=== PATIENT | female | born 1930 | race African-American/Black ===

== ENCOUNTER 2016-11-17 11:21 | Inpatient (IN) | payer MEDICARE, MEDICAID ==
[~2016-11-17] VITALS: Ht 165.1 cm; Wt 72.6 kg
[~2016-11-17 11:21] MED LIST: COLACE100 MG/10 GT; COSOPT1 DRO2 BOTH EYES; CRANBERRY425 MG GT; FERROUS SU220 MG/51 GT; LATANOPROST2.5 ML BOTH EYES; LEVAQUIN500 MG ORAL; MILK OF MA400 MG/51 GT; MULTIVITAMINS1 EAC8 GT; PANTOPRAZOLE SO40 MG GT; SIMVASTATIN20 MG GT; TENORMIN25 MG ORAL; TYLENOL650 MG/20. GT; VITAMIN C250 MG GT; VITAMIN C500 MG/11 GT; ZINC SULFATE220 M1 ORAL
[2016-11-17 11:50] VITALS: BP 129/89
[2016-11-17 12:48] LABS: BASOPHILS % (AUTO) 1.2 % (0.0-2.0); EOSINOPHILS % (AUTO) 2.1 % (0.0-3.0); LYMPHOCYTES % (AUTO) 25.2 % (20.0-45.0); MEAN CORPUSCULAR HEMOGLOBIN 26.5 PG (27.0-31.0); MEAN CORPUSCULAR HGB CONC 31.9 G/DL (32.0-36.0); MEAN CORPUSCULAR VOLUME 83 FL (80-99); MEAN PLATELET VOLUME 5.5 FL (6.5-10.1); MONOCYTES % (AUTO) 7.7 % (1.0-10.0); NEUTROPHILS % (AUTO) 63.8 % (45.0-75.0); PLATELET COUNT 325 K/UL (150-450); RED BLOOD COUNT 4.27 M/UL (4.20-5.40); RED CELL DISTRIBUTION WIDTH 17.8 % (11.6-14.8); WHITE BLOOD COUNT 5.5 K/UL (4.8-10.8)
[2016-11-17] MEDS ORDERED: ALBUTEROL2.5 MG/3 M INH (12:52)
--- NOTE | 2016-11-17 13:08 | Emergency Room Report ---
History of Present Illness General Chief Complaint: General Complaint Source: Medical Record Present Illness HPI 86 YOF sent from SNF by PMD Dr Vidales for ?osteomyelitis of right big toe/ foot. Patient recently completed course of Abx for ?cellulitis/abscess of foot. SNF denies fever/chills. Patient is trach/vented, not providing additional info at this time. Allergies: Coded Allergies: No Known Allergies (Unverified , 05/31/12) Patient History Past Medical History: HTN, COPD Past Surgical History: other - Trach/PEG Pertinent Family History: none Social History: Denies: alcohol use, drug use, smoking Now: No Immunizations: UTD Reviewed Nursing Documentation: PMH: Agreed, PSxH: Agreed Nursing Documentation-PMH Hx Cardiac Problems: Yes Hx Hypertension: Yes Hx COPD: Yes - respiratory failure. vent dependant Hx Cancer: No Hx Gastrointestinal Problems: Yes Hx Neurological Problems: Yes Hx Dementia: Yes Hx Weakness: Yes Review of Systems All Other Systems: limited - Aphasic Physical Exam Vital Signs Date Time Temp Pulse Resp B/P Pulse Ox O2 Delivery O2 Flow Rate FiO2 11/17/16 11:38 98.4 104 18 120/79 100 11/17/16 11:50 Mechanical Ventilator [id number] EP Interpretation: reviewed, normal General Appearance: normal inspection, well appearing, no apparent distress, alert, GCS 15, non-toxic, obese, Chronically Ill Head: normocephalic, atraumatic Eyes: bilateral eye EOMI, bilateral eye PERRL ENT: normal ENT inspection, normal pharynx, no angioedema Neck: normal inspection, full range of motion, supple, no bony tend Respiratory: normal inspection, lungs clear, normal breath sounds, no respiratory distress, no retraction, no wheezing, other - Trach in place. 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 There is some necrotic hard tissue of big toe, No obvious fluid collection. No erythema or streaking. Medical Decision Making Diagnostic Impression: Primary Impression: wound ER Course 86 YOF with chronic wound right big toe. VSS. Afebrie. No obvious sign of infection No sepsis or systemic illness Empiric tx with Unasyn/Vanc for ?osteo Xray:Pending official Rad review Labs: No leuks Endorsed to Dr Vidales at 108pm for med surg admission Blood Cx pending EKG Diagnostic Results Rate: normal Rhythm: NSR ST Segments: no acute changes ASA given to the pt in ED: No Rhythm Strip Diag. Results EP Interpretation: yes Rate: 100 Rhythm: NSR, no PVC's, no ectopy Last Vital Signs Date Time Temp Pulse Resp B/P Pulse Ox O2 Delivery O2 Flow Rate FiO2 11/17/16 11:50 98.2 99 30 129/89 100 Mechanical Ventilator Status: improved Disposition: ADMITTED INPATIENT Condition: Serious Referrals: JAYLEN VIDALES (PCP) KATHLEEN BARRETO M.D. Nov 17, 2016 13:08
[2016-11-17 13:19] LABS: ALANINE AMINOTRANSFERASE 35 U/L (3-33); ALBUMIN/GLOBULIN RATIO 0.4 (1.0-2.7); ANION GAP 15 (5-15); ASPARTATE AMINO TRANSFERASE 34 U/L (5-40); CALCIUM 9.4 mg/dL (8.6-10.2); CARBON DIOXIDE 23 mEQ/L (20-30); CHLORIDE 94 mEQ/L (98-107); CREATININE 0.9 mg/dL (0.5-0.9); HEMOLYSIS 3; POTASSIUM 4.5 mEQ/L (3.4-4.9); SODIUM 132 mEQ/L (135-145); TOTAL PROTEIN 8.8 g/dL (6.6-8.7)
[2016-11-17 13:29] LABS: CKMB < 1.5 ng/mL (< 3.8)
[2016-11-17] MEDS ORDERED: Ampicillin/Sulbactam Sod 1.5 GM in NS 55 ML IVPB STA (13:32)
[2016-11-17] MEDS ORDERED: Vancomycin 1 GM in NS 275 ML IVPB ONE (13:45)
[2016-11-17] MEDS ORDERED: Vancomycin 1gm inj IVPB ONE (13:56)
[2016-11-17] MEDS ORDERED: Unasyn 1.5gm Vial ONE (13:57)
[2016-11-17 14:00] VITALS: BP 111/75
--- NOTE | 2016-11-17 14:05 | Diagnostic Imaging Report ---
Indication: PAIN Technique: 2 views right foot Comparison: none Findings: Exam is limited due to the availability of only 2 views. Bones are severely demineralized. No acute fractures. No dislocations. There is hammertoe deformity of the second through fifth digits. Joint spaces are preserved. No definite osseous erosions, but generalized demineralization makes osteolytic process impossible to confidently exclude. Impression: Very limited exam. No definite acute bony trauma No definite findings to suggest acute osteomyelitis. Note, however, limited sensitivity of plain films for such. Consider bone scan or MRI for further evaluation if there is high clinical suspicion
[2016-11-17 16:04] VITALS: BP 99/66
[2016-11-17 17:00] VITALS: BP 138/94
[2016-11-17] MEDS ORDERED: Morphine Sulfate 4mg/ml Inj IVP PRN (17:45)
[2016-11-17] MEDS ORDERED: Miralax 17gm pkt ORAL PRN (17:45)
[2016-11-17] MEDS ORDERED: DuoNeb 0.5-3(2.5)mg/3ml neb HHN PRN (17:45)
[2016-11-17] MEDS ORDERED: LORazepam Inj 2mg/ml 1ml IV PRN (17:45)
--- NOTE | 2016-11-17 17:48 | History and Physical ---
History of Present Illness General Date patient seen: Nov 17, 2016 Reason for Hospitalization: General Complaint Present Illness HPI 86 year old female with hx of Chronic trach/vent, PEG sent from SNF for evaluaiton of non healing wound of the right big toe/foot. XR in nursing showed that she might have osteomyelitis. Patient can't give any history and all information is taken from the chart. Allergies: Coded Allergies: No Known Allergies (Unverified , 05/31/12) Medication History Scheduled Ascorbic Acid* (Vitamin C*), 5 MG GT DAILY, (Reported) Atenolol (Tenormin), 25 MG ORAL DAILY, (Reported) Docusate Sodium (Docusate Sodium), 50 MG GT DAILY, (Reported) Ferrous Sulfate (Ferrous Sulfate), 330 MG GT DAILY, (Reported) Latanoprost* (Xalatan*), 1 DROP BOTH EYES BEDTIME, (Reported) Levofloxacin* (Levaquin*), 500 MG ORAL DAILY, (Reported) Multivitamin With Minerals (Multivitamins With Minerals*), 1 TAB GT DAILY, ( Reported) Pantoprazole* (Pantoprazole*), 40 MG GT EVERY 12 HOURS, (Reported) Simvastatin (Zocor), 20 MG GT BEDTIME, (Reported) Vit C/Ascorbate Ca/Ascorb Sod (Vitamin C 500 Mg/15 Ml Liquid), 500 MG GT DAILY, (Reported) Zinc Sulfate (Zinc Sulfate*), 220 MG ORAL DAILY, (Reported) Scheduled PRN Acetaminophen (Acetaminophen), 325 MG GT Q6H PRN for Prn Headache/Temp > 101, ( Reported) Albuterol Sulfate* (Albuterol Sulfate Hhn*), 3 ML INH Q6H PRN for Shortness of Breath, (Reported) Magnesium Hydroxide* (Milk Of Magnesia*), 30 ML GT Q6HR PRN for Constipation, ( Reported) Miscellaneous Medications Cranberry Extract (Cranberry), 425 MG GT, (Reported) Dorzolamide HCl/Timolol Maleat (Dorzolamide-Timolol Eye Drops), 1 DROP BOTH EYES , (Reported) Patient History Healthcare decision maker Resuscitation status Full Code Advanced Directive on File Past Medical/Surgical History Past Medical/Surgical History: (1) Status post tracheostomy (2) [facility] resident (3) COPD (chronic obstructive pulmonary disease) (4) Attention to G-tube (5) Anemia (6) Dementia Review of Systems All Other Systems: negative except mentioned in HPI Physical Exam General Appearance: WD/WN Lines, tubes and drains: peripheral, central line, trach HEENT: normocephalic, atraumatic Neck: non-tender, normal alignment Respiratory/Chest: chest wall non-tender, lungs clear Cardiovascular/Chest: normal peripheral pulses, normal rate Abdomen: normal bowel sounds, non tender Genitourinary/Rectal: normal genital exam Last 24 Hour Vital Signs Date Time Temp Pulse Resp B/P Pulse Ox O2 Delivery O2 Flow Rate FiO2 11/17/16 16:46 90 16 30 11/17/16 16:04 98.2 98 15 99/66 98 Mechanical Ventilator 30 11/17/16 16:04 98.2 98 15 99/66 98 Mechanical Ventilator 30 11/17/16 15:01 92 16 30 11/17/16 14:00 98.3 94 16 111/75 100 Mechanical Ventilator 30 11/17/16 13:45 93 16 30 11/17/16 11:50 96 16 Mechanical Ventilator 30 11/17/16 11:50 98.2 99 30 129/89 100 Mechanical Ventilator 11/17/16 11:50 91 16 30 11/17/16 11:38 98.4 104 18 120/79 100 Laboratory Tests Test 11/17/16 12:40 White Blood Count 5.5 K/UL (4.8-10.8) Red Blood Count 4.27 M/UL (4.20-5.40) Hemoglobin 11.3 G/DL (12.0-16.0) L Hematocrit 35.4 % (37.0-47.0) L Mean Corpuscular Volume 83 FL (80-99) Mean Corpuscular Hemoglobin 26.5 PG (27.0-31.0) L Mean Corpuscular Hemoglobin Concent 31.9 G/DL (32.0-36.0) L Red Cell Distribution Width 17.8 % (11.6-14.8) H Platelet Count 325 K/UL (150-450) Mean Platelet Volume 5.5 FL (6.5-10.1) L Neutrophils (%) (Auto) 63.8 % (45.0-75.0) Lymphocytes (%) (Auto) 25.2 % (20.0-45.0) Monocytes (%) (Auto) 7.7 % (1.0-10.0) Eosinophils (%) (Auto) 2.1 % (0.0-3.0) Basophils (%) (Auto) 1.2 % (0.0-2.0) Sodium Level 132 mEQ/L (135-145) L Potassium Level 4.5 mEQ/L (3.4-4.9) Chloride Level 94 mEQ/L (98-107) L Carbon Dioxide Level 23 mEQ/L (20-30) Anion Gap 15 (5-15) Blood Urea Nitrogen 35 mg/dL (7-23) H Creatinine 0.9 mg/dL (0.5-0.9) Estimat Glomerular Filtration Rate mL/min (>60) Glucose Level 112 mg/dL (74-106) H Calcium Level 9.4 mg/dL (8.6-10.2) Total Bilirubin 0.5 mg/dL (0.0-1.2) Aspartate Amino Transf (AST/SGOT) 34 U/L (5-40) Alanine Aminotransferase (ALT/SGPT) 35 U/L (3-33) H Alkaline Phosphatase 97 U/L (35-104) Creatine Kinase MB < 1.5 ng/mL (< 3.8) Total Protein 8.8 g/dL (6.6-8.7) H Albumin 2.7 g/dL (3.5-5.2) L Globulin 6.1 g/dL Albumin/Globulin Ratio 0.4 (1.0-2.7) L Height (Feet): 5 Height (Inches): 5.00 Weight (Pounds): 160 Assessment/Plan Problem List: (1) Chronic respiratory failure ICD Codes: J96.10 - Chronic respiratory failure, unspecified whether with hypoxia or hypercapnia SNOMED: 76124939 Qualifiers: Qualified Codes: J96.10 - Chronic respiratory failure, unspecified whether with hypoxia or hypercapnia (2) Wound abscess ICD Codes: T81.4XXA - Wound abscess SNOMED: 574849520 Qualifiers: Qualified Codes: T81.4XXA - Infection following a procedure, initial encounter (3) COPD (chronic obstructive pulmonary disease) ICD Codes: J44.9 - Chronic obstructive pulmonary disease, unspecified SNOMED: 53260173 Qualifiers: Qualified Codes: J44.9 - Chronic obstructive pulmonary disease, unspecified (4) Attention to G-tube ICD Codes: Z43.1 - Encounter for attention to gastrostomy SNOMED: 480251706, 167781965 (5) Sepsis ICD Codes: A41.9 - Sepsis, unspecified organism SNOMED: 91443677 (6) Status post tracheostomy ICD Codes: Z93.0 - Tracheostomy status SNOMED: 77393869, 249386823 (7) [facility] resident ICD Codes: Z59.3 - Problems related to living in residential institution SNOMED: 703341890 Respiratory: monitor respiratory rate, adjust FIO2 Cardiac: continue to monitor HR/BP Renal: F/U I&O, keep IV fluid, check electrolytes Infectious Disease: check cultures, continue antibiotics, other - podiatry evaluaiton Gastrointestinal: continue feedings/current rate Endocrine: monitor blood sugar, check TSH Hematologic: monitor H/H Neurologic: PRN Ativan Affect: PRN ativan Prophylaxis: Protonix, Heparin Notes Reviewed: ID Discussed with: nurses, consultants, nurse case manager JAYLEN ANNE Nov 17, 2016 17:48
[2016-11-17] MEDS: Cefepime HCl 1 GM in D5W 55 ML IVPB SCH (20:35)
[2016-11-17] MEDS: Heparin 5000 units/ml inj SUBQ SCH (20:38)
[2016-11-17 21:31] VITALS: BP 138/94
[2016-11-18] VITALS (7 sets, daily range): BP systolic 110–151; BP diastolic 58–76
[2016-11-18 04:34] LABS: BASOPHILS % (AUTO) 1.2 % (0.0-2.0); EOSINOPHILS % (AUTO) 2.5 % (0.0-3.0); LYMPHOCYTES % (AUTO) 43.2 % (20.0-45.0); MEAN CORPUSCULAR HEMOGLOBIN 27.8 PG (27.0-31.0); MEAN CORPUSCULAR HGB CONC 31.8 G/DL (32.0-36.0); MEAN CORPUSCULAR VOLUME 88 FL (80-99); MEAN PLATELET VOLUME 5.5 FL (6.5-10.1); MONOCYTES % (AUTO) 16.7 % (1.0-10.0); NEUTROPHILS % (AUTO) 36.4 % (45.0-75.0); PLATELET COUNT 293 K/UL (150-450); RED BLOOD COUNT 3.87 M/UL (4.20-5.40); WHITE BLOOD COUNT 6.4 K/UL (4.8-10.8)
[2016-11-18 05:13] LABS: ANION GAP 12 (5-15); CALCIUM 9.3 mg/dL (8.6-10.2); CARBON DIOXIDE 23 mEQ/L (20-30); CHLORIDE 100 mEQ/L (98-107); CREATININE 0.8 mg/dL (0.5-0.9); HEMOLYSIS 0; PHOSPHORUS 3.6 mg/dL (2.5-4.8); POTASSIUM 4.5 mEQ/L (3.4-4.9); SODIUM 135 mEQ/L (135-145)
[2016-11-18] MEDS: Atenolol 25mg tab ORAL SCH (10:01)
[2016-11-18] MEDS: Heparin 5000 units/ml inj SUBQ SCH ×2 (10:05→20:09)
[2016-11-18] MEDS ORDERED: Lidocaine 1% Plain 30 ml INJ ONE (14:00)
[2016-11-18] MEDS ORDERED: Heparin 2000 units/Ns 1000ml INJ ONE (14:00)
--- NOTE | 2016-11-18 14:13 | Consultation ---
Consult Note Consult Note ID CONSULT: Stormy# [id number] Assessment/Plan ASSESSMENT: 86 y/o female with: // Multiple chronic RLE ( hallux, heel, calf ) ulcers, probable osteomyelitis, PVD - WCx pending - XR: Very limited exam. No definite acute bony trauma. 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 Will likely require 6 weeks IV ABX - check ESR, CRP - f/u cultures - f/u doppler, re-vascularization, if indicated - monitor CBC, temperatures - monitor BMP - monitor CXR - vent support, trach care, aspiration precautions - wound care Thanks! Will follow MÓNICA JORDAN Nov 18, 2016 14:13
--- NOTE | 2016-11-18 14:47 | Pulmonology Progress Note ---
Assessment/Plan Problems: (1) Chronic respiratory failure (2) Wound abscess (3) COPD (chronic obstructive pulmonary disease) (4) Attention to G-tube (5) Sepsis (6) Status post tracheostomy (7) [facility] resident Respiratory: monitor respiratory rate, adjust FIO2 Cardiac: continue to monitor HR/BP Renal: F/U I&O, keep IV fluid, check electrolytes Infectious Disease: check cultures, continue antibiotics Gastrointestinal: continue feedings/current rate Endocrine: monitor blood sugar, continue sliding scale insulin Hematologic: monitor H/H, transfuse if hgb<8.5 Neurologic: PRN Ativan, keep patient comfortable Affect: PRN ativan Prophylaxis: Protonix, Heparin Discussed with: nurses, consultants, counseling case manager Subjective ROS Limited/Unobtainable: Yes Allergies: Coded Allergies: No Known Allergies (Unverified , 05/31/12) Objective Last 24 Hour Vital Signs Date Time Temp Pulse Resp B/P Pulse Ox O2 Delivery O2 Flow Rate FiO2 11/18/16 13:20 81 33 30 11/18/16 12:00 30 11/18/16 11:03 86 20 30 11/18/16 10:01 88 113/58 11/18/16 09:02 88 16 30 11/18/16 08:00 97.9 85 16 113/58 99 Mechanical Ventilator 30 11/18/16 08:00 30 11/18/16 08:00 85 11/18/16 07:26 92 15 30 11/18/16 05:20 91 16 30 11/18/16 04:00 30 11/18/16 04:00 98.1 92 19 110/76 99 Mechanical Ventilator 30 11/18/16 03:34 90 11/18/16 03:20 89 18 30 11/18/16 01:05 93 24 30 11/18/16 00:00 30 11/18/16 00:00 98.1 92 19 116/75 100 Mechanical Ventilator 30 11/17/16 23:57 93 11/17/16 23:05 91 28 30 11/17/16 21:24 92 30 30 11/17/16 20:00 30 11/17/16 20:00 87 11/17/16 19:10 95 16 30 11/17/16 17:00 97.7 99 22 138/94 98 Mechanical Ventilator 30 11/17/16 16:46 90 16 30 11/17/16 16:04 98.2 98 15 99/66 98 Mechanical Ventilator 30 11/17/16 16:04 98.2 98 15 99/66 98 Mechanical Ventilator 30 11/17/16 15:01 92 16 30 Intake and Output 11/17/16 11/18/16 19:00 07:00 Intake Total 248 ml 1020 ml Output Total 200 ml Balance 248 ml 820 ml Intake Oral 0 ml Free Water 100 ml IV Total 238 ml 710 ml Tube Feeding 10 ml 210 ml Output Urine Total 200 ml # Bowel Movements 1 General Appearance: WD/WN HEENT: normocephalic, atraumatic Respiratory/Chest: chest wall non-tender, lungs clear Breasts: no masses Cardiovascular: normal peripheral pulses, normal rate Abdomen: normal bowel sounds, soft, non tender Genitourinary: normal external genitalia Extremities: no cyanosis Skin: no rash 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 grossly normal, no motor/sensory deficits Laboratory Tests 11/18/16 03:30: White Blood Count 6.4, Red Blood Count 3.87L, Hemoglobin 10.8L, Hematocrit 33.9L , Mean Corpuscular Volume 88, Mean Corpuscular Hemoglobin 27.8, Mean Corpuscular Hemoglobin Concent 31.8L, Red Cell Distribution Width 18.0H, Platelet Count 293, Mean Platelet Volume 5.5L, Neutrophils (%) (Auto) 36.4L, Lymphocytes (%) (Auto) 43.2, Monocytes (%) (Auto) 16.7H, Eosinophils (%) (Auto) 2.5, Basophils (%) (Auto) 1.2, Sodium Level 135, Potassium Level 4.5, Chloride Level 100, Carbon Dioxide Level 23, Anion Gap 12, Blood Urea Nitrogen 25H, Creatinine 0.8, Estimat Glomerular Filtration Rate , Glucose Level 91, Calcium Level 9.3, Phosphorus Level 3.6, Albumin 2.4L Current Medications Medications (Trade) Dose Ordered Sig/Mora Route PRN Reason Start Time Stop Time Status Last Admin Dose Admin Acetaminophen (Tylenol) 650 mg Q4H PRN ORAL FEVER 11/17/16 17:45 12/17/16 17:44 Albuterol/ Ipratropium 3 ml 3 ml EVERY 4 HOURS PRN HHN Shortness of Breath 11/17/16 17:45 11/22/16 17:44 Ascorbic Acid (Vitamin C) 500 mg TWICE A DAY ORAL 11/18/16 18:00 12/18/16 17:59 Atenolol 25 mg 25 mg DAILY ORAL 11/18/16 09:00 12/18/16 08:59 11/18/16 10:01 Cefepime HCl 1 gm/ Dextrose 55 ml @ 110 mls/hr Q24H IVPB 11/17/16 21:00 11/24/16 20:59 11/17/16 20:35 Dextrose (Dextrose 50%) STAT PRN IV Hypoglycemia 11/17/16 17:45 12/17/16 17:44 Heparin Sodium (Porcine) (Heparin 5000 units/ml) 5,000 units EVERY 12 HOURS SUBQ 11/17/16 21:00 12/17/16 20:59 11/18/16 10:05 Lorazepam (Ativan 2mg/ml 1ml) 2 mg EVERY 2 HOURS PRN IV For Anxiety 11/17/16 17:45 11/24/16 17:44 Morphine Sulfate (Morphine Sulfate) 4 mg EVERY 4 HOURS PRN IVP Severe Pain (Pain Scale 7-10) 11/17/16 17:45 11/24/16 17:44 Ondansetron HCl (Zofran) 4 mg Q6H PRN IVP Nausea & Vomiting 11/17/16 17:45 12/17/16 17:44 Polyethylene Glycol (Miralax) 17 gm DAILYPRN PRN ORAL Constipation 11/17/16 17:45 12/17/16 17:44 Sodium Chloride (0.45% NS 1000ml) 1,000 ml @ 50 mls/hr Q20H IV 11/17/16 21:00 12/17/16 20:59 11/17/16 19:06 Vancomycin HCl (Vanco rx to dose) 1 ea DAILY PRN MISC . 11/17/16 18:45 12/17/16 18:44 Vancomycin HCl/ Dextrose (Vancomycin/D5W) 275 ml @ 183.3 mls/ hr Q24H IVPB 11/18/16 14:00 11/23/16 13:59 JAYLEN ANNE Nov 18, 2016 14:47
[2016-11-18] MEDS: Vancomycin 1 GM in D5W 275 ML IVPB SCH (15:00)
--- NOTE | 2016-11-18 15:00 | Wound Care Consultation ---
Wound Assessment Wound Assessment #1: Wound Number: #1 Wound Present on Admission: Yes New Wound: No Wound Location Body Site Modif: right Wound Location Body Site: heel Wound Type: pressure ulcer Juan Manuel Test: Does not Juan Manuel Pressure Ulcer Stage: IV/unstageable Wound Thickness: Full Thickness Wound Length: 6.0 Wound Width: 5.0 Wound Depth: utd Percent of Wound Kevin/Red: 70 Percent of Wound Bed Yellow/Wh: 30 Wound Drainage Description: Serosanguineous Wound Drainage Amount: Copious Wound Drainage Odor: None/Absent Tissue Surrounding Wound: Macerated Wound General Appearance: Reddened, Draining, Necrotic Wound Assessment #2: Wound Number: #2 Wound Present on Admission: Yes New Wound: No Status Change of Wound: No Wound Location Body Site Modif: right, posterior Wound Location Body Site: other - achilles tendon Wound Type: pressure ulcer Juan Manuel Test: Does not Juan Manuel Pressure Ulcer Stage: IV/unstageable Wound Thickness: Full Thickness Wound Length: 7.5 Wound Width: 1.5 Wound Depth: 0.3 Percent of Wound Kevin/Red: 70 Percent of Wound Bed Yellow/Wh: 30 Wound Drainage Description: Serosanguineous Wound Drainage Amount: Moderate Wound Drainage Odor: None/Absent Tissue Surrounding Wound: Macerated Wound General Appearance: Reddened, Draining, Necrotic, Tendon Visible Wound Assessment #3: Wound Number: #3 Wound Present on Admission: Yes New Wound: No Status Change of Wound: No Wound Location Body Site Modif: right, dorsal - aspect of Wound Location Body Site: foot Wound Type: pressure ulcer Juan Manuel Test: Does not Juan Manuel Pressure Ulcer Stage: deep tissue injury - suspected Deep tissue injury Wound Thickness: Full Thickness Wound Length: 3.0 Wound Width: 2.0 Wound Depth: utd Percent of Wound Purple/Maroon: 100 Wound Drainage Amount: None Wound Drainage Odor: None/Absent Tissue Surrounding Wound: Erythemic Wound Assessment #4: Wound Number: #4 Wound Present on Admission: Yes New Wound: No Status Change of Wound: No Wound Location Body Site Modif: right Wound Location Body Site: toe Wound Type: pressure ulcer Juan Manuel Test: Does not Juan Manuel Pressure Ulcer Stage: IV/unstageable Wound Thickness: Full Thickness Wound Length: 2.0 Wound Width: 2.0 Wound Depth: utd Percent of Wound Black/Brown: 100 Wound Drainage Amount: None Wound Drainage Odor: None/Absent Tissue Surrounding Wound: thick dry. Wound General Appearance: Necrotic Wound Comment #1 Right heel pressure ulcer stage IV/Unstageable. #2 Right posterior achilles tendon pressure ulcer stage IV/Unstageable. #3 Right dorsal aspect of foot Suspected Deep tissue injury. #4 Right 1st toe pressure ulcer stage IV/unstageable with thick necrotic tissue adhered. Recommendation. -FOLLOW UP WITH ATTENDING MD FOR PODIATRY CONSULT FOR RIGHT FOOT MULTIPLE WOUNDS. -Apply low air loss overlay mattress -Local wound as ordered. -Keep clean and dry. -Optimize nutrition. -Turn and reposition. -Heel protectors. -Offload heels and feet. -Assess and notify MD for any changes of condition. MAYO CARRINGTON Nov 18, 2016 14:59
--- NOTE | 2016-11-18 15:14 | General Progress Note ---
Progress Note Progress Note pt needs picc line, doesn't have any family to sign consent. She is not able to sing herself. JAYLEN ANNE Nov 18, 2016 15:14
--- NOTE | 2016-11-18 17:30 | Consultation ---
DATE OF CONSULTATION: 11/18/2016 INFECTIOUS DISEASE CONSULTATION CONSULTING PHYSICIAN: Delio Spaulding M.D. REFERRING PHYSICIAN: Sonu Vidales M.D. REASON FOR CONSULTATION: Osteomyelitis. HISTORY OF PRESENT ILLNESS: This is an 86-year-old female, a retirement resident, chronically ventilator dependent, admitted on 11/17/2016 with worsening right lower extremity ulcers. The patient has chronic ulcers, previously present on last admission in June of 2016. They are visually worse. An x-ray shows no definite findings to suggest acute osteomyelitis; however, this is a fairly insensitive exam. A wound culture is pending, as are arterial and venous Dopplers. She is afebrile without leukocytosis, and has been started on empiric IV vancomycin and cefepime. ID now consulted to assist in management. PAST MEDICAL HISTORY: 1. Chronic ventilator-dependent respiratory failure. 2. Chronic obstructive pulmonary disease. 3. Dementia. 4. History of stroke. 5. Chronic right lower extremity ulcers. PAST SURGICAL HISTORY: 1. Tracheostomy. 2. PEG tube placement. FAMILY HISTORY: Unknown. SOCIAL HISTORY: The patient is a resident of a retirement. No active tobacco, alcohol, or illicit drug abuse. ALLERGIES: No known drug allergies. MEDICATIONS: 1. IV vancomycin day #2. 2. Cefepime day #2. 3. Atenolol. 4. Subcutaneous heparin. REVIEW OF SYSTEMS: Unable to obtain. PHYSICAL EXAMINATION: VITAL SIGNS: Maximum temperature 98.4, blood pressure 113/58, heart rate in the 80s, respiratory rate 20, and saturating 99% on 30% FiO2. GENERAL: The patient is nonresponsive on the ventilator. HEENT: Tracheostomy tube in place. CARDIOVASCULAR: Regular rate and rhythm. No murmurs. PULMONARY: Coarse breath sounds bilaterally. ABDOMINAL: Bowel sounds present. Soft, nondistended, and nontender. PEG tube and Whitehead catheter in place. EXTREMITIES: Edema. Right lower extremity ulcers' photographs reviewed, currently bandaged. LABORATORY DATA: White blood cell count 6.4, hemoglobin 10.8, and platelets 293,000. Sodium 135, potassium 4.5, chloride 100, bicarbonate 23, BUN 25, and creatinine is 0.8. Liver function tests within normal limits. MICROBIOLOGY: 1. 11/18/2016, wound culture pending. 2. 11/17/2016, blood culture pending. IMAGIN. 11/17/2016, right foot x-ray, no definite findings to suggest acute osteomyelitis. Please refer to full report for full details. 2. 11/17/2016, arterial and venous Dopplers pending. ASSESSMENT: 1. Multiple chronic right lower extremity ulcers and probable osteomyelitis and peripheral vascular disease. Wound cultures pending. X-ray is negative for acute osteomyelitis, however, limited. Arterial and venous Dopplers are pending. 2. Afebrile without leukocytosis. 3. Chronic ventilator-dependent respiratory failure, status post tracheostomy and percutaneous endoscopic gastrostomy. 4. Dementia and history of stroke. 5. alf resident. 6. Multi-drug resistant organism colonized. 7. No known drug allergies. 8. Full Code. PLAN: 1. Continue empiric IV vancomycin and cefepime day #2. We will likely require six weeks of IV antibiotics. 2. Check ESR and CRP. 3. Follow up cultures. 4. Follow up Doppler and revascularization if indicated. 5. Monitor CBC and temperatures. 6. Monitor BMP. 7. Monitor chest x-ray. 8. Ventilator support, tracheostomy care, and aspiration precautions. 9. Wound care. Thank you. We will follow. Delio Spaulding M.D. DR: JULIANNA JOB#: [id number] CC: Sonu Vidales M.D.; Fax#: [phone] Alborzi, M.D ; Fax#: [phone]
[2016-11-18] MEDS: Ascorbic Acid 500mg tab ORAL SCH (17:42)
--- NOTE | 2016-11-18 18:01 | Consultation ---
Consult Note Consult Note 86 year old female with trach on vent is unable to communicate. She was transferred from a residential facility for non healing right heel ulcer Assessment/Plan Assessment: - Right heel decubitus ulcer. Possible osteo - Posterior distal right leg ulcer - Right hallux with dry eschar at the distal tip - Peripheral vascular disease Plan: - Took cultures of wound - Ordered vascular studies - Ordering bone scan - Start daily wet to dressing changes of right heel with thin layer of mupirocin covered with adaptic, 4x4 gauze and kerlix - Continue aggressive offloading of heels with using heel protectors and floating heels Marquise Weber DPM Nov 18, 2016 18:01
[2016-11-18] MEDS: Cefepime HCl 1 GM in D5W 55 ML IVPB SCH (20:07)
[2016-11-19] VITALS: BP 137/57
--- NOTE | 2016-11-19 01:39 | Consultation ---
DATE OF CONSULTATION: 11/18/2016 CONSULTING PHYSICIAN: Marquise Weber DPM. covering for Raf Ramos D.P.M. ATTENDING PHYSICIAN: Sonu Vidales M.D. REFERRING PHYSICIAN: Sonu Vidales M.D. REASON FOR CONSULTATION: Right foot ulceration. HISTORY OF PRESENT ILLNESS: The patient is an 86-year-old female with tracheostomy, on a ventilator, who was unable to communicate effectively. Therefore history was obtained from reviewing the chart. The patient is a resident of a [facility]. She has a history of right heel ulceration. The wound was present at her last admission in June 2016. PAST MEDICAL HISTORY: 1. Anemia. 2. Dementia. 3. Chronic respiratory failure. 4. Endotracheal intubation. 5. Urinary tract infection. PAST SURGICAL HISTORY: 1. Tracheostomy. 2. Percutaneous endoscopic gastrostomy tube placement. ALLERGIES: No known. MEDICATIONS: Antibiotics, vancomycin and cefepime. Please refer to the chart for all other medications. FAMILY HISTORY: Unable to obtain. SOCIAL HISTORY: Unable to obtain. REVIEW OF SYSTEMS: Unable to obtain. PHYSICAL EXAMINATION: VITAL SIGNS: On 11/18/2016 at times 1702 hours, temperature was 97.8 degrees, pulse 75, respiratory rate 16, and O2 saturation 99% on mechanical ventilator. DERMATOLOGICAL: Right heel ulceration is measuring approximately 5 cm x 5 cm x 0.3 cm deep. The wound is a full-thickness ulceration. No purulence or malodor noted. There is a thin layer of soft tissue covering the calcaneus. There is another wound to the posterior distal aspect of the right leg measuring approximately 8 cm x 1.5 cm x 0.2 cm. This wound was also full thickness ulcer without any purulence or malodor and dissected down to the subcutaneous tissues and there was a dry stable eschar on the right dorsal foot and hyperpigmented and dry stable eschar at the distal tip of the right hallux. NEUROLOGICAL: The patient responds to stress stimulus. EXTREMITIES: Tibial pulses are nonpalpable. The wound has no surrounding erythema or edema. MUSCULOSKELETAL: Unable to assess muscle strength. LABORATORY DATA: White blood cell count is 6.4, red blood cell count 3.7, hemoglobin 10.8, hematocrit 33.9, and platelets of 293,000 with neutrophils of 36.4. Sodium is 135, potassium 4.5, chloride 100, CO2 23, BUN 25, and creatinine 0.8. IMAGING STUDIES: Two-views of the right foot, very limited exam. No definitive findings to suggest acute osteomyelitis. ASSESSMENT: 1. Right heel decubitus ulcer, possible osteomyelitis. 2. Posterior distal right leg ulcer, right hallux and dry eschar at the distal tip. 3. Peripheral vascular disease. PLAN: 1. Obtain wound cultures. 2. Order vascular studies. 3. Order bone scan. 4. Start wound care. 5. Continue aggressive offloading of heels with the heel protectors and floating heel. Thank you for your consultation. Marquise Weber DPM DR: Leidy JOB#: [id number] CC: JEYSON
[2016-11-19 04:00] VITALS: BP 132/72
[2016-11-19 08:00] VITALS: BP 108/44
[2016-11-19] MEDS: Heparin 5000 units/ml inj SUBQ SCH ×2 (08:56→21:05)
[2016-11-19] MEDS: Ascorbic Acid 500mg tab ORAL SCH ×2 (08:56→17:48)
[2016-11-19] MEDS: Atenolol 25mg tab ORAL SCH (08:58)
--- NOTE | 2016-11-19 11:14 | Pulmonology Progress Note ---
Assessment/Plan Problems: (1) Chronic respiratory failure (2) Wound abscess (3) COPD (chronic obstructive pulmonary disease) (4) Attention to G-tube (5) Sepsis (6) Status post tracheostomy (7) intermediate resident Respiratory: monitor respiratory rate, adjust FIO2, CXR Cardiac: continue to monitor HR/BP Renal: F/U I&O, keep IV fluid Infectious Disease: add antibiotics Gastrointestinal: continue feedings/current rate Endocrine: monitor blood sugar, check TSH, continue sliding scale insulin Hematologic: monitor H/H Affect: PRN ativan Notes Reviewed: ID Discussed with: nurses, consultants, insurance case manager Subjective ROS Limited/Unobtainable: Yes Allergies: Coded Allergies: No Known Allergies (Unverified , 05/31/12) Objective Last 24 Hour Vital Signs Date Time Temp Pulse Resp B/P Pulse Ox O2 Delivery O2 Flow Rate FiO2 11/19/16 09:10 86 16 30 11/19/16 08:58 85 110/44 11/19/16 08:00 78 11/19/16 08:00 30 11/19/16 08:00 97.9 83 17 108/44 100 Mechanical Ventilator 30 11/19/16 06:54 88 24 30 11/19/16 05:05 79 24 30 11/19/16 04:00 30 11/19/16 04:00 85 11/19/16 04:00 97.5 84 18 132/72 100 Mechanical Ventilator 30 11/19/16 03:00 84 22 30 11/19/16 01:05 79 16 30 11/19/16 00:00 30 11/19/16 00:00 79 11/19/16 00:00 98.0 80 16 137/57 100 Mechanical Ventilator 30 11/18/16 23:10 80 25 30 11/18/16 21:05 78 21 30 11/18/16 20:00 30 11/18/16 20:00 80 11/18/16 19:58 97.5 77 19 116/66 99 Mechanical Ventilator 30 11/18/16 18:50 77 16 30 11/18/16 17:02 75 16 30 11/18/16 16:10 97.8 82 19 151/76 99 Mechanical Ventilator 30 11/18/16 16:00 78 11/18/16 16:00 30 11/18/16 15:09 80 16 30 11/18/16 14:00 85 11/18/16 13:20 81 33 30 11/18/16 12:00 97.7 82 19 117/62 99 Mechanical Ventilator 30 11/18/16 12:00 89 11/18/16 12:00 30 Intake and Output 11/18/16 11/19/16 19:00 07:00 Intake Total 1246.6 ml 1460 ml Output Total 825 ml 950 ml Balance 421.6 ml 510 ml Free Water 200 ml 100 ml IV Total 616.6 ml 710 ml Tube Feeding 430 ml 650 ml Output Urine Total 825 ml 950 ml Objective General Appearance: WD/WN, trach in place HEENT: normocephalic, atraumatic Respiratory/Chest: chest wall non-tender, lungs clear Breasts: no masses Cardiovascular: normal peripheral pulses, normal rate Abdomen: normal bowel sounds, soft, non tender, Gtube Genitourinary: normal external genitalia Extremities: no cyanosis, R Heel lesion Skin: no rash Microbiology Date/Time Source Procedure Growth Status 11/17/16 12:40 Blood Blood Culture - Preliminary NO GROWTH AFTER 24 HOURS Resulted 11/17/16 12:20 Blood Blood Culture - Preliminary NO GROWTH AFTER 24 HOURS Resulted 11/18/16 13:52 Wound Gram Stain - Final Resulted 11/18/16 13:52 Wound Aerobic Culture Pending Resulted 11/18/16 13:52 Wound Anaerobic Culture Pending Resulted 11/17/16 05:00 Sputum Gram Stain - Final Resulted 11/17/16 05:00 Sputum Sputum Culture - Preliminary Resulted 11/17/16 21:30 Foot Right Gram Stain - Final Resulted 11/17/16 21:30 Foot Right Wound Culture Pending Resulted Laboratory Tests 11/19/16 04:00: Erythrocyte Sedimentation Rate 112H, C-Reactive Protein, Quantitative 4.6H Current Medications Medications (Trade) Dose Ordered Sig/Mora Route PRN Reason Start Time Stop Time Status Last Admin Dose Admin Acetaminophen (Tylenol) 650 mg Q4H PRN ORAL FEVER 11/17/16 17:45 12/17/16 17:44 Albuterol/ Ipratropium 3 ml 3 ml EVERY 4 HOURS PRN HHN Shortness of Breath 11/17/16 17:45 11/22/16 17:44 Ascorbic Acid (Vitamin C) 500 mg TWICE A DAY ORAL 11/18/16 18:00 3/18/17 17:59 11/19/16 08:56 Atenolol 25 mg 25 mg DAILY ORAL 11/18/16 09:00 12/18/16 08:59 11/19/16 08:58 Cefepime HCl 1 gm/ Dextrose 55 ml @ 110 mls/hr Q24H IVPB 11/17/16 21:00 11/24/16 20:59 11/18/16 20:07 Dextrose (Dextrose 50%) STAT PRN IV Hypoglycemia 11/17/16 17:45 12/17/16 17:44 Heparin Sodium (Porcine) (Heparin 5000 units/ml) 5,000 units EVERY 12 HOURS SUBQ 11/17/16 21:00 12/17/16 20:59 11/19/16 08:56 Lorazepam (Ativan 2mg/ml 1ml) 2 mg EVERY 2 HOURS PRN IV For Anxiety 11/17/16 17:45 11/24/16 17:44 Morphine Sulfate (Morphine Sulfate) 4 mg EVERY 4 HOURS PRN IVP Severe Pain (Pain Scale 7-10) 11/17/16 17:45 11/24/16 17:44 Mupirocin (Bactroban Oint) 1 applic DAILY TOPIC 11/18/16 21:00 11/23/16 20:59 11/19/16 08:58 Ondansetron HCl (Zofran) 4 mg Q6H PRN IVP Nausea & Vomiting 11/17/16 17:45 12/17/16 17:44 Polyethylene Glycol (Miralax) 17 gm DAILYPRN PRN ORAL Constipation 11/17/16 17:45 12/17/16 17:44 Sodium Chloride (0.45% NS 1000ml) 1,000 ml @ 50 mls/hr Q20H IV 11/17/16 21:00 12/17/16 20:59 11/18/16 15:00 Vancomycin HCl (Vanco rx to dose) 1 ea DAILY PRN MISC . 11/17/16 18:45 12/17/16 18:44 Vancomycin HCl/ Dextrose (Vancomycin/D5W) 275 ml @ 183.3 mls/ hr Q24H IVPB 11/18/16 14:00 11/23/16 13:59 11/18/16 15:00 JAYLEN ANNE Nov 19, 2016 11:14
[2016-11-19 12:00] VITALS: BP 129/60
--- NOTE | 2016-11-19 12:52 | Infectious Diseases Prog Note ---
Assessment/Plan Assessment/Plan ASSESSMENT: 86 y/o female with: // Multiple chronic RLE ( hallux, heel, calf ) ulcers, probable osteomyelitis, PVD - WCx pending, podiatry following - 3P bone scan: pending - XR: Very limited exam. No definite acute bony trauma. 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 Will likely require 6 weeks IV ABX - f/u cultures - f/u 3P bone scan - f/u doppler, re-vascularization, if indicated - monitor CBC, temperatures - monitor BMP - monitor CXR - vent support, trach care, aspiration precautions - wound care Subjective Allergies: Coded Allergies: No Known Allergies (Unverified , 05/31/12) Subjective remains afebrile. comfortable Objective Vital Signs Last 24 Hour Vital Signs Date Time Temp Pulse Resp B/P Pulse Ox O2 Delivery O2 Flow Rate FiO2 11/19/16 12:00 75 11/19/16 12:00 30 11/19/16 11:25 79 16 30 11/19/16 09:10 86 16 30 11/19/16 08:58 85 110/44 11/19/16 08:00 78 11/19/16 08:00 30 11/19/16 08:00 97.9 83 17 108/44 100 Mechanical Ventilator 30 11/19/16 06:54 88 24 30 11/19/16 05:05 79 24 30 11/19/16 04:00 30 11/19/16 04:00 85 11/19/16 04:00 97.5 84 18 132/72 100 Mechanical Ventilator 30 11/19/16 03:00 84 22 30 11/19/16 01:05 79 16 30 11/19/16 00:00 30 11/19/16 00:00 79 11/19/16 00:00 98.0 80 16 137/57 100 Mechanical Ventilator 30 11/18/16 23:10 80 25 30 11/18/16 21:05 78 21 30 11/18/16 20:00 30 11/18/16 20:00 80 11/18/16 19:58 97.5 77 19 116/66 99 Mechanical Ventilator 30 11/18/16 18:50 77 16 30 11/18/16 17:02 75 16 30 11/18/16 16:10 97.8 82 19 151/76 99 Mechanical Ventilator 30 11/18/16 16:00 78 11/18/16 16:00 30 11/18/16 15:09 80 16 30 11/18/16 14:00 85 11/18/16 13:20 81 33 30 Height (Feet): 5 Height (Inches): 5.00 Weight (Pounds): 160 General Appearance: no acute distress Respiratory/Chest: no respiratory distress Cardiovascular: normal rate, regular rhythm Abdomen: normal bowel sounds, soft, non tender, non distended Extremities: other - wounds bandaged Microbiology Date/Time Source Procedure Growth Status 11/17/16 12:40 Blood Blood Culture - Preliminary NO GROWTH AFTER 24 HOURS Resulted 11/17/16 12:20 Blood Blood Culture - Preliminary NO GROWTH AFTER 24 HOURS Resulted 11/18/16 13:52 Wound Gram Stain - Final Resulted 11/18/16 13:52 Wound Aerobic Culture - Preliminary Resulted 11/18/16 13:52 Wound Anaerobic Culture Pending Resulted 11/17/16 05:00 Sputum Gram Stain - Final Resulted 11/17/16 05:00 Sputum Sputum Culture - Preliminary Resulted 11/17/16 21:30 Foot Right Gram Stain - Final Resulted 11/17/16 21:30 Foot Right Wound Culture - Preliminary Resulted Laboratory Tests Test 11/19/16 04:00 Erythrocyte Sedimentation Rate 112 MM/HR (0-42) H C-Reactive Protein, Quantitative 4.6 mg/dL (< 0.5) H Current Medications Medications (Trade) Dose Ordered Sig/Mora Route PRN Reason Start Time Stop Time Status Last Admin Dose Admin Acetaminophen (Tylenol) 650 mg Q4H PRN ORAL FEVER 11/17/16 17:45 12/17/16 17:44 Albuterol/ Ipratropium 3 ml 3 ml EVERY 4 HOURS PRN HHN Shortness of Breath 11/17/16 17:45 11/22/16 17:44 Ascorbic Acid (Vitamin C) 500 mg TWICE A DAY ORAL 11/18/16 18:00 12/18/16 17:59 11/19/16 08:56 Atenolol 25 mg 25 mg DAILY ORAL 11/18/16 09:00 12/18/16 08:59 11/19/16 08:58 Cefepime HCl 1 gm/ Dextrose 55 ml @ 110 mls/hr Q24H IVPB 11/17/16 21:00 11/24/16 20:59 11/18/16 20:07 Dextrose (Dextrose 50%) STAT PRN IV Hypoglycemia 11/17/16 17:45 12/17/16 17:44 Heparin Sodium (Porcine) (Heparin 5000 units/ml) 5,000 units EVERY 12 HOURS SUBQ 11/17/16 21:00 12/17/16 20:59 11/19/16 08:56 Lorazepam (Ativan 2mg/ml 1ml) 2 mg EVERY 2 HOURS PRN IV For Anxiety 11/17/16 17:45 11/24/16 17:44 Morphine Sulfate (Morphine Sulfate) 4 mg EVERY 4 HOURS PRN IVP Severe Pain (Pain Scale 7-10) 11/17/16 17:45 11/24/16 17:44 Mupirocin (Bactroban Oint) 1 applic DAILY TOPIC 11/18/16 21:00 11/23/16 20:59 11/19/16 08:58 Ondansetron HCl (Zofran) 4 mg Q6H PRN IVP Nausea & Vomiting 11/17/16 17:45 12/17/16 17:44 Polyethylene Glycol (Miralax) 17 gm DAILYPRN PRN ORAL Constipation 11/17/16 17:45 12/17/16 17:44 Sodium Chloride (0.45% NS 1000ml) 1,000 ml @ 50 mls/hr Q20H IV 11/17/16 21:00 12/17/16 20:59 11/18/16 15:00 Vancomycin HCl (Vanco rx to dose) 1 ea DAILY PRN MISC . 11/17/16 18:45 12/17/16 18:44 Vancomycin HCl/ Dextrose (Vancomycin/D5W) 275 ml @ 183.3 mls/ hr Q24H IVPB 11/18/16 14:00 11/23/16 13:59 11/18/16 15:00 MÓNICA JORDAN Nov 19, 2016 12:52
--- NOTE | 2016-11-19 15:17 | Cardiology Report ---
APPROVED REPORT EKG Measurement Heart [id number] ND [id number] Sinus rhythm with premature atrial complexes Low voltage QRS Septal infarct, age undetermined Abnormal ECG
[2016-11-19] MEDS: Vancomycin 1 GM in D5W 275 ML IVPB SCH (15:42)
[2016-11-19 16:00] VITALS: BP 110/57
--- NOTE | 2016-11-19 17:05 | Podiatric Progress Note ---
Assessment/Plan Patient Sherin Hanna is a 86 year old female who was admitted on Nov 17, 2016 at 13:05 with right foot ulcerations Problems: (1) Wound eschar of foot (2) Ulcer of heel Assessment/Plan - Bone scan pending - Right lower extremity tibial artery with moderate ischemia noted on doppler exam. Consider vascular consult - Wound cultures pending. Patient remains afebrile and without leukocytosis. ESR and CRP are elevated - Continue daily wound care and aggressive offloading of the heels Subjective Reason for consult Right foot ulcers Allergies: Coded Allergies: No Known Allergies (Unverified , 05/31/12) Subjective Patient is unable to communicate Objective Exam Last 24 Hour Vital Signs Date Time Temp Pulse Resp B/P Pulse Ox O2 Delivery O2 Flow Rate FiO2 11/19/16 16:00 77 11/19/16 16:00 97.9 65 16 110/57 100 Mechanical Ventilator 30 11/19/16 16:00 30 11/19/16 15:10 80 22 30 11/19/16 13:28 89 20 30 11/19/16 12:00 75 11/19/16 12:00 30 11/19/16 12:00 97.5 78 16 129/60 100 Mechanical Ventilator 30 11/19/16 11:25 79 16 30 11/19/16 09:10 86 16 30 11/19/16 08:58 85 110/44 11/19/16 08:00 78 11/19/16 08:00 30 11/19/16 08:00 97.9 83 17 108/44 100 Mechanical Ventilator 30 11/19/16 06:54 88 24 30 11/19/16 05:05 79 24 30 11/19/16 04:00 30 11/19/16 04:00 85 11/19/16 04:00 97.5 84 18 132/72 100 Mechanical Ventilator 30 11/19/16 03:00 84 22 30 11/19/16 01:05 79 16 30 11/19/16 00:00 30 11/19/16 00:00 79 11/19/16 00:00 98.0 80 16 137/57 100 Mechanical Ventilator 30 11/18/16 23:10 80 25 30 11/18/16 21:05 78 21 30 11/18/16 20:00 30 11/18/16 20:00 80 11/18/16 19:58 97.5 77 19 116/66 99 Mechanical Ventilator 30 11/18/16 18:50 77 16 30 11/18/16 17:02 75 16 30 Laboratory Tests Test 11/19/16 04:00 Erythrocyte Sedimentation Rate 112 MM/HR (0-42) H C-Reactive Protein, Quantitative 4.6 mg/dL (< 0.5) H Microbiology Date/Time Source Procedure Growth Status 11/17/16 12:40 Blood Blood Culture - Preliminary NO GROWTH AFTER 24 HOURS Resulted 11/18/16 13:52 Wound Gram Stain - Final Resulted 11/18/16 13:52 Wound Aerobic Culture - Preliminary Resulted 11/18/16 13:52 Wound Anaerobic Culture Pending Resulted 11/17/16 05:00 Sputum Gram Stain - Final Resulted 11/17/16 05:00 Sputum Sputum Culture - Preliminary Resulted 11/17/16 21:30 Foot Right Gram Stain - Final Resulted 11/17/16 21:30 Foot Right Wound Culture - Preliminary Resulted Exam Narrative Dressings are clean, dry, and in tact. Heels are offloaded Marquise Weber DPM Nov 19, 2016 17:05
[2016-11-19] MEDS ORDERED: 1/2 NS 1000ml IV ONE (18:31)
[2016-11-19 20:00] VITALS: BP 104/65
[2016-11-19] MEDS: Cefepime HCl 1 GM in D5W 55 ML IVPB SCH (21:03)
--- NOTE | 2016-11-19 21:43 | Diagnostic Imaging Report ---
APPROVED REPORT CPT Code: 61308 Symptoms Non-healing Ulcer : Right Risk Factors Cardiac Disease RIGHT LEG: Common femoral artery waveform analysis is within normal limits at rest. Color flow duplex sonography reveals mild calcification throughout the superficial femoral and popliteal arteries. There is mild stenosis within segments of the femoral to popliteal arteries. The tibioperoneal trunk is patent. The posterior tibial, anterior tibial and dorsalis pedis arteries are also moderately calcified. Doppler tibial artery waveform analysis is compatible with severe ischemia. LEFT LEG: Common femoral artery waveform analysis is within normal limits at rest. Color flow duplex sonography reveals mild calcification throughout the superficial femoral and popliteal arteries. There is mild stenosis within segments of the femoral to popliteal arteries. The distal femoral and proximal posterior tibial arteries were not well visualized. The tibioperoneal trunk is patent. The posterior tibial, anterior tibial and dorsalis pedis arteries are also milldy calcified. Doppler tibial artery waveform analysis is compatible with moderate ischemia.
--- NOTE | 2016-11-19 21:44 | Diagnostic Imaging Report ---
APPROVED REPORT CPT Code: 53471 Present Symptoms Shortness of breath BILATERAL: Imaging reveals a patent deep venous system bilaterally. There is no evidence of thrombus within the femoral, popliteal or tibial segments. The greater saphenous veins are also within normal limits. Doppler indicates normal spontaneous flow within these segments.
[2016-11-20] VITALS: BP 104/58
[2016-11-20 04:00] VITALS: BP 125/65
[2016-11-20 08:00] VITALS: BP 113/73
[2016-11-20] MEDS: Ascorbic Acid 500mg tab ORAL SCH ×2 (08:57→17:37)
[2016-11-20] MEDS: Atenolol 25mg tab ORAL SCH (08:58)
[2016-11-20] MEDS: Heparin 5000 units/ml inj SUBQ SCH ×2 (08:59→21:25)
--- NOTE | 2016-11-20 10:28 | Pulmonology Progress Note ---
Assessment/Plan Problems: (1) Chronic respiratory failure (2) Wound abscess (3) COPD (chronic obstructive pulmonary disease) (4) Attention to G-tube (5) Sepsis (6) Status post tracheostomy (7) [facility] resident Respiratory: monitor respiratory rate, adjust FIO2 Cardiac: continue to monitor HR/BP Renal: F/U I&O, keep IV fluid Infectious Disease: check cultures, continue antibiotics Gastrointestinal: hold feedings Endocrine: monitor blood sugar, check HgA1C, continue sliding scale insulin Hematologic: transfuse if hgb<8.5 Neurologic: PRN Ativan, PRN Morphine, keep patient comfortable Prophylaxis: Protonix Disposition: keep in ICU Notes Reviewed: applications systems engineer, cardio Discussed with: consultants, porter sample case Subjective ROS Limited/Unobtainable: Yes Allergies: Coded Allergies: No Known Allergies (Unverified , 05/31/12) All Systems: reviewed and negative except above Objective Last 24 Hour Vital Signs Date Time Temp Pulse Resp B/P Pulse Ox O2 Delivery O2 Flow Rate FiO2 11/20/16 09:04 75 16 30 11/20/16 08:58 77 113/73 11/20/16 08:00 97.5 77 16 113/73 99 Mechanical Ventilator 30 11/20/16 08:00 30 11/20/16 06:48 78 19 30 11/20/16 05:00 84 16 30 11/20/16 04:00 30 11/20/16 04:00 98.0 71 16 125/65 100 Mechanical Ventilator 30 11/20/16 03:58 73 11/20/16 03:14 93 26 30 11/20/16 01:10 88 17 30 11/20/16 00:00 30 11/20/16 00:00 97.7 76 16 104/58 100 Mechanical Ventilator 30 11/19/16 23:36 79 11/19/16 23:14 90 16 30 11/19/16 21:33 92 18 30 11/19/16 20:00 30 11/19/16 20:00 98.2 79 16 104/65 100 Mechanical Ventilator 30 11/19/16 19:11 88 17 30 11/19/16 19:09 78 11/19/16 17:07 86 21 30 11/19/16 16:00 77 11/19/16 16:00 97.9 65 16 110/57 100 Mechanical Ventilator 30 11/19/16 16:00 30 11/19/16 15:10 80 22 30 11/19/16 13:28 89 20 30 11/19/16 12:00 75 11/19/16 12:00 30 11/19/16 12:00 97.5 78 16 129/60 100 Mechanical Ventilator 30 11/19/16 11:25 79 16 30 Intake and Output 11/19/16 11/20/16 19:00 07:00 Intake Total 1460 ml 1555 ml Output Total 850 ml 1400 ml Balance 610 ml 155 ml Free Water 200 ml 200 ml IV Total 600 ml 635 ml Tube Feeding 660 ml 720 ml Output Urine Total 850 ml 1400 ml Objective General Appearance: WD/WN, trach in place HEENT: normocephalic, atraumatic Respiratory/Chest: chest wall non-tender, lungs clear Breasts: no masses Cardiovascular: normal peripheral pulses, normal rate Abdomen: normal bowel sounds, soft, non tender, Gtube Genitourinary: normal external genitalia Extremities: no cyanosis, R Heel lesion Skin: no rash Microbiology Date/Time Source Procedure Growth Status 11/17/16 12:40 Blood Blood Culture - Preliminary NO GROWTH AFTER 24 HOURS Resulted 11/17/16 12:20 Blood Blood Culture - Preliminary NO GROWTH AFTER 24 HOURS Resulted 11/18/16 13:52 Wound Gram Stain - Final Resulted 11/18/16 13:52 Wound Aerobic Culture - Preliminary Resulted 11/18/16 13:52 Wound Anaerobic Culture - Preliminary NO GROWTH AFTER 24 HOURS Resulted 11/17/16 21:30 Foot Right Gram Stain - Final Resulted 11/17/16 21:30 Wound Culture - Preliminary Gram Negative Harshal Resulted Current Medications Medications (Trade) Dose Ordered Sig/Mora Route PRN Reason Start Time Stop Time Status Last Admin Dose Admin Acetaminophen (Tylenol) 650 mg Q4H PRN ORAL FEVER 11/17/16 17:45 12/17/16 17:44 Albuterol/ Ipratropium 3 ml 3 ml EVERY 4 HOURS PRN HHN Shortness of Breath 11/17/16 17:45 11/22/16 17:44 Ascorbic Acid (Vitamin C) 500 mg TWICE A DAY ORAL 11/18/16 18:00 12/18/16 17:59 11/20/16 08:57 Atenolol 25 mg 25 mg DAILY ORAL 11/18/16 09:00 12/18/16 08:59 11/20/16 08:58 Cefepime HCl 1 gm/ Dextrose 55 ml @ 110 mls/hr Q24H IVPB 11/17/16 21:00 11/24/16 20:59 11/19/16 21:03 Dextrose (Dextrose 50%) STAT PRN IV Hypoglycemia 11/17/16 17:45 12/17/16 17:44 Heparin Sodium (Porcine) (Heparin 5000 units/ml) 5,000 units EVERY 12 HOURS SUBQ 11/17/16 21:00 12/17/16 20:59 11/20/16 08:59 Lorazepam (Ativan 2mg/ml 1ml) 2 mg EVERY 2 HOURS PRN IV For Anxiety 11/17/16 17:45 11/24/16 17:44 Morphine Sulfate (Morphine Sulfate) 4 mg EVERY 4 HOURS PRN IVP Severe Pain (Pain Scale 7-10) 11/17/16 17:45 11/24/16 17:44 Mupirocin (Bactroban Oint) 1 applic DAILY TOPIC 11/18/16 21:00 11/23/16 20:59 11/20/16 08:57 Ondansetron HCl (Zofran) 4 mg Q6H PRN IVP Nausea & Vomiting 11/17/16 17:45 12/17/16 17:44 Polyethylene Glycol (Miralax) 17 gm DAILYPRN PRN ORAL Constipation 11/17/16 17:45 12/17/16 17:44 Sodium Chloride (0.45% NS 1000ml) 1,000 ml @ 50 mls/hr Q20H IV 11/17/16 21:00 12/17/16 20:59 11/20/16 08:58 Vancomycin HCl (Vanco rx to dose) 1 ea DAILY PRN MISC . 11/17/16 18:45 12/17/16 18:44 Vancomycin HCl/ Dextrose (Vancomycin/D5W) 275 ml @ 183.3 mls/ hr Q24H IVPB 11/18/16 14:00 11/23/16 13:59 11/19/16 15:42 JAYLEN ANNE Nov 20, 2016 10:28
--- NOTE | 2016-11-20 11:57 | Podiatric Progress Note ---
Assessment/Plan Patient Sherin Hanna is a 86 year old female who was admitted on Nov 17, 2016 at 13:05 with right heel ulcer with osteomyelitis Problems: (1) Foot ulcer with necrosis of bone (2) Osteomyelitis of right foot Assessment/Plan - Bone scan positive for increased signal at the calcaneus. Recommend treatment with IV antibiotics and local wound care. However, patient has peripheral vascular disease. Severe ischemia on right lower extremity and moderate on the left. Recommend vascular consult - Continue daily dressing changes - Continue aggressive heel offloading - Follow up final culture results and adjust antibiotics if necessary per infectious disease specialist Subjective Reason for consult Right heel ulcer with osteomyelitis Allergies: Coded Allergies: No Known Allergies (Unverified , 05/31/12) Subjective Patient is unable to communicate effectively Objective Exam Last 24 Hour Vital Signs Date Time Temp Pulse Resp B/P Pulse Ox O2 Delivery O2 Flow Rate FiO2 11/20/16 11:09 78 16 30 11/20/16 09:04 75 16 30 11/20/16 08:58 77 113/73 11/20/16 08:00 97.5 77 16 113/73 99 Mechanical Ventilator 30 11/20/16 08:00 76 11/20/16 08:00 30 11/20/16 06:48 78 19 30 11/20/16 05:00 84 16 30 11/20/16 04:00 30 11/20/16 04:00 98.0 71 16 125/65 100 Mechanical Ventilator 30 11/20/16 03:58 73 11/20/16 03:14 93 26 30 11/20/16 01:10 88 17 30 11/20/16 00:00 30 11/20/16 00:00 97.7 76 16 104/58 100 Mechanical Ventilator 30 11/19/16 23:36 79 11/19/16 23:14 90 16 30 11/19/16 21:33 92 18 30 11/19/16 20:00 30 11/19/16 20:00 98.2 79 16 104/65 100 Mechanical Ventilator 30 11/19/16 19:11 88 17 30 11/19/16 19:09 78 11/19/16 17:07 86 21 30 11/19/16 16:00 77 11/19/16 16:00 97.9 65 16 110/57 100 Mechanical Ventilator 30 11/19/16 16:00 30 11/19/16 15:10 80 22 30 11/19/16 13:28 89 20 30 11/19/16 12:00 75 11/19/16 12:00 30 11/19/16 12:00 97.5 78 16 129/60 100 Mechanical Ventilator 30 Microbiology Date/Time Source Procedure Growth Status 11/17/16 12:40 Blood Blood Culture - Preliminary NO GROWTH AFTER 48 HOURS Resulted 11/18/16 13:52 Wound Gram Stain - Final Resulted 11/18/16 13:52 Aerobic Culture - Preliminary Gram Negative Harshal Strep Species, Gamma-Hemolytic Resulted 11/18/16 13:52 Wound Anaerobic Culture - Preliminary NO GROWTH AFTER 24 HOURS Resulted 11/17/16 05:00 Sputum Gram Stain - Final Resulted 11/17/16 05:00 Sputum Sputum Culture - Preliminary Resulted 11/17/16 21:30 Foot Right Gram Stain - Final Resulted 11/17/16 21:30 Wound Culture - Preliminary Gram Negative Harshal Resulted Exam Narrative Wound with 90% granular tissue and 10% fibrotic tissue. Moderate serous drainage. No purulence or malodor noted. Distal tip of right hallux with dry stable eschar ARTERIAL STUDIES BILATERAL LOWER EXTREMITY: RIGHT LEG: Common femoral artery waveform analysis is within normal limits at rest. Color flow duplex sonography reveals mild calcification throughout the superficial femoral and popliteal arteries. There is mild stenosis within segments of the femoral to popliteal arteries. The tibioperoneal trunk is patent. The posterior tibial, anterior tibial and dorsalis pedis arteries are also moderately calcified. Doppler tibial artery waveform analysis is compatible with severe ischemia. LEFT LEG: Common femoral artery waveform analysis is within normal limits at rest. Color flow duplex sonography reveals mild calcification throughout the superficial femoral and popliteal arteries. There is mild stenosis within segments of the femoral to popliteal arteries. The distal femoral and proximal posterior tibial arteries were not well visualized. The tibioperoneal trunk is patent. The posterior tibial, anterior tibial and dorsalis pedis arteries are also milldy calcified. Doppler tibial artery waveform analysis is compatible with moderate ischemia. Marquise Weber DPM Nov 20, 2016 11:57
[2016-11-20 12:00] VITALS: BP 119/40
[2016-11-20 16:38] VITALS: BP 99/64
[2016-11-20] MEDS: Vancomycin 1.5 GM in D5W 325 ML IVPB SCH (17:37)
[2016-11-20 20:00] VITALS: BP 110/63
[2016-11-20] MEDS: Cefepime HCl 1 GM in D5W 55 ML IVPB SCH (21:18)
[2016-11-21] VITALS: BP 154/84
[2016-11-21 04:00] VITALS: BP 138/67
[2016-11-21 04:33] LABS: BASOPHILS % (AUTO) 0.5 % (0.0-2.0); EOSINOPHILS % (AUTO) 3.7 % (0.0-3.0); LYMPHOCYTES % (AUTO) 47.1 % (20.0-45.0); MEAN CORPUSCULAR HEMOGLOBIN 26.9 PG (27.0-31.0); MEAN CORPUSCULAR HGB CONC 31.7 G/DL (32.0-36.0); MEAN CORPUSCULAR VOLUME 85 FL (80-99); MEAN PLATELET VOLUME 5.8 FL (6.5-10.1); NEUTROPHILS % (AUTO) 35.7 % (45.0-75.0); PLATELET COUNT 243 K/UL (150-450); RED BLOOD COUNT 3.49 M/UL (4.20-5.40); RED CELL DISTRIBUTION WIDTH 18.1 % (11.6-14.8); WHITE BLOOD COUNT 5.1 K/UL (4.8-10.8)
[2016-11-21 05:04] LABS: ALANINE AMINOTRANSFERASE 23 U/L (3-33); ALBUMIN/GLOBULIN RATIO 0.4 (1.0-2.7); ANION GAP 12 (5-15); ASPARTATE AMINO TRANSFERASE 21 U/L (5-40); CALCIUM 8.4 mg/dL (8.6-10.2); CARBON DIOXIDE 25 mEQ/L (20-30); CHLORIDE 96 mEQ/L (98-107); CHOLESTEROL 86 mg/dL (< 200); CHOLESTEROL/HDL RATIO 3.7 (3.3-4.4); CREATININE 0.5 mg/dL (0.5-0.9); CRP QUANT 3.5 mg/dL (< 0.5); HEMOLYSIS 0; LDL CHOLESTEROL (CALC.) 53 mg/dL (60-99); MAGNESIUM 1.8 mg/dL (1.7-2.5); PHOSPHORUS 2.8 mg/dL (2.5-4.8); SODIUM 133 mEQ/L (135-145); TOTAL PROTEIN 7.3 g/dL (6.6-8.7)
[2016-11-21 08:00] VITALS: BP 110/62
--- NOTE | 2016-11-21 08:08 | Pulmonology Progress Note ---
Assessment/Plan Assessment/Plan ASSESSMENT R heel ulcer -POA R heel OM PVD VDRF/trach dysphagia, G tube COPD multiple chronic RLE ulcers - POA anemia HTN PLAN OF CARE MOISE Vent/trach care pulmonary toeitl baseline ABG gentle IVF abx ID follows elevated ESR, CRP will need halfway abx for testament of OM local wound care, off heels residential tech follows arterial Duplex BLE with bilateral PVD ( R severe ischemia, L moderate ischemia ) add ASA vascular surgery eval for possible revascularization if a candidate with multiple chronic comorbidities Venous Duplex BLE no acute DVT BP management with BB, optimize as needed strict aspiration precautions, GT feeding, monitor tolerance, DVT prophylaxis bowel regimen case discussed and evaluated by supervising physician Subjective Allergies: Coded Allergies: No Known Allergies (Unverified , 05/31/12) Subjective afebrile, no leukocytosis no signs of respiratory distress on current settings Objective Last 24 Hour Vital Signs Date Time Temp Pulse Resp B/P Pulse Ox O2 Delivery O2 Flow Rate FiO2 11/21/16 06:52 83 17 30 11/21/16 05:08 81 20 30 11/21/16 04:00 97.0 84 18 138/67 100 Mechanical Ventilator 11/21/16 04:00 30 11/21/16 03:35 81 11/21/16 03:18 85 19 30 11/21/16 00:56 84 21 30 11/21/16 00:00 30 11/21/16 00:00 97.3 83 18 154/84 100 Mechanical Ventilator 11/20/16 23:53 82 11/20/16 23:08 85 19 30 11/20/16 20:58 84 16 30 11/20/16 20:00 97.7 80 19 110/63 100 Mechanical Ventilator 30 11/20/16 20:00 30 11/20/16 20:00 79 11/20/16 19:03 85 28 30 11/20/16 16:40 80 20 30 11/20/16 16:38 97.7 76 16 99/64 100 Mechanical Ventilator 30 11/20/16 16:00 79 11/20/16 16:00 30 11/20/16 15:17 81 19 30 11/20/16 13:05 77 20 30 11/20/16 12:53 75 11/20/16 12:00 75 11/20/16 12:00 97.3 77 18 119/40 100 Mechanical Ventilator 30 11/20/16 12:00 30 11/20/16 11:09 78 16 30 11/20/16 09:04 75 16 30 11/20/16 08:58 77 113/73 Intake and Output 11/20/16 11/21/16 19:00 07:00 Intake Total 1285 ml 1185 ml Output Total 600 ml 1000 ml Balance 685 ml 185 ml Free Water 50 ml 100 ml IV Total 825 ml 605 ml Tube Feeding 360 ml 480 ml Other 50 ml Output Urine Total 600 ml 1000 ml # Bowel Movements 1 2 General Appearance: no acute distress, other - bedridden elderly vent dependent female in [facility] vent AC 500-30-16 HEENT: normocephalic, atraumatic, anicteric, status post trach - Portex#8, secretions moderate, scant, frothy Respiratory/Chest: lungs clear, no respiratory distress Cardiovascular: normal rate, regular rhythm, no JVD Abdomen: normal bowel sounds, soft, non tender, other - G tube Genitourinary: normal external genitalia Skin: other - R heel ulcer, necrotic, multiple chronic RLE uclers- POA Neurologic/Psychiatric: abnormal gait - bedridden Musculoskeletal: atrophy - BLE, other - spastic LE Microbiology Date/Time Source Procedure Growth Status 11/18/16 13:52 Wound Gram Stain - Final Resulted 11/18/16 13:52 Aerobic Culture - Preliminary Gram Negative Harshal Strep Species, Gamma-Hemolytic Resulted 11/18/16 13:52 Wound Anaerobic Culture - Preliminary NO GROWTH AFTER 24 HOURS Resulted Laboratory Tests 11/20/16 13:00: Vancomycin Level Trough 7.1 11/21/16 04:00: White Blood Count 5.1, Red Blood Count 3.49L, Hemoglobin 9.4L, Hematocrit 29.7L , Mean Corpuscular Volume 85, Mean Corpuscular Hemoglobin 26.9L, Mean Corpuscular Hemoglobin Concent 31.7L, Red Cell Distribution Width 18.1H, Platelet Count 243, Mean Platelet Volume 5.8L, Neutrophils (%) (Auto) 35.7L, Lymphocytes (%) (Auto) 47.1H, Monocytes (%) (Auto) 13.0H, Eosinophils (%) (Auto ) 3.7H, Basophils (%) (Auto) 0.5, Erythrocyte Sedimentation Rate [Pending], Sodium Level 133L, Potassium Level 4.0, Chloride Level 96L, Carbon Dioxide Level 25, Anion Gap 12, Blood Urea Nitrogen 15, Creatinine 0.5, Estimat Glomerular Filtration Rate , Glucose Level 105, Calcium Level 8.4L, Phosphorus Level 2.8, Magnesium Level 1.8, Total Bilirubin 0.3, Aspartate Amino Transf (AST /SGOT) 21, Alanine Aminotransferase (ALT/SGPT) 23, Alkaline Phosphatase 80, C- Reactive Protein, Quantitative 3.5H, Total Protein 7.3, Albumin 2.2L, Globulin 5.1, Albumin/Globulin Ratio 0.4L, Triglycerides Level 51, Cholesterol Level 86, LDL Cholesterol 53L, HDL Cholesterol 23, Cholesterol/HDL Ratio 3.7 Current Medications Medications (Trade) Dose Ordered Sig/Mora Route PRN Reason Start Time Stop Time Status Last Admin Dose Admin Acetaminophen (Tylenol) 650 mg Q4H PRN ORAL FEVER 11/17/16 17:45 12/17/16 17:44 Albuterol/ Ipratropium 3 ml 3 ml EVERY 4 HOURS PRN HHN Shortness of Breath 11/17/16 17:45 11/22/16 17:44 Ascorbic Acid (Vitamin C) 500 mg TWICE A DAY ORAL 11/18/16 18:00 12/18/16 17:59 11/20/16 17:37 Aspirin (Ecotrin) 81 mg DAILY ORAL 11/21/16 09:00 12/21/16 08:59 Atenolol 25 mg 25 mg DAILY ORAL 11/18/16 09:00 12/18/16 08:59 11/20/16 08:58 Cefepime HCl/ Dextrose (Maxipime/D5W) 55 ml @ 110 mls/hr Q24H IVPB 11/17/16 21:00 11/24/16 20:59 11/20/16 21:18 Dextrose (Dextrose 50%) STAT PRN IV Hypoglycemia 11/17/16 17:45 12/17/16 17:44 Heparin Sodium (Porcine) (Heparin 5000 units/ml) 5,000 units EVERY 12 HOURS SUBQ 11/17/16 21:00 12/17/16 20:59 11/20/16 21:25 Lorazepam (Ativan 2mg/ml 1ml) 2 mg EVERY 2 HOURS PRN IV For Anxiety 11/17/16 17:45 11/24/16 17:44 Morphine Sulfate (Morphine Sulfate) 4 mg EVERY 4 HOURS PRN IVP Severe Pain (Pain Scale 7-10) 11/17/16 17:45 11/24/16 17:44 Mupirocin 1 applic 1 applic DAILY TOPIC 11/18/16 21:00 11/23/16 20:59 11/20/16 08:57 Ondansetron HCl (Zofran) 4 mg Q6H PRN IVP Nausea & Vomiting 11/17/16 17:45 12/17/16 17:44 Polyethylene Glycol (Miralax) 17 gm DAILYPRN PRN ORAL Constipation 11/17/16 17:45 12/17/16 17:44 Ranitidine HCl (Zantac) 150 mg BEDTIME ORAL 11/21/16 21:00 12/21/16 20:59 Sodium Chloride (0.45% NS 1000ml) 1,000 ml @ 50 mls/hr Q20H IV 11/17/16 21:00 12/17/16 20:59 11/21/16 04:01 Vancomycin HCl (Vanco rx to dose) 1 ea DAILY PRN MISC . 11/17/16 18:45 12/17/16 18:44 Vancomycin HCl/ Dextrose (Vancomycin/D5W) 325 ml @ 162.5 mls/ hr Q24H IVPB 11/20/16 16:00 11/25/16 15:59 11/20/16 17:37 Gume (Nereida Blas NP Nov 21, 2016 08:08
[2016-11-21 08:31] LABS: ABG ALLEN TEST POSITIVE; ABG BASE EXCESS 0.1; ABG PCO2 35.9 mmHg (35.0-45.0)
[2016-11-21] MEDS ORDERED: DuoNeb 0.5-3(2.5)mg/3ml neb HHN PRN (08:45)
[2016-11-21 08:58] LABS: ERYTHROCYTE SEDIMENTATION RATE 118 MM/HR (0-42)
[2016-11-21] MEDS ORDERED: Aspirin EC 81mg tab ORAL SCH (09:00)
[2016-11-21] MEDS: Aspirin Baby 81mg NG SCH (09:08)
[2016-11-21] MEDS: Ascorbic Acid 500mg tab ORAL SCH ×2 (09:08→18:18)
[2016-11-21] MEDS: Atenolol 25mg tab ORAL SCH (09:09)
[2016-11-21] MEDS: Heparin 5000 units/ml inj SUBQ SCH ×2 (09:12→20:53)
[2016-11-21] MEDS ORDERED: Cefepime 2gm/D5W 110ml IV SCH ×4 (09:15→21:00)
[2016-11-21 12:00] VITALS: BP 107/63
--- NOTE | 2016-11-21 12:41 | Infectious Diseases Prog Note ---
Assessment/Plan Assessment/Plan ASSESSMENT: 86 y/o female with: // Multiple chronic RLE ( hallux, heel, calf ) ischemic ulcers, probable osteomyelitis - WCx VSE.faecalis, M.morganii, P.mirabilis, podiatry following - 3P bone scan: pending - XR: Very limited exam. No definite acute bony trauma. 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 Will likely require 6 weeks IV ABX - f/u final cultures - f/u 3P bone scan - vascular eval, re-vascularization, if indicated - monitor CBC, temperatures - monitor BMP - monitor CXR - vent support, trach care, aspiration precautions - wound care Subjective Allergies: Coded Allergies: No Known Allergies (Unverified , 05/31/12) Subjective remains afebrile. comfortable Objective Vital Signs Last 24 Hour Vital Signs Date Time Temp Pulse Resp B/P Pulse Ox O2 Delivery O2 Flow Rate FiO2 11/21/16 11:16 70 18 30 11/21/16 09:21 75 16 30 11/21/16 09:09 82 110/62 11/21/16 08:00 82 11/21/16 08:00 97.7 82 23 110/62 100 Mechanical Ventilator 30 11/21/16 08:00 30 11/21/16 06:52 83 17 30 11/21/16 05:08 81 20 30 11/21/16 04:00 97.0 84 18 138/67 100 Mechanical Ventilator 11/21/16 04:00 30 11/21/16 03:35 81 11/21/16 03:18 85 19 30 11/21/16 00:56 84 21 30 11/21/16 00:00 30 11/21/16 00:00 97.3 83 18 154/84 100 Mechanical Ventilator 11/20/16 23:53 82 11/20/16 23:08 85 19 30 11/20/16 20:58 84 16 30 11/20/16 20:00 97.7 80 19 110/63 100 Mechanical Ventilator 30 11/20/16 20:00 30 11/20/16 20:00 79 11/20/16 19:03 85 28 30 11/20/16 16:40 80 20 30 11/20/16 16:38 97.7 76 16 99/64 100 Mechanical Ventilator 30 11/20/16 16:00 79 11/20/16 16:00 30 11/20/16 15:17 81 19 30 11/20/16 13:05 77 20 30 11/20/16 12:53 75 Height (Feet): 5 Height (Inches): 5.00 Weight (Pounds): 160 General Appearance: no acute distress Respiratory/Chest: no respiratory distress Cardiovascular: normal rate, regular rhythm Abdomen: normal bowel sounds, soft, non tender, non distended Microbiology Date/Time Source Procedure Growth Status 11/18/16 13:52 Wound Gram Stain - Final Resulted 11/18/16 13:52 Aerobic Culture - Final Morganella Morg Spp Morganii Proteus Mirabilis Enterococcus Faecalis Resulted 11/18/16 13:52 Wound Anaerobic Culture - Preliminary NO GROWTH AFTER 24 HOURS Resulted Laboratory Tests Test 11/20/16 13:00 11/21/16 04:00 11/21/16 08:23 Vancomycin Level Trough 7.1 ug/mL (5.0-12.0) White Blood Count 5.1 K/UL (4.8-10.8) Red Blood Count 3.49 M/UL (4.20-5.40) L Hemoglobin 9.4 G/DL (12.0-16.0) L Hematocrit 29.7 % (37.0-47.0) L Mean Corpuscular Volume 85 FL (80-99) Mean Corpuscular Hemoglobin 26.9 PG (27.0-31.0) L Mean Corpuscular Hemoglobin Concent 31.7 G/DL (32.0-36.0) L Red Cell Distribution Width 18.1 % (11.6-14.8) H Platelet Count 243 K/UL (150-450) Mean Platelet Volume 5.8 FL (6.5-10.1) L Neutrophils (%) (Auto) 35.7 % (45.0-75.0) L Lymphocytes (%) (Auto) 47.1 % (20.0-45.0) H Monocytes (%) (Auto) 13.0 % (1.0-10.0) H Eosinophils (%) (Auto) 3.7 % (0.0-3.0) H Basophils (%) (Auto) 0.5 % (0.0-2.0) Erythrocyte Sedimentation Rate 118 MM/HR (0-42) H Sodium Level 133 mEQ/L (135-145) L Potassium Level 4.0 mEQ/L (3.4-4.9) Chloride Level 96 mEQ/L (98-107) L Carbon Dioxide Level 25 mEQ/L (20-30) Anion Gap 12 (5-15) Blood Urea Nitrogen 15 mg/dL (7-23) Creatinine 0.5 mg/dL (0.5-0.9) Estimat Glomerular Filtration Rate mL/min (>60) Glucose Level 105 mg/dL (74-106) Calcium Level 8.4 mg/dL (8.6-10.2) L Phosphorus Level 2.8 mg/dL (2.5-4.8) Magnesium Level 1.8 mg/dL (1.7-2.5) Total Bilirubin 0.3 mg/dL (0.0-1.2) Aspartate Amino Transf (AST/SGOT) 21 U/L (5-40) Alanine Aminotransferase (ALT/SGPT) 23 U/L (3-33) Alkaline Phosphatase 80 U/L (35-104) C-Reactive Protein, Quantitative 3.5 mg/dL (< 0.5) H Total Protein 7.3 g/dL (6.6-8.7) Albumin 2.2 g/dL (3.5-5.2) L Globulin 5.1 g/dL Albumin/Globulin Ratio 0.4 (1.0-2.7) L Triglycerides Level 51 mg/dL (< 150) Cholesterol Level 86 mg/dL (< 200) LDL Cholesterol 53 mg/dL (60-99) L HDL Cholesterol 23 mg/dL (> 60) Cholesterol/HDL Ratio 3.7 (3.3-4.4) Arterial Blood pH 7.442 (7.350-7.450) Arterial Blood Partial Pressure CO2 35.9 mmHg (35.0-45.0) Arterial Blood Partial Pressure O2 143.6 mmHg (75.0-100.0) H Arterial Blood HCO3 23.9 mmol/L (22.0-26.0) Arterial Blood Oxygen Saturation 98.8 % (92.0-98.0) H Arterial Blood Base Excess 0.1 Holger Test Positive Current Medications Medications (Trade) Dose Ordered Sig/Mora Route PRN Reason Start Time Stop Time Status Last Admin Dose Admin Acetaminophen (Tylenol) 650 mg Q4H PRN ORAL FEVER 11/17/16 17:45 12/17/16 17:44 Albuterol/ Ipratropium (DuoNeb 0.5-3(2.5)mg/3ml) 3 ml Q4H PRN HHN Shortness of Breath 11/21/16 08:45 11/26/16 08:44 Ascorbic Acid (Vitamin C) 500 mg TWICE A DAY ORAL 11/18/16 18:00 12/18/16 17:59 11/21/16 09:08 Aspirin 81 mg 81 mg DAILY NG 11/21/16 09:00 12/21/16 08:59 11/21/16 09:08 Atenolol 25 mg 25 mg DAILY ORAL 11/18/16 09:00 12/18/16 08:59 11/21/16 09:09 Cefepime HCl/ Dextrose (Maxipime/D5W) 110 ml @ 220 mls/hr Q24H IV 11/21/16 21:00 11/28/16 20:59 Dextrose (Dextrose 50%) STAT PRN IV Hypoglycemia 11/17/16 17:45 12/17/16 17:44 Heparin Sodium (Porcine) (Heparin 5000 units/ml) 5,000 units EVERY 12 HOURS SUBQ 11/17/16 21:00 12/17/16 20:59 11/21/16 09:12 Lorazepam (Ativan 2mg/ml 1ml) 2 mg EVERY 2 HOURS PRN IV For Anxiety 11/17/16 17:45 11/24/16 17:44 Morphine Sulfate (Morphine Sulfate) 4 mg EVERY 4 HOURS PRN IVP Severe Pain (Pain Scale 7-10) 11/17/16 17:45 11/24/16 17:44 Mupirocin 1 applic 1 applic DAILY TOPIC 11/18/16 21:00 11/23/16 20:59 11/21/16 09:08 Ondansetron HCl (Zofran) 4 mg Q6H PRN IVP Nausea & Vomiting 11/17/16 17:45 12/17/16 17:44 Polyethylene Glycol (Miralax) 17 gm DAILYPRN PRN ORAL Constipation 11/17/16 17:45 12/17/16 17:44 Ranitidine HCl (Zantac) 150 mg BEDTIME ORAL 11/21/16 21:00 12/21/16 20:59 Sodium Chloride (0.45% NS 1000ml) 1,000 ml @ 50 mls/hr Q20H IV 11/17/16 21:00 12/17/16 20:59 11/21/16 04:01 Vancomycin HCl (Vanco rx to dose) 1 ea DAILY PRN MISC . 11/17/16 18:45 12/17/16 18:44 Vancomycin HCl/ Dextrose (Vancomycin/D5W) 325 ml @ 162.5 mls/ hr Q24H IVPB 11/20/16 16:00 11/25/16 15:59 11/20/16 17:37 MÓNICA JORDAN Nov 21, 2016 12:41
[2016-11-21 15:52] VITALS: BP 111/67
[2016-11-21] MEDS ORDERED: 1/2 NS 1000ml IV ONE (17:23)
[2016-11-21] MEDS: Vancomycin 1.5 GM in D5W 325 ML IVPB SCH (17:44)
[2016-11-21 20:00] VITALS: BP 114/63
[2016-11-22] VITALS: BP 132/67
[2016-11-22 04:00] VITALS: BP 128/67
[2016-11-22 06:35] LABS: BASOPHILS % (AUTO) 0.8 % (0.0-2.0); EOSINOPHILS % (AUTO) 3.7 % (0.0-3.0); LYMPHOCYTES % (AUTO) 39.6 % (20.0-45.0); MEAN CORPUSCULAR HEMOGLOBIN 26.5 PG (27.0-31.0); MEAN CORPUSCULAR HGB CONC 31.1 G/DL (32.0-36.0); MEAN CORPUSCULAR VOLUME 85 FL (80-99); MONOCYTES % (AUTO) 11.6 % (1.0-10.0); NEUTROPHILS % (AUTO) 44.3 % (45.0-75.0); PLATELET COUNT 237 K/UL (150-450); RED BLOOD COUNT 3.79 M/UL (4.20-5.40); RED CELL DISTRIBUTION WIDTH 18.1 % (11.6-14.8); WHITE BLOOD COUNT 5.9 K/UL (4.8-10.8)
[2016-11-22 06:54] LABS: ANION GAP 11 (5-15); CALCIUM 8.7 mg/dL (8.6-10.2); CARBON DIOXIDE 24 mEQ/L (20-30); CHLORIDE 99 mEQ/L (98-107); CREATININE 0.6 mg/dL (0.5-0.9); HEMOLYSIS 0; POTASSIUM 4.2 mEQ/L (3.4-4.9); SODIUM 134 mEQ/L (135-145)
[2016-11-22] MEDS ORDERED: Propofol 10mg/ml 20ml IV ONE (07:13)
[2016-11-22 08:00] VITALS: BP 137/60
[2016-11-22] MEDS: Ascorbic Acid 500mg tab ORAL SCH ×2 (09:08→18:00)
[2016-11-22] MEDS: Aspirin Baby 81mg NG SCH (09:08)
[2016-11-22] MEDS: Atenolol 25mg tab ORAL SCH (09:09)
[2016-11-22] MEDS: Heparin 5000 units/ml inj SUBQ SCH (09:11)
--- NOTE | 2016-11-22 10:49 | Diagnostic Imaging Report ---
Indication: Radial ulceration Technique: IV administration 24.5 mCi 99 technetium MDP. Flow, blood pool, and static images obtained of the feet Comparison: Reference made to plain radiograph 11/17/2016 Findings: Increased flow activity is seen within the distal right leg and especially in the region of the right heel. Similar findings are seen on multiple images. There is increased activity in the region of the right posterior calcaneus on the static images. On review of prior plain radiograph, there is absence of soft tissue overlying the calcaneal tuberosity and indistinctness of the cortical margin, oh bone scan findings correlate well to the radiographic findings Impression: Positive for osteomyelitis of the right calcaneus Dr. Vidales notified by phone at the time of interpretation
--- NOTE | 2016-11-22 11:43 | Diagnostic Imaging Report ---
Indication: Dyspnea Comparison: 07/12/16 A single view chest radiograph was obtained. Findings: Remained is again noted. Retrocardiac opacification again noted. Tracheostomy and right PICC line are in good position. Bones are osteopenic. Impression: Tubes and lines satisfactory. Questionable left basilar infiltrate versus atelectasis
[2016-11-22 12:00] VITALS: BP 105/59
--- NOTE | 2016-11-22 12:32 | Infectious Diseases Prog Note ---
Assessment/Plan Assessment/Plan ASSESSMENT: 86 y/o female with: // Multiple chronic RLE ( hallux, heel, calf ) ischemic ulcers / calcaneal osteomyelitis - WCx VSE.faecalis, M.morganii, P.mirabilis, podiatry following - 3P bone scan: Positive for osteomyelitis of the right calcaneus - XR: Very limited exam. No definite acute bony trauma. 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 comfortable Objective Vital Signs Last 24 Hour Vital Signs Date Time Temp Pulse Resp B/P Pulse Ox O2 Delivery O2 Flow Rate FiO2 11/22/16 12:00 30 11/22/16 11:15 78 20 30 11/22/16 09:22 77 20 30 11/22/16 09:09 83 137/60 11/22/16 08:00 98.1 83 18 137/60 100 Mechanical Ventilator 30 11/22/16 08:00 81 11/22/16 08:00 30 11/22/16 07:11 76 20 30 11/22/16 05:03 75 20 30 11/22/16 04:00 98.0 77 19 128/67 95 Mechanical Ventilator 30 11/22/16 04:00 30 11/22/16 03:55 81 11/22/16 03:11 74 18 30 11/22/16 01:24 77 17 30 11/22/16 00:00 30 11/22/16 00:00 98.4 79 20 132/67 95 Mechanical Ventilator 30 11/22/16 00:00 30 11/21/16 23:41 81 11/21/16 23:25 77 19 30 11/21/16 21:18 77 18 30 11/21/16 20:01 30 11/21/16 20:00 98.1 65 20 114/63 95 11/21/16 19:59 72 11/21/16 18:56 78 18 30 11/21/16 17:01 77 18 30 11/21/16 16:00 65 11/21/16 16:00 30 11/21/16 15:52 97.9 68 18 111/67 93 11/21/16 15:08 75 20 30 11/21/16 13:04 73 16 30 Height (Feet): 5 Height (Inches): 5.00 Weight (Pounds): 160 General Appearance: no acute distress Respiratory/Chest: no respiratory distress Cardiovascular: normal rate, regular rhythm Abdomen: normal bowel sounds, soft, non tender, non distended Laboratory Tests Test 11/22/16 06:00 White Blood Count 5.9 K/UL (4.8-10.8) Red Blood Count 3.79 M/UL (4.20-5.40) L Hemoglobin 10.0 G/DL (12.0-16.0) L Hematocrit 32.2 % (37.0-47.0) L Mean Corpuscular Volume 85 FL (80-99) Mean Corpuscular Hemoglobin 26.5 PG (27.0-31.0) L Mean Corpuscular Hemoglobin Concent 31.1 G/DL (32.0-36.0) L Red Cell Distribution Width 18.1 % (11.6-14.8) H Platelet Count 237 K/UL (150-450) Mean Platelet Volume 6.0 FL (6.5-10.1) L Neutrophils (%) (Auto) 44.3 % (45.0-75.0) L Lymphocytes (%) (Auto) 39.6 % (20.0-45.0) Monocytes (%) (Auto) 11.6 % (1.0-10.0) H Eosinophils (%) (Auto) 3.7 % (0.0-3.0) H Basophils (%) (Auto) 0.8 % (0.0-2.0) Sodium Level 134 mEQ/L (135-145) L Potassium Level 4.2 mEQ/L (3.4-4.9) Chloride Level 99 mEQ/L (98-107) Carbon Dioxide Level 24 mEQ/L (20-30) Anion Gap 11 (5-15) Blood Urea Nitrogen 14 mg/dL (7-23) Creatinine 0.6 mg/dL (0.5-0.9) Estimat Glomerular Filtration Rate mL/min (>60) Glucose Level 127 mg/dL (74-106) H Calcium Level 8.7 mg/dL (8.6-10.2) Current Medications Medications (Trade) Dose Ordered Sig/Mora Route PRN Reason Start Time Stop Time Status Last Admin Dose Admin Acetaminophen (Tylenol) 650 mg Q4H PRN ORAL FEVER 11/17/16 17:45 12/17/16 17:44 Albuterol/ Ipratropium (DuoNeb 0.5-3(2.5)mg/3ml) 3 ml Q4H PRN HHN Shortness of Breath 11/21/16 08:45 11/26/16 08:44 Ascorbic Acid (Vitamin C) 500 mg TWICE A DAY ORAL 11/18/16 18:00 12/18/16 17:59 11/22/16 09:08 Aspirin 81 mg 81 mg DAILY NG 11/21/16 09:00 12/21/16 08:59 11/22/16 09:08 Atenolol 25 mg 25 mg DAILY ORAL 11/18/16 09:00 12/18/16 08:59 11/22/16 09:09 Cefepime HCl/ Dextrose (Maxipime/D5W) 110 ml @ 220 mls/hr Q24H IV 11/21/16 21:00 11/28/16 20:59 11/21/16 20:51 Dextrose (Dextrose 50%) STAT PRN IV Hypoglycemia 11/17/16 17:45 12/17/16 17:44 Heparin Sodium (Porcine) (Heparin 5000 units/ml) 5,000 units EVERY 12 HOURS SUBQ 11/17/16 21:00 12/17/16 20:59 11/22/16 09:11 Lorazepam (Ativan 2mg/ml 1ml) 2 mg EVERY 2 HOURS PRN IV For Anxiety 11/17/16 17:45 11/24/16 17:44 Morphine Sulfate (Morphine Sulfate) 4 mg EVERY 4 HOURS PRN IVP Severe Pain (Pain Scale 7-10) 11/17/16 17:45 11/24/16 17:44 Mupirocin 1 applic 1 applic DAILY TOPIC 11/18/16 21:00 11/23/16 20:59 11/22/16 09:08 Ondansetron HCl (Zofran) 4 mg Q6H PRN IVP Nausea & Vomiting 11/17/16 17:45 12/17/16 17:44 Polyethylene Glycol (Miralax) 17 gm DAILYPRN PRN ORAL Constipation 11/17/16 17:45 12/17/16 17:44 Ranitidine HCl (Zantac) 150 mg BEDTIME ORAL 11/21/16 21:00 12/21/16 20:59 11/21/16 20:53 Sodium Chloride (0.45% NS 1000ml) 1,000 ml @ 50 mls/hr Q20H IV 11/17/16 21:00 12/17/16 20:59 11/22/16 02:00 Vancomycin HCl (Vanco rx to dose) 1 ea DAILY PRN MISC . 11/17/16 18:45 12/17/16 18:44 Vancomycin HCl/ Dextrose (Vancomycin/D5W) 325 ml @ 162.5 mls/ hr Q24H IVPB 11/20/16 16:00 11/25/16 15:59 11/21/16 17:44 MÓNICA JORDAN Nov 22, 2016 12:32
[2016-11-22] MEDS ORDERED: 1/2 NS 1000ml IV ONE (15:59)
[2016-11-22 16:00] VITALS: BP 119/66
[2016-11-22] MEDS ORDERED: Zosyn 3.375gm q8h **Extended infusion IVPB SCH ×2 (16:00)
[2016-11-22] MEDS: Vancomycin 1.5 GM in D5W 325 ML IVPB SCH (16:25)
--- NOTE | 2016-11-23 10:14 | Discharge Summary ---
Discharge Summary Hospital Course Date of Admission Nov 17, 2016 at 13:05 Date of Discharge Nov 22, 2016 at 17:30 Admitting Diagnosis osteomylities right foot HPI Sherin Hanna is a 86 year old female who was admitted on Nov 17, 2016 at 13:05 for Osteomylities Right Foot Hospital Course dc summary dictated #[id number] Discharge Medications New Medications: Cefepime Hcl/D5w (Cefepime-Dextrose 1 Gm/50 Ml) 1 Gm/50 Ml Piggyback 1 GM IVPB Q24H for 35 Days, BAG Vancomycin Hcl/D5w (Vancomycin-D5w 1 G/250 Ml) 1 Gm/250 Ml Plast..bag 1.5 GM IVPB Q24H for 35 Days, BAG Continued Medications: Acetaminophen (Acetaminophen) 650 Mg/20.3 Ml Soln 325 MG GT Q6H PRN for Prn Headache/Temp > 101, ML 0 Refills Albuterol Sulfate* (Albuterol Sulfate Hhn*) 2.5 Mg/3 Ml Vial.neb 3 ML INH Q6H PRN for Shortness of Breath, #30 EA 0 Refills Atenolol (Tenormin) 25 Mg Tab 25 MG ORAL DAILY, TAB Ferrous Sulfate (Ferrous Sulfate) 220 Mg/5 Ml Solution 330 MG GT DAILY Latanoprost* (Xalatan*) 2.5 Ml Drops 1 DROP BOTH EYES BEDTIME, ML 0 Refills Discharge Condition Upon Discharge: stable Discharge Disposition Patient was discharged to SNF Discharge Diagnoses: Gume (Darrian)Nereida NP Nov 23, 2016 10:14
--- NOTE | 2016-11-23 14:10 | Diagnostic Imaging Report ---
Indications: Needs long-term IV access Technique: Procedure performed at bedside. Ultrasound confirms patent compressible right brachial vein. Total sterile technique, including sterile probe cover and sterile gel, sterile gloves, hand hygiene, hat, mask,, sterile gown, large sterile drape, and preparation with 2% chlorhexidine utilized. Local anesthesia with 1% lidocaine. Under real-time ultrasound guidance, puncture brachial vein using 21-gauge needle, passage 0.018 guidewire, exchange for 5 Sammarinese peel-away sheath. 5 Sammarinese Bard dual-lumen power PICC cut to 34 cm. It was inserted through the peel-away sheath. Peel-away sheath and guidewire removed. Catheter fixed to the skin. Both catheter ports aspirated and flushed. Patient tolerated procedure well, without immediate complication. Followup chest x-ray obtained, documents catheter tip position at the cavoatrial junction. Impression: Successful bedside placement of right arm PICC under sonographic guidance, as described above.
--- NOTE | 2016-11-23 23:48 | Discharge Summary 2 SIG ---
DATE OF ADMISSION: 11/17/2016 DATE OF DISCHARGE: 11/22/2016 The patient is admitted under Dr. Vidales. REASON FOR ADMISSION: 86-year-old female was brought from the detention facility for possible osteomyelitis of right big toe right foot. The patient recently completed course of antibiotics for cellulitis/abscess of the right foot. Nursing staff from the detention facility did not report fevers or chills. The patient with chronic respiratory failure, ventilator dependent, and unable to provide any information. In the ED, workup revealed no fever , no obvious signs of infection. No sepsis or systemic illness. Started on empiric Unasyn and vancomycin for possible osteomyelitis. No leukocytosis. Blood culture were drawn. EKG revealed sinus rhythm. No ischemic changes. No signs of respiratory distress. The patient was transferred to [facility] for further management. ADMITTING DIAGNOSES: 1. Sepsis 2.Possible osteomyelitis, right foot great toe. 3. Right foot wound abscess. 4. Ventilator-dependent respiratory failure, tracheostomy status. 5. Chronic obstructive pulmonary disease. 6. Dysphagia, gastrostomy tube. HOSPITAL STAY: The patient was admitted to [facility]. Wound care nurse and apartment coordinator consult were requested. Arterial duplex revealed bilateral peripheral vascular disease, right side severe ischemia and left moderate ischemia. Aspirin added to existing medication regimen. Rn Lvn seen the patient, recommended local wound care and offload the heels. Noted elevated ESR and CRP. Foot x-ray revealed no definite acute bony trauma. No definite findings to suggest acute osteomyelitis. Subsequently, bone scan was ordered, which revealed osteomyelitis of the right calcaneus. ID doctor was involved. The patient will need six weeks of IV antibiotics total including 35 days at the detention facility. Wound culture was positive for Morganella, Proteus mirabilis, and Enterococcus faecalis. Another wound culture was possible for Morganella. Blood cultures were negative. Sputum culture positive for Pseudomonas aeruginosa , colonized. Venous duplex of bilateral lower extremities revealed patent deep venous system bilaterally. Chest x-ray revealed no acute cardiopulmonary changes. ABG was stable on current ventilator settings. Ventilator and tracheostomy care provided. Pulmonary toilet provided. Continue current settings and titrate as needed. Wound care as per apartment coordinator's recommendation. Vascular surgeon evaluation as outpatient for possible revascularization , doubt that the patient is a suitable candidate for surgery given multiple chronic comorbidities, likely high surgical risk. Blood pressure was managed with beta-soledad and was stable. Strict aspiration precaution maintained. G-tube feeding provided. The patient tolerated tube feeding. DVT prophylaxis provided. Bowel regimen initiated. Hemoglobin and hematocrit maintained at baseline, no trend down. The patient was stable for discharge. No fever. No leukocytosis. Renal parameters stable. Hemoglobin and hematocrit at the baseline. Need 35 more days of antibiotics. DISCHARGE DIAGNOSES: 1. Sepsis. 2. Osteomyelitis, right calcaneus 3. Right heel ulcer, present on admission. 4. Peripheral vascular disease. 5. Ventilator-dependent respiratory failure/tracheostomy. 6. Dysphagia, gastrostomy tube. 7. Chronic obstructive pulmonary disease. 8. Multiple chronic right lower extremity ulcers, present on admission. 9. Anemia. 10. Hypertension. DISCHARGE MEDICATIONS: See medication reconciliation list. Continue IV antibiotics for 35 more days as recommended by ID doctor. DISCHARGE INSTRUCTIONS: The patient is discharged to detention facility. Followup with medical doctor at the facility. Vascular Surgery evaluation as outpatient. Sonu Vidales M.D. I have been assigned to dictate discharge summary on this account and I was not involved in the patient's management. Nereida Brittonsebas NNinoskaPNinoska DR: DARELL JOB#: [id number] CC: JEYSON
== END 2016-11-22 17:30 | DRG 870 ==
LOC: EMR 11:43 → EDBEDREQ 11:59 → 2W 13:05 → EDBEDREQ 13:59
PROC: 5A1955Z Respiratory Ventilation, Greater than 96 Consecutive Hours (ICD-10-PCS; principal; 2016-11-17)
DX: A41.9 Sepsis, unspecified organism (principal); Z99.11 Dependence on respirator [ventilator] status; L89.514 Pressure ulcer of right ankle, stage 4; J96.10 Chronic respiratory failure, unspecified whether with hypoxia or hypercapnia; L89.614 Pressure ulcer of right heel, stage 4; Z43.0 Encounter for attention to tracheostomy; R13.10 Dysphagia, unspecified; M86.8X7 Other osteomyelitis, ankle and foot; Z43.1 Encounter for attention to gastrostomy; L02.611 Cutaneous abscess of right foot; B96.89 Other specified bacterial agents as the cause of diseases classified elsewhere; Z86.73 Personal history of transient ischemic attack (TIA), and cerebral infarction without residual deficits; I73.9 Peripheral vascular disease, unspecified; D64.9 Anemia, unspecified; I10 Essential (primary) hypertension; F03.90 Unspecified dementia, unspecified severity, without behavioral disturbance, psychotic disturbance, mood disturbance, and anxiety; L89.899 Pressure ulcer of other site, unspecified stage
CPT/HCPCS: 36415; 36569; 36600; 71010; 76937; 78315; 80048; 80053; 80061; 80069; 80202; 82553; 82803; 83735; 84100; 85025; 85651; 86140; 87040; 87070; 87075; 87181; 87205; 93005; 93925; 93970; 94002; 94003; 94664

== ENCOUNTER 2017-09-27 11:18 | Inpatient (IN) | payer MEDICARE, MEDICAID ==
[~2017-09-27] VITALS: Ht 195.6 cm; Wt 97.1 kg
[2017-09-27] VITALS (17 sets, daily range): BP systolic 74–121; BP diastolic 40–91
[~2017-09-27 11:18] MED LIST changes: +ALBUTEROL2.5 MG/3 M INH; +ZINC SULFATE220 M1 GT; -ZINC SULFATE220 M1 ORAL
[2017-09-27] MEDS ORDERED: Vancomycin 1.5gm/D5W 250ml 250 ML IVPB ONE (11:30)
[2017-09-27] MEDS ORDERED: Piperacillin/Tazobactam 3.375 GM in NS 55 ML IVPB ONE (11:45)
--- NOTE | 2017-09-27 11:46 | Diagnostic Imaging Report ---
Indication: Dyspnea Comparison: 11/22/2016 A single view chest radiograph was obtained. Findings: Vascular congestion demonstrated. Basilar infiltrates not excluded. Tracheostomy is noted. Bones are osteopenic. Heart is enlarged. IMPRESSION: Interstitial edema suspected. Basilar infiltrates not excluded. Please correlate clinically.
[2017-09-27] MEDS: Ipratropium 0.02% Inh Soln 2.5ml UD HHN SCH ×3 (11:58→12:45)
[2017-09-27] MEDS: Albuterol ud Inhalation HHN SCH ×3 (11:59→12:45)
[2017-09-27] MEDS ORDERED: Zosyn 3.375gm inj ONE (13:00)
[2017-09-27 13:08] LABS: BASOPHILS % (AUTO) 0.9 % (0.0-2.0); EOSINOPHILS % (AUTO) 0.4 % (0.0-3.0); HEMATOCRIT 37.9 % (37.0-47.0); HEMOGLOBIN 11.4 G/DL (12.0-16.0); LYMPHOCYTES % (AUTO) 23.4 % (20.0-45.0); MEAN CORPUSCULAR VOLUME 95 FL (80-99); MONOCYTES % (AUTO) 8.9 % (1.0-10.0); NEUTROPHILS % (AUTO) 66.4 % (45.0-75.0); PLATELET COUNT 298 K/UL (150-450); RED BLOOD COUNT 4.01 M/UL (4.20-5.40); RED CELL DISTRIBUTION WIDTH 15.2 % (11.6-14.8); WHITE BLOOD COUNT 17.1 K/UL (4.8-10.8)
[2017-09-27 13:28] LABS: ALANINE AMINOTRANSFERASE 58 U/L (12-78); ALBUMIN 2.6 G/DL (3.4-5.0); ALBUMIN/GLOBULIN RATIO 0.4 (1.0-2.7); ALKALINE PHOSPHATASE 182 U/L (46-116); ANION GAP 4 mmol/L (5-15); ASPARTATE AMINO TRANSFERASE 52 U/L (15-37); BILIRUBIN,TOTAL 0.3 MG/DL (0.2-1.0); BLOOD UREA NITROGEN 31 mg/dL (7-18); CALCIUM 8.5 MG/DL (8.5-10.1); CARBON DIOXIDE 33 MMOL/L (21-32); CHLORIDE 97 MMOL/L (98-107); CREATINE KINASE 90 U/L (26-308); POTASSIUM 5.9 MMOL/L (3.5-5.1); SODIUM 133 MMOL/L (136-145)
[2017-09-27] MEDS ORDERED: Heparin 5000 units/ml inj IV ONE (14:00)
[2017-09-27] MEDS ORDERED: Heparin 25,000u/D5W 500ml 500 ML IV SCH ×2 (14:00→17:00)
[2017-09-27] MEDS ORDERED: Calcium Gluconate 1gm/10ml vial IVP ONE (14:00)
[2017-09-27] MEDS ORDERED: Sodium Bicarbonate 50ml Carp IV ONE (14:00)
--- NOTE | 2017-09-27 14:08 | Emergency Room Report ---
History of Present Illness General Chief Complaint: Dyspnea/Respdistress Source: Medical Record Present Illness HPI 79-year-old female, coming from retirement, bedbound, nonverbal, PEG tube, trach, DO NOT RESUSCITATE order (however does not specify other treatment), presenting with severe respiratory distress. EMS states that retirement the patient this morning, severe respiratory distress, no other history is able to be obtained Allergies: Coded Allergies: No Known Allergies (Unverified , 05/31/12) Patient History Past Medical History: see triage record Past Surgical History: none Pertinent Family History: none Reviewed Nursing Documentation: PMH: Agreed, PSxH: Agreed Nursing Documentation-PMH Hx Cardiac Problems: Yes Hx Hypertension: Yes Hx COPD: Yes - trach vent dependant Hx Cancer: No Hx Neurological Problems: Yes Hx Cerebrovascular Accident: Yes Hx Dementia: Yes Hx Weakness: Yes Review of Systems All Other Systems: limited - nonverbal Physical Exam Vital Signs Date Time Temp Pulse Resp B/P (MAP) Pulse Ox O2 Delivery O2 Flow Rate FiO2 09/27/17 11:21 97.9 10 26 150/80 98 Mechanical Ventilator 09/27/17 11:30 12.0 100 Sp02 EP Interpretation: abnormal - on vent General Appearance: severe distress, obese, other - nonverbal not responsive, Chronically Ill Head: normocephalic, atraumatic Eyes: bilateral eye PERRL ENT: other - +trach Neck: normal inspection, full range of motion, supple Respiratory: other - +dec breath sounds b/l, trach to vent Cardiovascular #1: normal inspection, regular rate, rhythm, no edema, normal capillary refill Cardiovascular #2: 2+ radial (R), 2+ radial (L) Gastrointestinal: other - +peg tube in place, abdomen not rigid, no gaurding Musculoskeletal: other - no abnormalities seen Neurologic: other - unresponsive Psychiatric: other - not responsive Skin: normal inspection, normal color, no rash, warm/dry, well hydrated, normal turgor Procedures Critical Care Time Critical Care Time 40 minutes of CC time 87-year-old female with respiratory failure VS: Hypoxic, tachypneic, hypotensive PLAN: IV access, labs, lactate, troponin, Blood/Urine Cx, Abx, IVF Anticipate admission to ICU CC time also includes review of labs, review of EMR, discussion with family and paperwork from SNF, d/w hospitalist CC could include dosing of pressors, additional Abx CC time does not include procedures Central Line Central Line : Consent: Emergent Central Line Lumen: triple Maximal Sterile Barrier Tech: yes cap, yes mask, yes sterile gown, yes sterile gloves, yes large sterile sheet, yes hand hygiene, yes chlorhexidine prep No Max Barrier Tech Because: emergency insertion Central Line Postion: internal jugular (L) Complications: none Central Line Post Position: sutured, good blood return, position confirmed w / CXR Attempts: One Patient Tolerated: Well Complications: None Medical Decision Making Diagnostic Impression: Primary Impression: Acute respiratory failure Additional Impressions: Tracheostomy dependent NSTEMI (non-ST elevated myocardial infarction) Hyperkalemia Severe sepsis ER Course 87-year-old female, with DO NOT RESUSCITATE, trach, with p/w respiratory distress DDX: Hypokalemia, dehydration, electrolyte disturbance ACS Sepsis 2/2 UTI, PNA, bacteremia, will also consider intra-abdominal pathology such as colitis / diverticulitis / acalculous cholecystitis if no other course found but at this time abdomen soft, NT, ND. Plan: Trach tube to ventilator Routine labs CXR EKG Broad spectrum ABX Consider norepinephrine ER course: Patient's tracheostomy was connected to a ventilator Not pulling much volume, very tight, nebs given Unable to obtain any labs, despite DO NOT RESUSCITATE order there was no specifications on the POLST forms, central line was placed Patient hypotensive, requires norepinephrine to maintain MAP >65 Given broad spectrum abx - vancomycin and zosyn Lab significant for troponin of 1, heparin bolus and drip given Also with hyperkalemia, hyperkalemia cocktail given Sepsis Re-examination Time: 2:30 PM VS: Temp 98 HR 90 BP 100/70 RR 20 CVS: RRR Respiratory: Decreased breath sounds bilaterally Peripheral pulses: 2+ radial Capillary refill: <2 seconds Skin exam: warm, dry, no rash, not mottled Disposition: Patient will admitted to ICU D/W Hospitalist Dr Cartwright covering for Dr Vidales Please note that this Emergency Department Report was dictated using [id number] pumper technology software, occasionally this can lead to erroneous entry secondary to interpretation by the dictation equipment. EKG Diagnostic Results EP Interpretation: Yes Rate: Tachycardia Rhythm: NSR ST Segments: No acute changes ASA given to patient: y Rhythm Strip EP Interpretation: Yes Rate: 110 Rhythm: NSR, no PVCs, no ectopy Chest X-ray CXR: Ordered: Yes 1 view Indication: Shortness of breath EP interpretation: Yes Interpretation: Cardiomegaly with pulmonary vascular congestion, trach noted Impression: Cardiomegaly with pulmonary vascular congestion Electronically signed by Alexander Davidson MD Chest X-ray CXR: Ordered: Yes 1 view Indication: CVP placement EP interpretation: Yes Interpretation: Cardiomegaly with pulmonary vascular congestion, CVP noted in appropriate position Impression: Cardiomegaly with pulmonary vascular congestion Electronically signed by Alexander Davidson MD Laboratory Tests Test 09/27/17 12:40 09/27/17 14:35 White Blood Count 17.1 K/UL (4.8-10.8) H Red Blood Count 4.01 M/UL (4.20-5.40) L Hemoglobin 11.4 G/DL (12.0-16.0) L Hematocrit 37.9 % (37.0-47.0) Mean Corpuscular Volume 95 FL (80-99) Mean Corpuscular Hemoglobin 28.4 PG (27.0-31.0) Mean Corpuscular Hemoglobin Concent 30.1 G/DL (32.0-36.0) L Red Cell Distribution Width 15.2 % (11.6-14.8) H Platelet Count 298 K/UL (150-450) Mean Platelet Volume 6.6 FL (6.5-10.1) Neutrophils (%) (Auto) 66.4 % (45.0-75.0) Lymphocytes (%) (Auto) 23.4 % (20.0-45.0) Monocytes (%) (Auto) 8.9 % (1.0-10.0) Eosinophils (%) (Auto) 0.4 % (0.0-3.0) Basophils (%) (Auto) 0.9 % (0.0-2.0) Prothrombin Time 10.8 SEC (9.30-11.50) Prothrombin Time INR 1.0 (0.9-1.1) PTT 30 SEC (23-33) Sodium Level 133 MMOL/L (136-145) L Potassium Level 5.9 MMOL/L (3.5-5.1) H Chloride Level 97 MMOL/L (98-107) L Carbon Dioxide Level 33 MMOL/L (21-32) H Anion Gap 4 mmol/L (5-15) L Blood Urea Nitrogen 31 mg/dL (7-18) H Creatinine 1.0 MG/DL (0.55-1.30) Estimate Glomerular Filtration Rate mL/min (>60) Glucose Level 264 MG/DL (74-106) H Lactic Acid Level 1.50 mmol/L (0.66-2.22) Calcium Level 8.5 MG/DL (8.5-10.1) Total Bilirubin 0.3 MG/DL (0.2-1.0) Aspartate Amino Transferase (AST) 52 U/L (15-37) H Alanine Aminotransferase (ALT) 58 U/L (12-78) Alkaline Phosphatase 182 U/L (46-116) H Total Creatine Kinase 90 U/L (26-308) Troponin I 1.185 ng/mL (0.000-0.056) Pro-B-Type Natriuretic Peptide 448 pg/mL (0-125) H Total Protein 9.9 G/DL (6.4-8.2) H Albumin 2.6 G/DL (3.4-5.0) L Globulin 7.3 g/dL Albumin/Globulin Ratio 0.4 (1.0-2.7) L Arterial Blood pH 7.320 (7.350-7.450) Arterial Blood Partial Pressure CO2 48.3 mmHg (35.0-45.0) H Arterial Blood Partial Pressure O2 241.5 mmHg (75.0-100.0) H Arterial Blood HCO3 25.0 mmol/L (22.0-26.0) Arterial Blood Oxygen Saturation 99.4 % (92.0-98.0) H Arterial Blood Base Excess -1.2 Holger Test Positive Last Vital Signs Date Time Temp Pulse Resp B/P (MAP) Pulse Ox O2 Delivery O2 Flow Rate FiO2 09/27/17 13:00 111 18 100 Mechanical Ventilator 50 09/27/17 11:30 97.9 111/59 12.0 Disposition: ADMITTED INPATIENT Condition: Critical Referrals: JAYLEN VIDALES (PCP) Alexander Davidson M.D. Sep 27, 2017 14:08
--- NOTE | 2017-09-27 14:52 | Diagnostic Imaging Report ---
Indication: Line placement Comparison: None A single view chest radiograph was obtained. Findings: Jugular line has been placed. The tip is projected over the SVC in good position. There is no pneumothorax. No change otherwise. IMPRESSION: Central line in good position. No pneumothorax or complications
[2017-09-27] MEDS ORDERED: Morphine Sulfate 2mg/ml Inj IVP PRN (17:00)
[2017-09-27] MEDS ORDERED: Albuterol/Ipratropium 3ml neb HHN PRN (17:00)
[2017-09-27] MEDS ORDERED: LORazepam 1mg tab ORAL PRN (17:00)
[2017-09-27] MEDS ORDERED: Mylanta II UD 30ml ORAL PRN (17:00)
[2017-09-27] MEDS ORDERED: Nitroglycerin Subl 0.4mg tab SL PRN (17:00)
[2017-09-27] MEDS ORDERED: Acetaminophen 650 MG SUPP RECTAL PRN (17:00)
--- NOTE | 2017-09-27 17:11 | Pulmonolgy Critical Care Note ---
Critical Care - Asmt/Plan Assessment/Plan: ASSESSMENT severe sepsis with shock acute on chronic respiratory failure VDRF/trach status elevated troponin possible NSTEMI possible PNA Hyperkalemia KEITH, possibly due to sepsis and dehydration dysphagia G tube hx of OM R calcaneus PLAN OF CARE ICU IVF pressors for hemodynamic support to keep MAP above 65 Heparin gtt serial troponin ECHO cardio eval per PMD vent support pulmonary toilet CXR in am ABG in am and titrate settings as needed empiric abx, ID consult consider other sources of sepsis, monitor volumes, cardiorenal parameters, avoid nephrotoxic hold TF till tomorrow GI prophayxlsi monitor e/lytes and correct further as needed wound nurse eval DNR/DNI status condition serious case discussed and evaluated by supervising physician Critical Care - Objective Last 24 Hour Vital Signs Date Time Temp Pulse Resp B/P (MAP) Pulse Ox O2 Delivery O2 Flow Rate FiO2 09/27/17 14:53 91/61 09/27/17 14:50 86 20 100 09/27/17 14:48 86/58 09/27/17 14:43 87/59 09/27/17 14:30 82/59 09/27/17 14:12 86/66 09/27/17 13:00 111 18 100 Mechanical Ventilator 50 09/27/17 12:59 117 36 100 Mechanical Ventilator 09/27/17 12:49 117 31 100 09/27/17 12:03 117 31 100 09/27/17 11:30 97.9 114 37 111/59 100 Mechanical Ventilator 12.0 100 09/27/17 11:30 114 37 Mechanical Ventilator 12.0 100 09/27/17 11:21 97.9 10 26 150/80 98 Mechanical Ventilator Status: obtunded, other - chronically ill, bedridden vent dependent obese female Condition: critical HEENT: atraumatic, normocephalic Neck: trach Lungs: rhonchi - scattered Heart: HR/BP unstable Abdomen: soft, non-tender, other - G tube Extremities: no C/C/E, other - spastic LE Accucheck: 264 Critical Care - Subjective ROS Limited/Unobtainable: Yes Interval Events: patient with VDRF/trach status presented tachycardic, hypotensive , tachypneic elevated troponin leucocytosis, no fevers CL placed in ED started on pressors and heparin gtt awaiting transfer to ICU Condition: critical IV Access: central EKG Rhythm: Sinus Tachycardia FI02: 100 Vent Support Breath Rate: 12 Vent Support Mode: AC Vent Tidal Volume: 500 Sputum Amount: Small PIP: 32 Gume (Nereida Blas NP Sep 27, 2017 17:11
[2017-09-27] MEDS ORDERED: HEPARIN SO5000 UNIT2 SUBQ (17:24)
[2017-09-27] MEDS ORDERED: ASCORBIC ACID500 MG GT (17:27)
[2017-09-27] MEDS ORDERED: METOPROLOL TART25 MG GT (17:37)
[2017-09-27] MEDS ORDERED: MIRALAX17 GM GT (17:41)
[2017-09-27] MEDS ORDERED: RANITIDINE HCL150 MG GT (17:42)
[2017-09-27] MEDS ORDERED: ZOFRAN4 M3 GT (17:43)
[2017-09-27] MEDS ORDERED: ALBUTEROL2.5 MG/3 M INH (18:04)
[2017-09-27] MEDS ORDERED: IPRATROPIU0.2 MG/1 M HHN ×2 (18:05→18:06)
--- NOTE | 2017-09-27 18:33 | Consultation ---
Consult Note Consult Note Cardiology for Dr. Coleman Full consult dictated #[id number] GABINO MA Sep 27, 2017 18:33
[2017-09-27 19:47] LABS: BILIRUBIN, URINE NEGATIVE (NEGATIVE); GLUCOSE, URINE (UA) 1+ (NEGATIVE); KETONES,URINE NEGATIVE (NEGATIVE); LEUKOCYTE ESTERASE ,URINE 3+ (NEGATIVE); NITRITE,URINE NEGATIVE (NEGATIVE); PH,URINE 8 (4.5-8.0); PROTEIN,URINE 3+ (NEGATIVE); UROBILINOGEN,URINE NORMAL MG/DL (0.0-1.0)
[2017-09-27 19:53] LABS: APPEARANCE,URINE SLIGHTLY CLOUDY; COLOR,URINE YELLOW
[2017-09-27] MEDS ORDERED: Levophed 4mg/4mL Inj IV ONE (20:28)
[2017-09-27] MEDS ORDERED: Cefepime HCl 1 GM in D5W 55 ML IVPB SCH (21:00)
--- NOTE | 2017-09-27 21:30 | Consultation ---
DATE OF CONSULTATION: 09/27/2017 CARDIOLOGY CONSULTATION REASON FOR CONSULT: Elevated troponin, [id number] myocardial infarction. HISTORY OF PRESENT ILLNESS: History is obtained from the chart as the patient is intubated, demented, and unable to give any history. The patient is an 87-year-old woman, [facility] resident, bed-bound, with history of previous CVA, dementia, and respiratory failure, status post tracheostomy and on chronic ventilator support. [facility] was transferred [facility] the [facility] to [facility] with respiratory distress. She had transient hypotension and was started on intravenous norepinephrine. She was also treated with vancomycin and Zosyn for possible pneumonia and sepsis. Her troponin was noted to be elevated at 1.18 and Cardiology evaluation was requested. She is currently on the ventilator, not responsive with no respiratory distress, blood pressure 114/66, pulse 94, and respiratory rate 21 with 100% oxygen saturation on 100% FiO2. PAST MEDICAL HISTORY: As noted above. MEDICATIONS: Aspirin 81 mg daily, Protonix 40 mg IV daily, cefepime 1 g IV q.12 hours, DuoNeb nebulizer every 4 hours p.r.n., sublingual nitroglycerin p.r.n., morphine p.r.n., intravenous heparin per pharmacy, norepinephrine titrated, vancomycin, Zosyn 3.375 g given x1 in the emergency room, and vancomycin 1 g IV given x1 in the emergency room. ALLERGIES: No known drug allergies. SOCIAL HISTORY: The patient is a convalescent home resident. Dependent for all ADLs. REVIEW OF SYSTEMS: Not obtainable from the patient or chart. PHYSICAL EXAMINATION: VITAL SIGNS: Blood pressure was 85/47 prior to initiation of norepinephrine, currently 114/66, pulse 94 and regular, respirations 21, and afebrile. GENERAL: Unresponsive, obese, elderly-appearing woman, who is on the ventilator via tracheostomy. HEENT: Left cataract. Sclerae anicteric. Oral mucosa are moist. NECK: Supple. Tracheostomy site is clean. There is no jugular venous distention. LUNGS: Scattered rhonchi bilaterally. HEART: Regular rate and rhythm. S1 and S2. No murmurs or S3. ABDOMEN: Obese, soft, and nontender. Positive G-tube. Normoactive bowel sounds. EXTREMITIES: No cyanosis, clubbing, or edema. Distal lower extremity pulses are intact bilaterally. NEUROLOGIC: The patient is unable to be tested. She is unresponsive on the ventilator. LABORATORY AND DIAGNOSTIC DATA: Troponin 1.185. Potassium 5.9, BUN 31, and creatinine 1.0. Glucose 264. Natriuretic peptide 448. Hemoglobin 11.4, white blood count 17,100, and platelets 298,000. Arterial blood gas, pH 7.32, pCO2 48, pO2 241, and oxygen saturation 99.4% on 100% FiO2. EKG shows sinus tachycardia at the rate of 116 beats per minute, low voltage QRS axis +30 degrees, first-degree AV block, and no ST-segment or T-wave changes. Chest x-ray shows pulmonary vascular congestion, interstitial edema, and cardiomegaly. ASSESSMENT AND RECOMMENDATIONS: The patient is an 87-year-old woman with history of previous cerebrovascular accident, dementia, chronic obstructive pulmonary disease, and chronic respiratory failure on a chronic ventilator, who presents with acute respiratory distress and appears to be in congestive heart failure. She also may have pneumonia as she is noted with an elevated white blood count. At this point, I would favor checking serial troponin levels and EKGs, appears to be in congestive heart failure possibly also with pneumonia. She has a mildly elevated troponin without EKG evidence for ischemia or acute infarction. She may have demand ischemia due to sepsis and heart failure. I would agree with blood pressure support with norepinephrine. We would diurese if blood pressure improves in the setting of pneumonia and congestive heart failure. She is hyperkalemic. I would agree with intravenous norepinephrine for blood pressure support. We would continue vent support and broad-spectrum antibiotics. I will check an echo to evaluate left ventricular systolic and diastolic function and we will check serial troponin levels and EKGs. Once blood pressure improves, she can be given intravenous Lasix for pulmonary congestion. She is noted to be DNR per previous hospitalization, per bioethics. Judit Jeffrey M.D. DR: RYLAND JOB#: [id number] CC:
[2017-09-27] MEDS ORDERED: TAZOBACTAM IVPB SCH (22:00)
[2017-09-27] MEDS ORDERED: NS IVPB SCH (22:00)
[2017-09-27] MEDS ORDERED: PIPERACILLIN IVPB SCH (22:00)
--- NOTE | 2017-09-27 22:00 | Consultation ---
DATE OF CONSULTATION: 09/27/2017 CARDIOLOGY CONSULTATION REASON FOR CONSULT: Elevated troponin, [id number] myocardial infarction. HISTORY OF PRESENT ILLNESS: History is obtained from the chart as the patient is intubated, demented, and unable to give any history. The patient is an 87-year-old woman, senior living resident, bed-bound, with history of previous CVA, dementia, and respiratory failure, status post tracheostomy and on chronic ventilator support. She was transferred from the senior living to [facility] with respiratory distress. She had transient hypotension and was started on intravenous norepinephrine. She was also treated with vancomycin and Zosyn for possible pneumonia and sepsis. Her troponin was noted to be elevated at 1.18 and Cardiology evaluation was requested. She is currently on the ventilator, not responsive with no respiratory distress, blood pressure 114/66, pulse 94, and respiratory rate 21 with 100% oxygen saturation on 100% FiO2. PAST MEDICAL HISTORY: As noted above. MEDICATIONS: Aspirin 81 mg daily, Protonix 40 mg IV daily, cefepime 1 g IV q.12 hours, DuoNeb nebulizer every 4 hours p.r.n., sublingual nitroglycerin p.r.n., morphine p.r.n., intravenous heparin per pharmacy, norepinephrine titrated, vancomycin, Zosyn 3.375 g given x1 in the emergency room, and vancomycin 1 g IV given x1 in the emergency room. ALLERGIES: No known drug allergies. SOCIAL HISTORY: The patient is a convalescent home resident. Dependent for all ADLs. REVIEW OF SYSTEMS: Not obtainable from the patient or chart. PHYSICAL EXAMINATION: VITAL SIGNS: Blood pressure was 85/47 prior to initiation of norepinephrine, currently 114/66, pulse 94 and regular, respirations 21, and afebrile. GENERAL: Unresponsive, obese, elderly-appearing woman, who is on the ventilator via tracheostomy. HEENT: Left cataract. Sclerae anicteric. Oral mucosa are moist. NECK: Supple. Tracheostomy site is clean. There is no jugular venous distention. LUNGS: Scattered rhonchi bilaterally. HEART: Regular rate and rhythm. S1 and S2. No murmurs or S3. ABDOMEN: Obese, soft, and nontender. Positive G-tube. Normoactive bowel sounds. EXTREMITIES: No cyanosis, clubbing, or edema. Distal lower extremity pulses are intact bilaterally. NEUROLOGIC: The patient is unable to be tested. She is unresponsive on the ventilator. LABORATORY AND DIAGNOSTIC DATA: Troponin 1.185. Potassium 5.9, BUN 31, and creatinine 1.0. Glucose 264. Natriuretic peptide 448. Hemoglobin 11.4, white blood count 17,100, and platelets 298,000. Arterial blood gas, pH 7.32, pCO2 48, pO2 241, and oxygen saturation 99.4% on 100% FiO2. EKG shows sinus tachycardia at the rate of 116 beats per minute, low voltage QRS axis +30 degrees, first-degree AV block, and no ST-segment or T-wave changes. Chest x-ray shows pulmonary vascular congestion, interstitial edema, and cardiomegaly. ASSESSMENT AND RECOMMENDATIONS: The patient is an 87-year-old woman with history of previous cerebrovascular accident, dementia, chronic obstructive pulmonary disease, and chronic respiratory failure on a chronic ventilator, who presents with acute respiratory distress and appears to be in congestive heart failure. She also may have pneumonia as she is noted with an elevated white blood count. At this point, I would favor checking serial troponin levels and EKGs, appears to be in congestive heart failure possibly also with pneumonia. She has a mildly elevated troponin without EKG evidence for ischemia or acute infarction. She may have demand ischemia due to sepsis and heart failure. I would agree with blood pressure support with norepinephrine. We would diurese if blood pressure improves in the setting of pneumonia and congestive heart failure. She is hyperkalemic. I would agree with intravenous norepinephrine for blood pressure support. We would continue vent support and broad-spectrum antibiotics. I will check an echo to evaluate left ventricular systolic and diastolic function and we will check serial troponin levels and EKGs. Once blood pressure improves, she can be given intravenous Lasix for pulmonary congestion. She is noted to be DNR per previous hospitalization, per bioethics. Judit Jeffrey M.D. DR: RYLAND JOB#: [id number] CC:
[2017-09-28] VITALS (9 sets, daily range): BP systolic 86–124; BP diastolic 43–73
--- NOTE | 2017-09-28 05:30 | History and Physical Report ---
DATE OF ADMISSION: 09/27/2017 INTERNAL MEDICINE HISTORY AND PHYSICAL IDENTIFICATION DATA: The patient is a pleasant 87-year-old female, intermediate resident, nonverbal, PEG, trach tube, and DNR status, at this time, presents with shortness of breath, severe respiratory failure, and severe distress, presents from a intermediate again, was noted to be in severe sepsis, elevated troponin, possible NSTEMI, and hyperkalemia, to be admitted to the intensive care unit with pressor support on heparin drip, serial troponins, echo pending, and covering for Dr. Vidales. Holding G-tube feedings at this time with DNR/DNI status. PAST MEDICAL HISTORY: CVA, dementia, respiratory failure, status post tracheostomy on chronic ventilator support transferred from intermediate again, and started on pressor. MEDICATIONS: Aspirin, cefepime, Protonix, DuoNebs, sublingual nitroglycerin, heparin, , and Porfirio-Synephrine. ALLERGIES: No known drug allergies. SOCIAL HISTORY: Convalescent home resident. Dependent for ADLs. REVIEW OF SYSTEMS: Difficult to obtain. PHYSICAL EXAMINATION: VITAL SIGNS: Reviewed. GENERAL: No distress. PULMONARY: Decreased breath sounds. Status post trach. CARDIOVASCULAR: Regular rate. No S3 or S4. ABDOMEN: Soft, nontender, and nondistended. EXTREMITIES: A 1+ to 2+ edema. LABORATORY DATA: Troponin 1.15. Potassium 5.9. BUN 31 and creatinine of 1. Glucose 264. Blood gas reviewed. IMAGING: Chest x-ray, pulmonary vascular congestion and cardiomegaly. ASSESSMENT AND RECOMMENDATIONS: 1. Congestive heart failure exacerbation likely potentially contributing to mildly elevated troponins without EKG, evidence of ischemia or acute myocardial infarction. Demand ischemia possibly due to heart failure. Currently is on heparin drip. Continue to manage as per Cardiology service. Cardiology service to evaluate the use of heparin drip. 2. Sepsis and septic shock. Currently, on norepinephrine for of blood pressure. Continue to closely monitor. Again management per Cardiology and Pulmonary team. 3. Congestive heart failure overload. Diuresis as needed. 4. Dementia with cerebrovascular accident. 5. Chronic obstructive pulmonary disease. 6. Chronic respiratory failure, on chronic vent. 7. Pneumonia. She is on antibiotics on a p.r.n. basis. 8. Leukocytosis likely secondary to underlying infection. 9. Hyperkalemia. Continue to closely monitor. Kayexalate administered. 10. Urinary tract infection, to be seen by ID team, consulted for antibiotics. Currently on vancomycin. To be seen by Dr. Fredy Duran. 11. long term resident, chronic, unchanged. 12. Cerebrovascular accident history in the past. 13. Chronic obstructive pulmonary disease history. 14. Chronic respiratory failure, he is on a vent. 15. The patient is DNR/DNI as per review of the record. Eber Fuller M.D. DR: SUMA JOB#: [id number] CC:
[2017-09-28 05:35] LABS: BASOPHILS % (AUTO) 0.4 % (0.0-2.0); EOSINOPHILS % (AUTO) 0.7 % (0.0-3.0); HEMATOCRIT 28.9 % (37.0-47.0); HEMOGLOBIN 9.2 G/DL (12.0-16.0); LYMPHOCYTES % (AUTO) 13.9 % (20.0-45.0); MEAN CORPUSCULAR VOLUME 91 FL (80-99); MONOCYTES % (AUTO) 8.4 % (1.0-10.0); NEUTROPHILS % (AUTO) 76.7 % (45.0-75.0); PLATELET COUNT 199 K/UL (150-450); RED BLOOD COUNT 3.19 M/UL (4.20-5.40); RED CELL DISTRIBUTION WIDTH 14.8 % (11.6-14.8); WHITE BLOOD COUNT 16.8 K/UL (4.8-10.8)
[2017-09-28 05:57] LABS: ANION GAP 7 mmol/L (5-15); BLOOD UREA NITROGEN 20 mg/dL (7-18); CALCIUM 7.3 MG/DL (8.5-10.1); CARBON DIOXIDE 26 MMOL/L (21-32); CHLORIDE 103 MMOL/L (98-107); CHOLESTEROL 76 MG/DL (< 200); CREATININE 0.7 MG/DL (0.55-1.30); HDL CHOLESTEROL 31 MG/DL (40-60); POTASSIUM 4.1 MMOL/L (3.5-5.1); SODIUM 136 MMOL/L (136-145); TRIGLYCERIDES 24 MG/DL (30-150)
[2017-09-28] MEDS: Piperacillin/Tazobactam 3.375 GM in NS 55 ML IVPB SCH ×3 (06:15→21:39)
[2017-09-28] MEDS ORDERED: Heparin 25,000u/D5W 500ml 500 ML IV SCH (07:00)
--- NOTE | 2017-09-28 08:26 | Cardiology Progress Note ---
Assessment/Plan Status: stable, unchanged Status Narrative Pt on chronic vent, adm w/ sudden respiratory decompensation, ? CHF in setting of ischemia. Troponin elevation noted. No ischemic changes on adm EKG. Findings c/w demand ischemia Pt also w/ UTI. Hyperkalemic on adm - K now nl On iv abx for uti and ? pneumonia Clinically improved overall Assessment/Plan Continue to trend troponins. EKG this am. ECHO pending to assess LV function. will stop iv heparin, as h/h have decreased - r/o gi bleed. continue to monitor h/h, stool guiacs Iv antibiotics per ID Subjective ROS Limited/Unobtainable: Yes Subjective Cardiology for Dr. Coleman Events noted. Pt on vent. Appears in no resp distress. No response to voice Objective Last 24 Hour Vital Signs Date Time Temp Pulse Resp B/P (MAP) Pulse Ox O2 Delivery O2 Flow Rate FiO2 09/28/17 07:24 84 18 50 09/28/17 05:05 84 12 50 09/28/17 04:32 96 09/28/17 04:00 50 09/28/17 04:00 98.6 102 19 104/60 100 Mechanical Ventilator 50 09/28/17 03:20 97.9 93 17 124/66 100 Mechanical Ventilator 15.0 50 09/28/17 02:53 93 17 124/66 100 Mechanical Ventilator 50 09/28/17 02:46 83 20 100 09/28/17 02:05 79 23 98/52 100 Mechanical Ventilator 15.0 100 09/28/17 01:00 94 20 100 09/28/17 01:00 97 26 86/43 100 Mechanical Ventilator 100 09/28/17 00:00 95 17 90/49 100 Mechanical Ventilator 100 09/27/17 23:00 100 13 97/47 100 Mechanical Ventilator 12.0 100 09/27/17 22:30 96 20 100 09/27/17 22:00 112 18 113/71 100 Mechanical Ventilator 12.0 100 09/27/17 21:37 118 17 100 09/27/17 21:00 98 16 121/77 100 Mechanical Ventilator 50 09/27/17 20:58 89/47 09/27/17 20:00 97.9 95 20 89/47 100 Mechanical Ventilator 50 09/27/17 19:46 96 19 100 09/27/17 19:00 97 16 105/73 100 Mechanical Ventilator 50 09/27/17 18:20 97.9 90 22 106/40 100 Mechanical Ventilator 12.0 100 09/27/17 17:24 114/66 09/27/17 17:22 94 21 100 09/27/17 17:19 85/47 09/27/17 17:19 97.9 93 23 85/47 100 Mechanical Ventilator 12.0 100 09/27/17 17:05 97.9 99 25 91/65 100 Mechanical Ventilator 12.0 100 09/27/17 16:30 98.0 99 24 103/53 100 Mechanical Ventilator 12.0 100 09/27/17 16:00 98.0 109 25 102/49 100 Mechanical Ventilator 12.0 100 09/27/17 15:30 97.6 108 27 113/58 100 Mechanical Ventilator 12.0 100 09/27/17 14:53 91/61 09/27/17 14:50 86 20 100 09/27/17 14:48 86/58 09/27/17 14:43 87/59 09/27/17 14:30 82/59 09/27/17 14:12 86/66 09/27/17 14:00 97.6 90 25 86/66 100 Mechanical Ventilator 12.0 50 09/27/17 13:30 97.6 96 27 80/40 100 Mechanical Ventilator 12.0 50 09/27/17 13:00 111 18 100 Mechanical Ventilator 50 09/27/17 13:00 97.6 108 16 86/41 100 Mechanical Ventilator 12.0 50 09/27/17 12:59 117 36 100 Mechanical Ventilator 09/27/17 12:49 117 31 100 09/27/17 12:30 97.6 96 27 106/91 100 Mechanical Ventilator 12.0 100 09/27/17 12:03 117 31 100 09/27/17 12:00 97.6 111 31 74/40 100 Mechanical Ventilator 12.0 100 09/27/17 11:30 97.9 114 37 111/59 100 Mechanical Ventilator 12.0 100 09/27/17 11:30 114 37 Mechanical Ventilator 12.0 100 09/27/17 11:21 97.9 10 26 150/80 98 Mechanical Ventilator General Appearance: WD/WN EENT: other - L cataract Neck: other - Trach/ vent Rhythm: NSR Cardiovascular: normal rate, regular rhythm, no gallop/murmur Respiratory/Chest: other - clear anteriorly Abdomen: non tender, soft, other - + g tube Extremities: no swelling Intake and Output 09/27/17 09/28/17 19:00 07:00 Intake Total 0 ml Output Total 200 ml Balance -200 ml Intake Oral 0 ml Output Urine Total 200 ml Laboratory Tests Test 09/27/17 12:40 09/27/17 14:35 09/27/17 19:25 09/27/17 23:45 White Blood Count 17.1 K/UL (4.8-10.8) H Red Blood Count 4.01 M/UL (4.20-5.40) L Hemoglobin 11.4 G/DL (12.0-16.0) L Hematocrit 37.9 % (37.0-47.0) Mean Corpuscular Volume 95 FL (80-99) Mean Corpuscular Hemoglobin 28.4 PG (27.0-31.0) Mean Corpuscular Hemoglobin Concent 30.1 G/DL (32.0-36.0) L Red Cell Distribution Width 15.2 % (11.6-14.8) H Platelet Count 298 K/UL (150-450) Mean Platelet Volume 6.6 FL (6.5-10.1) Neutrophils (%) (Auto) 66.4 % (45.0-75.0) Lymphocytes (%) (Auto) 23.4 % (20.0-45.0) Monocytes (%) (Auto) 8.9 % (1.0-10.0) Eosinophils (%) (Auto) 0.4 % (0.0-3.0) Basophils (%) (Auto) 0.9 % (0.0-2.0) Prothrombin Time 10.8 SEC (9.30-11.50) Prothromb Time International Ratio 1.0 (0.9-1.1) Activated Partial Thromboplast Time 30 SEC (23-33) 117 SEC (23-33) H Sodium Level 133 MMOL/L (136-145) L Potassium Level 5.9 MMOL/L (3.5-5.1) H Chloride Level 97 MMOL/L (98-107) L Carbon Dioxide Level 33 MMOL/L (21-32) H Anion Gap 4 mmol/L (5-15) L Blood Urea Nitrogen 31 mg/dL (7-18) H Creatinine 1.0 MG/DL (0.55-1.30) Estimat Glomerular Filtration Rate mL/min (>60) Glucose Level 264 MG/DL (74-106) H Lactic Acid Level 1.50 mmol/L (0.66-2.22) Calcium Level 8.5 MG/DL (8.5-10.1) Total Bilirubin 0.3 MG/DL (0.2-1.0) Aspartate Amino Transf (AST/SGOT) 52 U/L (15-37) H Alanine Aminotransferase (ALT/SGPT) 58 U/L (12-78) Alkaline Phosphatase 182 U/L (46-116) H Total Creatine Kinase 90 U/L (26-308) Troponin I 1.185 ng/mL (0.000-0.056) 2.921 ng/mL (0.000-0.056) Pro-B-Type Natriuretic Peptide 448 pg/mL (0-125) H Total Protein 9.9 G/DL (6.4-8.2) H Albumin 2.6 G/DL (3.4-5.0) L Globulin 7.3 g/dL Albumin/Globulin Ratio 0.4 (1.0-2.7) L Arterial Blood pH 7.320 (7.350-7.450) Arterial Blood Partial Pressure CO2 48.3 mmHg (35.0-45.0) H Arterial Blood Partial Pressure O2 241.5 mmHg (75.0-100.0) H Arterial Blood HCO3 25.0 mmol/L (22.0-26.0) Arterial Blood Oxygen Saturation 99.4 % (92.0-98.0) H Arterial Blood Base Excess -1.2 Holger Test Positive Urine Color Yellow Urine Appearance Slightly cloudy Urine pH 8 (4.5-8.0) Urine Specific Freeman 1.010 (1.005-1.035) Urine Protein 3+ (NEGATIVE) H Urine Glucose (UA) 1+ (NEGATIVE) H Urine Ketones Negative (NEGATIVE) Urine Occult Blood 5+ (NEGATIVE) H Urine Nitrite Negative (NEGATIVE) Urine Bilirubin Negative (NEGATIVE) Urine Urobilinogen Normal MG/DL (0.0-1.0) Urine Leukocyte Esterase 3+ (NEGATIVE) H Urine RBC 10-15 /HPF (0 - 2) H Urine WBC 2-4 /HPF (0 - 2) Urine Squamous Epithelial Cells Few /LPF (NONE/OCC) Urine Uric Acid Crystals Few /LPF (NONE) H Urine Bacteria Few /HPF (NONE) Test 09/28/17 03:50 White Blood Count 16.8 K/UL (4.8-10.8) H Red Blood Count 3.19 M/UL (4.20-5.40) L Hemoglobin 9.2 G/DL (12.0-16.0) L Hematocrit 28.9 % (37.0-47.0) L Mean Corpuscular Volume 91 FL (80-99) Mean Corpuscular Hemoglobin 28.8 PG (27.0-31.0) Mean Corpuscular Hemoglobin Concent 31.8 G/DL (32.0-36.0) L Red Cell Distribution Width 14.8 % (11.6-14.8) Platelet Count 199 K/UL (150-450) Mean Platelet Volume 6.8 FL (6.5-10.1) Neutrophils (%) (Auto) 76.7 % (45.0-75.0) H Lymphocytes (%) (Auto) 13.9 % (20.0-45.0) L Monocytes (%) (Auto) 8.4 % (1.0-10.0) Eosinophils (%) (Auto) 0.7 % (0.0-3.0) Basophils (%) (Auto) 0.4 % (0.0-2.0) Sodium Level 136 MMOL/L (136-145) Potassium Level 4.1 MMOL/L (3.5-5.1) Chloride Level 103 MMOL/L (98-107) Carbon Dioxide Level 26 MMOL/L (21-32) Anion Gap 7 mmol/L (5-15) Blood Urea Nitrogen 20 mg/dL (7-18) H Creatinine 0.7 MG/DL (0.55-1.30) Estimat Glomerular Filtration Rate mL/min (>60) Glucose Level 106 MG/DL (74-106) # Calcium Level 7.3 MG/DL (8.5-10.1) L Troponin I 2.353 ng/mL (0.000-0.056) Triglycerides Level 24 MG/DL (30-150) L Cholesterol Level 76 MG/DL (< 200) LDL Cholesterol 47 mg/dL (<100) HDL Cholesterol 31 MG/DL (40-60) L Cholesterol/HDL Ratio 2.5 (3.3-4.4) L Thyroid Stimulating Hormone (TSH) 0.803 uiU/mL (0.358-3.740) Microbiology Date/Time Source Procedure Growth Status 09/27/17 19:25 Straight Cath Urine Culture - Preliminary NO GROWTH Resulted GABINO MA Sep 28, 2017 08:26
[2017-09-28] MEDS: Pantoprazole Inj IV SCH (08:52)
[2017-09-28] MEDS: Aspirin Baby 81mg ORAL SCH (08:52)
[2017-09-28] MEDS: Heparin 5000 units/ml inj SUBQ SCH ×2 (08:56→21:00)
--- NOTE | 2017-09-28 09:46 | Pulmonolgy Critical Care Note ---
Critical Care - Asmt/Plan Assessment/Plan: ASSESSMENT severe sepsis with shock acute on chronic respiratory failure VDRF/trach status elevated troponin possible NSTEMI possible PNA Hyperkalemia KEITH, possibly due to sepsis and dehydration dysphagia G tube hx of OM R calcaneus anemia PLAN OF CARE MOISE s/p Levophed, currently hemodynamically stable troponin trending up cardio follows Heparin gtt was stopped by cardio due to HH trending down anemia w/up, stool OB, monitor counts Heparin SQ q 8 ECHO pending cardio follows vent support pulmonary toilet fup with CXR ABG this am stable, keep settings as is and titrate settings as needed empiric abx, ID consult monitor volumes, cardiorenal parameters, avoid nephrotoxic restart TF slowly GI prophayxlsi monitor e/lytes and correct further as needed , hyper K resolved wound nurse eval DNR/DNI status case discussed and evaluated by supervising physician Critical Care - Objective Last 24 Hour Vital Signs Date Time Temp Pulse Resp B/P (MAP) Pulse Ox O2 Delivery O2 Flow Rate FiO2 09/28/17 08:37 113 18 30 09/28/17 07:24 84 18 50 09/28/17 05:05 84 12 50 09/28/17 04:32 96 09/28/17 04:00 50 09/28/17 04:00 98.6 102 19 104/60 100 Mechanical Ventilator 50 09/28/17 03:20 97.9 93 17 124/66 100 Mechanical Ventilator 15.0 50 09/28/17 02:53 93 17 124/66 100 Mechanical Ventilator 50 09/28/17 02:46 83 20 100 09/28/17 02:05 79 23 98/52 100 Mechanical Ventilator 15.0 100 09/28/17 01:00 94 20 100 09/28/17 01:00 97 26 86/43 100 Mechanical Ventilator 100 09/28/17 00:00 95 17 90/49 100 Mechanical Ventilator 100 09/27/17 23:00 100 13 97/47 100 Mechanical Ventilator 12.0 100 09/27/17 22:30 96 20 100 09/27/17 22:00 112 18 113/71 100 Mechanical Ventilator 12.0 100 09/27/17 21:37 118 17 100 09/27/17 21:00 98 16 121/77 100 Mechanical Ventilator 50 09/27/17 20:58 89/47 09/27/17 20:00 97.9 95 20 89/47 100 Mechanical Ventilator 50 09/27/17 19:46 96 19 100 09/27/17 19:00 97 16 105/73 100 Mechanical Ventilator 50 09/27/17 18:20 97.9 90 22 106/40 100 Mechanical Ventilator 12.0 100 09/27/17 17:24 114/66 09/27/17 17:22 94 21 100 09/27/17 17:19 85/47 09/27/17 17:19 97.9 93 23 85/47 100 Mechanical Ventilator 12.0 100 09/27/17 17:05 97.9 99 25 91/65 100 Mechanical Ventilator 12.0 100 09/27/17 16:30 98.0 99 24 103/53 100 Mechanical Ventilator 12.0 100 09/27/17 16:00 98.0 109 25 102/49 100 Mechanical Ventilator 12.0 100 09/27/17 15:30 97.6 108 27 113/58 100 Mechanical Ventilator 12.0 100 09/27/17 14:53 91/61 09/27/17 14:50 86 20 100 09/27/17 14:48 86/58 09/27/17 14:43 87/59 09/27/17 14:30 82/59 09/27/17 14:12 86/66 09/27/17 14:00 97.6 90 25 86/66 100 Mechanical Ventilator 12.0 50 09/27/17 13:30 97.6 96 27 80/40 100 Mechanical Ventilator 12.0 50 09/27/17 13:00 111 18 100 Mechanical Ventilator 50 09/27/17 13:00 97.6 108 16 86/41 100 Mechanical Ventilator 12.0 50 09/27/17 12:59 117 36 100 Mechanical Ventilator 09/27/17 12:49 117 31 100 09/27/17 12:30 97.6 96 27 106/91 100 Mechanical Ventilator 12.0 100 09/27/17 12:03 117 31 100 09/27/17 12:00 97.6 111 31 74/40 100 Mechanical Ventilator 12.0 100 09/27/17 11:30 97.9 114 37 111/59 100 Mechanical Ventilator 12.0 100 09/27/17 11:30 114 37 Mechanical Ventilator 12.0 100 09/27/17 11:21 97.9 10 26 150/80 98 Mechanical Ventilator Objective: Status:more awake,eyes open, not responsive to verbal stimuli, but withdraws to tactile stimuli, chronically ill, bedridden, vent dependent female HEENT: atraumatic, normocephalic Neck: trach, Shiley #6, secretions white, thin, moderate Lungs: few occasional rhonchi Heart: HR/BP stable Abdomen: soft, non-tender, G tube Extremities: no C/C/E, spastic LE Micro: Microbiology Date/Time Source Procedure Growth Status 09/27/17 19:25 Straight Cath Urine Culture - Preliminary NO GROWTH Resulted Accucheck: 103 Critical Care - Subjective ROS Limited/Unobtainable: Yes Interval Events: s/p Levophed gtt, BP stabilized leukocytosis persists troponin trending up no signs of respiratory distress on current settings Condition: improving IV Access: central FI02: 30 Vent Support Breath Rate: 12 Vent Support Mode: AC Vent Tidal Volume: 500 Sputum Amount: Moderate PEEP: 0.0 PIP: 31 I&O: Intake and Output 09/27/17 09/28/17 19:00 07:00 Intake Total 0 ml Output Total 200 ml Balance -200 ml Intake Oral 0 ml Output Urine Total 200 ml CXR: Central line in good position. No pneumothorax or complications Nereida Dunaway NP ([place]) Sep 28, 2017 09:46
--- NOTE | 2017-09-28 10:13 | Consultation ---
History of Present Illness General Date patient seen: Sep 28, 2017 Time patient seen: 10:12 Chief Complaint: Dyspnea/Respdistress Present Illness HPI 87 y/o F with hx of CVA, dementia, respiratory failure s/p trach, on chronic vent support, hx of OM R calcaneus, non verbal, s/p PEG, senior care resident is brought to ED on 09/27 with SOB, severe resp distress and hypotensive requiring pressor support. She was also noted to have elevated trops and K. Initially admitted to ICU and started on pressors, heparin drip, Vanco and Zosyn. Now downgraded to step down unit, now off pressors, Fio2 down from 100% to 30% Allergies: Coded Allergies: No Known Allergies (Unverified , 05/31/12) Medication History Scheduled Albuterol Sulfate* (Albuterol Sulfate Hhn*), 3 ML INH Q6H, (Reported) Ascorbic Acid* (Ascorbic Acid*), 500 MG GT BID, (Reported) Cranberry Extract (Cranberry), 425 MG GT DAILY, (Reported) Heparin Sod (Porcine) (Heparin Sodium*), 5,000 UNITS SUBQ EVERY 12 HOURS, ( Reported) Ipratropium Tatum 0.5MG/2.5ML (Ipratropium Tatum 0.5MG/2.5ML), 0.5 MG HHN Q6H, (Reported) Metoprolol Tartrate* (Metoprolol Tartrate*), 50 MG GT BID, (Reported) Multivitamin With Minerals (Multivitamins With Minerals*), 1 TAB GT DAILY, ( Reported) Ranitidine Hcl* (Zantac*), 150 MG GT QHS, (Reported) Zinc Sulfate (Zinc Sulfate*), 220 MG GT DAILY, (Reported) Scheduled PRN Acetaminophen (Acetaminophen), 650 MG GT Q4HR PRN for Mild Pain/Temp > 100.5, ( Reported) Albuterol Sulfate* (Albuterol Sulfate Hhn*), 3 ML INH Q2H PRN for Shortness of Breath, (Reported) Ipratropium Tatum 0.5MG/2.5ML (Ipratropium Tatum 0.5MG/2.5ML), 0.5 MG HHN Q2H PRN for Shortness of Breath, (Reported) Ondansetron* (Zofran*), 4 MG GT Q6H PRN for Nausea & Vomiting, (Reported) Polyethylene Glycol* (Miralax*), 17 GM GT DAILY PRN for Constipation, (Reported) Discontinued Medications Ascorbic Acid* (Vitamin C*), 5 MG GT DAILY, (Reported) Discontinued Reason: Medication dose changed Atenolol (Tenormin), 25 MG ORAL DAILY, (Reported) Discontinued Reason: Therapy completed Docusate Sodium (Docusate Sodium), 50 MG GT DAILY, (Reported) Discontinued Reason: Therapy completed Dorzolamide HCl/Timolol Maleat (Dorzolamide-Timolol Eye Drops), 1 DROP BOTH EYES , (Reported) Discontinued Reason: Therapy completed Ferrous Sulfate (Ferrous Sulfate), 330 MG GT DAILY, (Reported) Discontinued Reason: Therapy completed Latanoprost* (Xalatan*), 1 DROP BOTH EYES BEDTIME, (Reported) Discontinued Reason: Therapy completed Levofloxacin* (Levaquin*), 500 MG ORAL DAILY, (Reported) Discontinued Reason: Therapy completed Magnesium Hydroxide* (Milk Of Magnesia*), 30 ML GT Q6HR PRN for Constipation, ( Reported) Discontinued Reason: Therapy completed Pantoprazole* (Pantoprazole*), 40 MG GT EVERY 12 HOURS, (Reported) Discontinued Reason: Therapy completed Simvastatin (Zocor), 20 MG GT BEDTIME, (Reported) Discontinued Reason: Therapy completed Patient History Healthcare decision maker N/A Resuscitation status Do Not Resuscitate Advanced Directive on File Yes Patient History Narrative PMHx:as above Shx: unable to obtain Fhx: non contributory Review of Systems ROS Narrative unable to obtain Physical Exam Physical Exam Narrative GENERAL: No distress. PULMONARY: Decreased breath sounds. Status post trach. CARDIOVASCULAR: Regular rate. No S3 or S4. ABDOMEN: Soft, nontender, and nondistended. EXTREMITIES: A 1+ to 2+ edema. Last 24 Hour Vital Signs Date Time Temp Pulse Resp B/P (MAP) Pulse Ox O2 Delivery O2 Flow Rate FiO2 09/28/17 08:37 113 18 30 09/28/17 07:24 84 18 50 09/28/17 05:05 84 12 50 09/28/17 04:32 96 09/28/17 04:00 50 09/28/17 04:00 98.6 102 19 104/60 100 Mechanical Ventilator 50 09/28/17 03:20 97.9 93 17 124/66 100 Mechanical Ventilator 15.0 50 09/28/17 02:53 93 17 124/66 100 Mechanical Ventilator 50 09/28/17 02:46 83 20 100 09/28/17 02:05 79 23 98/52 100 Mechanical Ventilator 15.0 100 09/28/17 01:00 94 20 100 09/28/17 01:00 97 26 86/43 100 Mechanical Ventilator 100 09/28/17 00:00 95 17 90/49 100 Mechanical Ventilator 100 09/27/17 23:00 100 13 97/47 100 Mechanical Ventilator 12.0 100 09/27/17 22:30 96 20 100 09/27/17 22:00 112 18 113/71 100 Mechanical Ventilator 12.0 100 09/27/17 21:37 118 17 100 09/27/17 21:00 98 16 121/77 100 Mechanical Ventilator 50 09/27/17 20:58 89/47 09/27/17 20:00 97.9 95 20 89/47 100 Mechanical Ventilator 50 09/27/17 19:46 96 19 100 09/27/17 19:00 97 16 105/73 100 Mechanical Ventilator 50 09/27/17 18:20 97.9 90 22 106/40 100 Mechanical Ventilator 12.0 100 09/27/17 17:24 114/66 09/27/17 17:22 94 21 100 09/27/17 17:19 85/47 09/27/17 17:19 97.9 93 23 85/47 100 Mechanical Ventilator 12.0 100 09/27/17 17:05 97.9 99 25 91/65 100 Mechanical Ventilator 12.0 100 09/27/17 16:30 98.0 99 24 103/53 100 Mechanical Ventilator 12.0 100 09/27/17 16:00 98.0 109 25 102/49 100 Mechanical Ventilator 12.0 100 09/27/17 15:30 97.6 108 27 113/58 100 Mechanical Ventilator 12.0 100 09/27/17 14:53 91/61 09/27/17 14:50 86 20 100 09/27/17 14:48 86/58 09/27/17 14:43 87/59 09/27/17 14:30 82/59 09/27/17 14:12 86/66 09/27/17 14:00 97.6 90 25 86/66 100 Mechanical Ventilator 12.0 50 09/27/17 13:30 97.6 96 27 80/40 100 Mechanical Ventilator 12.0 50 09/27/17 13:00 111 18 100 Mechanical Ventilator 50 09/27/17 13:00 97.6 108 16 86/41 100 Mechanical Ventilator 12.0 50 09/27/17 12:59 117 36 100 Mechanical Ventilator 09/27/17 12:49 117 31 100 09/27/17 12:30 97.6 96 27 106/91 100 Mechanical Ventilator 12.0 100 09/27/17 12:03 117 31 100 09/27/17 12:00 97.6 111 31 74/40 100 Mechanical Ventilator 12.0 100 09/27/17 11:30 97.9 114 37 111/59 100 Mechanical Ventilator 12.0 100 09/27/17 11:30 114 37 Mechanical Ventilator 12.0 100 09/27/17 11:21 97.9 10 26 150/80 98 Mechanical Ventilator Intake and Output 09/27/17 09/28/17 19:00 07:00 Intake Total 0 ml Output Total 200 ml Balance -200 ml Intake Oral 0 ml Output Urine Total 200 ml Laboratory Tests Test 09/27/17 12:40 09/27/17 14:35 09/27/17 19:25 09/27/17 23:45 White Blood Count 17.1 K/UL (4.8-10.8) H Red Blood Count 4.01 M/UL (4.20-5.40) L Hemoglobin 11.4 G/DL (12.0-16.0) L Hematocrit 37.9 % (37.0-47.0) Mean Corpuscular Volume 95 FL (80-99) Mean Corpuscular Hemoglobin 28.4 PG (27.0-31.0) Mean Corpuscular Hemoglobin Concent 30.1 G/DL (32.0-36.0) L Red Cell Distribution Width 15.2 % (11.6-14.8) H Platelet Count 298 K/UL (150-450) Mean Platelet Volume 6.6 FL (6.5-10.1) Neutrophils (%) (Auto) 66.4 % (45.0-75.0) Lymphocytes (%) (Auto) 23.4 % (20.0-45.0) Monocytes (%) (Auto) 8.9 % (1.0-10.0) Eosinophils (%) (Auto) 0.4 % (0.0-3.0) Basophils (%) (Auto) 0.9 % (0.0-2.0) Prothrombin Time 10.8 SEC (9.30-11.50) Prothromb Time International Ratio 1.0 (0.9-1.1) Activated Partial Thromboplast Time 30 SEC (23-33) 117 SEC (23-33) H Sodium Level 133 MMOL/L (136-145) L Potassium Level 5.9 MMOL/L (3.5-5.1) H Chloride Level 97 MMOL/L (98-107) L Carbon Dioxide Level 33 MMOL/L (21-32) H Anion Gap 4 mmol/L (5-15) L Blood Urea Nitrogen 31 mg/dL (7-18) H Creatinine 1.0 MG/DL (0.55-1.30) Estimat Glomerular Filtration Rate mL/min (>60) Glucose Level 264 MG/DL (74-106) H Lactic Acid Level 1.50 mmol/L (0.66-2.22) Calcium Level 8.5 MG/DL (8.5-10.1) Total Bilirubin 0.3 MG/DL (0.2-1.0) Aspartate Amino Transf (AST/SGOT) 52 U/L (15-37) H Alanine Aminotransferase (ALT/SGPT) 58 U/L (12-78) Alkaline Phosphatase 182 U/L (46-116) H Total Creatine Kinase 90 U/L (26-308) Troponin I 1.185 ng/mL (0.000-0.056) 2.921 ng/mL (0.000-0.056) Pro-B-Type Natriuretic Peptide 448 pg/mL (0-125) H Total Protein 9.9 G/DL (6.4-8.2) H Albumin 2.6 G/DL (3.4-5.0) L Globulin 7.3 g/dL Albumin/Globulin Ratio 0.4 (1.0-2.7) L Arterial Blood pH 7.320 (7.350-7.450) Arterial Blood Partial Pressure CO2 48.3 mmHg (35.0-45.0) H Arterial Blood Partial Pressure O2 241.5 mmHg (75.0-100.0) H Arterial Blood HCO3 25.0 mmol/L (22.0-26.0) Arterial Blood Oxygen Saturation 99.4 % (92.0-98.0) H Arterial Blood Base Excess -1.2 Holger Test Positive Urine Color Yellow Urine Appearance Slightly cloudy Urine pH 8 (4.5-8.0) Urine Specific [place] 1.010 (1.005-1.035) Urine Protein 3+ (NEGATIVE) H Urine Glucose (UA) 1+ (NEGATIVE) H Urine Ketones Negative (NEGATIVE) Urine Occult Blood 5+ (NEGATIVE) H Urine Nitrite Negative (NEGATIVE) Urine Bilirubin Negative (NEGATIVE) Urine Urobilinogen Normal MG/DL (0.0-1.0) Urine Leukocyte Esterase 3+ (NEGATIVE) H Urine RBC 10-15 /HPF (0 - 2) H Urine WBC 2-4 /HPF (0 - 2) Urine Squamous Epithelial Cells Few /LPF (NONE/OCC) Urine Uric Acid Crystals Few /LPF (NONE) H Urine Bacteria Few /HPF (NONE) Test 09/28/17 03:50 09/28/17 08:15 09/28/17 10:00 White Blood Count 16.8 K/UL (4.8-10.8) H Red Blood Count 3.19 M/UL (4.20-5.40) L Hemoglobin 9.2 G/DL (12.0-16.0) L Hematocrit 28.9 % (37.0-47.0) L Mean Corpuscular Volume 91 FL (80-99) Mean Corpuscular Hemoglobin 28.8 PG (27.0-31.0) Mean Corpuscular Hemoglobin Concent 31.8 G/DL (32.0-36.0) L Red Cell Distribution Width 14.8 % (11.6-14.8) Platelet Count 199 K/UL (150-450) Mean Platelet Volume 6.8 FL (6.5-10.1) Neutrophils (%) (Auto) 76.7 % (45.0-75.0) H Lymphocytes (%) (Auto) 13.9 % (20.0-45.0) L Monocytes (%) (Auto) 8.4 % (1.0-10.0) Eosinophils (%) (Auto) 0.7 % (0.0-3.0) Basophils (%) (Auto) 0.4 % (0.0-2.0) Sodium Level 136 MMOL/L (136-145) Potassium Level 4.1 MMOL/L (3.5-5.1) Chloride Level 103 MMOL/L (98-107) Carbon Dioxide Level 26 MMOL/L (21-32) Anion Gap 7 mmol/L (5-15) Blood Urea Nitrogen 20 mg/dL (7-18) H Creatinine 0.7 MG/DL (0.55-1.30) Estimat Glomerular Filtration Rate mL/min (>60) Glucose Level 106 MG/DL (74-106) # Calcium Level 7.3 MG/DL (8.5-10.1) L Troponin I 2.353 ng/mL (0.000-0.056) Triglycerides Level 24 MG/DL (30-150) L Cholesterol Level 76 MG/DL (< 200) LDL Cholesterol 47 mg/dL (<100) HDL Cholesterol 31 MG/DL (40-60) L Cholesterol/HDL Ratio 2.5 (3.3-4.4) L Thyroid Stimulating Hormone (TSH) 0.803 uiU/mL (0.358-3.740) Arterial Blood pH 7.400 (7.350-7.450) Arterial Blood Partial Pressure CO2 43.4 mmHg (35.0-45.0) Arterial Blood Partial Pressure O2 225.9 mmHg (75.0-100.0) H Arterial Blood HCO3 26.5 mmol/L (22.0-26.0) H Arterial Blood Oxygen Saturation 99.3 % (92.0-98.0) H Arterial Blood Base Excess 1.6 Holger Test Positive Activated Partial Thromboplast Time Pending Microbiology Date/Time Source Procedure Growth Status 09/27/17 19:25 Straight Cath Urine Culture - Preliminary NO GROWTH Resulted Height (Feet): 6 Height (Inches): 5.00 Weight (Pounds): 214 Medications Current Medications Medications (Trade) Dose Ordered Sig/Mora Route PRN Reason Start Time Stop Time Status Last Admin Dose Admin Acetaminophen (Tylenol) 650 mg Q4H PRN RECTAL Mild Pain (Pain Scale 1-3) 09/27/17 17:00 10/27/17 16:59 Al Hydroxide/Mg Hydroxide (Mylanta II) 30 ml Q6H PRN ORAL dyspepsia 09/27/17 17:00 10/27/17 16:59 Albuterol/ Ipratropium (Albuterol/ Ipratropium) 3 ml Q4H PRN HHN Shortness of Breath 09/27/17 17:00 10/02/17 16:59 Aspirin (ASA) 81 mg DAILY ORAL 09/28/17 09:00 10/28/17 08:59 09/28/17 08:52 Dextrose (Dextrose 50%) STAT PRN IV Hypoglycemia 09/27/17 17:00 10/27/17 16:59 Heparin Sodium (Porcine) (Heparin 5000 units/ml) 5,000 units EVERY 12 HOURS SUBQ 09/28/17 09:00 10/28/17 08:59 09/28/17 08:56 Lorazepam (Ativan) 1 mg Q4H PRN ORAL For Anxiety 09/27/17 17:00 10/04/17 16:59 Morphine Sulfate (Morphine Sulfate) 2 mg Q4H PRN IVP Moderate Pain (Pain Scale 4-6) 09/27/17 17:00 10/04/17 16:59 Nitroglycerin (Ntg) 0.4 mg Q5M PRN SL Prn Chest Pain 09/27/17 17:00 10/27/17 16:59 Norepinephrine Bitartrate 4 mg/ Dextrose 250 ml @ 0 mls/hr Q24H IV 09/27/17 17:00 10/27/17 16:59 Pantoprazole (Protonix) 40 mg DAILY IV 09/28/17 09:00 10/28/17 08:59 09/28/17 08:52 Piperacillin Sod/ Tazobactam Sod 3.375 gm/Sodium Chloride 55 ml @ 110 mls/hr Q8HR IVPB 09/28/17 06:00 10/05/17 05:59 09/28/17 06:15 Sodium Chloride 1,000 ml @ 75 mls/hr [id number] IVLG 09/27/17 17:45 10/27/17 17:44 09/28/17 08:52 Vancomycin HCl (Vanco rx to dose) 1 ea DAILY PRN MISC Per rx protocol 09/27/17 17:00 10/27/17 16:59 Vancomycin HCl/ Dextrose 250 ml @ 125 mls/hr Q24H IVPB 09/28/17 11:30 10/03/17 11:29 Assessment/Plan Assessment/Plan Abx: Cefepime x1 09/27 Vanco 09/27- Zosyn 09/27- Assessment: Septic shock - likely 2ry to PNA; shock resolved- r/o Flu -CXR: Interstitial edema suspected. Basilar infiltrates not excluded. Please correlate clinically. -u/a no pyuria; ucx NTD -Bcx p -sp cx p Leukocytosis- improving -afebrile Acute on chronic respiratory failure- improving Troponinemia CVA dementia respiratory failure s/p trach on chronic vent support hx of OM R calcaneus non verbal s/p PEG senior care resident NKDA DNR Plan: -Continue IV Vanco and Zosyn #2 pending sputum culture -check Influenza -f/u cx -Monitor CBC/BMP, temperatures -peg/trach care, aspiration precautions -wound care Thank you for this consultation. Will continue to follow along with you. Discussed with Lynne Shen M.D. Sep 28, 2017 10:13
--- NOTE | 2017-09-28 11:34 | Diagnostic Imaging Report ---
Indication: Dyspnea Comparison: 09/27/2019 A single view chest radiograph was obtained. Findings: The heart is enlarged. Vascular congestion demonstrated. Tracheostomy and left jugular central line are stable. IMPRESSION: No mold changer one
[2017-09-28] MEDS: Vancomycin 1.5gm/D5W 250ml 250 ML IVPB SCH (11:45)
[2017-09-28 11:50] LABS: FERRITIN 138 NG/ML (8-388)
[2017-09-28 12:38] LABS: % IRON SATURATION 8 % (15-50); IRON 15 ug/dL (50-175); TOTAL IRON BINDING CAPACITY 182 ug/dL (250-450)
--- NOTE | 2017-09-28 12:40 | Cardiology Report ---
APPROVED REPORT EXAM: Two-dimensional and M-mode echocardiogram with Doppler and color Doppler. INDICATION Acute AL M-Mode DIMENSIONS IVSd1.5 (0.7-1.1cm)Left Atrium (MM)3.0 (1.6-4.0cm) LVDd4.1 (3.5-5.6cm)Aortic Root2.2 (2.0-3.7cm) PWd1.3 (0.7-1.1cm)Aortic Cusp Exc.1.3 (1.5-2.0cm) IVSs1.9 cm LVDs2.6 (2.5-4.0cm) PWs1.5 cm Technically difficult study due to poor acoustical windows and patient position. Normal left ventricular chamber size, systolic function and wall motion to extent visualized. Left ventricular ejection fraction estimated to be 60 %. Mild left ventricular hypertrophy by 2-D. No evidence of pericardial effusion. All other cardiac chamber sizes are within normal limits. Focal aortic valve sclerosis with adequate cusp excursion. Thickened mitral valve leaflets with normal excursion. Mitral annulus and aortic root calcification. Pulmonic valve not well visualized. Normal tricuspid valve structure. IVC dilated at 2.4 cm without physiologic collapse . A color flow and spectral Doppler study was performed and revealed: No aortic regurgitation. Trace mitral regurgitation. Trace tricuspid regurgitation. Tricuspid systolic velocities suggests peak right ventricular systolic pressure of 19 mmHg No Pulmonic regurgitation present.
--- NOTE | 2017-09-28 13:02 | Cardiology Report ---
APPROVED REPORT EKG Measurement Heart [id number] Sinus tachycardia Low voltage QRS Borderline ECG
--- NOTE | 2017-09-28 15:09 | Wound Care Consultation ---
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 Juan Manuel Test: Does not Juan Manuel Wound Thickness: Full Thickness Wound Length: 6.0 Wound Width: 5.0 Percent of Wound Bed Yellow/Wh: 100 - thick yellow callus like scar tissue. Wound Drainage Amount: None Wound Drainage Odor: None/Absent Tissue Surrounding Wound: Intact Wound General Appearance: Clean/Dry Wound Assessment #2: Wound Number: 2 Wound Present on Admission: Yes New Wound: No Status Change of Wound: No Wound Location Body Site Modif: right, lower, posterior Wound Location Body Site: leg - achilles tendon Wound Type: scar - has full thickness scar tissue with red pigmentation, has history of stage 4/unstageable wound to site, at risk for resurfacing wound. Juan Manuel Test: Does not Juan Manuel Wound Thickness: Full Thickness Wound Length: 7.5 Wound Width: 1.5 Wound Depth: utd Percent of Wound [place]/Red: 100 - scar tissue with red pigment. Wound Drainage Amount: None Wound Drainage Odor: None/Absent Tissue Surrounding Wound: Erythemic Wound General Appearance: Reddened Wound Assessment #3: Wound Number: 3 Wound Present on Admission: Yes New Wound: No Status Change of Wound: No Wound Location Body Site Modif: right, dorsal - aspect of foot Wound Type: scar - full thickness scar tissue, has hx of deep tissue injury to site. at risk for resurfacing wound. Juan Manuel Test: Does not Juan Manuel Wound Thickness: Full Thickness Wound Length: 3.0 Wound Width: 2.0 Percent of Wound [place]/Red: 100 - scar tissue Wound Drainage Amount: None Wound Drainage Odor: None/Absent Tissue Surrounding Wound: Intact Wound General Appearance: Clean/Dry Wound Assessment #4: Wound Number: 4 Wound Present on Admission: Yes New Wound: No Status Change of Wound: No Wound Location Body Site Modif: right Wound Location Body Site: toe - tip of toe Wound Type: scab - has thick dry adhered brown scab, unable to see wound bed , has hx of stage4/unstageable pressure ulcer. Juan Manuel Test: Does not Juan Manuel Wound Thickness: Full Thickness Wound Length: 2.0 Wound Width: 2.0 Wound Depth: utd Percent of Wound Black/Brown: 100 - dry brown color. Wound Drainage Amount: None Wound Drainage Odor: None/Absent Tissue Surrounding Wound: Indurated Wound General Appearance: Blackened Wound Comment #1 right heel full thickness scar tissue with thick yellow adhered callus-like skin. #2 right posterior lower leg/achilles tendon full thickness scar tissue with red pigment. #3 right dorsal aspect of foot full thickness scar tissue. #4 right 1st toe (tip of toe) thick dry adhered scab. Recommendation. -Keep scabs and scar tissue sites dry and prevent further skin breakdown. -Local wound care as ordered. -Keep clean and dry. -Turn and reposition -Offload affected sites. -Avoid shear and friction. -Optimize nutrition. -Low air loss mattress for skin management and prevention -Assess and notify MD for any further change of condition to skin/scar tissue present to right leg,heel,toe sites, patient has history of large wounds, monitor scar tissue for any changes. MAYO CARRINGTON Sep 28, 2017 15:08
[2017-09-28] MEDS: Dyna-Hex 2% Top Sol 2oz TOPIC SCH (20:00)
--- NOTE | 2017-09-28 22:26 | General Progress Note ---
Assessment/Plan Assessment/Plan ASSESSMENT AND RECOMMENDATIONS: 1. Congestive heart failure exacerbation 2. Sepsis. ID following, on abx 4. Anemia, with sudden drop in H/H. Continue to trend daily. --> have dc heparin due to anemia. --> rule out GI bleed, ob stool pending 5. Chronic obstructive pulmonary disease. 6. Chronic respiratory failure, on a vent. 7. Pneumonia. She is on antibiotics on a p.r.n. basis. 8. Leukocytosis likely secondary to underlying infection. 9. Hyperkalemia. Continue to closely monitor. Kayexalate administered. 10. Urinary tract infection, to be seen by ID team, consulted for antibiotics. Currently on vancomycin. To be seen by Dr. Fredy Duran. Subjective Constitutional: Reports: weakness Hematologic/Lymphatic: Reports: anemia Allergies: Coded Allergies: No Known Allergies (Unverified , 05/31/12) All Systems: reviewed and negative except above Subjective H/H dropped, will dc heparin Objective Last 24 Hour Vital Signs Date Time Temp Pulse Resp B/P (MAP) Pulse Ox O2 Delivery O2 Flow Rate FiO2 09/28/17 21:16 96 16 30 09/28/17 20:00 98.5 83 16 115/73 99 Mechanical Ventilator 09/28/17 18:48 100 19 30 09/28/17 17:15 103 18 30 09/28/17 16:00 98.6 14 121/69 100 Mechanical Ventilator 30 09/28/17 16:00 30 09/28/17 16:00 105 09/28/17 15:24 115 30 30 09/28/17 13:39 102 19 100 Mechanical Ventilator 30 09/28/17 13:38 117 22 99 Mechanical Ventilator 30 09/28/17 12:49 96 18 30 09/28/17 12:00 98.5 14 112/65 98 Mechanical Ventilator 30 09/28/17 12:00 106 09/28/17 12:00 30 09/28/17 10:48 96 18 30 09/28/17 08:37 113 18 30 09/28/17 08:00 96 09/28/17 08:00 98.5 100 22 116/72 100 Mechanical Ventilator 30 09/28/17 08:00 30 09/28/17 07:24 84 18 50 09/28/17 05:05 84 12 50 09/28/17 04:32 96 09/28/17 04:00 50 09/28/17 04:00 98.6 102 19 104/60 100 Mechanical Ventilator 50 09/28/17 03:20 97.9 93 17 124/66 100 Mechanical Ventilator 15.0 50 09/28/17 02:53 93 17 124/66 100 Mechanical Ventilator 50 09/28/17 02:46 83 20 100 09/28/17 02:05 79 23 98/52 100 Mechanical Ventilator 15.0 100 09/28/17 01:00 94 20 100 09/28/17 01:00 97 26 86/43 100 Mechanical Ventilator 100 09/28/17 00:00 95 17 90/49 100 Mechanical Ventilator 100 09/27/17 23:00 100 13 97/47 100 Mechanical Ventilator 12.0 100 09/27/17 22:30 96 20 100 Intake and Output 09/27/17 09/28/17 19:00 07:00 Intake Total 0 ml Output Total 200 ml Balance -200 ml Intake Oral 0 ml Output Urine Total 200 ml Laboratory Tests 09/27/17 23:45: Activated Partial Thromboplast Time 117H, Troponin I 2.921H 09/28/17 03:50: Troponin I 2.353H, White Blood Count 16.8H, Red Blood Count 3.19L, Hemoglobin 9.2L, Hematocrit 28.9L, Mean Corpuscular Volume 91, Mean Corpuscular Hemoglobin 28.8, Mean Corpuscular Hemoglobin Concent 31.8L, Red Cell Distribution Width 14.8, Platelet Count 199, Mean Platelet Volume 6.8, Neutrophils (%) (Auto) 76.7H , Lymphocytes (%) (Auto) 13.9L, Monocytes (%) (Auto) 8.4, Eosinophils (%) (Auto ) 0.7, Basophils (%) (Auto) 0.4, Sodium Level 136, Potassium Level 4.1, Chloride Level 103, Carbon Dioxide Level 26, Anion Gap 7, Blood Urea Nitrogen 20H, Creatinine 0.7, Estimat Glomerular Filtration Rate , Glucose Level 106#, Calcium Level 7.3L, Triglycerides Level 24L, Cholesterol Level 76, LDL Cholesterol 47, HDL Cholesterol 31L, Cholesterol/HDL Ratio 2.5L, Thyroid Stimulating Hormone (TSH) 0.803 09/28/17 08:15: Arterial Blood pH 7.400, Arterial Blood Partial Pressure CO2 43.4, Arterial Blood Partial Pressure O2 225.9H, Arterial Blood HCO3 26.5H, Arterial Blood Oxygen Saturation 99.3H, Arterial Blood Base Excess 1.6, Holger Test Positive 09/28/17 10:00: Activated Partial Thromboplast Time 73H, Iron Level 15L, Total Iron Binding Capacity 182L, Percent Iron Saturation 8L, Unsaturated Iron Binding 167, Ferritin 138, Vitamin B12 Level 3305H, RBC Folate Hemolysate [Pending], Red Blood Cell Folate [Pending] 09/28/17 17:20: Troponin I 1.762H Height (Feet): 6 Height (Inches): 5.00 Weight (Pounds): 214 General Appearance: mild distress EENT: normal ENT inspection Neck: normal alignment Cardiovascular: normal peripheral pulses Abdomen: non tender Extremities: normal range of motion, non-tender Edema: 1+ Leg (L), 1+ Leg (R), 1+ Pedal (L), 1+ Pedal (R) Neurologic: normal mood/affect Skin: normal pigmentation Eber Fuller Sep 28, 2017 22:26
[2017-09-29] VITALS: BP 120/65
[2017-09-29 04:00] VITALS: BP 112/64
[2017-09-29] MEDS: Piperacillin/Tazobactam 3.375 GM in NS 55 ML IVPB SCH ×3 (05:39→21:42)
[2017-09-29 06:01] LABS: BASOPHILS % (AUTO) 0.9 % (0.0-2.0); EOSINOPHILS % (AUTO) 2.5 % (0.0-3.0); HEMATOCRIT 26.6 % (37.0-47.0); HEMOGLOBIN 8.3 G/DL (12.0-16.0); LYMPHOCYTES % (AUTO) 22.4 % (20.0-45.0); MEAN CORPUSCULAR VOLUME 92 FL (80-99); MONOCYTES % (AUTO) 15.9 % (1.0-10.0); NEUTROPHILS % (AUTO) 58.3 % (45.0-75.0); PLATELET COUNT 171 K/UL (150-450); RED CELL DISTRIBUTION WIDTH 15.1 % (11.6-14.8); WHITE BLOOD COUNT 6.8 K/UL (4.8-10.8)
[2017-09-29 06:08] LABS: ANION GAP 6 mmol/L (5-15); BLOOD UREA NITROGEN 14 mg/dL (7-18); CALCIUM 7.5 MG/DL (8.5-10.1); CARBON DIOXIDE 27 MMOL/L (21-32); CHLORIDE 105 MMOL/L (98-107); CREATININE 0.7 MG/DL (0.55-1.30); POTASSIUM 3.6 MMOL/L (3.5-5.1); SODIUM 138 MMOL/L (136-145)
[2017-09-29 08:00] VITALS: BP 124/75
[2017-09-29] MEDS: Pantoprazole Inj IV SCH (08:35)
[2017-09-29] MEDS: Aspirin Baby 81mg ORAL SCH (08:41)
[2017-09-29] MEDS: Heparin 5000 units/ml inj SUBQ SCH ×2 (08:44→20:53)
--- NOTE | 2017-09-29 10:46 | Infectious Diseases Prog Note ---
Assessment/Plan Assessment/Plan Abx: Cefepime x1 09/27 Vanco 09/27- Zosyn 09/27- Assessment: Septic shock - likely 2ry to PNA and bacteremia (real vs contaminants), ?UTI, however u/a neg; shock resolved- r/o Flu -CXR: Interstitial edema suspected. Basilar infiltrates not excluded. Please correlate clinically. 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 Will continue to follow along with you. Discussed with RN. Subjective Allergies: Coded Allergies: No Known Allergies (Unverified , 05/31/12) Subjective afebrile leukocytosis resolved polymicrobial bacteremia; repeat Bcx NTD so far Objective Vital Signs Last 24 Hour Vital Signs Date Time Temp Pulse Resp B/P (MAP) Pulse Ox O2 Delivery O2 Flow Rate FiO2 09/29/17 09:14 95 15 30 09/29/17 08:00 135 09/29/17 07:10 91 15 30 09/29/17 05:16 97 17 30 09/29/17 04:00 30 09/29/17 04:00 98.0 108 16 112/64 100 Mechanical Ventilator 09/29/17 04:00 114 09/29/17 03:13 108 20 30 09/29/17 00:27 111 20 30 09/29/17 00:00 30 09/29/17 00:00 128 09/29/17 00:00 98.1 95 16 120/65 100 Mechanical Ventilator 09/28/17 22:56 106 15 30 09/28/17 21:16 96 16 30 09/28/17 20:00 98.5 83 16 115/73 99 Mechanical Ventilator 09/28/17 20:00 30 09/28/17 20:00 115 09/28/17 18:48 100 19 30 09/28/17 17:15 103 18 30 09/28/17 16:00 98.6 14 121/69 100 Mechanical Ventilator 30 09/28/17 16:00 30 09/28/17 16:00 105 09/28/17 15:24 115 30 30 09/28/17 13:39 102 19 100 Mechanical Ventilator 30 09/28/17 13:38 117 22 99 Mechanical Ventilator 30 09/28/17 12:49 96 18 30 09/28/17 12:00 98.5 14 112/65 98 Mechanical Ventilator 30 09/28/17 12:00 106 09/28/17 12:00 30 09/28/17 10:48 96 18 30 Height (Feet): 6 Height (Inches): 5.00 Weight (Pounds): 214 Objective GENERAL: No distress. PULMONARY: Decreased breath sounds. Status post trach. CARDIOVASCULAR: Regular rate. No S3 or S4. ABDOMEN: Soft, nontender, and nondistended. EXTREMITIES: A 1+ to 2+ edema. Microbiology Date/Time Source Procedure Growth Status 09/28/17 00:00 Blood Blood Culture - Preliminary NO GROWTH AFTER 24 HOURS Resulted 09/27/17 23:45 Blood Blood Culture - Preliminary NO GROWTH AFTER 24 HOURS Resulted 09/27/17 12:45 Blood Blood Culture - Preliminary Staphylococcus Sp Coag Neg Resulted 09/27/17 12:40 Blood Blood Culture - Preliminary Gram Negative Bacillus 1 Gram Negative Bacillus 2 Resulted 09/28/17 01:00 Sputum Induced Gram Stain - Final Resulted 09/28/17 01:00 Sputum Induced Sputum Culture Pending Resulted 09/27/17 19:25 Straight Cath Urine Culture - Preliminary Gram Negative Bacillus 1 Resulted Laboratory Tests Test 09/28/17 17:20 09/29/17 03:40 Troponin I 1.762 ng/mL (0.000-0.056) 1.822 ng/mL (0.000-0.056) White Blood Count 6.8 K/UL (4.8-10.8) # Red Blood Count 2.90 M/UL (4.20-5.40) L Hemoglobin 8.3 G/DL (12.0-16.0) L Hematocrit 26.6 % (37.0-47.0) L Mean Corpuscular Volume 92 FL (80-99) Mean Corpuscular Hemoglobin 28.6 PG (27.0-31.0) Mean Corpuscular Hemoglobin Concent 31.2 G/DL (32.0-36.0) L Red Cell Distribution Width 15.1 % (11.6-14.8) H Platelet Count 171 K/UL (150-450) Mean Platelet Volume 7.2 FL (6.5-10.1) Neutrophils (%) (Auto) 58.3 % (45.0-75.0) Lymphocytes (%) (Auto) 22.4 % (20.0-45.0) Monocytes (%) (Auto) 15.9 % (1.0-10.0) H Eosinophils (%) (Auto) 2.5 % (0.0-3.0) Basophils (%) (Auto) 0.9 % (0.0-2.0) Sodium Level 138 MMOL/L (136-145) Potassium Level 3.6 MMOL/L (3.5-5.1) Chloride Level 105 MMOL/L (98-107) Carbon Dioxide Level 27 MMOL/L (21-32) Anion Gap 6 mmol/L (5-15) Blood Urea Nitrogen 14 mg/dL (7-18) Creatinine 0.7 MG/DL (0.55-1.30) Estimat Glomerular Filtration Rate mL/min (>60) Glucose Level 121 MG/DL (74-106) H Calcium Level 7.5 MG/DL (8.5-10.1) L Current Medications Medications (Trade) Dose Ordered Sig/Mora Route PRN Reason Start Time Stop Time Status Last Admin Dose Admin Acetaminophen (Tylenol) 650 mg Q4H PRN RECTAL Mild Pain (Pain Scale 1-3) 09/27/17 17:00 10/27/17 16:59 Al Hydroxide/Mg Hydroxide (Mylanta II) 30 ml Q6H PRN ORAL dyspepsia 09/27/17 17:00 10/27/17 16:59 Albuterol/ Ipratropium (Albuterol/ Ipratropium) 3 ml Q4H PRN HHN Shortness of Breath 09/27/17 17:00 10/02/17 16:59 09/28/17 13:28 Aspirin (ASA) 81 mg DAILY ORAL 09/28/17 09:00 10/28/17 08:59 09/29/17 08:41 Chlorhexidine Gluconate (Ann-Hex 2%) 1 applic DAILY@2000 TOPIC 09/28/17 20:00 10/28/17 19:59 09/28/17 20:00 Dextrose (Dextrose 50%) STAT PRN IV Hypoglycemia 09/27/17 17:00 10/27/17 16:59 Heparin Sodium (Porcine) (Heparin 5000 units/ml) 5,000 units EVERY 12 HOURS SUBQ 09/28/17 09:00 10/28/17 08:59 09/29/17 08:44 Lorazepam (Ativan) 1 mg Q4H PRN ORAL For Anxiety 09/27/17 17:00 10/04/17 16:59 Morphine Sulfate (Morphine Sulfate) 2 mg Q4H PRN IVP Moderate Pain (Pain Scale 4-6) 09/27/17 17:00 10/04/17 16:59 Nitroglycerin (Ntg) 0.4 mg Q5M PRN SL Prn Chest Pain 09/27/17 17:00 10/27/17 16:59 Pantoprazole (Protonix) 40 mg DAILY IV 09/28/17 09:00 10/28/17 08:59 09/29/17 08:35 Piperacillin Sod/ Tazobactam Sod 3.375 gm/Sodium Chloride 55 ml @ 110 mls/hr Q8HR IVPB 09/28/17 06:00 10/05/17 05:59 09/29/17 05:39 Sodium Chloride 1,000 ml @ 75 mls/hr [id number] IVLG 09/27/17 17:45 10/27/17 17:44 09/29/17 08:35 Vancomycin HCl (Vanco rx to dose) 1 ea DAILY PRN MISC Per rx protocol 09/27/17 17:00 10/27/17 16:59 Vancomycin HCl/ Dextrose 250 ml @ 125 mls/hr Q24H IVPB 09/28/17 11:30 10/03/17 11:29 09/28/17 11:45 Lynne Donahue M.D. Sep 29, 2017 10:46
--- NOTE | 2017-09-29 11:28 | Pulmonolgy Critical Care Note ---
Critical Care - Asmt/Plan Assessment/Plan: ASSESSMENT severe sepsis with shock polymicrobial bacteremia ( real vs contaminant) possible UTI acute on chronic respiratory failure VDRF/trach status elevated troponin possible NSTEMI possible PNA Hyperkalemia KEITH, possibly due to sepsis and dehydration dysphagia G tube hx of OM R calcaneus anemia PLAN OF CARE MOISE s/p Levophed, currently hemodynamically stable troponin trending down cardio follows off Heparin gtt due to anemia( HH trending down) anemia w/up c/w AUSTEN and anemia of chronic disease give Venofer x 1 check stool OB, monitor counts Heparin SQ q 8 ECHO cardio follows vent support pulmonary toilet fup with CXR ABG stable, keep settings as is and titrate settings as needed abx, ID follows blood x + GNB, and SCON ( possible cont) urine cx +GNB ( but snall colony count 30-40) monitor volumes, cardiorenal parameters, avoid nephrotoxic strict aspiration precautions, continue TF GI prophayxlsi monitor e/lytes and correct further as needed , hyper K resolved wound nurse gwen DNR/DNI status case discussed and evaluated by supervising physician Critical Care - Objective Last 24 Hour Vital Signs Date Time Temp Pulse Resp B/P (MAP) Pulse Ox O2 Delivery O2 Flow Rate FiO2 09/29/17 09:14 95 15 30 09/29/17 08:00 135 09/29/17 08:00 30 09/29/17 08:00 99.5 109 17 124/75 100 Mechanical Ventilator 30 09/29/17 07:10 91 15 30 09/29/17 05:16 97 17 30 09/29/17 04:00 30 09/29/17 04:00 98.0 108 16 112/64 100 Mechanical Ventilator 09/29/17 04:00 114 09/29/17 03:13 108 20 30 09/29/17 00:27 111 20 30 09/29/17 00:00 30 09/29/17 00:00 128 09/29/17 00:00 98.1 95 16 120/65 100 Mechanical Ventilator 09/28/17 22:56 106 15 30 09/28/17 21:16 96 16 30 09/28/17 20:00 98.5 83 16 115/73 99 Mechanical Ventilator 09/28/17 20:00 30 09/28/17 20:00 115 09/28/17 18:48 100 19 30 09/28/17 17:15 103 18 30 09/28/17 16:00 98.6 14 121/69 100 Mechanical Ventilator 30 09/28/17 16:00 30 09/28/17 16:00 105 09/28/17 15:24 115 30 30 09/28/17 13:39 102 19 100 Mechanical Ventilator 30 09/28/17 13:38 117 22 99 Mechanical Ventilator 30 09/28/17 12:49 96 18 30 09/28/17 12:00 98.5 14 112/65 98 Mechanical Ventilator 30 09/28/17 12:00 106 09/28/17 12:00 30 Objective: Status:more awake,eyes open, not responsive to verbal stimuli, but withdraws to tactile stimuli, chronically ill, bedridden, vent dependent female, vent AC 500-12-30% HEENT: atraumatic, normocephalic Neck: trach, Shiley #6, secretions white, thin, moderate Lungs: few occasional scattered rhonchi Heart: HR/BP stable Abdomen: soft, non-tender, G tube Extremities: no C/C/E, spastic LE Micro: Microbiology Date/Time Source Procedure Growth Status 09/28/17 00:00 Blood Blood Culture - Preliminary NO GROWTH AFTER 24 HOURS Resulted 09/27/17 23:45 Blood Blood Culture - Preliminary NO GROWTH AFTER 24 HOURS Resulted 09/27/17 12:45 Blood Blood Culture - Preliminary Staphylococcus Sp Coag Neg Resulted 09/27/17 12:40 Blood Blood Culture - Preliminary Gram Negative Bacillus 1 Gram Negative Bacillus 2 Resulted 09/28/17 01:00 Sputum Induced Gram Stain - Final Resulted 09/28/17 01:00 Sputum Induced Sputum Culture Pending Resulted 09/27/17 19:25 Straight Cath Urine Culture - Preliminary Gram Negative Bacillus 1 Resulted Accucheck: 103 Critical Care - Subjective ROS Limited/Unobtainable: Yes Interval Events: leukocytosis resolved, low grade fever this am troponin trending down, still elevated HH with trend down , off heparin gtt since 09/28 Condition: critical FI02: 30 Vent Support Breath Rate: 12 Vent Support Mode: AC Vent Tidal Volume: 500 Sputum Amount: Moderate PEEP: 0.0 PIP: 34 Tube Feeding Amount: 40 I&O: Intake and Output 09/28/17 09/29/17 19:00 07:00 Intake Total 135 ml 1521 ml Output Total 650 ml 550 ml Balance -515 ml 971 ml Free Water 120 ml IV Total 75 ml 961 ml Tube Feeding 60 ml 440 ml Output Urine Total 650 ml 550 ml # Bowel Movements 1 Gume (Joaquinal),Nereida SNIDER Sep 29, 2017 11:28
[2017-09-29 12:00] VITALS: BP 132/76
[2017-09-29] MEDS: Vancomycin 1.5gm/D5W 250ml 250 ML IVPB SCH (12:56)
[2017-09-29] MEDS ORDERED: Iron Sucrose 100 MG in NS 55 ML IV ONE (13:00)
[2017-09-29 16:00] VITALS: BP 146/88
--- NOTE | 2017-09-29 16:41 | Cardiology Progress Note ---
Assessment/Plan Status: not improved, unchanged Status Narrative Pt on chronic vent, adm w/ sudden respiratory decompensation, ? CHF in setting of ischemia. Troponin levels decreasing. However, pt is now in AF w/ RVR and also appears in CHF. She has urosepsis, with gm neg bacilli in urine and blood - ID/sens pending. She is anemic, w/ Fe studies showing Fe deficiency and is receiving iv Fe Assessment/Plan Will start b blockers, digoxin for rate control in AF Hold anticoagulation, as pt w/ anemia, Fe deficient and ? gi blood loss. H/h dropped while on heparin since adm. Will give iv lasix for CHF/ volume overload with K supplement and followup labs in am ID consult noted - IV antibiotics and followup cultures. continue vent support, TF Overall prognosis poor d/w RN Subjective ROS Limited/Unobtainable: Yes Subjective Cardiology for Dr. Coleman Events noted. Pt unresponsive, on vent. Now in AF w/ RVR Objective Last 24 Hour Vital Signs Date Time Temp Pulse Resp B/P (MAP) Pulse Ox O2 Delivery O2 Flow Rate FiO2 09/29/17 16:09 30 09/29/17 13:07 104 15 30 09/29/17 12:00 99.9 110 24 132/76 100 Mechanical Ventilator 30 09/29/17 12:00 110 09/29/17 12:00 30 09/29/17 11:29 98 15 30 09/29/17 09:14 95 15 30 09/29/17 08:00 135 09/29/17 08:00 30 09/29/17 08:00 99.5 109 17 124/75 100 Mechanical Ventilator 30 09/29/17 07:10 91 15 30 09/29/17 05:16 97 17 30 09/29/17 04:00 30 09/29/17 04:00 98.0 108 16 112/64 100 Mechanical Ventilator 09/29/17 04:00 114 09/29/17 03:13 108 20 30 09/29/17 00:27 111 20 30 09/29/17 00:00 30 09/29/17 00:00 128 09/29/17 00:00 98.1 95 16 120/65 100 Mechanical Ventilator 09/28/17 22:56 106 15 30 09/28/17 21:16 96 16 30 09/28/17 20:00 98.5 83 16 115/73 99 Mechanical Ventilator 09/28/17 20:00 30 09/28/17 20:00 115 09/28/17 18:48 100 19 30 09/28/17 17:15 103 18 30 General Appearance: obese, on vent EENT: PERRL/EOMI Neck: other - trach Rhythm: Afib Cardiovascular: no gallop/murmur, tachycardia Respiratory/Chest: other - bilateral rhonchi/rales anteriorly Abdomen: non tender, soft, other - + g tube Extremities: no swelling Intake and Output 09/28/17 09/29/17 19:00 07:00 Intake Total 135 ml 1521 ml Output Total 650 ml 550 ml Balance -515 ml 971 ml Free Water 120 ml IV Total 75 ml 961 ml Tube Feeding 60 ml 440 ml Output Urine Total 650 ml 550 ml # Bowel Movements 1 Laboratory Tests Test 09/28/17 17:20 09/29/17 03:40 09/29/17 11:20 Troponin I 1.762 ng/mL (0.000-0.056) 1.822 ng/mL (0.000-0.056) White Blood Count 6.8 K/UL (4.8-10.8) # Red Blood Count 2.90 M/UL (4.20-5.40) L Hemoglobin 8.3 G/DL (12.0-16.0) L Hematocrit 26.6 % (37.0-47.0) L Mean Corpuscular Volume 92 FL (80-99) Mean Corpuscular Hemoglobin 28.6 PG (27.0-31.0) Mean Corpuscular Hemoglobin Concent 31.2 G/DL (32.0-36.0) L Red Cell Distribution Width 15.1 % (11.6-14.8) H Platelet Count 171 K/UL (150-450) Mean Platelet Volume 7.2 FL (6.5-10.1) Neutrophils (%) (Auto) 58.3 % (45.0-75.0) Lymphocytes (%) (Auto) 22.4 % (20.0-45.0) Monocytes (%) (Auto) 15.9 % (1.0-10.0) H Eosinophils (%) (Auto) 2.5 % (0.0-3.0) Basophils (%) (Auto) 0.9 % (0.0-2.0) Sodium Level 138 MMOL/L (136-145) Potassium Level 3.6 MMOL/L (3.5-5.1) Chloride Level 105 MMOL/L (98-107) Carbon Dioxide Level 27 MMOL/L (21-32) Anion Gap 6 mmol/L (5-15) Blood Urea Nitrogen 14 mg/dL (7-18) Creatinine 0.7 MG/DL (0.55-1.30) Estimat Glomerular Filtration Rate mL/min (>60) Glucose Level 121 MG/DL (74-106) H Calcium Level 7.5 MG/DL (8.5-10.1) L Vancomycin Level Trough 12.1 ug/mL (5.0-12.0) H Microbiology Date/Time Source Procedure Growth Status 09/28/17 00:00 Blood Blood Culture - Preliminary NO GROWTH AFTER 24 HOURS Resulted 09/27/17 23:45 Blood Blood Culture - Preliminary NO GROWTH AFTER 24 HOURS Resulted 09/27/17 12:45 Blood Blood Culture - Preliminary Staphylococcus Sp Coag Neg Resulted 09/27/17 12:40 Blood Blood Culture - Preliminary Gram Negative Bacillus 1 Gram Negative Bacillus 2 Resulted 09/28/17 01:00 Sputum Induced Gram Stain - Final Resulted 09/28/17 01:00 Sputum Culture - Preliminary Gram Negative Bacillus 1 Resulted 09/27/17 19:25 Straight Cath Urine Culture - Preliminary Gram Negative Bacillus 1 Resulted 09/28/17 04:00 Leg Right Gram Stain - Final Resulted 09/28/17 04:00 Leg Right Wound Culture - Preliminary Resulted GABINO MA Sep 29, 2017 16:41
[2017-09-29] MEDS ORDERED: Digoxin 0.5mg/2ml Inj IVP ONE (16:45)
[2017-09-29] MEDS: Metoprolol 5mg/5ml Inj IVP SCH (17:46)
[2017-09-29 20:00] VITALS: BP 116/61
[2017-09-29] MEDS: Dyna-Hex 2% Top Sol 2oz TOPIC SCH (20:51)
[2017-09-30] VITALS: BP 124/61
[2017-09-30] MEDS: Metoprolol 5mg/5ml Inj IVP SCH ×5 (00:23→23:53)
[2017-09-30 04:00] VITALS: BP 121/64
[2017-09-30] MEDS: Piperacillin/Tazobactam 3.375 GM in NS 55 ML IVPB SCH (05:23)
[2017-09-30 06:07] LABS: BASOPHILS % (AUTO) 0.5 % (0.0-2.0); EOSINOPHILS % (AUTO) 4.1 % (0.0-3.0); HEMATOCRIT 27.2 % (37.0-47.0); HEMOGLOBIN 8.6 G/DL (12.0-16.0); LYMPHOCYTES % (AUTO) 26.3 % (20.0-45.0); MEAN CORPUSCULAR VOLUME 92 FL (80-99); MONOCYTES % (AUTO) 16.2 % (1.0-10.0); PLATELET COUNT 173 K/UL (150-450); RED BLOOD COUNT 2.97 M/UL (4.20-5.40); RED CELL DISTRIBUTION WIDTH 15.6 % (11.6-14.8); WHITE BLOOD COUNT 6.3 K/UL (4.8-10.8)
[2017-09-30 06:34] LABS: ANION GAP 3 mmol/L (5-15); BLOOD UREA NITROGEN 14 mg/dL (7-18); CALCIUM 7.5 MG/DL (8.5-10.1); CARBON DIOXIDE 31 MMOL/L (21-32); CHLORIDE 108 MMOL/L (98-107); CREATININE 0.8 MG/DL (0.55-1.30); POTASSIUM 3.7 MMOL/L (3.5-5.1); SODIUM 142 MMOL/L (136-145)
[2017-09-30 08:00] VITALS: BP 131/75
--- NOTE | 2017-09-30 08:12 | Cardiology Progress Note ---
Assessment/Plan Status: stable, unchanged Status Narrative Pt on chronic vent, adm w/ sudden respiratory decompensation, ? CHF in setting of ischemia. Troponin levels decreasing. Rhythm has reverted back to NSR from AF. She has urosepsis, with gm neg bacilli in urine and blood - blood cx + klebsiella She is anemic, w/ Fe studies showing Fe deficiency and is receiving iv Fe Assessment/Plan Continue b blockers Hold anticoagulation, as pt w/ anemia, Fe deficient and ? gi blood loss. H/h dropped while on heparin since adm. Continue iv lasix diuresis IV antibiotics per ID continue vent support, TF Overall prognosis poor Subjective ROS Limited/Unobtainable: Yes Subjective Cardiology for Dr. Coleman Events noted. Pt unresponsive, on vent. + cough/ congestion Objective Last 24 Hour Vital Signs Date Time Temp Pulse Resp B/P (MAP) Pulse Ox O2 Delivery O2 Flow Rate FiO2 09/30/17 05:29 69 14 30 09/30/17 05:27 85 121/64 09/30/17 04:00 86 09/30/17 04:00 30 09/30/17 04:00 98.4 85 12 121/64 100 Mechanical Ventilator 30 09/30/17 03:20 82 14 30 09/30/17 01:11 83 14 30 09/30/17 00:23 95 124/61 09/30/17 00:00 30 09/30/17 00:00 96 09/30/17 00:00 98.4 95 20 124/61 100 Mechanical Ventilator 30 09/29/17 23:11 78 14 30 09/29/17 20:57 90 22 30 09/29/17 20:00 98.1 89 12 116/61 100 Mechanical Ventilator 30 09/29/17 20:00 30 09/29/17 20:00 88 09/29/17 18:52 91 17 30 09/29/17 17:46 126 132/76 09/29/17 17:44 126 09/29/17 17:09 126 21 30 09/29/17 16:09 30 09/29/17 16:00 98.8 129 22 146/88 100 Mechanical Ventilator 30 09/29/17 16:00 126 09/29/17 15:08 124 20 30 09/29/17 13:07 104 15 30 09/29/17 12:00 99.9 110 24 132/76 100 Mechanical Ventilator 30 09/29/17 12:00 110 09/29/17 12:00 30 09/29/17 11:29 98 15 30 09/29/17 09:14 95 15 30 General Appearance: obese, on vent Neck: other - trach in place Rhythm: NSR Cardiovascular: normal rate, regular rhythm Respiratory/Chest: other - few rhonchi and transmitted uppper airway sounds anteriorly Abdomen: soft, other - mild distension. + g tube Extremities: no swelling Intake and Output 09/29/17 09/30/17 19:00 07:00 Intake Total 1800 ml 1555 ml Output Total 600 ml 501 ml Balance 1200 ml 1054 ml Free Water 160 ml IV Total 1130 ml 860 ml Tube Feeding 450 ml 665 ml Other 60 ml 30 ml Output Urine Total 600 ml 500 ml Stool Total 1 ml # Bowel Movements 1 2 Laboratory Tests Test 09/29/17 11:20 09/29/17 18:00 09/30/17 04:00 Vancomycin Level Trough 12.1 ug/mL (5.0-12.0) H Troponin I 1.012 ng/mL (0.000-0.056) White Blood Count 6.3 K/UL (4.8-10.8) Red Blood Count 2.97 M/UL (4.20-5.40) L Hemoglobin 8.6 G/DL (12.0-16.0) L Hematocrit 27.2 % (37.0-47.0) L Mean Corpuscular Volume 92 FL (80-99) Mean Corpuscular Hemoglobin 28.8 PG (27.0-31.0) Mean Corpuscular Hemoglobin Concent 31.5 G/DL (32.0-36.0) L Red Cell Distribution Width 15.6 % (11.6-14.8) H Platelet Count 173 K/UL (150-450) Mean Platelet Volume 6.7 FL (6.5-10.1) Neutrophils (%) (Auto) 53.0 % (45.0-75.0) Lymphocytes (%) (Auto) 26.3 % (20.0-45.0) Monocytes (%) (Auto) 16.2 % (1.0-10.0) H Eosinophils (%) (Auto) 4.1 % (0.0-3.0) H Basophils (%) (Auto) 0.5 % (0.0-2.0) Sodium Level 142 MMOL/L (136-145) Potassium Level 3.7 MMOL/L (3.5-5.1) Chloride Level 108 MMOL/L (98-107) H Carbon Dioxide Level 31 MMOL/L (21-32) Anion Gap 3 mmol/L (5-15) L Blood Urea Nitrogen 14 mg/dL (7-18) Creatinine 0.8 MG/DL (0.55-1.30) Estimat Glomerular Filtration Rate mL/min (>60) Glucose Level 125 MG/DL (74-106) H Calcium Level 7.5 MG/DL (8.5-10.1) L Pro-B-Type Natriuretic Peptide 5498 pg/mL (0-125) H Microbiology Date/Time Source Procedure Growth Status 09/28/17 00:00 Blood Blood Culture - Preliminary NO GROWTH AFTER 48 HOURS Resulted 09/27/17 23:45 Blood Blood Culture - Preliminary NO GROWTH AFTER 48 HOURS Resulted 09/27/17 12:45 Blood Blood Culture - Final Staphylococcus Sp Coag Neg Complete 09/27/17 12:40 Blood Blood Culture - Preliminary Klebsiella Pneumoniae - Mdr Providencia Stuartii Resulted 09/28/17 01:00 Sputum Induced Gram Stain - Final Resulted 09/28/17 01:00 Sputum Culture - Preliminary Gram Negative Bacillus 1 Resulted 09/27/17 19:25 Straight Cath Urine Culture - Preliminary Gram Negative Bacillus 1 Resulted 09/28/17 04:00 Leg Right Gram Stain - Final Resulted 09/28/17 04:00 Leg Right Wound Culture - Preliminary Resulted GABINO MA Sep 30, 2017 08:12
--- NOTE | 2017-09-30 08:40 | General Progress Note ---
Assessment/Plan Assessment/Plan LATE ENTRY ASSESSMENT AND RECOMMENDATIONS: 1. Congestive heart failure exacerbation 2. Sepsis with shock. ID following, on abx 4. Anemia, with sudden drop in H/H. Continue to trend daily. --> have dc'd heparin due to anemia. --> rule out GI bleed, ob stool pending 5. Chronic obstructive pulmonary disease. 6. Chronic respiratory failure, on a vent. 7. Pneumonia. She is on antibiotics on a p.r.n. basis. 8. Leukocytosis likely secondary to underlying infection. 9. Hyperkalemia. Continue to closely monitor. Kayexalate administered. 10. Urinary tract infection, to be seen by ID team, consulted for antibiotics. Currently on vancomycin. To be seen by Dr. Fredy Duran. Subjective Date patient seen: Sep 29, 2017 Allergies: Coded Allergies: No Known Allergies (Unverified , 05/31/12) All Systems: reviewed and negative except above Subjective NAD Objective Last 24 Hour Vital Signs Date Time Temp Pulse Resp B/P (MAP) Pulse Ox O2 Delivery O2 Flow Rate FiO2 09/30/17 06:32 84 13 30 09/30/17 05:29 69 14 30 09/30/17 05:27 85 121/64 09/30/17 04:00 86 09/30/17 04:00 30 09/30/17 04:00 98.4 85 12 121/64 100 Mechanical Ventilator 30 09/30/17 03:20 82 14 30 09/30/17 01:11 83 14 30 09/30/17 00:23 95 124/61 09/30/17 00:00 30 09/30/17 00:00 96 09/30/17 00:00 98.4 95 20 124/61 100 Mechanical Ventilator 30 09/29/17 23:11 78 14 30 09/29/17 20:57 90 22 30 09/29/17 20:00 98.1 89 12 116/61 100 Mechanical Ventilator 30 09/29/17 20:00 30 09/29/17 20:00 88 09/29/17 18:52 91 17 30 09/29/17 17:46 126 132/76 09/29/17 17:44 126 09/29/17 17:09 126 21 30 09/29/17 16:09 30 09/29/17 16:00 98.8 129 22 146/88 100 Mechanical Ventilator 30 09/29/17 16:00 126 09/29/17 15:08 124 20 30 09/29/17 13:07 104 15 30 09/29/17 12:00 99.9 110 24 132/76 100 Mechanical Ventilator 30 09/29/17 12:00 110 09/29/17 12:00 30 09/29/17 11:29 98 15 30 09/29/17 09:14 95 15 30 Intake and Output 09/29/17 09/30/17 19:00 07:00 Intake Total 1800 ml 1555 ml Output Total 600 ml 501 ml Balance 1200 ml 1054 ml Free Water 160 ml IV Total 1130 ml 860 ml Tube Feeding 450 ml 665 ml Other 60 ml 30 ml Output Urine Total 600 ml 500 ml Stool Total 1 ml # Bowel Movements 1 2 Laboratory Tests 09/29/17 11:20: Vancomycin Level Trough 12.1H 09/29/17 18:00: Troponin I 1.012H 09/30/17 04:00: White Blood Count 6.3, Red Blood Count 2.97L, Hemoglobin 8.6L, Hematocrit 27.2L , Mean Corpuscular Volume 92, Mean Corpuscular Hemoglobin 28.8, Mean Corpuscular Hemoglobin Concent 31.5L, Red Cell Distribution Width 15.6H, Platelet Count 173, Mean Platelet Volume 6.7, Neutrophils (%) (Auto) 53.0, Lymphocytes (%) (Auto) 26.3, Monocytes (%) (Auto) 16.2H, Eosinophils (%) (Auto) 4.1H, Basophils (%) (Auto) 0.5, Sodium Level 142, Potassium Level 3.7, Chloride Level 108H, Carbon Dioxide Level 31, Anion Gap 3L, Blood Urea Nitrogen 14, Creatinine 0.8, Estimat Glomerular Filtration Rate , Glucose Level 125H, Calcium Level 7.5L, Pro-B-Type Natriuretic Peptide 5498H Height (Feet): 6 Height (Inches): 5.00 Weight (Pounds): 214 General Appearance: no apparent distress EENT: normal ENT inspection Neck: normal alignment Cardiovascular: normal peripheral pulses Respiratory/Chest: chest wall non-tender Extremities: non-tender 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
[2017-09-30] MEDS: Heparin 5000 units/ml inj SUBQ SCH ×2 (08:58→20:06)
[2017-09-30] MEDS: Aspirin Baby 81mg ORAL SCH (09:24)
[2017-09-30] MEDS: Pantoprazole Inj IV SCH (09:24)
[2017-09-30] MEDS: Vancomycin 1.5gm/D5W 250ml 250 ML IVPB SCH (11:05)
--- NOTE | 2017-09-30 11:09 | Pulmonolgy Critical Care Note ---
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 PLAN OF CARE MOISE s/p Levophed, currently hemodynamically stable troponin trending down cardio follows Heparin gtt was stopped by cardio due to HH trending down anemia w/up c/w anemia of chronic disease, get stool OB, monitor counts HH remains at baseline Heparin SQ q 8 ECHO with pEF 60% and RVSP of 19 cardio follows spot diuresis BB dc IVF vent support pulmonary toilet fup with CXR last ABG stable, keep settings as is and titrate settings as needed abx, ID follows blood cx + Klebsiella MDR, Providencia, SCON, repeated blood cx negative UTD, sputum cx + Pseudomonas, GNB, urine cx + Proteus ( colony count only 30-40) abx management as per ID directions monitor volumes, cardiorenal parameters, avoid nephrotoxic restart TF slowly GI prophayxlsi monitor e/lytes and correct further as needed , hyper K resolved wound nurse eval DNR/DNI status case discussed and evaluated by supervising physician Critical Care - Objective Last 24 Hour Vital Signs Date Time Temp Pulse Resp B/P (MAP) Pulse Ox O2 Delivery O2 Flow Rate FiO2 09/30/17 09:59 84 09/30/17 09:07 85 13 30 09/30/17 08:00 98.2 88 17 131/75 100 Mechanical Ventilator 30 09/30/17 08:00 30 09/30/17 06:32 84 13 30 09/30/17 05:29 69 14 30 09/30/17 05:27 85 121/64 09/30/17 04:00 86 09/30/17 04:00 30 09/30/17 04:00 98.4 85 12 121/64 100 Mechanical Ventilator 30 09/30/17 03:20 82 14 30 09/30/17 01:11 83 14 30 09/30/17 00:23 95 124/61 09/30/17 00:00 30 09/30/17 00:00 96 09/30/17 00:00 98.4 95 20 124/61 100 Mechanical Ventilator 30 09/29/17 23:11 78 14 30 09/29/17 20:57 90 22 30 09/29/17 20:00 98.1 89 12 116/61 100 Mechanical Ventilator 30 09/29/17 20:00 30 09/29/17 20:00 88 09/29/17 18:52 91 17 30 09/29/17 17:46 126 132/76 09/29/17 17:44 126 09/29/17 17:09 126 21 30 09/29/17 16:09 30 09/29/17 16:00 98.8 129 22 146/88 100 Mechanical Ventilator 30 09/29/17 16:00 126 09/29/17 15:08 124 20 30 09/29/17 13:07 104 15 30 09/29/17 12:00 99.9 110 24 132/76 100 Mechanical Ventilator 30 09/29/17 12:00 110 09/29/17 12:00 30 09/29/17 11:29 98 15 30 Objective: Status:more awake,eyes open, not responsive to verbal stimuli, but withdraws to tactile stimuli, chronically ill, bedridden, vent dependent female, vent AC 500-12-30% HEENT: atraumatic, normocephalic Neck: trach, Shiley #6, secretions white, thin, moderate Lungs: few occasional scattered rhonchi Heart: HR/BP stable Abdomen: soft, non-tender, G tube Extremities: no C/C/E, spastic LE Micro: Microbiology Date/Time Source Procedure Growth Status 09/28/17 00:00 Blood Blood Culture - Preliminary NO GROWTH AFTER 48 HOURS Resulted 09/27/17 23:45 Blood Blood Culture - Preliminary NO GROWTH AFTER 48 HOURS Resulted 09/27/17 12:45 Blood Blood Culture - Final Staphylococcus Sp Coag Neg Complete 09/27/17 12:40 Blood Blood Culture - Preliminary Klebsiella Pneumoniae - Mdr Providencia Stuartii Resulted 09/28/17 01:00 Sputum Induced Gram Stain - Final Resulted 09/28/17 01:00 Sputum Culture - Preliminary Pseudomonas Aeruginosa Gram Negative Bacillus 2 Resulted 09/27/17 19:25 Straight Cath Urine Culture - Preliminary Proteus Mirabilis Resulted 09/28/17 04:00 Leg Right Gram Stain - Final Resulted 09/28/17 04:00 Leg Right Wound Culture - Preliminary Resulted 09/27/17 21:00 Rectum VRE Culture - Final Enterococcus Faecalis - Vre Complete Accucheck: 103 Critical Care - Subjective ROS Limited/Unobtainable: Yes Interval Events: leukocytosis resolved, afebrile no signs of respiratory distress on current settings HH stable Condition: improving IV Access: central - Lt subclavian TL intact EKG Rhythm: Sinus Rhythm FI02: 30 Vent Support Breath Rate: 12 Vent Support Mode: AC Vent Tidal Volume: 500 Sputum Amount: Moderate PEEP: 0.0 PIP: 36 Tube Feeding Amount: 60 I&O: Intake and Output 09/29/17 09/30/17 19:00 07:00 Intake Total 1800 ml 1555 ml Output Total 600 ml 501 ml Balance 1200 ml 1054 ml Free Water 160 ml IV Total 1130 ml 860 ml Tube Feeding 450 ml 665 ml Other 60 ml 30 ml Output Urine Total 600 ml 500 ml Stool Total 1 ml # Bowel Movements 1 2 Nereida Dunaway NP (Vanchtein) Sep 30, 2017 11:09
--- NOTE | 2017-09-30 11:20 | Infectious Diseases Prog Note ---
Assessment/Plan Assessment/Plan Abx: Cefepime x1 09/27 Vanco 09/27- Zosyn 09/27- Assessment: Septic shock - likely 2ry to PNA and bacteremia (real vs contaminants), ?UTI, however u/a neg; shock resolved- -CXR: Interstitial edema suspected. Basilar infiltrates not excluded. Please correlate clinically. -u/a no pyuria; ucx 30-40K Proteus mirablis (S zosyn, amikacin, gentamicin, Cefepime) -sp cx PSA (S Zosyn, Cefepime, cipro/levo), GNB #2 (id and sensi pending) Polymicrobial bacteremia- suspect possible line contaminant as Gram negative isolated are not present on Urine or sputum cx (2nd GNB sputum cx pending) -Bcx 09/27 3/4 CoNS, 1/4 MDR K.pna possibly KPC ( S Tigecycline),1/4 Providencia stuartti (S. Zosyn, Cefepime); rpeat Bcx 09/27-7: NTD x4 -Echo: no vegetations, no significant valve abnormalities Leukocytosis- resolved -afebrile Acute on chronic respiratory failure- improving Troponinemia CVA dementia respiratory failure s/p trach on chronic vent support hx of OM R calcaneus non verbal s/p PEG half-way resident NKDA DNR Plan: -D/C IV Vanco #4 as CoNS likely contaminant -Switch Zosyn #4 to Cefepime for PNA and bacteremia and add Polimyxin B for possibly KPC K. pna bacteremia -Remove LIJ and replace quiroga catheter as these are contaminated -f/u Influenza, sp cx, repeat Bcx -Monitor CBC/BMP, temperatures -peg/trach care, aspiration precautions -wound care Thank you for this consultation. Will continue to follow along with you. Discussed with RN, pharmacy and micro lab staff. Subjective Allergies: Coded Allergies: No Known Allergies (Unverified , 05/31/12) Subjective afebrile leukocytosis resolved polymicrobial bacteremia; repeat Bcx NTD so far Objective Vital Signs Last 24 Hour Vital Signs Date Time Temp Pulse Resp B/P (MAP) Pulse Ox O2 Delivery O2 Flow Rate FiO2 09/30/17 09:59 84 09/30/17 09:07 85 13 30 09/30/17 08:00 98.2 88 17 131/75 100 Mechanical Ventilator 30 09/30/17 08:00 30 09/30/17 06:32 84 13 30 09/30/17 05:29 69 14 30 09/30/17 05:27 85 121/64 09/30/17 04:00 86 09/30/17 04:00 30 09/30/17 04:00 98.4 85 12 121/64 100 Mechanical Ventilator 30 09/30/17 03:20 82 14 30 09/30/17 01:11 83 14 30 09/30/17 00:23 95 124/61 09/30/17 00:00 30 09/30/17 00:00 96 09/30/17 00:00 98.4 95 20 124/61 100 Mechanical Ventilator 30 09/29/17 23:11 78 14 30 09/29/17 20:57 90 22 30 09/29/17 20:00 98.1 89 12 116/61 100 Mechanical Ventilator 30 09/29/17 20:00 30 09/29/17 20:00 88 09/29/17 18:52 91 17 30 09/29/17 17:46 126 132/76 09/29/17 17:44 126 09/29/17 17:09 126 21 30 09/29/17 16:09 30 09/29/17 16:00 98.8 129 22 146/88 100 Mechanical Ventilator 30 09/29/17 16:00 126 09/29/17 15:08 124 20 30 09/29/17 13:07 104 15 30 09/29/17 12:00 99.9 110 24 132/76 100 Mechanical Ventilator 30 09/29/17 12:00 110 09/29/17 12:00 30 09/29/17 11:29 98 15 30 Height (Feet): 6 Height (Inches): 5.00 Weight (Pounds): 214 Objective GENERAL: No distress. PULMONARY: Decreased breath sounds. Status post trach. CARDIOVASCULAR: Regular rate. No S3 or S4. ABDOMEN: Soft, nontender, and nondistended. EXTREMITIES: A 1+ to 2+ edema. Microbiology Date/Time Source Procedure Growth Status 09/28/17 00:00 Blood Blood Culture - Preliminary NO GROWTH AFTER 48 HOURS Resulted 09/27/17 23:45 Blood Blood Culture - Preliminary NO GROWTH AFTER 48 HOURS Resulted 09/27/17 12:45 Blood Blood Culture - Final Staphylococcus Sp Coag Neg Complete 09/27/17 12:40 Blood Blood Culture - Preliminary Klebsiella Pneumoniae - Mdr Providencia Stuartii Resulted 09/28/17 01:00 Sputum Induced Gram Stain - Final Resulted 09/28/17 01:00 Sputum Culture - Preliminary Pseudomonas Aeruginosa Gram Negative Bacillus 2 Resulted 09/27/17 19:25 Straight Cath Urine Culture - Preliminary Proteus Mirabilis Resulted 09/28/17 04:00 Leg Right Gram Stain - Final Resulted 09/28/17 04:00 Leg Right Wound Culture - Preliminary Resulted 09/27/17 21:00 Rectum VRE Culture - Final Enterococcus Faecalis - Vre Complete Laboratory Tests Test 09/29/17 11:20 09/29/17 18:00 09/30/17 04:00 Vancomycin Level Trough 12.1 ug/mL (5.0-12.0) H Troponin I 1.012 ng/mL (0.000-0.056) White Blood Count 6.3 K/UL (4.8-10.8) Red Blood Count 2.97 M/UL (4.20-5.40) L Hemoglobin 8.6 G/DL (12.0-16.0) L Hematocrit 27.2 % (37.0-47.0) L Mean Corpuscular Volume 92 FL (80-99) Mean Corpuscular Hemoglobin 28.8 PG (27.0-31.0) Mean Corpuscular Hemoglobin Concent 31.5 G/DL (32.0-36.0) L Red Cell Distribution Width 15.6 % (11.6-14.8) H Platelet Count 173 K/UL (150-450) Mean Platelet Volume 6.7 FL (6.5-10.1) Neutrophils (%) (Auto) 53.0 % (45.0-75.0) Lymphocytes (%) (Auto) 26.3 % (20.0-45.0) Monocytes (%) (Auto) 16.2 % (1.0-10.0) H Eosinophils (%) (Auto) 4.1 % (0.0-3.0) H Basophils (%) (Auto) 0.5 % (0.0-2.0) Sodium Level 142 MMOL/L (136-145) Potassium Level 3.7 MMOL/L (3.5-5.1) Chloride Level 108 MMOL/L (98-107) H Carbon Dioxide Level 31 MMOL/L (21-32) Anion Gap 3 mmol/L (5-15) L Blood Urea Nitrogen 14 mg/dL (7-18) Creatinine 0.8 MG/DL (0.55-1.30) Estimat Glomerular Filtration Rate mL/min (>60) Glucose Level 125 MG/DL (74-106) H Calcium Level 7.5 MG/DL (8.5-10.1) L Pro-B-Type Natriuretic Peptide 5498 pg/mL (0-125) H Current Medications Medications (Trade) Dose Ordered Sig/Mora Route PRN Reason Start Time Stop Time Status Last Admin Dose Admin Acetaminophen (Tylenol) 650 mg Q4H PRN RECTAL Mild Pain (Pain Scale 1-3) 09/27/17 17:00 10/27/17 16:59 Al Hydroxide/Mg Hydroxide (Mylanta II) 30 ml Q6H PRN ORAL dyspepsia 09/27/17 17:00 10/27/17 16:59 Albuterol/ Ipratropium (Albuterol/ Ipratropium) 3 ml Q4H PRN HHN Shortness of Breath 09/27/17 17:00 10/02/17 16:59 09/28/17 13:28 Aspirin (ASA) 81 mg DAILY ORAL 09/28/17 09:00 10/28/17 08:59 09/30/17 09:24 Chlorhexidine Gluconate (Ann-Hex 2%) 1 applic DAILY@2000 TOPIC 09/28/17 20:00 10/28/17 19:59 09/29/17 20:51 Dextrose (Dextrose 50%) STAT PRN IV Hypoglycemia 09/27/17 17:00 10/27/17 16:59 Heparin Sodium (Porcine) (Heparin 5000 units/ml) 5,000 units EVERY 12 HOURS SUBQ 09/28/17 09:00 10/28/17 08:59 09/29/17 20:53 Lorazepam (Ativan) 1 mg Q4H PRN ORAL For Anxiety 09/27/17 17:00 10/04/17 16:59 Metoprolol Tartrate (Lopressor) 2.5 mg EVERY 6 HOURS IVP 09/29/17 18:00 10/29/17 17:59 09/30/17 05:27 Morphine Sulfate (Morphine Sulfate) 2 mg Q4H PRN IVP Moderate Pain (Pain Scale 4-6) 09/27/17 17:00 10/04/17 16:59 09/30/17 09:33 Nitroglycerin (Ntg) 0.4 mg Q5M PRN SL Prn Chest Pain 09/27/17 17:00 10/27/17 16:59 Pantoprazole (Protonix) 40 mg DAILY IV 09/28/17 09:00 10/28/17 08:59 09/30/17 09:24 Piperacillin Sod/ Tazobactam Sod 3.375 gm/Sodium Chloride 55 ml @ 110 mls/hr Q8HR IVPB 09/28/17 06:00 09/30/17 15:00 09/30/17 05:23 Piperacillin Sod/ Tazobactam Sod 3.375 gm/Sodium Chloride 110 ml @ 220 mls/hr Q8HR IVPB 09/30/17 22:00 10/05/17 05:59 Sodium Chloride 1,000 ml @ 50 mls/hr Q20H IVLG 09/30/17 17:45 10/30/17 17:44 Vancomycin HCl (Vanco rx to dose) 1 ea DAILY PRN MISC Per rx protocol 09/27/17 17:00 10/27/17 16:59 Vancomycin HCl/ Dextrose 250 ml @ 125 mls/hr Q24H IVPB 09/28/17 11:30 10/03/17 11:29 09/29/17 12:56 Lynne Donahue M.D. Sep 30, 2017 11:20
--- NOTE | 2017-09-30 11:50 | Diagnostic Imaging Report ---
Indication: Dyspnea Comparison: 09/28/2017 A single view chest radiograph was obtained. Findings: Cephalized prominent pulmonary vascularity and interstitial edema demonstrated. Basilar atelectasis is likely present. Heart is enlarged but stable. Tubes and lines are stable. 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
[2017-09-30 12:00] VITALS: BP 111/60
[2017-09-30] MEDS: Cefepime HCl 2 GM in D5W 55 ML IVPB SCH (12:58)
[2017-09-30] MEDS: Polymyxin B Sulfate 500,000 UNITS in D5W 500ml 550 ML IV SCH (12:58)
[2017-09-30 16:00] VITALS: BP 119/67
[2017-09-30 20:00] VITALS: BP 150/66
[2017-09-30] MEDS: Dyna-Hex 2% Top Sol 2oz TOPIC SCH (20:04)
--- NOTE | 2017-09-30 21:57 | General Progress Note ---
Assessment/Plan Assessment/Plan ASSESSMENT AND RECOMMENDATIONS: 1. Congestive heart failure exacerbation 2. Sepsis with shock. ID following, on abx 4. Anemia, with sudden drop in H/H. Continue to trend daily. --> have dc'd heparin due to anemia. --> rule out GI bleed, ob stool pending 5. Chronic obstructive pulmonary disease. 6. Chronic respiratory failure, on a vent. 7. Pneumonia. She is on antibiotics on a p.r.n. basis. 8. Leukocytosis likely secondary to underlying infection. 9. Hyperkalemia. Continue to closely monitor. Kayexalate administered. 10. Urinary tract infection, to be seen by ID team, consulted for antibiotics. Currently on vancomycin. To be seen by Dr. Fredy Duran. Subjective Allergies: Coded Allergies: No Known Allergies (Unverified , 05/31/12) All Systems: reviewed and negative except above Subjective NAD Objective Last 24 Hour Vital Signs Date Time Temp Pulse Resp B/P (MAP) Pulse Ox O2 Delivery O2 Flow Rate FiO2 09/30/17 20:12 87 16 30 09/30/17 20:00 30 09/30/17 20:00 98.1 89 26 150/66 98 Mechanical Ventilator 30 09/30/17 18:00 86 09/30/17 17:17 85 111/60 09/30/17 17:12 85 12 30 09/30/17 16:32 85 09/30/17 16:32 30 09/30/17 16:00 97.9 93 13 119/67 100 Mechanical Ventilator 15.0 30 09/30/17 14:40 80 17 30 09/30/17 13:18 77 14 30 09/30/17 12:25 90 111/60 09/30/17 12:00 30 09/30/17 12:00 97.8 90 14 111/60 100 Mechanical Ventilator 30 09/30/17 12:00 80 09/30/17 10:58 82 15 30 09/30/17 10:03 98.4 09/30/17 09:59 84 09/30/17 09:07 85 13 30 09/30/17 08:00 98.2 88 17 131/75 100 Mechanical Ventilator 30 09/30/17 08:00 30 09/30/17 06:32 84 13 30 09/30/17 05:29 69 14 30 09/30/17 05:27 85 121/64 09/30/17 04:00 86 09/30/17 04:00 30 09/30/17 04:00 98.4 85 12 121/64 100 Mechanical Ventilator 30 09/30/17 03:20 82 14 30 09/30/17 01:11 83 14 30 09/30/17 00:23 95 124/61 09/30/17 00:00 30 09/30/17 00:00 96 09/30/17 00:00 98.4 95 20 124/61 100 Mechanical Ventilator 30 09/29/17 23:11 78 14 30 Intake and Output 09/29/17 09/30/17 19:00 07:00 Intake Total 1800 ml 1555 ml Output Total 600 ml 501 ml Balance 1200 ml 1054 ml Free Water 160 ml IV Total 1130 ml 860 ml Tube Feeding 450 ml 665 ml Other 60 ml 30 ml Output Urine Total 600 ml 500 ml Stool Total 1 ml # Bowel Movements 1 2 Laboratory Tests 09/30/17 04:00: White Blood Count 6.3, Red Blood Count 2.97L, Hemoglobin 8.6L, Hematocrit 27.2L , Mean Corpuscular Volume 92, Mean Corpuscular Hemoglobin 28.8, Mean Corpuscular Hemoglobin Concent 31.5L, Red Cell Distribution Width 15.6H, Platelet Count 173, Mean Platelet Volume 6.7, Neutrophils (%) (Auto) 53.0, Lymphocytes (%) (Auto) 26.3, Monocytes (%) (Auto) 16.2H, Eosinophils (%) (Auto) 4.1H, Basophils (%) (Auto) 0.5, Sodium Level 142, Potassium Level 3.7, Chloride Level 108H, Carbon Dioxide Level 31, Anion Gap 3L, Blood Urea Nitrogen 14, Creatinine 0.8, Estimat Glomerular Filtration Rate , Glucose Level 125H, Calcium Level 7.5L, Pro-B-Type Natriuretic Peptide 5498H Height (Feet): 6 Height (Inches): 5.00 Weight (Pounds): 214 General Appearance: no apparent distress EENT: normal ENT inspection Neck: normal alignment Cardiovascular: normal peripheral pulses Abdomen: no organomegaly Extremities: normal range of motion Edema: 1+ Pedal (L), 1+ Pedal (R) Edema: mild edema Eber Fuller Sep 30, 2017 21:57
[2017-09-30] MEDS ORDERED: Piperacillin/Tazobactam 3.375 GM in NS 110 ML IVPB SCH (22:00)
[2017-10-01] VITALS: BP 110/62
[2017-10-01] MEDS: Cefepime HCl 2 GM in D5W 55 ML IVPB SCH (01:03)
[2017-10-01] MEDS: Polymyxin B Sulfate 500,000 UNITS in D5W 500ml 550 ML IV SCH ×2 (01:03→13:53)
[2017-10-01 04:00] VITALS: BP 115/60
[2017-10-01 04:49] LABS: BASOPHILS % (AUTO) 0.9 % (0.0-2.0); EOSINOPHILS % (AUTO) 4.7 % (0.0-3.0); HEMATOCRIT 26.5 % (37.0-47.0); HEMOGLOBIN 8.5 G/DL (12.0-16.0); LYMPHOCYTES % (AUTO) 27.9 % (20.0-45.0); MEAN CORPUSCULAR VOLUME 93 FL (80-99); MONOCYTES % (AUTO) 14.3 % (1.0-10.0); NEUTROPHILS % (AUTO) 52.2 % (45.0-75.0); PLATELET COUNT 176 K/UL (150-450); RED BLOOD COUNT 2.86 M/UL (4.20-5.40); RED CELL DISTRIBUTION WIDTH 15.1 % (11.6-14.8)
[2017-10-01 05:12] LABS: ANION GAP 1 mmol/L (5-15); BLOOD UREA NITROGEN 16 mg/dL (7-18); CALCIUM 7.6 MG/DL (8.5-10.1); CARBON DIOXIDE 31 MMOL/L (21-32); CHLORIDE 105 MMOL/L (98-107); CREATININE 0.7 MG/DL (0.55-1.30); SODIUM 137 MMOL/L (136-145)
[2017-10-01] MEDS: Metoprolol 5mg/5ml Inj IVP SCH ×2 (05:22→12:00)
[2017-10-01 08:00] VITALS: BP 90/71
[2017-10-01] MEDS: Aspirin Baby 81mg ORAL SCH (08:36)
[2017-10-01] MEDS: Pantoprazole Inj IV SCH (08:36)
[2017-10-01] MEDS: Heparin 5000 units/ml inj SUBQ SCH ×2 (08:38→20:25)
--- NOTE | 2017-10-01 09:15 | Infectious Diseases Prog Note ---
Assessment/Plan Assessment/Plan Assessment: Septic shock - likely 2ry to PNA and bacteremia (real vs contaminants), ?UTI, however u/a neg; shock resolved- -CXR: Interstitial edema suspected. Basilar infiltrates not excluded. Please correlate clinically. -u/a no pyuria; ucx 30-40K Proteus mirablis ESBL (S zosyn, amikacin, gentamicin; R Cefepime) -sp cx PSA (S Zosyn, Cefepime, cipro/levo), +2 S.maltophilia (S. Levo, R bactrim) Polymicrobial bacteremia- suspect possible line contaminant as Gram negative isolated are not present on Urine or sputum cx -Bcx 09/27 2/4 CoNS, ,2/4 Group G Strep, 2/4 MDR/KPC K.pna ( S Tigecycline, Colistin, Polymixin B),1/4 Providencia stuartti (S. Zosyn, Cefepime); rpeat Bcx 09/27-7: NTD x4 -Echo: no vegetations, no significant valve abnormalities Leukocytosis- resolved -afebrile Acute on chronic respiratory failure- improving Troponinemia CVA dementia respiratory failure s/p trach on chronic vent support hx of OM R calcaneus non verbal s/p PEG group home resident NKDA DNR Plan: -Switch Cefepime #2 (abx d#5) back to Zosyn as ESBL Proteus urine (R Cefepime, S Zosyn) and continue Polimyxin B #2 for possibly KPC K. pna bacteremia -09/30 SP IV Vanco #4, Zosyn #4 -NEEDS URGENT REMOVAL OF LIJ CONTAMINATED WITH MULTIPLE ORGANISMS SPECIALLY A MDR ORGANISM -General sx consulted for line replacement. -Replace quiroga catheter as contaminated -will not treat Stenotrophomonas in sputum cx as likely contaminant as stable O2 requirements and no obvious active infiltrates on CXR -f/u repeat Bcx -Monitor CBC/BMP, temperatures -peg/trach care, aspiration precautions -wound care Thank you for this consultation. Will continue to follow along with you. Discussed with RN, micro lab staff, EPIC KALEIDOSCOPE ANALYST and Dr Littlejohn. Subjective Allergies: Coded Allergies: No Known Allergies (Unverified , 05/31/12) Subjective afebrile leukocytosis resolved polymicrobial bacteremia; repeat Bcx NTD so far Objective Vital Signs Last 24 Hour Vital Signs Date Time Temp Pulse Resp B/P (MAP) Pulse Ox O2 Delivery O2 Flow Rate FiO2 10/01/17 07:30 95 22 30 10/01/17 05:30 86 20 30 10/01/17 05:22 95 90/55 10/01/17 04:00 88 10/01/17 04:00 30 10/01/17 04:00 97.7 88 16 115/60 100 Mechanical Ventilator 30 10/01/17 03:44 95 19 30 10/01/17 01:43 99 15 30 10/01/17 00:00 98.2 96 16 110/62 100 Mechanical Ventilator 30 10/01/17 00:00 99 09/30/17 23:53 96 110/62 09/30/17 22:55 85 15 30 09/30/17 21:59 87 18 30 09/30/17 20:12 87 16 30 09/30/17 20:00 30 09/30/17 20:00 98.1 89 26 150/66 98 Mechanical Ventilator 30 09/30/17 20:00 95 09/30/17 18:00 86 09/30/17 17:17 85 111/60 09/30/17 17:12 85 12 30 09/30/17 16:32 85 09/30/17 16:32 30 09/30/17 16:00 97.9 93 13 119/67 100 Mechanical Ventilator 15.0 30 09/30/17 14:40 80 17 30 09/30/17 13:18 77 14 30 09/30/17 12:25 90 111/60 09/30/17 12:00 30 09/30/17 12:00 97.8 90 14 111/60 100 Mechanical Ventilator 30 09/30/17 12:00 80 09/30/17 10:58 82 15 30 09/30/17 10:03 98.4 09/30/17 09:59 84 09/30/17 09:07 85 13 30 Height (Feet): 6 Height (Inches): 5.00 Weight (Pounds): 214 Objective GENERAL: No distress. PULMONARY: Decreased breath sounds. Status post trach. CARDIOVASCULAR: Regular rate. No S3 or S4. ABDOMEN: Soft, nontender, and nondistended. EXTREMITIES: A 1+ to 2+ edema. Laboratory Tests Test 10/01/17 04:00 White Blood Count 8.0 K/UL (4.8-10.8) Red Blood Count 2.86 M/UL (4.20-5.40) L Hemoglobin 8.5 G/DL (12.0-16.0) L Hematocrit 26.5 % (37.0-47.0) L Mean Corpuscular Volume 93 FL (80-99) Mean Corpuscular Hemoglobin 29.8 PG (27.0-31.0) Mean Corpuscular Hemoglobin Concent 32.2 G/DL (32.0-36.0) Red Cell Distribution Width 15.1 % (11.6-14.8) H Platelet Count 176 K/UL (150-450) Mean Platelet Volume 7.0 FL (6.5-10.1) Neutrophils (%) (Auto) 52.2 % (45.0-75.0) Lymphocytes (%) (Auto) 27.9 % (20.0-45.0) Monocytes (%) (Auto) 14.3 % (1.0-10.0) H Eosinophils (%) (Auto) 4.7 % (0.0-3.0) H Basophils (%) (Auto) 0.9 % (0.0-2.0) Sodium Level 137 MMOL/L (136-145) Potassium Level 4.0 MMOL/L (3.5-5.1) Chloride Level 105 MMOL/L (98-107) Carbon Dioxide Level 31 MMOL/L (21-32) Anion Gap 1 mmol/L (5-15) L Blood Urea Nitrogen 16 mg/dL (7-18) Creatinine 0.7 MG/DL (0.55-1.30) Estimat Glomerular Filtration Rate mL/min (>60) Glucose Level 115 MG/DL (74-106) H Calcium Level 7.6 MG/DL (8.5-10.1) L Pro-B-Type Natriuretic Peptide 3331 pg/mL (0-125) H Current Medications Medications (Trade) Dose Ordered Sig/Mora Route PRN Reason Start Time Stop Time Status Last Admin Dose Admin Acetaminophen (Tylenol) 650 mg Q4H PRN RECTAL Mild Pain (Pain Scale 1-3) 09/27/17 17:00 10/27/17 16:59 Al Hydroxide/Mg Hydroxide (Mylanta II) 30 ml Q6H PRN ORAL dyspepsia 09/27/17 17:00 10/27/17 16:59 Albuterol/ Ipratropium (Albuterol/ Ipratropium) 3 ml Q4H PRN HHN Shortness of Breath 09/27/17 17:00 10/02/17 16:59 09/28/17 13:28 Aspirin (ASA) 81 mg DAILY ORAL 09/28/17 09:00 10/28/17 08:59 10/01/17 08:36 Cefepime HCl 2 gm/ Dextrose 55 ml @ 110 mls/hr Q12H IVPB 09/30/17 13:30 10/07/17 13:29 10/01/17 01:03 Chlorhexidine Gluconate (Ann-Hex 2%) 1 applic DAILY@2000 TOPIC 09/28/17 20:00 10/28/17 19:59 09/30/17 20:04 Dextrose (Dextrose 50%) STAT PRN IV Hypoglycemia 09/27/17 17:00 10/27/17 16:59 Heparin Sodium (Porcine) (Heparin 5000 units/ml) 5,000 units EVERY 12 HOURS SUBQ 09/28/17 09:00 10/28/17 08:59 10/01/17 08:38 Lorazepam (Ativan) 1 mg Q4H PRN ORAL For Anxiety 09/27/17 17:00 10/04/17 16:59 Metoprolol Tartrate (Lopressor) 2.5 mg EVERY 6 HOURS IVP 09/29/17 18:00 10/29/17 17:59 09/30/17 23:53 Morphine Sulfate (Morphine Sulfate) 2 mg Q4H PRN IVP Moderate Pain (Pain Scale 4-6) 09/27/17 17:00 10/04/17 16:59 09/30/17 09:33 Nitroglycerin (Ntg) 0.4 mg Q5M PRN SL Prn Chest Pain 09/27/17 17:00 10/27/17 16:59 Pantoprazole (Protonix) 40 mg DAILY IV 09/28/17 09:00 10/28/17 08:59 10/01/17 08:36 Polymyxin B Sulfate 286304 units/Dextrose 550 ml @ 550 mls/hr Q12H IV 09/30/17 13:30 10/07/17 13:29 10/01/17 01:03 Lynne Donahue M.D. Oct 01, 2017 09:15
[2017-10-01 12:00] VITALS: BP 92/52
--- NOTE | 2017-10-01 14:05 | Consultation ---
History of Present Illness General Date patient seen: Oct 01, 2017 Chief Complaint: Dyspnea/Respdistress Reason for Consultation: central venous access Present Illness HPI 87F currently admitted for medical care and management of septic shock. Patient with PNA and recently noted to have infected left subclavian central venous catheter. She has complicated medical history and was in [facility]pc prior. she has a trach and is vent dependant. she is obtunded and exam limited. history obtained from medical team, staff, and EMR. Patient currently septic with bacteremia. etiology can be multifactorial but does have a grossly infected left subclavian central venous catheter. purulent exudate noted around catheter and on dressings. patient requires new central access for the multiple medications she receives including fluids and antibiotics. Surgery called to evaluate Allergies: Coded Allergies: No Known Allergies (Unverified , 05/31/12) Medication History Scheduled Albuterol Sulfate* (Albuterol Sulfate Hhn*), 3 ML INH Q6H, (Reported) Ascorbic Acid* (Ascorbic Acid*), 500 MG GT BID, (Reported) Cranberry Extract (Cranberry), 425 MG GT DAILY, (Reported) Heparin Sod (Porcine) (Heparin Sodium*), 5,000 UNITS SUBQ EVERY 12 HOURS, ( Reported) Ipratropium [place] 0.5MG/2.5ML (Ipratropium [place] 0.5MG/2.5ML), 0.5 MG HHN Q6H, (Reported) Metoprolol Tartrate* (Metoprolol Tartrate*), 50 MG GT BID, (Reported) Multivitamin With Minerals (Multivitamins With Minerals*), 1 TAB GT DAILY, ( Reported) Ranitidine Hcl* (Zantac*), 150 MG GT QHS, (Reported) Zinc Sulfate (Zinc Sulfate*), 220 MG GT DAILY, (Reported) Scheduled PRN Acetaminophen (Acetaminophen), 650 MG GT Q4HR PRN for Mild Pain/Temp > 100.5, ( Reported) Albuterol Sulfate* (Albuterol Sulfate Hhn*), 3 ML INH Q2H PRN for Shortness of Breath, (Reported) Ipratropium [place] 0.5MG/2.5ML (Ipratropium [place] 0.5MG/2.5ML), 0.5 MG HHN Q2H PRN for Shortness of Breath, (Reported) Ondansetron* (Zofran*), 4 MG GT Q6H PRN for Nausea & Vomiting, (Reported) Polyethylene Glycol* (Miralax*), 17 GM GT DAILY PRN for Constipation, (Reported) Discontinued Medications Ascorbic Acid* (Vitamin C*), 5 MG GT DAILY, (Reported) Discontinued Reason: Medication dose changed Atenolol (Tenormin), 25 MG ORAL DAILY, (Reported) Discontinued Reason: Therapy completed Docusate Sodium (Docusate Sodium), 50 MG GT DAILY, (Reported) Discontinued Reason: Therapy completed Dorzolamide HCl/Timolol Maleat (Dorzolamide-Timolol Eye Drops), 1 DROP BOTH EYES , (Reported) Discontinued Reason: Therapy completed Ferrous Sulfate (Ferrous Sulfate), 330 MG GT DAILY, (Reported) Discontinued Reason: Therapy completed Latanoprost* (Xalatan*), 1 DROP BOTH EYES BEDTIME, (Reported) Discontinued Reason: Therapy completed Levofloxacin* (Levaquin*), 500 MG ORAL DAILY, (Reported) Discontinued Reason: Therapy completed Magnesium Hydroxide* (Milk Of Magnesia*), 30 ML GT Q6HR PRN for Constipation, ( Reported) Discontinued Reason: Therapy completed Pantoprazole* (Pantoprazole*), 40 MG GT EVERY 12 HOURS, (Reported) Discontinued Reason: Therapy completed Simvastatin (Zocor), 20 MG GT BEDTIME, (Reported) Discontinued Reason: Therapy completed Patient History Limited by: medical condition History Provided By: Medical Record, PMD Healthcare decision maker N/A Resuscitation status Do Not Resuscitate Advanced Directive on File No Past Medical/Surgical History Past Medical/Surgical History: (1) Malfunction of gastrostomy tube (2) Malfunction of gastrostomy tube (3) Malfunction of gastrostomy tube (4) UTI (urinary tract infection) (5) Lactic acidosis (6) Aspiration pneumonia (7) Endotracheally intubated (8) COPD (chronic obstructive pulmonary disease) (9) Attention to G-tube (10) Wound abscess (11) Anemia (12) Dementia (13) Chronic respiratory failure (14) Sepsis (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 HEENT: normocephalic Neck: trach Respiratory/Chest: on vent Cardiovascular/Chest: tachycardia Abdomen: soft, no organomegaly, no mass Extremities: normal inspection, moderate edema Skin Exam: warm/dry Neurologic: unresponsiveness Last 24 Hour Vital Signs Date Time Temp Pulse Resp B/P (MAP) Pulse Ox O2 Delivery O2 Flow Rate FiO2 10/01/17 12:30 83 22 30 10/01/17 12:00 81 92/52 10/01/17 11:05 85 20 30 10/01/17 09:30 90 20 30 10/01/17 08:00 87 10/01/17 07:30 95 22 30 10/01/17 05:30 86 20 30 10/01/17 05:22 95 90/55 10/01/17 04:00 88 10/01/17 04:00 30 10/01/17 04:00 97.7 88 16 115/60 100 Mechanical Ventilator 30 10/01/17 03:44 95 19 30 10/01/17 01:43 99 15 30 10/01/17 00:00 98.2 96 16 110/62 100 Mechanical Ventilator 30 10/01/17 00:00 99 09/30/17 23:53 96 110/62 09/30/17 22:55 85 15 30 09/30/17 21:59 87 18 30 09/30/17 20:12 87 16 30 09/30/17 20:00 30 09/30/17 20:00 98.1 89 26 150/66 98 Mechanical Ventilator 30 09/30/17 20:00 95 09/30/17 18:00 86 09/30/17 17:17 85 111/60 09/30/17 17:12 85 12 30 09/30/17 16:32 85 09/30/17 16:32 30 09/30/17 16:00 97.9 93 13 119/67 100 Mechanical Ventilator 15.0 30 09/30/17 14:40 80 17 30 Intake and Output 09/30/17 10/01/17 19:00 07:00 Intake Total 1525 ml 690 ml Output Total 900 ml 400 ml Balance 625 ml 290 ml Free Water 200 ml IV Total 605 ml Tube Feeding 720 ml 660 ml Other 30 ml Output Urine Total 900 ml 400 ml # Bowel Movements 3 Laboratory Tests Test 10/01/17 04:00 White Blood Count 8.0 K/UL (4.8-10.8) Red Blood Count 2.86 M/UL (4.20-5.40) L Hemoglobin 8.5 G/DL (12.0-16.0) L Hematocrit 26.5 % (37.0-47.0) L Mean Corpuscular Volume 93 FL (80-99) Mean Corpuscular Hemoglobin 29.8 PG (27.0-31.0) Mean Corpuscular Hemoglobin Concent 32.2 G/DL (32.0-36.0) Red Cell Distribution Width 15.1 % (11.6-14.8) H Platelet Count 176 K/UL (150-450) Mean Platelet Volume 7.0 FL (6.5-10.1) Neutrophils (%) (Auto) 52.2 % (45.0-75.0) Lymphocytes (%) (Auto) 27.9 % (20.0-45.0) Monocytes (%) (Auto) 14.3 % (1.0-10.0) H Eosinophils (%) (Auto) 4.7 % (0.0-3.0) H Basophils (%) (Auto) 0.9 % (0.0-2.0) Sodium Level 137 MMOL/L (136-145) Potassium Level 4.0 MMOL/L (3.5-5.1) Chloride Level 105 MMOL/L (98-107) Carbon Dioxide Level 31 MMOL/L (21-32) Anion Gap 1 mmol/L (5-15) L Blood Urea Nitrogen 16 mg/dL (7-18) Creatinine 0.7 MG/DL (0.55-1.30) Estimat Glomerular Filtration Rate mL/min (>60) Glucose Level 115 MG/DL (74-106) H Calcium Level 7.6 MG/DL (8.5-10.1) L Pro-B-Type Natriuretic Peptide 3331 pg/mL (0-125) H Height (Feet): 6 Height (Inches): 5.00 Weight (Pounds): 214 Medications Current Medications Medications (Trade) Dose Ordered Sig/Mora Route PRN Reason Start Time Stop Time Status Last Admin Dose Admin Acetaminophen (Tylenol) 650 mg Q4H PRN RECTAL Mild Pain (Pain Scale 1-3) 09/27/17 17:00 10/27/17 16:59 Al Hydroxide/Mg Hydroxide (Mylanta II) 30 ml Q6H PRN ORAL dyspepsia 09/27/17 17:00 10/27/17 16:59 Albuterol/ Ipratropium (Albuterol/ Ipratropium) 3 ml Q4H PRN HHN Shortness of Breath 09/27/17 17:00 10/02/17 16:59 09/28/17 13:28 Aspirin (ASA) 81 mg DAILY ORAL 09/28/17 09:00 10/28/17 08:59 10/01/17 08:36 Chlorhexidine Gluconate (Ann-Hex 2%) 1 applic DAILY@2000 TOPIC 09/28/17 20:00 10/28/17 19:59 09/30/17 20:04 Dextrose (Dextrose 50%) STAT PRN IV Hypoglycemia 09/27/17 17:00 10/27/17 16:59 Heparin Sodium (Porcine) (Heparin 5000 units/ml) 5,000 units EVERY 12 HOURS SUBQ 09/28/17 09:00 10/28/17 08:59 10/01/17 08:38 Lorazepam (Ativan) 1 mg Q4H PRN ORAL For Anxiety 09/27/17 17:00 10/04/17 16:59 Metoprolol Tartrate (Lopressor) 2.5 mg EVERY 6 HOURS IVP 09/29/17 18:00 10/29/17 17:59 09/30/17 23:53 Morphine Sulfate (Morphine Sulfate) 2 mg Q4H PRN IVP Moderate Pain (Pain Scale 4-6) 09/27/17 17:00 10/04/17 16:59 09/30/17 09:33 Nitroglycerin (Ntg) 0.4 mg Q5M PRN SL Prn Chest Pain 09/27/17 17:00 10/27/17 16:59 Pantoprazole (Protonix) 40 mg DAILY IV 09/28/17 09:00 10/28/17 08:59 10/01/17 08:36 Piperacillin Sod/ Tazobactam Sod 3.375 gm/Sodium Chloride 110 ml @ 27.5 mls/hr EVERY 8 HOURS IVPB 10/01/17 14:00 10/08/17 13:59 Polymyxin B Sulfate 951972 units/Dextrose 550 ml @ 550 mls/hr Q12H IV 09/30/17 13:30 10/07/17 13:29 10/01/17 01:03 Assessment/Plan Problem List: (1) Severe sepsis Assessment & Plan: 87F severe sepsis with bacteremia. multiple medical comorbidities. currently has grossly infected left subclavian central venous access. -recommend immediate removal of left subclavian infected catheter -will need new central venous line prior to removal of infected line. -will need PICC line for half-way antibiotic and medication use but unforunately not available today and given holiday weekend will not be available for a few days. -will place new central venous catheter STAT. will then remove infected catheter. ICD Codes: A41.9 - Sepsis, unspecified organism; R65.20 - Severe sepsis without septic shock SNOMED: [id number] Status: unchanged Ayden Littlejohn Oct 01, 2017 14:05
--- NOTE | 2017-10-01 14:13 | Operative Note - PDOC ---
Operative Note Operative Note Date of Operation/Procedure: Oct 01, 2017 Pre-op Diagnosis: severe sepsis; bacteremia; infected central venous catheter Procedure: right subclavian central venous triple lumen catheter insertion Operative Findings: consistent w/pre-op dx studies Surgeon: moo Anesthesia: other - morphine Specimen: none Complications: none Condition: stable Fluids: n//a Estimated Blood Loss: minimal Drains: none Implant(s) used?: No Indications for Procedure 87F with severe sepsis, bacteremia, and grossly infected central venous catheter. needs central venous access for meds, fluids, and abx. needs immediate removal of infected catheter. plan for placement of new central venous line then removal of infected line. unfortunately patient not able to consent at this time given medical condition and does not have any family members or POA. given nature of condition and urgent intervention needed two physician consent obtained by myself and the ID physician. Description of Procedure A time-out was completed verifying correct patient, procedure, site, positioning , and special equipment if applicable. The patient was made comfortable at bedside and placed supine Trendelenburg position. The patients right neck/chest were prepped and draped in sterile fashion. Finder needle was used to obtain cannulation of the right subclavian vein. Was successful on second attempt without complication. venous blood withdrawn. a guide wire was placed through needle and needle removed. small skin incision was made around wire. dilator was used to dilate tract. A triple lumen central venous catheter was then introduced into the the right subclavian vein using the Seldinger technique. The catheter was threaded smoothly over the guide wire and appropriate blood return was obtained. Each lumen of the catheter was evacuated of air and flushed with sterile saline. The catheter was then sutured in place to the skin and a sterile dressing applied. Perfusion to the extremity distal to the point of catheter insertion was checked and found to be adequate. no immediate complications noted. CXR ordered and will be reviewed prior to removal of infected catheter or use of newly placed catheter. Ayden Littlejohn Oct 01, 2017 14:13
--- NOTE | 2017-10-01 14:21 | Cardiology Progress Note ---
Assessment/Plan Status: stable, unchanged Status Narrative Chronic respiratory failure, w/ acute decompensation on adm. - ? CHF ? HCAP PAF - currently in NSR She has urosepsis, with gm neg bacilli in urine and blood - blood cx + klebsiella She is anemic, w/ Fe studies showing Fe deficiency and is receiving iv Fe. h/h dropped while on iv heparin earlier during this adm, but is now stable Assessment/Plan Continue b blockers - change to g tube from iv Hold anticoagulation, as although pt hypercoagulable and has PAF., as pt w/ anemia, Fe deficient and ? gi blood loss. H/h dropped while on heparin since adm. complete IV antibiotics course per ID continue vent support, TF Overall prognosis poor Subjective ROS Limited/Unobtainable: Yes Subjective Cardiology for Dr. Coleman Events noted. Pt remains unresponsive, on vent. Undergoing placement of R sc central line. Objective Last 24 Hour Vital Signs Date Time Temp Pulse Resp B/P (MAP) Pulse Ox O2 Delivery O2 Flow Rate FiO2 10/01/17 12:30 83 22 30 10/01/17 12:00 81 92/52 10/01/17 11:05 85 20 30 10/01/17 09:30 90 20 30 10/01/17 08:00 87 10/01/17 07:30 95 22 30 10/01/17 05:30 86 20 30 10/01/17 05:22 95 90/55 10/01/17 04:00 88 10/01/17 04:00 30 10/01/17 04:00 97.7 88 16 115/60 100 Mechanical Ventilator 30 10/01/17 03:44 95 19 30 10/01/17 01:43 99 15 30 10/01/17 00:00 98.2 96 16 110/62 100 Mechanical Ventilator 30 10/01/17 00:00 99 09/30/17 23:53 96 110/62 09/30/17 22:55 85 15 30 09/30/17 21:59 87 18 30 09/30/17 20:12 87 16 30 09/30/17 20:00 30 09/30/17 20:00 98.1 89 26 150/66 98 Mechanical Ventilator 30 09/30/17 20:00 95 09/30/17 18:00 86 09/30/17 17:17 85 111/60 09/30/17 17:12 85 12 30 09/30/17 16:32 85 09/30/17 16:32 30 09/30/17 16:00 97.9 93 13 119/67 100 Mechanical Ventilator 15.0 30 09/30/17 14:40 80 17 30 General Appearance: obese, on vent EENT: PERRL/EOMI Neck: supple, other - trach Rhythm: NSR Cardiovascular: normal rate, regular rhythm Respiratory/Chest: no respiratory distress Extremities: trace edema Intake and Output 09/30/17 10/01/17 19:00 07:00 Intake Total 1525 ml 690 ml Output Total 900 ml 400 ml Balance 625 ml 290 ml Free Water 200 ml IV Total 605 ml Tube Feeding 720 ml 660 ml Other 30 ml Output Urine Total 900 ml 400 ml # Bowel Movements 3 Laboratory Tests Test 10/01/17 04:00 White Blood Count 8.0 K/UL (4.8-10.8) Red Blood Count 2.86 M/UL (4.20-5.40) L Hemoglobin 8.5 G/DL (12.0-16.0) L Hematocrit 26.5 % (37.0-47.0) L Mean Corpuscular Volume 93 FL (80-99) Mean Corpuscular Hemoglobin 29.8 PG (27.0-31.0) Mean Corpuscular Hemoglobin Concent 32.2 G/DL (32.0-36.0) Red Cell Distribution Width 15.1 % (11.6-14.8) H Platelet Count 176 K/UL (150-450) Mean Platelet Volume 7.0 FL (6.5-10.1) Neutrophils (%) (Auto) 52.2 % (45.0-75.0) Lymphocytes (%) (Auto) 27.9 % (20.0-45.0) Monocytes (%) (Auto) 14.3 % (1.0-10.0) H Eosinophils (%) (Auto) 4.7 % (0.0-3.0) H Basophils (%) (Auto) 0.9 % (0.0-2.0) Sodium Level 137 MMOL/L (136-145) Potassium Level 4.0 MMOL/L (3.5-5.1) Chloride Level 105 MMOL/L (98-107) Carbon Dioxide Level 31 MMOL/L (21-32) Anion Gap 1 mmol/L (5-15) L Blood Urea Nitrogen 16 mg/dL (7-18) Creatinine 0.7 MG/DL (0.55-1.30) Estimat Glomerular Filtration Rate mL/min (>60) Glucose Level 115 MG/DL (74-106) H Calcium Level 7.6 MG/DL (8.5-10.1) L Pro-B-Type Natriuretic Peptide 3331 pg/mL (0-125) H GABINO MA Oct 01, 2017 14:21
[2017-10-01] MEDS: Piperacillin/Tazobactam 3.375 GM in NS 110 ML IVPB SCH ×2 (15:24→20:22)
[2017-10-01 16:00] VITALS: BP 118/56
--- NOTE | 2017-10-01 16:41 | General Progress Note ---
Progress Note Progress Note Surgery: CXR reviewed. Newly placed right subclavian central catheter inserted successfully. no complication. no ptx. stable. line in a few cm deep on CXR. at bedside line withdrawn 5cm and new dressings applied. infected left subclavian catheter removed without complication. tip sent for culture. Ayden Littlejohn Oct 01, 2017 16:41
--- NOTE | 2017-10-01 19:44 | General Progress Note ---
Assessment/Plan Assessment/Plan ASSESSMENT AND RECOMMENDATIONS: 1. Congestive heart failure exacerbation 2. Sepsis with shock. ID following, on abx 4. Anemia, with sudden drop in H/H. Continue to trend daily. --> hgb goal above 7, transfuse prn --> have dc'd heparin due to anemia. --> rule out GI bleed, ob stool pending 5. Chronic obstructive pulmonary disease. 6. Chronic respiratory failure, on a vent. 7. Pneumonia. She is on antibiotics on a p.r.n. basis. 8. Leukocytosis likely secondary to underlying infection. 9. Hyperkalemia. Continue to closely monitor. 10. Urinary tract infection Subjective Allergies: Coded Allergies: No Known Allergies (Unverified , 05/31/12) All Systems: reviewed and negative except above Subjective central line inserted Objective Last 24 Hour Vital Signs Date Time Temp Pulse Resp B/P (MAP) Pulse Ox O2 Delivery O2 Flow Rate FiO2 10/01/17 16:45 89 10/01/17 16:39 88 20 30 10/01/17 16:00 30 10/01/17 16:00 98.9 95 22 118/56 100 Mechanical Ventilator 30 10/01/17 15:40 81 20 30 10/01/17 12:30 83 22 30 10/01/17 12:00 84 10/01/17 12:00 81 92/52 10/01/17 12:00 30 10/01/17 12:00 97.8 81 18 92/52 100 Mechanical Ventilator 30 10/01/17 11:05 85 20 30 10/01/17 09:30 90 20 30 10/01/17 08:00 97.9 88 20 90/71 100 Mechanical Ventilator 30 10/01/17 08:00 87 10/01/17 08:00 30 10/01/17 07:30 95 22 30 10/01/17 05:30 86 20 30 10/01/17 05:22 95 90/55 10/01/17 04:00 88 10/01/17 04:00 30 10/01/17 04:00 97.7 88 16 115/60 100 Mechanical Ventilator 30 10/01/17 03:44 95 19 30 10/01/17 01:43 99 15 30 10/01/17 00:00 98.2 96 16 110/62 100 Mechanical Ventilator 30 10/01/17 00:00 99 09/30/17 23:53 96 110/62 09/30/17 22:55 85 15 30 09/30/17 21:59 87 18 30 09/30/17 20:12 87 16 30 09/30/17 20:00 30 09/30/17 20:00 98.1 89 26 150/66 98 Mechanical Ventilator 30 09/30/17 20:00 95 Intake and Output 09/30/17 10/01/17 19:00 07:00 Intake Total 1525 ml 750 ml Output Total 900 ml 400 ml Balance 625 ml 350 ml Free Water 200 ml IV Total 605 ml Tube Feeding 720 ml 720 ml Other 30 ml Output Urine Total 900 ml 400 ml # Bowel Movements 3 Laboratory Tests 10/01/17 04:00: White Blood Count 8.0, Red Blood Count 2.86L, Hemoglobin 8.5L, Hematocrit 26.5L , Mean Corpuscular Volume 93, Mean Corpuscular Hemoglobin 29.8, Mean Corpuscular Hemoglobin Concent 32.2, Red Cell Distribution Width 15.1H, Platelet Count 176, Mean Platelet Volume 7.0, Neutrophils (%) (Auto) 52.2, Lymphocytes (%) (Auto) 27.9, Monocytes (%) (Auto) 14.3H, Eosinophils (%) (Auto) 4.7H, Basophils (%) (Auto) 0.9, Sodium Level 137, Potassium Level 4.0, Chloride Level 105, Carbon Dioxide Level 31, Anion Gap 1L, Blood Urea Nitrogen 16, Creatinine 0.7, Estimat Glomerular Filtration Rate , Glucose Level 115H, Calcium Level 7.6L, Pro-B-Type Natriuretic Peptide 3331H Height (Feet): 6 Height (Inches): 5.00 Weight (Pounds): 214 Objective unchanged Eber Fuller Oct 01, 2017 19:43
[2017-10-01 20:00] VITALS: BP 117/74
[2017-10-01] MEDS: Dyna-Hex 2% Top Sol 2oz TOPIC SCH (20:20)
[2017-10-01] MEDS: Metoprolol Tartrate 12.5mg TAB GT SCH (21:00)
[2017-10-02] VITALS: BP 110/62
[2017-10-02] MEDS: Polymyxin B Sulfate 500,000 UNITS in D5W 500ml 550 ML IV SCH ×2 (02:35→13:43)
[2017-10-02 04:00] VITALS: BP 115/61
[2017-10-02] MEDS: Piperacillin/Tazobactam 3.375 GM in NS 110 ML IVPB SCH ×3 (05:22→21:14)
[2017-10-02 08:00] VITALS: BP 111/59
[2017-10-02] MEDS: Metoprolol Tartrate 12.5mg TAB GT SCH ×2 (09:48→20:06)
[2017-10-02] MEDS: Pantoprazole Inj IV SCH (09:48)
[2017-10-02] MEDS: Aspirin Baby 81mg ORAL SCH (09:48)
[2017-10-02] MEDS: Heparin 5000 units/ml inj SUBQ SCH ×2 (09:49→20:04)
[2017-10-02 12:00] VITALS: BP 113/62
--- NOTE | 2017-10-02 12:30 | Diagnostic Imaging Report ---
Indication: Central line placement Technique: XRAY Chest 1v Comparison: 09/30/2017 Findings: Interval placement of right subclavian central line, catheter tip in the region of the right atrium. Slight retraction is recommended for better positioning. There is no definite pneumothorax. Left-sided central line, tracheostomy tube unchanged in position. Persistent bibasilar atelectasis/consolidation with slight increase in patchy opacities in the right midlung. Impression: Interval right subclavian central line placement. Catheter tip in the region of the right atrium. Retraction recommended with follow-up chest x-ray to assure appropriate catheter positioning. Findings discussed with charge nurse of Beverley WNinoska via telephone conversation approximately 12:00 PM on 10/02/2017 No definite pneumothorax. Slight interval worsening of aeration in the right lung with increased patchy opacities in the right midlung compared to one day prior.
--- NOTE | 2017-10-02 13:22 | Diagnostic Imaging Report ---
Indication: Central line adjustment. Technique: XRAY Chest 1v Comparison: 10/01/2017 Findings: Interval removal of left sided central line. Right subclavian approach central line has been retracted, catheter tip more appropriately positioned in the region of the cavoatrial junction. Tracheostomy tube in place. Heart size and mediastinal contours are stable. There is no pneumothorax. No significant interval change in patchy right-sided and bibasilar more dense airspace opacities. No definite pneumothorax. No acute osseous abnormality. Impression: Interval removal of left-sided central line. Interval repositioning of right-sided central line. Catheter tip now more appropriately positioned in the region of the cavoatrial junction. No significant interval change in the appearance of the lungs compared to one day prior.
--- NOTE | 2017-10-02 13:49 | Cardiology Progress Note ---
Assessment/Plan Status Narrative Chronic respiratory failure, w/ acute decompensation on adm. - ? CHF ? HCAP PAF - currently in NSR She has urosepsis, with gm neg bacilli in urine and blood - blood cx + klebsiella She is anemic, w/ Fe studies showing Fe deficiency and is receiving iv Fe. h/h dropped while on iv heparin earlier during this adm, but is now stable Assessment/Plan Continue b blockers - change to g tube from iv Supplement K and repeat labs prn diuretics for pulm congestion. Hold anticoagulation, as pt w/ anemia, Fe deficient and ? gi blood loss. H/h dropped while on heparin since adm. continue vent support, TF ? transfer back to SNF Subjective ROS Limited/Unobtainable: Yes Subjective Cardiology for Dr. Coleman Unresponsive, on vent Objective Last 24 Hour Vital Signs Date Time Temp Pulse Resp B/P (MAP) Pulse Ox O2 Delivery O2 Flow Rate FiO2 10/02/17 13:11 101 21 30 10/02/17 12:00 98.1 107 18 113/62 99 Mechanical Ventilator 30 10/02/17 11:51 30 10/02/17 11:51 105 10/02/17 11:05 108 16 30 10/02/17 09:48 103 111/59 10/02/17 09:00 103 14 30 10/02/17 08:00 108 10/02/17 08:00 30 10/02/17 08:00 98.5 108 15 111/59 99 Mechanical Ventilator 30 10/02/17 07:15 125 29 30 10/02/17 04:00 85 10/02/17 04:00 97.7 85 16 115/61 100 Mechanical Ventilator 30 10/02/17 04:00 30 10/02/17 03:54 84 12 30 10/02/17 01:22 90 14 30 10/02/17 00:00 90 10/02/17 00:00 30 10/02/17 00:00 98.1 91 16 110/62 99 Mechanical Ventilator 30 10/01/17 23:45 87 24 30 10/01/17 21:00 87 20 30 10/01/17 21:00 87 117/74 10/01/17 20:00 89 10/01/17 20:00 30 10/01/17 20:00 98.1 90 16 117/74 95 Mechanical Ventilator 30 10/01/17 16:45 89 10/01/17 16:39 88 20 30 10/01/17 16:00 30 10/01/17 16:00 98.9 95 22 118/56 100 Mechanical Ventilator 30 10/01/17 15:40 81 20 30 General Appearance: obese, on vent EENT: PERRL/EOMI Neck: supple, other - trach Rhythm: NSR Cardiovascular: normal rate, regular rhythm, no gallop/murmur Respiratory/Chest: lungs clear - clear anteriorly Abdomen: soft, other - nondistended + g tube Extremities: no swelling Intake and Output 10/01/17 10/02/17 19:00 07:00 Intake Total 1370 ml 1467.5 ml Output Total 450 ml 1300 ml Balance 920 ml 167.5 ml Free Water 100 ml IV Total 550 ml 687.5 ml Tube Feeding 720 ml 720 ml Other 60 ml Output Urine Total 450 ml 1300 ml Laboratory Tests Test 10/02/17 04:38 Arterial Blood pH 7.356 (7.350-7.450) Arterial Blood Partial Pressure CO2 57.8 mmHg (35.0-45.0) *H Arterial Blood Partial Pressure O2 138.3 mmHg (75.0-100.0) H Arterial Blood HCO3 31.6 mmol/L (22.0-26.0) H Arterial Blood Oxygen Saturation 98.7 % (92.0-98.0) H Arterial Blood Base Excess 5.0 Holger Test Positive GABINO MA Oct 02, 2017 13:49
[2017-10-02 16:00] VITALS: BP 117/73
--- NOTE | 2017-10-02 18:50 | General Progress Note ---
Assessment/Plan Assessment/Plan ASSESSMENT AND RECOMMENDATIONS: 1. Congestive heart failure exacerbation 2. Sepsis with shock. ID following, on abx 4. Anemia, with sudden drop in H/H. Continue to trend daily. --> hgb goal above 7, transfuse prn --> have dc'd heparin due to anemia. --> rule out GI bleed, ob stool pending 5. Chronic obstructive pulmonary disease. 6. Chronic respiratory failure, on a vent. 7. Pneumonia. She is on antibiotics on a p.r.n. basis. 8. Leukocytosis likely secondary to underlying infection. 9. Hyperkalemia. Continue to closely monitor. 10. Urinary tract infection Subjective Allergies: Coded Allergies: No Known Allergies (Unverified , 05/31/12) All Systems: reviewed and negative except above Subjective nad Objective Last 24 Hour Vital Signs Date Time Temp Pulse Resp B/P (MAP) Pulse Ox O2 Delivery O2 Flow Rate FiO2 10/02/17 17:13 101 19 30 10/02/17 16:00 98.2 103 18 117/73 100 Mechanical Ventilator 30 10/02/17 15:25 91 13 30 10/02/17 15:10 30 10/02/17 15:10 102 10/02/17 13:11 101 21 30 10/02/17 12:00 98.1 107 18 113/62 99 Mechanical Ventilator 30 10/02/17 11:51 30 10/02/17 11:51 105 10/02/17 11:05 108 16 30 10/02/17 09:48 103 111/59 10/02/17 09:00 103 14 30 10/02/17 08:00 108 10/02/17 08:00 30 10/02/17 08:00 98.5 108 15 111/59 99 Mechanical Ventilator 30 10/02/17 07:15 125 29 30 10/02/17 04:00 85 10/02/17 04:00 97.7 85 16 115/61 100 Mechanical Ventilator 30 10/02/17 04:00 30 10/02/17 03:54 84 12 30 10/02/17 01:22 90 14 30 10/02/17 00:00 90 10/02/17 00:00 30 10/02/17 00:00 98.1 91 16 110/62 99 Mechanical Ventilator 30 10/01/17 23:45 87 24 30 10/01/17 21:00 87 20 30 10/01/17 21:00 87 117/74 10/01/17 20:00 89 10/01/17 20:00 30 10/01/17 20:00 98.1 90 16 117/74 95 Mechanical Ventilator 30 Intake and Output 10/01/17 10/02/17 19:00 07:00 Intake Total 1370 ml 1467.5 ml Output Total 450 ml 1300 ml Balance 920 ml 167.5 ml Free Water 100 ml IV Total 550 ml 687.5 ml Tube Feeding 720 ml 720 ml Other 60 ml Output Urine Total 450 ml 1300 ml Laboratory Tests 10/02/17 04:38: Arterial Blood pH 7.356, Arterial Blood Partial Pressure CO2 57.8*H, Arterial Blood Partial Pressure O2 138.3H, Arterial Blood HCO3 31.6H, Arterial Blood Oxygen Saturation 98.7H, Arterial Blood Base Excess 5.0, Holger Test Positive Height (Feet): 6 Height (Inches): 5.00 Weight (Pounds): 214 General Appearance: no apparent distress EENT: normal ENT inspection Neck: normal alignment Cardiovascular: no gallop/murmur Respiratory/Chest: chest wall non-tender Neurologic: director telemetry II-XII grossly normal Skin: normal pigmentation Objective unchanged Eber Fuller Oct 02, 2017 18:50
[2017-10-02 20:00] VITALS: BP 129/71
[2017-10-02] MEDS: Dyna-Hex 2% Top Sol 2oz TOPIC SCH (20:02)
[2017-10-03 01:00] VITALS: BP 108/48
[2017-10-03] MEDS: Polymyxin B Sulfate 500,000 UNITS in D5W 500ml 550 ML IV SCH ×2 (01:24→13:13)
[2017-10-03 04:00] VITALS: BP 99/58
[2017-10-03] MEDS: Piperacillin/Tazobactam 3.375 GM in NS 110 ML IVPB SCH ×3 (05:38→21:29)
[2017-10-03 06:38] LABS: ANION GAP 2 mmol/L (5-15); BLOOD UREA NITROGEN 18 mg/dL (7-18); CALCIUM 7.6 MG/DL (8.5-10.1); CARBON DIOXIDE 34 MMOL/L (21-32); CHLORIDE 102 MMOL/L (98-107); CREATININE 0.9 MG/DL (0.55-1.30); POTASSIUM 4.3 MMOL/L (3.5-5.1); SODIUM 138 MMOL/L (136-145)
[2017-10-03 08:00] VITALS: BP 115/58
[2017-10-03] MEDS ORDERED: Docusate 100mg cap ORAL SCH (09:00)
[2017-10-03] MEDS: Pantoprazole Inj IV SCH (09:54)
[2017-10-03] MEDS: Docusate 100mg/10ml Liq GT SCH ×2 (09:54→17:43)
[2017-10-03] MEDS: Aspirin Baby 81mg ORAL SCH (09:54)
[2017-10-03] MEDS: Metoprolol Tartrate 12.5mg TAB GT SCH ×2 (09:58→21:29)
[2017-10-03] MEDS: Heparin 5000 units/ml inj SUBQ SCH ×2 (09:59→21:30)
--- NOTE | 2017-10-03 10:22 | Infectious Diseases Prog Note ---
Assessment/Plan Assessment/Plan Assessment: Septic shock - likely 2ry to PNA and bacteremia (real vs contaminants), ?UTI, however u/a neg; shock resolved- -CXR: Interstitial edema suspected. Basilar infiltrates not excluded. Please correlate clinically. -u/a no pyuria; ucx 30-40K Proteus mirablis ESBL (S zosyn, amikacin, gentamicin; R Cefepime); s/p quiroga exchange 10/01 -sp cx PSA (S Zosyn, Cefepime, cipro/levo), +2 S.maltophilia (S. Levo, R bactrim) Polymicrobial bacteremia- suspect possible line contaminant as Gram negative isolated are not present on Urine or sputum cx - s/p LIJ removal 10/01, cath tip cx -Bcx 09/27 2/4 CoNS, ,2/4 Group G Strep, 2/4 MDR/KPC K.pna ( S Tigecycline, Colistin, Polymixin B),1/4 Providencia stuartti (S. 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 pna bacteremia -10/01 SP Cefepime #2 -09/30 SP IV Vanco #4, Zosyn #4 -f/u cath tip cx. -will not treat Stenotrophomonas in sputum cx as likely contaminant as stable O2 requirements and no obvious active infiltrates on CXR -f/u repeat Bcx -Monitor CBC/BMP, temperatures -peg/trach care, aspiration precautions -wound care Thank you for this consultation. Will continue to follow along with you. Discussed with RN Subjective Allergies: Coded Allergies: No Known Allergies (Unverified , 05/31/12) Subjective afebrile leukocytosis resolved repeat bcxneg LIJ removed 10/01 Objective Vital Signs Last 24 Hour Vital Signs Date Time Temp Pulse Resp B/P (MAP) Pulse Ox O2 Delivery O2 Flow Rate FiO2 10/03/17 09:58 96 115/58 10/03/17 08:33 96 14 25 10/03/17 08:00 98.2 98 18 115/58 99 Mechanical Ventilator 25 10/03/17 07:50 30 10/03/17 07:50 94 10/03/17 06:45 102 15 30 10/03/17 05:00 87 14 30 10/03/17 04:00 30 10/03/17 04:00 90 10/03/17 04:00 98.2 92 18 99/58 100 Mechanical Ventilator 30 10/03/17 03:21 105 14 30 10/03/17 01:00 99.1 83 21 108/48 97 Mechanical Ventilator 30 10/03/17 00:48 89 14 30 10/03/17 00:00 93 10/03/17 00:00 30 10/02/17 22:59 94 14 30 10/02/17 21:19 92 15 30 10/02/17 20:06 87 129/76 10/02/17 20:00 30 10/02/17 20:00 100 10/02/17 20:00 98.8 87 20 129/71 100 Mechanical Ventilator 30 10/02/17 19:00 96 19 30 10/02/17 17:13 101 19 30 10/02/17 16:00 98.2 103 18 117/73 100 Mechanical Ventilator 30 10/02/17 15:25 91 13 30 10/02/17 15:10 30 10/02/17 15:10 102 10/02/17 13:11 101 21 30 10/02/17 12:00 98.1 107 18 113/62 99 Mechanical Ventilator 30 10/02/17 11:51 30 10/02/17 11:51 105 10/02/17 11:05 108 16 30 Height (Feet): 6 Height (Inches): 5.00 Weight (Pounds): 214 Objective GENERAL: No distress. PULMONARY: Decreased breath sounds. Status post trach. CARDIOVASCULAR: Regular rate. No S3 or S4. ABDOMEN: Soft, nontender, and nondistended. EXTREMITIES: A 1+ to 2+ edema. Microbiology Date/Time Source Procedure Growth Status 10/01/17 18:40 Internal Jugular Central Line Catheter Tip Culture - Preliminary Resulted Laboratory Tests Test 10/03/17 04:00 10/03/17 08:22 Sodium Level 138 MMOL/L (136-145) Potassium Level 4.3 MMOL/L (3.5-5.1) Chloride Level 102 MMOL/L (98-107) Carbon Dioxide Level 34 MMOL/L (21-32) H Anion Gap 2 mmol/L (5-15) L Blood Urea Nitrogen 18 mg/dL (7-18) Creatinine 0.9 MG/DL (0.55-1.30) Estimat Glomerular Filtration Rate mL/min (>60) Glucose Level 100 MG/DL (74-106) Calcium Level 7.6 MG/DL (8.5-10.1) L Pro-B-Type Natriuretic Peptide 4175 pg/mL (0-125) H Arterial Blood pH 7.470 (7.350-7.450) Arterial Blood Partial Pressure CO2 43.1 mmHg (35.0-45.0) Arterial Blood Partial Pressure O2 136.5 mmHg (75.0-100.0) H Arterial Blood HCO3 30.9 mmol/L (22.0-26.0) H Arterial Blood Oxygen Saturation 98.7 % (92.0-98.0) H Arterial Blood Base Excess 6.7 Holger Test Positive Current Medications Medications (Trade) Dose Ordered Sig/Mora Route PRN Reason Start Time Stop Time Status Last Admin Dose Admin Acetaminophen (Tylenol) 650 mg Q4H PRN RECTAL Mild Pain (Pain Scale 1-3) 09/27/17 17:00 10/27/17 16:59 Al Hydroxide/Mg Hydroxide (Mylanta II) 30 ml Q6H PRN ORAL dyspepsia 09/27/17 17:00 10/27/17 16:59 Aspirin (ASA) 81 mg DAILY ORAL 09/28/17 09:00 10/28/17 08:59 10/03/17 09:54 Chlorhexidine Gluconate (Ann-Hex 2%) 1 applic DAILY@1999 TOPIC 09/28/17 20:00 10/28/17 19:59 10/02/17 20:02 Dextrose (Dextrose 50%) STAT PRN IV Hypoglycemia 09/27/17 17:00 10/27/17 16:59 Docusate Sodium (Colace) 100 mg TWICE A DAY GT 10/03/17 10:00 11/02/17 09:59 10/03/17 09:54 Furosemide (Lasix) 20 mg DAILY IV 10/01/17 16:00 10/31/17 15:59 10/03/17 09:58 Heparin Sodium (Porcine) (Heparin 5000 units/ml) 5,000 units EVERY 12 HOURS SUBQ 09/28/17 09:00 10/28/17 08:59 10/03/17 09:59 Lorazepam (Ativan) 1 mg Q4H PRN ORAL For Anxiety 09/27/17 17:00 10/04/17 16:59 10/02/17 02:01 Metoprolol Tartrate (Lopressor) 12.5 mg Q12HR GT 10/01/17 21:00 10/31/17 20:59 10/03/17 09:58 Morphine Sulfate (Morphine Sulfate) 2 mg Q4H PRN IVP Moderate Pain (Pain Scale 4-6) 09/27/17 17:00 10/04/17 16:59 09/30/17 09:33 Nitroglycerin (Ntg) 0.4 mg Q5M PRN SL Prn Chest Pain 09/27/17 17:00 10/27/17 16:59 Pantoprazole (Protonix) 40 mg DAILY IV 09/28/17 09:00 10/28/17 08:59 10/03/17 09:54 Piperacillin Sod/ Tazobactam Sod 3.375 gm/Sodium Chloride 110 ml @ 27.5 mls/hr EVERY 8 HOURS IVPB 10/01/17 14:00 10/08/17 13:59 10/03/17 05:38 Polymyxin B Sulfate 812412 units/Dextrose 550 ml @ 550 mls/hr Q12H IV 09/30/17 13:30 10/07/17 13:29 10/03/17 01:24 Lynne Donahue M.D. Oct 03, 2017 10:22
[2017-10-03 12:00] VITALS: BP 106/65
--- NOTE | 2017-10-03 12:00 | Diagnostic Imaging Report ---
Indication: Reason For Exam: [id number] Technique: One view of the chest Comparison: 10/02/2017 Findings: Bilateral pleural effusions and interstitial and airspace edema persist, unchanged. Right subclavian central venous catheter, tracheostomy remain Impression: Unchanged, over one day, findings as above.
[2017-10-03] MEDS ORDERED: 1/2 NS 1000ml IV ONE (14:35)
[2017-10-03] MEDS ORDERED: NS 275ml ONE (14:35)
[2017-10-03] MEDS ORDERED: Tubing IV Secondary IV ONE ×2 (14:35→14:37)
[2017-10-03] MEDS ORDERED: NS 500ML ONE ×2 (14:35→14:37)
[2017-10-03 15:52] VITALS: BP 120/60
--- NOTE | 2017-10-03 19:43 | General Progress Note ---
Assessment/Plan Assessment/Plan ASSESSMENT AND RECOMMENDATIONS: 1. Congestive heart failure exacerbation management by cards --> BNP remains elevated, trop high as well, diruresis as per cards prn --> started on bb, arb --> holding aticoag given anemia for AF 2. Sepsis with shock. ID following, on abx --> abx as per ID 4. Anemia, with sudden drop in H/H. Continue to trend daily. --> hgb goal above 7, transfuse prn --> have dc'd heparin due to anemia. --> rule out GI bleed, ob stool --> ordered --> for AF --> holding anticoag given anemia 5. Chronic obstructive pulmonary disease. 6. Chronic respiratory failure, on a vent. 7. Pneumonia. She is on antibiotics on a p.r.n. basis. 8. Leukocytosis likely secondary to underlying infection. 9. Hyperkalemia. Continue to closely monitor. 10. Urinary tract infection Subjective Constitutional: Denies: no symptoms, chills, diaphoresis, fever, malaise, weakness, other HEENT: Denies: no symptoms, eye pain, blurred vision, tearing, double vision, ear pain, ear discharge, nose pain, nose congestion, throat pain, throat swelling, mouth pain, mouth swelling, other Cardiovascular: Denies: no symptoms, chest pain, edema, irregular heart rate, lightheadedness, palpitations, syncope, other Respiratory: Denies: no symptoms, cough, orthopnea, shortness of breath, SOB with excertion, SOB at rest, sputum, stridor, wheezing, other Gastrointestinal/Abdominal: Denies: no symptoms, abdomen distended, abdominal pain, black stools, tarry stools, blood in stool, constipated, diarrhea, difficulty swallowing, nausea, poor appetite, poor fluid intake, rectal bleeding , vomiting, other Genitourinary: Denies: no symptoms, burning, discharge, frequency, flank pain, hematuria, incontinence, pain, urgency, other Neurologic/Psychiatric: Denies: no symptoms, anxiety, depressed, emotional problems, headache, numbness, paresthesia, pre-existing deficit, seizure, tingling, tremors, weakness, other Endocrine: Denies: no symptoms, excessive sweating, flushing, intolerance to cold, intolerance to heat, increased hunger, increased thirst, increased urine, unexplained weight gain, unexplained weight loss, other Hematologic/Lymphatic: Denies: no symptoms, anemia, easy bleeding, easy bruising, other Allergies: Coded Allergies: No Known Allergies (Unverified , 05/31/12) Subjective nad Objective Last 24 Hour Vital Signs Date Time Temp Pulse Resp B/P (MAP) Pulse Ox O2 Delivery O2 Flow Rate FiO2 10/03/17 19:11 97 14 25 10/03/17 17:29 98 15 25 10/03/17 15:52 98.7 89 18 120/60 99 Mechanical Ventilator 30 10/03/17 15:27 97 15 25 10/03/17 15:21 95 10/03/17 15:21 25 10/03/17 12:58 97 16 25 10/03/17 12:19 25 10/03/17 12:19 89 10/03/17 12:00 98.9 91 19 106/65 97 10/03/17 11:09 86 14 25 10/03/17 09:58 96 115/58 10/03/17 08:33 96 14 25 10/03/17 08:00 98.2 98 18 115/58 99 Mechanical Ventilator 30 10/03/17 07:50 30 10/03/17 07:50 94 10/03/17 06:45 102 15 30 10/03/17 05:00 87 14 30 10/03/17 04:00 30 10/03/17 04:00 90 10/03/17 04:00 98.2 92 18 99/58 100 Mechanical Ventilator 30 10/03/17 03:21 105 14 30 10/03/17 01:00 99.1 83 21 108/48 97 Mechanical Ventilator 30 10/03/17 00:48 89 14 30 10/03/17 00:00 93 10/03/17 00:00 30 10/02/17 22:59 94 14 30 10/02/17 21:19 92 15 30 10/02/17 20:06 87 129/76 10/02/17 20:00 30 10/02/17 20:00 100 10/02/17 20:00 98.8 87 20 129/71 100 Mechanical Ventilator 30 Intake and Output 10/02/17 10/03/17 19:00 07:00 Intake Total 847.5 ml 1437.5 ml Output Total 3000 ml 900 ml Balance -2152.5 ml 537.5 ml Free Water 100 ml IV Total 27.5 ml 687.5 ml Tube Feeding 720 ml 720 ml Other 30 ml Output Urine Total 3000 ml 900 ml Laboratory Tests 10/03/17 04:00: Sodium Level 138, Potassium Level 4.3, Chloride Level 102, Carbon Dioxide Level 34H, Anion Gap 2L, Blood Urea Nitrogen 18, Creatinine 0.9, Estimat Glomerular Filtration Rate , Glucose Level 100, Calcium Level 7.6L, Pro-B-Type Natriuretic Peptide 4175H 10/03/17 08:22: Arterial Blood pH 7.470H, Arterial Blood Partial Pressure CO2 43.1, Arterial Blood Partial Pressure O2 136.5H, Arterial Blood HCO3 30.9H, Arterial Blood Oxygen Saturation 98.7H, Arterial Blood Base Excess 6.7, Holger Test Positive Height (Feet): 6 Height (Inches): 5.00 Weight (Pounds): 214 General Appearance: no apparent distress EENT: normal ENT inspection Neck: supple Cardiovascular: regular rhythm Respiratory/Chest: lungs clear Abdomen: soft Extremities: non-tender Edema: no edema noted Leg (L), no edema noted Leg (R) Objective unchanged Eber Fuller Oct 03, 2017 19:43
[2017-10-03 20:00] VITALS: BP 118/63
[2017-10-03] MEDS: Dyna-Hex 2% Top Sol 2oz TOPIC SCH (20:00)
[2017-10-04 00:45] VITALS: BP 110/60
[2017-10-04] MEDS: Polymyxin B Sulfate 500,000 UNITS in D5W 500ml 550 ML IV SCH ×2 (01:22→13:55)
[2017-10-04 04:00] VITALS: BP 115/58
[2017-10-04] MEDS: Piperacillin/Tazobactam 3.375 GM in NS 110 ML IVPB SCH ×3 (05:47→21:45)
[2017-10-04 08:00] VITALS: BP 114/63
[2017-10-04] MEDS: Docusate 100mg/10ml Liq GT SCH ×2 (08:59→17:07)
[2017-10-04] MEDS: Aspirin Baby 81mg ORAL SCH (09:00)
[2017-10-04] MEDS: Pantoprazole Inj IV SCH (09:00)
[2017-10-04] MEDS: Metoprolol Tartrate 12.5mg TAB GT SCH ×2 (09:00→20:01)
[2017-10-04] MEDS: Heparin 5000 units/ml inj SUBQ SCH ×2 (09:01→20:04)
[2017-10-04 12:00] VITALS: BP 136/63
--- NOTE | 2017-10-04 12:41 | Pulmonology Progress Note ---
Assessment/Plan Problems: (1) HCAP (healthcare-associated pneumonia) (2) Severe sepsis (3) Sepsis (4) Acute on chronic respiratory failure (5) Dementia (6) Status post tracheostomy Respiratory: monitor respiratory rate, adjust FIO2, CXR Cardiac: continue to monitor HR/BP Renal: F/U I&O Infectious Disease: check cultures, continue antibiotics Gastrointestinal: continue feedings/current rate, hold feedings Endocrine: check TSH, continue sliding scale insulin Hematologic: monitor H/H, transfuse if hgb<8.5 Neurologic: PRN Ativan, keep patient comfortable Affect: PRN ativan Prophylaxis: Protonix, Heparin Time Spent (Minutes): 40 Notes Reviewed: cardio, renal Discussed with: nurses, consultants, pillowcase cutter Subjective ROS Limited/Unobtainable: No Constitutional: Reports: no symptoms HEENT: Repors: no symptoms Respiratory: Reports: no symptoms Allergies: Coded Allergies: No Known Allergies (Unverified , 05/31/12) Objective Last 24 Hour Vital Signs Date Time Temp Pulse Resp B/P (MAP) Pulse Ox O2 Delivery O2 Flow Rate FiO2 10/04/17 12:00 95 10/04/17 12:00 25 10/04/17 11:31 91 16 25 10/04/17 09:25 102 26 25 10/04/17 09:00 97 114/63 10/04/17 08:00 98.4 97 16 114/63 99 10/04/17 07:47 25 10/04/17 07:47 88 10/04/17 07:28 91 14 25 10/04/17 05:40 91 14 25 10/04/17 04:00 25 10/04/17 04:00 98.1 79 18 115/58 99 10/04/17 04:00 95 10/04/17 02:55 83 14 25 10/04/17 01:49 83 14 25 10/04/17 00:50 17 99 Mechanical Ventilator 10/04/17 00:45 98.3 87 17 110/60 99 10/04/17 00:00 25 10/03/17 23:44 86 10/03/17 22:50 86 14 25 10/03/17 21:29 90 118/63 10/03/17 20:55 90 14 25 10/03/17 20:05 18 99 Mechanical Ventilator 10/03/17 20:00 98.7 96 17 118/63 100 10/03/17 20:00 92 10/03/17 20:00 25 10/03/17 19:11 97 14 25 10/03/17 17:29 98 15 25 10/03/17 15:52 98.7 89 18 120/60 99 Mechanical Ventilator 30 10/03/17 15:27 97 15 25 10/03/17 15:21 95 10/03/17 15:21 25 10/03/17 12:58 97 16 25 Intake and Output 10/03/17 10/04/17 19:00 07:00 Intake Total 1480 ml 1380.0 ml Output Total 1850 ml 1201 ml Balance -370 ml 179.0 ml Free Water 100 ml IV Total 660 ml 660.0 ml Tube Feeding 720 ml 720 ml Output Urine Total 1850 ml 1200 ml Chest Tube Drainage Total 1 ml # Voids 1 General Appearance: WD/WN, no acute distress HEENT: atraumatic Respiratory/Chest: chest wall non-tender, lungs clear, no respiratory distress Cardiovascular: normal peripheral pulses, regular rhythm Abdomen: soft, non tender, no scars Extremities: no clubbing Skin: no rash Microbiology Date/Time Source Procedure Growth Status 10/01/17 18:40 Internal Jugular Central Line Catheter Tip Culture - Preliminary NO GROWTH AFTER 48 HOURS Resulted Current Medications Medications (Trade) Dose Ordered Sig/Mora Route PRN Reason Start Time Stop Time Status Last Admin Dose Admin Acetaminophen (Tylenol) 650 mg Q4H PRN RECTAL Mild Pain (Pain Scale 1-3) 09/27/17 17:00 10/27/17 16:59 Al Hydroxide/Mg Hydroxide (Mylanta II) 30 ml Q6H PRN ORAL dyspepsia 09/27/17 17:00 10/27/17 16:59 Aspirin (ASA) 81 mg DAILY ORAL 09/28/17 09:00 10/28/17 08:59 10/04/17 09:00 Chlorhexidine Gluconate (Ann-Hex 2%) 1 applic DAILY@1999 TOPIC 09/28/17 20:00 10/28/17 19:59 10/03/17 20:00 Dextrose (Dextrose 50%) STAT PRN IV Hypoglycemia 09/27/17 17:00 10/27/17 16:59 Docusate Sodium (Colace) 100 mg TWICE A DAY GT 10/03/17 10:00 11/02/17 09:59 10/04/17 08:59 Furosemide (Lasix) 20 mg DAILY IV 10/01/17 16:00 10/31/17 15:59 10/04/17 09:00 Heparin Sodium (Porcine) (Heparin 5000 units/ml) 5,000 units EVERY 12 HOURS SUBQ 09/28/17 09:00 10/28/17 08:59 10/04/17 09:01 Lorazepam (Ativan) 1 mg Q4H PRN ORAL For Anxiety 09/27/17 17:00 10/04/17 16:59 10/02/17 02:01 Metoprolol Tartrate (Lopressor) 12.5 mg Q12HR GT 10/01/17 21:00 10/31/17 20:59 10/04/17 09:00 Morphine Sulfate (Morphine Sulfate) 2 mg Q4H PRN IVP Moderate Pain (Pain Scale 4-6) 09/27/17 17:00 10/04/17 16:59 09/30/17 09:33 Nitroglycerin (Ntg) 0.4 mg Q5M PRN SL Prn Chest Pain 09/27/17 17:00 10/27/17 16:59 Pantoprazole (Protonix) 40 mg DAILY IV 09/28/17 09:00 10/28/17 08:59 10/04/17 09:00 Piperacillin Sod/ Tazobactam Sod 3.375 gm/Sodium Chloride 110 ml @ 27.5 mls/hr EVERY 8 HOURS IVPB 10/01/17 14:00 10/08/17 13:59 10/04/17 05:47 Polymyxin B Sulfate 326945 units/Dextrose 550 ml @ 550 mls/hr Q12H IV 09/30/17 13:30 10/07/17 13:29 10/04/17 01:22 JAYLEN ANNE Oct 04, 2017 12:41
--- NOTE | 2017-10-04 13:28 | Infectious Diseases Prog Note ---
Assessment/Plan Assessment/Plan Assessment: Septic shock - likely 2ry to PNA and bacteremia (real vs contaminants), ?UTI, however u/a neg; shock resolved- -CXR 10/03: Bilateral pleural effusions and interstitial and airspace edema persist, unchanged. -CXR: Interstitial edema suspected. Basilar infiltrates not excluded. Please correlate clinically. -u/a no pyuria; ucx 30-40K Proteus mirablis ESBL (S zosyn, amikacin, gentamicin; R Cefepime); s/p quiroga exchange 10/01 -sp cx PSA (S Zosyn, Cefepime, cipro/levo), +2 S.maltophilia (S. Levo, R bactrim) Polymicrobial bacteremia- suspect possible line contaminant as Gram negative isolated are not present on Urine or sputum cx - s/p LIJ removal 10/01, cath tip cx NTD -Bcx 09/27 2/4 CoNS, ,2/4 Group G Strep, 2/4 MDR/KPC K.pna ( S Tigecycline, Colistin, Polymixin B),1/4 Providencia stuartti (S. 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 pna bacteremia -10/01 SP Cefepime #2 -09/30 SP IV Vanco #4, Zosyn #4 -f/u cath tip cx. -will not treat Stenotrophomonas in sputum cx as likely contaminant as stable O2 requirements and no obvious active infiltrates on CXR -f/u repeat Bcx -Monitor CBC/BMP, temperatures -peg/trach care, aspiration precautions -wound care Thank you for this consultation. Will continue to follow along with you. Discussed with RN Subjective Allergies: Coded Allergies: No Known Allergies (Unverified , 05/31/12) Subjective afebrile no leukocytosis Objective Vital Signs Last 24 Hour Vital Signs Date Time Temp Pulse Resp B/P (MAP) Pulse Ox O2 Delivery O2 Flow Rate FiO2 10/04/17 12:41 91 14 25 10/04/17 12:00 95 10/04/17 12:00 25 10/04/17 12:00 98.6 106 16 136/63 100 10/04/17 11:31 91 16 25 10/04/17 09:25 102 26 25 10/04/17 09:00 97 114/63 10/04/17 08:00 98.4 97 16 114/63 99 10/04/17 07:47 25 10/04/17 07:47 88 10/04/17 07:28 91 14 25 10/04/17 05:40 91 14 25 10/04/17 04:00 25 10/04/17 04:00 98.1 79 18 115/58 99 10/04/17 04:00 95 10/04/17 02:55 83 14 25 10/04/17 01:49 83 14 25 10/04/17 00:50 17 99 Mechanical Ventilator 25 10/04/17 00:45 98.3 87 17 110/60 99 10/04/17 00:00 25 10/03/17 23:44 86 10/03/17 22:50 86 14 25 10/03/17 21:29 90 118/63 10/03/17 20:55 90 14 25 10/03/17 20:05 18 99 Mechanical Ventilator 25 10/03/17 20:00 98.7 96 17 118/63 100 10/03/17 20:00 92 10/03/17 20:00 25 10/03/17 19:11 97 14 25 10/03/17 17:29 98 15 25 10/03/17 15:52 98.7 89 18 120/60 99 Mechanical Ventilator 30 10/03/17 15:27 97 15 25 10/03/17 15:21 95 10/03/17 15:21 25 Height (Feet): 6 Height (Inches): 5.00 Weight (Pounds): 214 Objective GENERAL: No distress. PULMONARY: Decreased breath sounds. Status post trach. CARDIOVASCULAR: Regular rate. No S3 or S4. ABDOMEN: Soft, nontender, and nondistended. EXTREMITIES: A 1+ to 2+ edema. Microbiology Date/Time Source Procedure Growth Status 10/01/17 18:40 Internal Jugular Central Line Catheter Tip Culture - Preliminary NO GROWTH AFTER 48 HOURS Resulted Current Medications Medications (Trade) Dose Ordered Sig/Mora Route PRN Reason Start Time Stop Time Status Last Admin Dose Admin Acetaminophen (Tylenol) 650 mg Q4H PRN RECTAL Mild Pain (Pain Scale 1-3) 09/27/17 17:00 10/27/17 16:59 Al Hydroxide/Mg Hydroxide (Mylanta II) 30 ml Q6H PRN ORAL dyspepsia 09/27/17 17:00 10/27/17 16:59 Aspirin (ASA) 81 mg DAILY ORAL 09/28/17 09:00 10/28/17 08:59 10/04/17 09:00 Chlorhexidine Gluconate (Ann-Hex 2%) 1 applic DAILY@1999 TOPIC 09/28/17 20:00 10/28/17 19:59 10/03/17 20:00 Dextrose (Dextrose 50%) STAT PRN IV Hypoglycemia 09/27/17 17:00 10/27/17 16:59 Docusate Sodium (Colace) 100 mg TWICE A DAY GT 10/03/17 10:00 11/02/17 09:59 10/04/17 08:59 Furosemide (Lasix) 20 mg DAILY IV 10/01/17 16:00 10/31/17 15:59 10/04/17 09:00 Heparin Sodium (Porcine) (Heparin 5000 units/ml) 5,000 units EVERY 12 HOURS SUBQ 09/28/17 09:00 10/28/17 08:59 10/04/17 09:01 Lorazepam (Ativan) 1 mg Q4H PRN ORAL For Anxiety 09/27/17 17:00 10/04/17 16:59 10/02/17 02:01 Metoprolol Tartrate (Lopressor) 12.5 mg Q12HR GT 10/01/17 21:00 10/31/17 20:59 10/04/17 09:00 Morphine Sulfate (Morphine Sulfate) 2 mg Q4H PRN IVP Moderate Pain (Pain Scale 4-6) 09/27/17 17:00 10/04/17 16:59 09/30/17 09:33 Nitroglycerin (Ntg) 0.4 mg Q5M PRN SL Prn Chest Pain 09/27/17 17:00 10/27/17 16:59 Pantoprazole (Protonix) 40 mg DAILY IV 09/28/17 09:00 10/28/17 08:59 10/04/17 09:00 Piperacillin Sod/ Tazobactam Sod 3.375 gm/Sodium Chloride 110 ml @ 27.5 mls/hr EVERY 8 HOURS IVPB 10/01/17 14:00 10/08/17 13:59 10/04/17 05:47 Polymyxin B Sulfate 060038 units/Dextrose 550 ml @ 550 mls/hr Q12H IV 09/30/17 13:30 10/07/17 13:29 10/04/17 01:22 Lynne Donahue M.D. Oct 04, 2017 13:28
--- NOTE | 2017-10-04 14:21 | Cardiology Progress Note ---
Assessment/Plan Assessment/Plan Chronic respiratory failure, w/ acute decompensation PAF - currently in NSR She has urosepsis, with klebsiella bacteremia anemic, fe deficiency demential hs cva hs Continue b blockers diuretics for pulm congestion. Hold anticoagulation, as pt w/ anemia, Fe deficient and ? gi blood loss. continue vent support, TF iv abx opulm toilette echo showed good ef ekg no st changes pt is not a candidate fur any intervention Subjective ROS Limited/Unobtainable: Yes Subjective not communicative on a vent trach Objective Last 24 Hour Vital Signs Date Time Temp Pulse Resp B/P (MAP) Pulse Ox O2 Delivery O2 Flow Rate FiO2 10/04/17 12:41 91 14 25 10/04/17 12:00 95 10/04/17 12:00 25 10/04/17 12:00 98.6 106 16 136/63 100 10/04/17 11:31 91 16 25 10/04/17 09:25 102 26 25 10/04/17 09:00 97 114/63 10/04/17 08:00 98.4 97 16 114/63 99 10/04/17 07:47 25 10/04/17 07:47 88 10/04/17 07:28 91 14 25 10/04/17 05:40 91 14 25 10/04/17 04:00 25 10/04/17 04:00 98.1 79 18 115/58 99 10/04/17 04:00 95 10/04/17 02:55 83 14 25 10/04/17 01:49 83 14 25 10/04/17 00:50 17 99 Mechanical Ventilator 25 10/04/17 00:45 98.3 87 17 110/60 99 10/04/17 00:00 25 10/03/17 23:44 86 10/03/17 22:50 86 14 25 10/03/17 21:29 90 118/63 10/03/17 20:55 90 14 25 10/03/17 20:05 18 99 Mechanical Ventilator 25 10/03/17 20:00 98.7 96 17 118/63 100 10/03/17 20:00 92 10/03/17 20:00 25 10/03/17 19:11 97 14 25 10/03/17 17:29 98 15 25 10/03/17 15:52 98.7 89 18 120/60 99 Mechanical Ventilator 30 10/03/17 15:27 97 15 25 10/03/17 15:21 95 10/03/17 15:21 25 General Appearance: no apparent distress, on vent, patient on isolation Neck: supple Cardiovascular: normal rate, regular rhythm Respiratory/Chest: rhonchi - bilaterally Abdomen: normal bowel sounds, non tender, soft Extremities: no swelling Intake and Output 10/03/17 10/04/17 19:00 07:00 Intake Total 1480 ml 1380.0 ml Output Total 1850 ml 1201 ml Balance -370 ml 179.0 ml Free Water 100 ml IV Total 660 ml 660.0 ml Tube Feeding 720 ml 720 ml Output Urine Total 1850 ml 1200 ml Chest Tube Drainage Total 1 ml # Voids 1 Microbiology Date/Time Source Procedure Growth Status 10/01/17 18:40 Internal Jugular Central Line Catheter Tip Culture - Preliminary NO GROWTH AFTER 48 HOURS Resulted MUKESH DEWITT Oct 04, 2017 14:21
[2017-10-04 16:00] VITALS: BP 117/53
--- NOTE | 2017-10-04 17:03 | Wound Nurse Progress Note ---
Wound RN Progress Note Wound Consult #1 right heel full thickness scar tissue with thick yellow adhered callus-like skin. #2 right posterior lower leg/achilles tendon full thickness scar tissue with red pigment. #3 right dorsal aspect of foot full thickness scar tissue. #4 right 1st toe (tip of toe) thick dry adhered scab. Reassessment done on this Pt. Skin still intact in all areas. Will cont same wound care recommendations MELBA CASTRO RN Oct 04, 2017 17:03
--- NOTE | 2017-10-04 19:45 | General Progress Note ---
Assessment/Plan Assessment/Plan ASSESSMENT AND RECOMMENDATIONS: 1. Anemia, with sudden drop in H/H. Continue to trend daily. --> hgb goal above 7, transfuse prn --> have dc'd heparin due to anemia. --> rule out GI bleed, ob stool --> ordered --> for AF --> holding anticoag given anemia 2. Chronic obstructive pulmonary disease. 3. Chronic respiratory failure, on a vent. 4. Pneumonia. She is on antibiotics on a p.r.n. basis. 5. Leukocytosis likely secondary to underlying infection. 6. Hyperkalemia. Continue to closely monitor. 7. Urinary tract infection Subjective Allergies: Coded Allergies: No Known Allergies (Unverified , 05/31/12) All Systems: reviewed and negative except above Subjective no fevers Objective Last 24 Hour Vital Signs Date Time Temp Pulse Resp B/P (MAP) Pulse Ox O2 Delivery O2 Flow Rate FiO2 10/04/17 16:56 104 18 25 10/04/17 16:00 25 10/04/17 16:00 98.6 99 20 117/53 99 10/04/17 16:00 87 10/04/17 15:23 94 18 25 10/04/17 12:41 91 14 25 10/04/17 12:00 95 10/04/17 12:00 25 10/04/17 12:00 98.6 106 16 136/63 100 10/04/17 11:31 91 16 25 10/04/17 09:25 102 26 25 10/04/17 09:00 97 114/63 10/04/17 08:00 98.4 97 16 114/63 99 10/04/17 07:47 25 10/04/17 07:47 88 10/04/17 07:28 91 14 25 10/04/17 05:40 91 14 25 10/04/17 04:00 25 10/04/17 04:00 98.1 79 18 115/58 99 10/04/17 04:00 95 10/04/17 02:55 83 14 25 10/04/17 01:49 83 14 25 10/04/17 00:50 17 99 Mechanical Ventilator 25 10/04/17 00:45 98.3 87 17 110/60 99 10/04/17 00:00 25 10/03/17 23:44 86 10/03/17 22:50 86 14 25 10/03/17 21:29 90 118/63 10/03/17 20:55 90 14 25 10/03/17 20:05 18 99 Mechanical Ventilator 25 10/03/17 20:00 98.7 96 17 118/63 100 10/03/17 20:00 92 10/03/17 20:00 25 Intake and Output 10/03/17 10/04/17 19:00 07:00 Intake Total 1480 ml 1440.0 ml Output Total 1850 ml 1201 ml Balance -370 ml 239.0 ml Free Water 100 ml IV Total 660 ml 660.0 ml Tube Feeding 720 ml 780 ml Output Urine Total 1850 ml 1200 ml Chest Tube Drainage Total 1 ml # Voids 1 Height (Feet): 6 Height (Inches): 5.00 Weight (Pounds): 214 General Appearance: no apparent distress EENT: normal ENT inspection Neck: normal alignment Cardiovascular: normal peripheral pulses Extremities: normal range of motion Edema: trace edema 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
[2017-10-04 20:00] VITALS: BP 110/59
[2017-10-04] MEDS: Dyna-Hex 2% Top Sol 2oz TOPIC SCH (20:00)
[2017-10-05] VITALS: BP 114/58
[2017-10-05] MEDS: Polymyxin B Sulfate 500,000 UNITS in D5W 500ml 550 ML IV SCH ×2 (00:58→12:54)
[2017-10-05 04:00] VITALS: BP 105/55
[2017-10-05] MEDS: Piperacillin/Tazobactam 3.375 GM in NS 110 ML IVPB SCH ×3 (05:53→22:05)
[2017-10-05 05:57] LABS: BASOPHILS % (AUTO) 0.7 % (0.0-2.0); EOSINOPHILS % (AUTO) 5.6 % (0.0-3.0); HEMATOCRIT 27.2 % (37.0-47.0); HEMOGLOBIN 8.4 G/DL (12.0-16.0); LYMPHOCYTES % (AUTO) 37.5 % (20.0-45.0); MEAN CORPUSCULAR VOLUME 92 FL (80-99); MONOCYTES % (AUTO) 8.4 % (1.0-10.0); NEUTROPHILS % (AUTO) 47.8 % (45.0-75.0); PLATELET COUNT 210 K/UL (150-450); RED BLOOD COUNT 2.95 M/UL (4.20-5.40); RED CELL DISTRIBUTION WIDTH 15.9 % (11.6-14.8); WHITE BLOOD COUNT 7.3 K/UL (4.8-10.8)
[2017-10-05 06:40] LABS: ALANINE AMINOTRANSFERASE 17 U/L (12-78); ALBUMIN 1.9 G/DL (3.4-5.0); ALBUMIN/GLOBULIN RATIO 0.3 (1.0-2.7); ALKALINE PHOSPHATASE 84 U/L (46-116); ANION GAP 6 mmol/L (5-15); ASPARTATE AMINO TRANSFERASE 24 U/L (15-37); BILIRUBIN,TOTAL 0.6 MG/DL (0.2-1.0); BLOOD UREA NITROGEN 17 mg/dL (7-18); CALCIUM 8.4 MG/DL (8.5-10.1); CARBON DIOXIDE 32 MMOL/L (21-32); CHLORIDE 101 MMOL/L (98-107); POTASSIUM 4.2 MMOL/L (3.5-5.1); SODIUM 139 MMOL/L (136-145)
[2017-10-05 08:00] VITALS: BP 119/60
[2017-10-05] MEDS: Metoprolol Tartrate 12.5mg TAB GT SCH ×2 (09:00→21:02)
[2017-10-05] MEDS: Docusate 100mg/10ml Liq GT SCH ×2 (09:50→18:47)
[2017-10-05] MEDS: Aspirin Baby 81mg ORAL SCH (09:51)
[2017-10-05] MEDS: Pantoprazole Inj IV SCH (09:52)
[2017-10-05] MEDS: Heparin 5000 units/ml inj SUBQ SCH ×2 (09:57→21:03)
--- NOTE | 2017-10-05 10:52 | Infectious Diseases Prog Note ---
Assessment/Plan Assessment/Plan Assessment: Septic shock - likely 2ry to PNA and bacteremia (real vs contaminants), ?UTI, however u/a neg; shock resolved- -CXR 10/03: Bilateral pleural effusions and interstitial and airspace edema persist, unchanged. -CXR: Interstitial edema suspected. Basilar infiltrates not excluded. Please correlate clinically. -u/a no pyuria; ucx 30-40K Proteus mirablis ESBL (S zosyn, amikacin, gentamicin; R Cefepime); s/p quiroga exchange 10/01 -sp cx PSA (S Zosyn, Cefepime, cipro/levo), +2 S.maltophilia (S. Levo, R bactrim) Polymicrobial bacteremia- suspect possible line contaminant as Gram negative isolated are not present on Urine or sputum cx - s/p LIJ removal 10/01, cath tip cx NTD -Bcx 09/27 2/4 CoNS, ,2/4 Group G Strep, 2/4 MDR/KPC K.pna ( S Tigecycline, Colistin, Polymixin B),1/4 Providencia stuartti (S. 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 pna bacteremia -10/01 SP Cefepime #2 -09/30 SP IV Vanco #4, Zosyn #4 -f/u cath tip cx. -will not treat Stenotrophomonas in sputum cx as likely contaminant as stable O2 requirements and no obvious active infiltrates on CXR -f/u repeat Bcx -Monitor CBC/BMP, temperatures -peg/trach care, aspiration precautions -wound care Thank you for this consultation. Will continue to follow along with you. Discussed with RN Subjective Allergies: Coded Allergies: No Known Allergies (Unverified , 05/31/12) Subjective afebrile no leukocytosis cath tip cx NTD Objective Vital Signs Last 24 Hour Vital Signs Date Time Temp Pulse Resp B/P (MAP) Pulse Ox O2 Delivery O2 Flow Rate FiO2 10/05/17 09:00 93 119/60 10/05/17 08:34 85 14 25 10/05/17 08:00 98.1 93 16 119/60 100 10/05/17 08:00 25 10/05/17 07:43 95 17 25 10/05/17 05:12 93 16 25 10/05/17 04:03 82 15 25 10/05/17 04:00 98.6 92 16 105/55 99 10/05/17 04:00 94 10/05/17 04:00 25 10/05/17 00:45 87 14 25 10/05/17 00:00 86 10/05/17 00:00 25 10/05/17 00:00 98.9 95 16 114/58 100 10/04/17 21:05 84 14 25 10/04/17 20:01 98 110/59 10/04/17 20:00 98.2 98 16 110/59 99 10/04/17 20:00 25 10/04/17 20:00 100 10/04/17 19:44 92 14 25 10/04/17 16:56 104 18 25 10/04/17 16:00 25 10/04/17 16:00 98.6 99 20 117/53 99 10/04/17 16:00 87 10/04/17 15:23 94 18 25 10/04/17 12:41 91 14 25 10/04/17 12:00 95 10/04/17 12:00 25 10/04/17 12:00 98.6 106 16 136/63 100 10/04/17 11:31 91 16 25 Height (Feet): 6 Height (Inches): 5.00 Weight (Pounds): 214 Objective GENERAL: No distress. PULMONARY: Decreased breath sounds. Status post trach. CARDIOVASCULAR: Regular rate. No S3 or S4. ABDOMEN: Soft, nontender, and nondistended. EXTREMITIES: A 1+ to 2+ edema. Laboratory Tests Test 10/05/17 04:00 White Blood Count 7.3 K/UL (4.8-10.8) Red Blood Count 2.95 M/UL (4.20-5.40) L Hemoglobin 8.4 G/DL (12.0-16.0) L Hematocrit 27.2 % (37.0-47.0) L Mean Corpuscular Volume 92 FL (80-99) Mean Corpuscular Hemoglobin 28.6 PG (27.0-31.0) Mean Corpuscular Hemoglobin Concent 31.0 G/DL (32.0-36.0) L Red Cell Distribution Width 15.9 % (11.6-14.8) H Platelet Count 210 K/UL (150-450) Mean Platelet Volume 7.3 FL (6.5-10.1) Neutrophils (%) (Auto) 47.8 % (45.0-75.0) Lymphocytes (%) (Auto) 37.5 % (20.0-45.0) Monocytes (%) (Auto) 8.4 % (1.0-10.0) Eosinophils (%) (Auto) 5.6 % (0.0-3.0) H Basophils (%) (Auto) 0.7 % (0.0-2.0) Sodium Level 139 MMOL/L (136-145) Potassium Level 4.2 MMOL/L (3.5-5.1) Chloride Level 101 MMOL/L (98-107) Carbon Dioxide Level 32 MMOL/L (21-32) Anion Gap 6 mmol/L (5-15) Blood Urea Nitrogen 17 mg/dL (7-18) Creatinine 1.0 MG/DL (0.55-1.30) Estimat Glomerular Filtration Rate mL/min (>60) Glucose Level 130 MG/DL (74-106) H Calcium Level 8.4 MG/DL (8.5-10.1) L Total Bilirubin 0.6 MG/DL (0.2-1.0) Aspartate Amino Transf (AST/SGOT) 24 U/L (15-37) Alanine Aminotransferase (ALT/SGPT) 17 U/L (12-78) Alkaline Phosphatase 84 U/L (46-116) Pro-B-Type Natriuretic Peptide 2608 pg/mL (0-125) H Total Protein 7.6 G/DL (6.4-8.2) Albumin 1.9 G/DL (3.4-5.0) L Globulin 5.7 g/dL Albumin/Globulin Ratio 0.3 (1.0-2.7) L Current Medications Medications (Trade) Dose Ordered Sig/Mora Route PRN Reason Start Time Stop Time Status Last Admin Dose Admin Acetaminophen (Tylenol) 650 mg Q4H PRN RECTAL Mild Pain (Pain Scale 1-3) 09/27/17 17:00 10/27/17 16:59 Al Hydroxide/Mg Hydroxide (Mylanta II) 30 ml Q6H PRN ORAL dyspepsia 09/27/17 17:00 10/27/17 16:59 Aspirin (ASA) 81 mg DAILY ORAL 09/28/17 09:00 10/28/17 08:59 10/05/17 09:51 Chlorhexidine Gluconate (Ann-Hex 2%) 1 applic DAILY@2000 TOPIC 09/28/17 20:00 10/28/17 19:59 10/04/17 20:00 Dextrose (Dextrose 50%) STAT PRN IV Hypoglycemia 09/27/17 17:00 10/27/17 16:59 Docusate Sodium (Colace) 100 mg TWICE A DAY GT 10/03/17 10:00 11/02/17 09:59 10/05/17 09:50 Furosemide (Lasix) 20 mg DAILY IV 10/01/17 16:00 10/31/17 15:59 10/05/17 09:52 Heparin Sodium (Porcine) (Heparin 5000 units/ml) 5,000 units EVERY 12 HOURS SUBQ 09/28/17 09:00 10/28/17 08:59 10/05/17 09:57 Metoprolol Tartrate (Lopressor) 12.5 mg Q12HR GT 10/01/17 21:00 10/31/17 20:59 10/05/17 09:00 Nitroglycerin (Ntg) 0.4 mg Q5M PRN SL Prn Chest Pain 09/27/17 17:00 10/27/17 16:59 Pantoprazole (Protonix) 40 mg DAILY IV 09/28/17 09:00 10/28/17 08:59 10/05/17 09:52 Piperacillin Sod/ Tazobactam Sod 3.375 gm/Sodium Chloride 110 ml @ 27.5 mls/hr EVERY 8 HOURS IVPB 10/01/17 14:00 10/08/17 13:59 10/05/17 05:53 Polymyxin B Sulfate 070757 units/Dextrose 550 ml @ 550 mls/hr Q12H IV 09/30/17 13:30 10/07/17 13:29 10/05/17 00:58 Lynne Donahue M.D. Oct 05, 2017 10:52
[2017-10-05 12:00] VITALS: BP 105/57
--- NOTE | 2017-10-05 12:24 | Pulmonology Progress Note ---
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 Discussed with: nurses, consultants, casey saw operator Subjective Constitutional: Reports: no symptoms HEENT: Repors: no symptoms Allergies: Coded Allergies: No Known Allergies (Unverified , 05/31/12) Objective Last 24 Hour Vital Signs Date Time Temp Pulse Resp B/P (MAP) Pulse Ox O2 Delivery O2 Flow Rate FiO2 10/05/17 11:03 80 14 25 10/05/17 09:00 93 119/60 10/05/17 08:34 85 14 25 10/05/17 08:00 96 10/05/17 08:00 98.1 93 16 119/60 100 10/05/17 08:00 25 10/05/17 07:43 95 17 25 10/05/17 05:12 93 16 25 10/05/17 04:03 82 15 25 10/05/17 04:00 98.6 92 16 105/55 99 10/05/17 04:00 94 10/05/17 04:00 25 10/05/17 00:45 87 14 25 10/05/17 00:00 86 10/05/17 00:00 25 10/05/17 00:00 98.9 95 16 114/58 100 10/04/17 21:05 84 14 25 10/04/17 20:01 98 110/59 10/04/17 20:00 98.2 98 16 110/59 99 10/04/17 20:00 25 10/04/17 20:00 100 10/04/17 19:44 92 14 25 10/04/17 16:56 104 18 25 10/04/17 16:00 25 10/04/17 16:00 98.6 99 20 117/53 99 10/04/17 16:00 87 10/04/17 15:23 94 18 25 10/04/17 12:41 91 14 25 Intake and Output 10/04/17 10/05/17 19:00 07:00 Intake Total 830 ml 1380.0 ml Output Total 2200 ml 1100 ml Balance -1370 ml 280.0 ml Free Water 200 ml IV Total 660.0 ml Tube Feeding 600 ml 720 ml Other 30 ml Output Urine Total 2200 ml 1100 ml # Bowel Movements 1 General Appearance: WD/WN HEENT: normocephalic, anicteric Respiratory/Chest: chest wall non-tender, lungs clear, no respiratory distress Breasts: no masses Cardiovascular: normal peripheral pulses, normal rate Abdomen: normal bowel sounds, no organomegaly Skin: no rash Laboratory Tests 10/05/17 04:00: White Blood Count 7.3, Red Blood Count 2.95L, Hemoglobin 8.4L, Hematocrit 27.2L , Mean Corpuscular Volume 92, Mean Corpuscular Hemoglobin 28.6, Mean Corpuscular Hemoglobin Concent 31.0L, Red Cell Distribution Width 15.9H, Platelet Count 210, Mean Platelet Volume 7.3, Neutrophils (%) (Auto) 47.8, Lymphocytes (%) (Auto) 37.5, Monocytes (%) (Auto) 8.4, Eosinophils (%) (Auto) 5.6H, Basophils (%) (Auto) 0.7, Sodium Level 139, Potassium Level 4.2, Chloride Level 101, Carbon Dioxide Level 32, Anion Gap 6, Blood Urea Nitrogen 17, Creatinine 1.0, Estimat Glomerular Filtration Rate , Glucose Level 130H, Calcium Level 8.4L, Total Bilirubin 0.6, Aspartate Amino Transf (AST/SGOT) 24, Alanine Aminotransferase (ALT/SGPT) 17, Alkaline Phosphatase 84, Pro-B-Type Natriuretic Peptide 2608H, Total Protein 7.6, Albumin 1.9L, Globulin 5.7, Albumin/Globulin Ratio 0.3L Current Medications Medications (Trade) Dose Ordered Sig/Mora Route PRN Reason Start Time Stop Time Status Last Admin Dose Admin Acetaminophen (Tylenol) 650 mg Q4H PRN RECTAL Mild Pain (Pain Scale 1-3) 09/27/17 17:00 10/27/17 16:59 Al Hydroxide/Mg Hydroxide (Mylanta II) 30 ml Q6H PRN ORAL dyspepsia 09/27/17 17:00 10/27/17 16:59 Aspirin (ASA) 81 mg DAILY ORAL 09/28/17 09:00 10/28/17 08:59 10/05/17 09:51 Chlorhexidine Gluconate (Ann-Hex 2%) 1 applic DAILY@2000 TOPIC 09/28/17 20:00 10/28/17 19:59 10/04/17 20:00 Dextrose (Dextrose 50%) STAT PRN IV Hypoglycemia 09/27/17 17:00 10/27/17 16:59 Docusate Sodium (Colace) 100 mg TWICE A DAY GT 10/03/17 10:00 11/02/17 09:59 10/05/17 09:50 Furosemide (Lasix) 20 mg DAILY IV 10/01/17 16:00 10/31/17 15:59 10/05/17 09:52 Heparin Sodium (Porcine) (Heparin 5000 units/ml) 5,000 units EVERY 12 HOURS SUBQ 09/28/17 09:00 10/28/17 08:59 10/05/17 09:57 Metoprolol Tartrate (Lopressor) 12.5 mg Q12HR GT 10/01/17 21:00 10/31/17 20:59 10/05/17 09:00 Nitroglycerin (Ntg) 0.4 mg Q5M PRN SL Prn Chest Pain 09/27/17 17:00 10/27/17 16:59 Pantoprazole (Protonix) 40 mg DAILY IV 09/28/17 09:00 10/28/17 08:59 10/05/17 09:52 Piperacillin Sod/ Tazobactam Sod 3.375 gm/Sodium Chloride 110 ml @ 27.5 mls/hr EVERY 8 HOURS IVPB 10/01/17 14:00 10/08/17 13:59 10/05/17 05:53 Polymyxin B Sulfate 417842 units/Dextrose 550 ml @ 550 mls/hr Q12H IV 09/30/17 13:30 10/07/17 13:29 10/05/17 00:58 JAYLEN ANNE Oct 05, 2017 12:24
--- NOTE | 2017-10-05 14:18 | Diagnostic Imaging Report ---
Indication: Dyspnea Technique: One view of the chest Comparison: 10/03/2017 Findings: Stable satisfactory positions of tracheostomy, right subclavian central venous catheter. There is suggestion of slightly improved but still persistent and fairly extensive bilateral right greater than left infiltrates versus edema and probable bilateral pleural effusions. Impression: Slightly improved but persistent and stable extensive bilateral infiltrates versus edema and bilateral pleural effusions, over 2 days
[2017-10-05 16:00] VITALS: BP 115/69
--- NOTE | 2017-10-05 17:17 | General Progress Note ---
Assessment/Plan Assessment/Plan ASSESSMENT AND RECOMMENDATIONS: 1. Anemia, with sudden drop in H/H. Continue to trend daily. --> hgb goal above 7, transfuse prn --> have dc'd heparin due to anemia. --> rule out GI bleed, ob stool --> ordered --> for AF --> start on plavix 2. Chronic obstructive pulmonary disease. 3. Chronic respiratory failure, on a vent. 4. Pneumonia. She is on antibiotics on a p.r.n. basis. 5. Leukocytosis likely secondary to underlying infection. 6. Hyperkalemia. Continue to closely monitor. 7. Urinary tract infection Subjective Constitutional: Denies: no symptoms, chills, diaphoresis, fever, malaise, weakness, other HEENT: Denies: no symptoms, eye pain, blurred vision, tearing, double vision, ear pain, ear discharge, nose pain, nose congestion, throat pain, throat swelling, mouth pain, mouth swelling, other Cardiovascular: Denies: no symptoms, chest pain, edema, irregular heart rate, lightheadedness, palpitations, syncope, other Respiratory: Denies: no symptoms, cough, orthopnea, shortness of breath, SOB with excertion, SOB at rest, sputum, stridor, wheezing, other Gastrointestinal/Abdominal: Denies: no symptoms, abdomen distended, abdominal pain, black stools, tarry stools, blood in stool, constipated, diarrhea, difficulty swallowing, nausea, poor appetite, poor fluid intake, rectal bleeding , vomiting, other Genitourinary: Denies: no symptoms, burning, discharge, frequency, flank pain, hematuria, incontinence, pain, urgency, other Neurologic/Psychiatric: Denies: no symptoms, anxiety, depressed, emotional problems, headache, numbness, paresthesia, pre-existing deficit, seizure, tingling, tremors, weakness, other Endocrine: Denies: no symptoms, excessive sweating, flushing, intolerance to cold, intolerance to heat, increased hunger, increased thirst, increased urine, unexplained weight gain, unexplained weight loss, other Hematologic/Lymphatic: Denies: no symptoms, anemia, easy bleeding, easy bruising, other Allergies: Coded Allergies: No Known Allergies (Unverified , 05/31/12) Subjective no fevers Objective Last 24 Hour Vital Signs Date Time Temp Pulse Resp B/P (MAP) Pulse Ox O2 Delivery O2 Flow Rate FiO2 10/05/17 17:03 89 15 25 10/05/17 15:00 92 15 25 10/05/17 13:30 86 15 25 10/05/17 12:00 75 10/05/17 12:00 97.9 89 16 105/57 100 10/05/17 12:00 25 10/05/17 11:03 80 14 25 10/05/17 09:00 93 119/60 10/05/17 08:34 85 14 25 10/05/17 08:00 96 10/05/17 08:00 98.1 93 16 119/60 100 10/05/17 08:00 25 10/05/17 07:43 95 17 25 10/05/17 05:12 93 16 25 10/05/17 04:03 82 15 25 10/05/17 04:00 98.6 92 16 105/55 99 10/05/17 04:00 94 10/05/17 04:00 25 10/05/17 00:45 87 14 25 10/05/17 00:00 86 10/05/17 00:00 25 10/05/17 00:00 98.9 95 16 114/58 100 10/04/17 21:05 84 14 25 10/04/17 20:01 98 110/59 10/04/17 20:00 98.2 98 16 110/59 99 10/04/17 20:00 25 10/04/17 20:00 100 10/04/17 19:44 92 14 25 Intake and Output 10/04/17 10/05/17 19:00 07:00 Intake Total 830 ml 1380.0 ml Output Total 2200 ml 1100 ml Balance -1370 ml 280.0 ml Free Water 200 ml IV Total 660.0 ml Tube Feeding 600 ml 720 ml Other 30 ml Output Urine Total 2200 ml 1100 ml # Bowel Movements 1 Laboratory Tests 10/05/17 04:00: White Blood Count 7.3, Red Blood Count 2.95L, Hemoglobin 8.4L, Hematocrit 27.2L , Mean Corpuscular Volume 92, Mean Corpuscular Hemoglobin 28.6, Mean Corpuscular Hemoglobin Concent 31.0L, Red Cell Distribution Width 15.9H, Platelet Count 210, Mean Platelet Volume 7.3, Neutrophils (%) (Auto) 47.8, Lymphocytes (%) (Auto) 37.5, Monocytes (%) (Auto) 8.4, Eosinophils (%) (Auto) 5.6H, Basophils (%) (Auto) 0.7, Sodium Level 139, Potassium Level 4.2, Chloride Level 101, Carbon Dioxide Level 32, Anion Gap 6, Blood Urea Nitrogen 17, Creatinine 1.0, Estimat Glomerular Filtration Rate , Glucose Level 130H, Calcium Level 8.4L, Total Bilirubin 0.6, Aspartate Amino Transf (AST/SGOT) 24, Alanine Aminotransferase (ALT/SGPT) 17, Alkaline Phosphatase 84, Pro-B-Type Natriuretic Peptide 2608H, Total Protein 7.6, Albumin 1.9L, Globulin 5.7, Albumin/Globulin Ratio 0.3L Height (Feet): 6 Height (Inches): 5.00 Weight (Pounds): 214 Objective unchanged Eber Fuller Oct 05, 2017 17:17
--- NOTE | 2017-10-05 18:59 | Cardiology Progress Note ---
Assessment/Plan Assessment/Plan Chronic respiratory failure, w/ acute decompensation PAF - currently in NSR urosepsis klebsiella bacteremia anemic, fe deficiency demential hs cva hs Continue b blockers tele reviewed increase diuretics . Hold anticoagulation, as pt w/ anemia, Fe deficient and ? gi blood loss. continue vent support, TF iv abx pulm toilette echo showed good ef ekg no st changes pt is not a candidate fur any intervention Subjective ROS Limited/Unobtainable: Yes Subjective not communicative on a vent trach Objective Last 24 Hour Vital Signs Date Time Temp Pulse Resp B/P (MAP) Pulse Ox O2 Delivery O2 Flow Rate FiO2 10/05/17 17:03 89 15 25 10/05/17 15:00 92 15 25 10/05/17 13:30 86 15 25 10/05/17 12:00 75 10/05/17 12:00 97.9 89 16 105/57 100 10/05/17 12:00 25 10/05/17 11:03 80 14 25 10/05/17 09:00 93 119/60 10/05/17 08:34 85 14 25 10/05/17 08:00 96 10/05/17 08:00 98.1 93 16 119/60 100 10/05/17 08:00 25 10/05/17 07:43 95 17 25 10/05/17 05:12 93 16 25 10/05/17 04:03 82 15 25 10/05/17 04:00 98.6 92 16 105/55 99 10/05/17 04:00 94 10/05/17 04:00 25 10/05/17 00:45 87 14 25 10/05/17 00:00 86 10/05/17 00:00 25 10/05/17 00:00 98.9 95 16 114/58 100 10/04/17 21:05 84 14 25 10/04/17 20:01 98 110/59 10/04/17 20:00 98.2 98 16 110/59 99 10/04/17 20:00 25 10/04/17 20:00 100 10/04/17 19:44 92 14 25 General Appearance: no apparent distress, obese, patient on isolation Neck: supple Cardiovascular: normal rate Respiratory/Chest: crackles/rales Abdomen: non tender, soft Extremities: trace edema Intake and Output 10/04/17 10/05/17 19:00 07:00 Intake Total 830 ml 1380.0 ml Output Total 2200 ml 1100 ml Balance -1370 ml 280.0 ml Free Water 200 ml IV Total 660.0 ml Tube Feeding 600 ml 720 ml Other 30 ml Output Urine Total 2200 ml 1100 ml # Bowel Movements 1 Laboratory Tests Test 10/05/17 04:00 White Blood Count 7.3 K/UL (4.8-10.8) Red Blood Count 2.95 M/UL (4.20-5.40) L Hemoglobin 8.4 G/DL (12.0-16.0) L Hematocrit 27.2 % (37.0-47.0) L Mean Corpuscular Volume 92 FL (80-99) Mean Corpuscular Hemoglobin 28.6 PG (27.0-31.0) Mean Corpuscular Hemoglobin Concent 31.0 G/DL (32.0-36.0) L Red Cell Distribution Width 15.9 % (11.6-14.8) H Platelet Count 210 K/UL (150-450) Mean Platelet Volume 7.3 FL (6.5-10.1) Neutrophils (%) (Auto) 47.8 % (45.0-75.0) Lymphocytes (%) (Auto) 37.5 % (20.0-45.0) Monocytes (%) (Auto) 8.4 % (1.0-10.0) Eosinophils (%) (Auto) 5.6 % (0.0-3.0) H Basophils (%) (Auto) 0.7 % (0.0-2.0) Sodium Level 139 MMOL/L (136-145) Potassium Level 4.2 MMOL/L (3.5-5.1) Chloride Level 101 MMOL/L (98-107) Carbon Dioxide Level 32 MMOL/L (21-32) Anion Gap 6 mmol/L (5-15) Blood Urea Nitrogen 17 mg/dL (7-18) Creatinine 1.0 MG/DL (0.55-1.30) Estimat Glomerular Filtration Rate mL/min (>60) Glucose Level 130 MG/DL (74-106) H Calcium Level 8.4 MG/DL (8.5-10.1) L Total Bilirubin 0.6 MG/DL (0.2-1.0) Aspartate Amino Transf (AST/SGOT) 24 U/L (15-37) Alanine Aminotransferase (ALT/SGPT) 17 U/L (12-78) Alkaline Phosphatase 84 U/L (46-116) Pro-B-Type Natriuretic Peptide 2608 pg/mL (0-125) H Total Protein 7.6 G/DL (6.4-8.2) Albumin 1.9 G/DL (3.4-5.0) L Globulin 5.7 g/dL Albumin/Globulin Ratio 0.3 (1.0-2.7) L MUKESH DEWITT Oct 05, 2017 18:59
[2017-10-05 20:00] VITALS: BP 120/66
[2017-10-05] MEDS: Dyna-Hex 2% Top Sol 2oz TOPIC SCH (21:02)
[2017-10-06] VITALS: BP 120/68
[2017-10-06] MEDS: Polymyxin B Sulfate 500,000 UNITS in D5W 500ml 550 ML IV SCH (02:04)
[2017-10-06 04:00] VITALS: BP 115/68
[2017-10-06 06:23] LABS: BASOPHILS % (AUTO) 0.6 % (0.0-2.0); EOSINOPHILS % (AUTO) 5.2 % (0.0-3.0); HEMATOCRIT 31.1 % (37.0-47.0); HEMOGLOBIN 10.2 G/DL (12.0-16.0); MEAN CORPUSCULAR VOLUME 92 FL (80-99); MONOCYTES % (AUTO) 8.3 % (1.0-10.0); NEUTROPHILS % (AUTO) 44.9 % (45.0-75.0); PLATELET COUNT 231 K/UL (150-450); WHITE BLOOD COUNT 7.8 K/UL (4.8-10.8)
[2017-10-06 06:46] LABS: ALANINE AMINOTRANSFERASE 14 U/L (12-78); ALBUMIN 2.1 G/DL (3.4-5.0); ALBUMIN/GLOBULIN RATIO 0.3 (1.0-2.7); ALKALINE PHOSPHATASE 88 U/L (46-116); ANION GAP 6 mmol/L (5-15); ASPARTATE AMINO TRANSFERASE 27 U/L (15-37); BILIRUBIN,TOTAL 0.5 MG/DL (0.2-1.0); BLOOD UREA NITROGEN 17 mg/dL (7-18); CALCIUM 8.6 MG/DL (8.5-10.1); CARBON DIOXIDE 32 MMOL/L (21-32); CHLORIDE 98 MMOL/L (98-107); CREATININE 1.1 MG/DL (0.55-1.30); SODIUM 136 MMOL/L (136-145)
[2017-10-06] MEDS: Piperacillin/Tazobactam 3.375 GM in NS 110 ML IVPB SCH (06:51)
[2017-10-06 08:00] VITALS: BP 119/98
[2017-10-06] MEDS: Aspirin Baby 81mg ORAL SCH (09:02)
[2017-10-06] MEDS: Docusate 100mg/10ml Liq GT SCH (09:02)
[2017-10-06] MEDS: Metoprolol Tartrate 12.5mg TAB GT SCH (09:02)
[2017-10-06] MEDS: Heparin 5000 units/ml inj SUBQ SCH (09:03)
[2017-10-06] MEDS: Pantoprazole Inj IV SCH (09:04)
--- NOTE | 2017-10-06 10:34 | Diagnostic Imaging Report ---
Indication: Dyspnea Technique: One view of the chest Comparison: 10/05/2017 Findings: Tracheostomy remains. Right subclavian central venous catheter is again demonstrated. The heart is borderline enlarged. Bilateral diffuse interstitial and airspace infiltrates versus edema persist, unchanged. There are probably bilateral pleural effusions as well. Findings are unchanged. Impression: Unchanged, over one day, findings as above.
[2017-10-06] MEDS ORDERED: Morphine Sulfate 2mg/ml Inj IVP PRN (11:00)
[2017-10-06] MEDS ORDERED: Albuterol/Ipratropium 3ml neb HHN PRN (11:30)
[2017-10-06 12:00] VITALS: BP 102/52
--- NOTE | 2017-10-06 12:42 | Pulmonology Progress Note ---
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 Discussed with: nurses Subjective Constitutional: Reports: no symptoms HEENT: Repors: no symptoms Respiratory: Reports: no symptoms Allergies: Coded Allergies: No Known Allergies (Unverified , 05/31/12) Objective Last 24 Hour Vital Signs Date Time Temp Pulse Resp B/P (MAP) Pulse Ox O2 Delivery O2 Flow Rate FiO2 10/06/17 11:25 98.2 10/06/17 10:57 125 20 25 10/06/17 09:02 98 115/68 10/06/17 08:45 95 16 25 10/06/17 08:00 78 10/06/17 08:00 98.2 96 14 119/98 100 Mechanical Ventilator 25 10/06/17 08:00 25 10/06/17 07:21 98 19 25 10/06/17 05:09 99 19 25 10/06/17 04:00 25 10/06/17 04:00 95 10/06/17 04:00 98.0 95 14 115/68 100 Mechanical Ventilator 25 10/06/17 03:12 103 18 25 10/06/17 01:20 85 22 25 10/06/17 00:00 98.6 93 14 120/68 100 Mechanical Ventilator 25 10/06/17 00:00 25 10/06/17 00:00 90 10/05/17 23:17 93 15 25 10/05/17 21:08 103 15 25 10/05/17 21:02 104 115/69 10/05/17 20:00 96 10/05/17 20:00 98.9 96 14 120/66 100 Mechanical Ventilator 25 10/05/17 20:00 25 10/05/17 19:00 104 20 25 10/05/17 17:03 89 15 25 10/05/17 16:00 25 10/05/17 16:00 97.9 91 14 115/69 100 10/05/17 16:00 94 10/05/17 15:00 92 15 25 10/05/17 13:30 86 15 25 Intake and Output 10/05/17 10/06/17 19:00 07:00 Intake Total 1685.0 ml 1420.0 ml Output Total 2000 ml 2100 ml Balance -315.0 ml -680.0 ml Free Water 250 ml 100 ml IV Total 715.0 ml 660.0 ml Tube Feeding 720 ml 660 ml Output Urine Total 2000 ml 2100 ml # Bowel Movements 1 General Appearance: WD/WN HEENT: normocephalic, atraumatic Respiratory/Chest: chest wall non-tender, lungs clear Breasts: no masses Cardiovascular: normal peripheral pulses Abdomen: normal bowel sounds, soft, non tender Genitourinary: normal external genitalia Extremities: no cyanosis 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 Lymphatic: no neck adenopathy Laboratory Tests 10/06/17 04:30: Stool Occult Blood Negative 10/06/17 04:43: White Blood Count 7.8, Red Blood Count 3.40L, Hemoglobin 10.2L, Hematocrit 31.1L , Mean Corpuscular Volume 92, Mean Corpuscular Hemoglobin 30.0, Mean Corpuscular Hemoglobin Concent 32.8, Red Cell Distribution Width 16.0H, Platelet Count 231, Mean Platelet Volume 7.1, Neutrophils (%) (Auto) 44.9L, Lymphocytes (%) (Auto) 41.0, Monocytes (%) (Auto) 8.3, Eosinophils (%) (Auto) 5.2H, Basophils (%) (Auto) 0.6, Sodium Level 136, Potassium Level 4.0, Chloride Level 98, Carbon Dioxide Level 32, Anion Gap 6, Blood Urea Nitrogen 17, Creatinine 1.1, Estimat Glomerular Filtration Rate , Glucose Level 163H, Calcium Level 8.6, Total Bilirubin 0.5, Aspartate Amino Transf (AST/SGOT) 27, Alanine Aminotransferase (ALT/SGPT) 14, Alkaline Phosphatase 88, Pro-B-Type Natriuretic Peptide 2443H, Total Protein 8.5H, Albumin 2.1L, Globulin 6.4, Albumin/Globulin Ratio 0.3L Current Medications Medications (Trade) Dose Ordered Sig/Mora Route PRN Reason Start Time Stop Time Status Last Admin Dose Admin Acetaminophen (Tylenol) 650 mg Q4H PRN RECTAL Mild Pain (Pain Scale 1-3) 09/27/17 17:00 10/27/17 16:59 Al Hydroxide/Mg Hydroxide (Mylanta II) 30 ml Q6H PRN ORAL dyspepsia 09/27/17 17:00 10/27/17 16:59 Albuterol/ Ipratropium (Albuterol/ Ipratropium) 3 ml Q4H PRN HHN Shortness of Breath 10/06/17 11:30 10/11/17 11:29 Aspirin (ASA) 81 mg DAILY ORAL 09/28/17 09:00 10/28/17 08:59 10/06/17 09:02 Chlorhexidine Gluconate (Ann-Hex 2%) 1 applic DAILY@1999 TOPIC 09/28/17 20:00 10/28/17 19:59 10/05/17 21:02 Dextrose (Dextrose 50%) STAT PRN IV Hypoglycemia 09/27/17 17:00 10/27/17 16:59 Docusate Sodium (Colace) 100 mg TWICE A DAY GT 10/03/17 10:00 11/02/17 09:59 10/06/17 09:02 Furosemide (Lasix) 20 mg DAILY IV 10/01/17 16:00 10/31/17 15:59 10/06/17 09:02 Heparin Sodium (Porcine) (Heparin 5000 units/ml) 5,000 units EVERY 12 HOURS SUBQ 09/28/17 09:00 10/28/17 08:59 10/06/17 09:03 Metoprolol Tartrate (Lopressor) 12.5 mg Q12HR GT 10/01/17 21:00 10/31/17 20:59 10/06/17 09:02 Morphine Sulfate (Morphine Sulfate) 2 mg Q4H PRN IVP For Pain 10/06/17 11:00 10/13/17 10:59 10/06/17 10:55 Nitroglycerin (Ntg) 0.4 mg Q5M PRN SL Prn Chest Pain 09/27/17 17:00 10/27/17 16:59 Pantoprazole (Protonix) 40 mg DAILY IV 09/28/17 09:00 10/28/17 08:59 10/06/17 09:04 Piperacillin Sod/ Tazobactam Sod 3.375 gm/Sodium Chloride 110 ml @ 27.5 mls/hr EVERY 8 HOURS IVPB 10/01/17 14:00 10/08/17 13:59 10/06/17 06:51 Polymyxin B Sulfate 513966 units/Dextrose 550 ml @ 550 mls/hr Q12H IV 09/30/17 13:30 10/07/17 13:29 10/06/17 02:04 JAYLEN ANNE Oct 06, 2017 12:42
[2017-10-06] MEDS ORDERED: Tubing IV Secondary IV ONE (13:31)
[2017-10-06] MEDS ORDERED: NS 500ML ONE (13:31)
--- NOTE | 2017-10-07 15:10 | Discharge Summary ---
Discharge Summary Hospital Course Date of Admission Sep 27, 2017 at 12:15 Date of Discharge Oct 06, 2017 at 13:32 Admitting Diagnosis respiratory distress HPI Sherin Hanna is a 87 year old female who was admitted on Sep 27, 2017 at 12:15 for Respiratory Distress Hospital Course [id number] Discharge Discharge Disposition Patient was discharged to snf Discharge Diagnoses: Ramonita Virgen NP Oct 07, 2017 15:10
--- NOTE | 2017-10-07 21:00 | Discharge Summary 2 SIG ---
DATE OF ADMISSION: 09/27/2017 DATE OF DISCHARGE: 10/06/2017 CONSULTANTS: 1. Jose Coleman M.D. 2. Eber Fuller M.D. 3. Lynne Donahue M.D. 4. Ayden Littlejohn M.D. BRIEF HOSPITAL COURSE: The patient is an 87-year-old female, residential resident, nonverbal with percutaneous endoscopic gastrostomy, trach, and DNR status, presented with shortness of breath. On evaluation, was found to be hypoxic, tachypneic, and hypotensive. Central line was inserted to the left internal jugular vein and trach tube was connected to ventilator. She was started on norepinephrine. Blood work showed elevated troponin. Heparin drip was started. She was given initially vancomycin and Zosyn. Chest x-ray showed cardiomegaly with pulmonary congestion. She was then admitted to intensive care unit. She required pressure support. Initially was on IV pressors. Following day was taken off IV pressors and was downgraded to step-down unit. The patient had septic shock likely secondary to pneumonia. Troponin levels were down trending. The patient rhythm has reverted back to normal sinus from atrial fibrillation. She was given beta-blockers. There was a drop in hemoglobin. Anticoagulations were placed on hold. Culture showed growth of gram-negative bacteria, suspect possible line contamination. Blood culture with group G Strep, MDR, KPC, and Providencia. Echocardiogram done showed no vegetations and no valvular abnormalities. The patient needed urgent removal of left internal jugular access. Dr. Littlejohn was consulted and a right subclavian central venous triple-lumen catheter was inserted. Left IJ was removed. She was given Zosyn for pneumonia and ESBL urinary tract infection and polymyxin for KPC pneumonia bacteremia. Stenotrophomonas in sputum likely contaminant. There was no obvious active infiltrates based on chest x-ray. Stool OB was negative. She was given Plavix for atrial fibrillation. The patient was eventually discharged back to [facility]. FINAL DIAGNOSES: 1. Severe sepsis. 2. Septic shock, likely secondary to pneumonia and bacteremia and urinary tract infection. 3. Polymicrobial bacteremia, suspect possible line contaminant. 4. Acute on chronic respiratory failure. 5. Anemia with sudden drop in hemoglobin and hematocrit. 6. Chronic obstructive pulmonary disease. 7. Hyperkalemia. 8. Paroxysmal atrial fibrillation. 9. Dementia. 10. Old cerebrovascular accident. 11. Percutaneous endoscopic gastrostomy tube status. 12. [facility] resident. 13. Do Not Resuscitate. 14. Demand ischemia due to sepsis and heart failure. 15. Full thickness scar present on admission. Refer to wound documentation. DISCHARGE MEDICATIONS: Refer to medication list. Sonu Vidales M.D. I have been assigned to dictate discharge summary on this account and I was not involved in the patient's management. Ramonita Virgen N.P. DR: TANI JOB#: [id number] CC:
== END 2017-10-06 13:32 | DRG 870 ==
LOC: EDBD 11:18 → EMR 11:32 → 2W 12:15 → EDBEDREQ 13:00 → EDBEDREQSVC 14:19 → EDBEDREQ 09-28 00:15 → EDBEDREQSVC 09-28 00:15 → EDBEDREQ 09-28 01:26
PROC: 05HN33Z Insertion of Infusion Device into Left Internal Jugular Vein, Percutaneous Approach (ICD-10-PCS; principal; 2017-09-27)
PROC: 5A1955Z Respiratory Ventilation, Greater than 96 Consecutive Hours (ICD-10-PCS; principal; 2017-09-27)
PROC: 05H533Z Insertion of Infusion Device into Right Subclavian Vein, Percutaneous Approach (ICD-10-PCS; 2017-10-01)
DX: A41.9 Sepsis, unspecified organism (principal); I21.4 Non-ST elevation (NSTEMI) myocardial infarction; J96.20 Acute and chronic respiratory failure, unspecified whether with hypoxia or hypercapnia; J18.9 Pneumonia, unspecified organism; R65.21 Severe sepsis with septic shock; N17.9 Acute kidney failure, unspecified; J44.0 Chronic obstructive pulmonary disease with (acute) lower respiratory infection; Z93.0 Tracheostomy status; I50.9 Heart failure, unspecified; N39.0 Urinary tract infection, site not specified; R71.0 Precipitous drop in hematocrit; T80.211A Bloodstream infection due to central venous catheter, initial encounter; I48.0 Paroxysmal atrial fibrillation; R13.10 Dysphagia, unspecified; Z93.1 Gastrostomy status; E87.5 Hyperkalemia; Z66 Do not resuscitate; Z86.73 Personal history of transient ischemic attack (TIA), and cerebral infarction without residual deficits; F03.90 Unspecified dementia, unspecified severity, without behavioral disturbance, psychotic disturbance, mood disturbance, and anxiety; E86.0 Dehydration; Z79.01 Long term (current) use of anticoagulants; D50.9 Iron deficiency anemia, unspecified
CPT/HCPCS: 36415; 36600; 71010; 71045; 80048; 80053; 80061; 80202; 81003; 82270; 82550; 82607; 82728; 82747; 82803; 82962; 83540; 83550; 83605; 83880; 84443; 84484; 85025; 85610; 85730; 87040; 87070; 87081; 87086; 87181; 87205; 93005; 93306; 94002; 94003; 94640; J7620; J8499

== ENCOUNTER 2017-11-17 04:41 | Inpatient (IN) | payer MEDICARE, MEDICAID ==
[2017-11-17] VITALS (8 sets, daily range): BP systolic 101–148; BP diastolic 51–84
[~2017-11-17] VITALS: Ht 162.6 cm; Wt 104.3 kg
[~2017-11-17 04:41] MED LIST changes: +ASCORBIC ACID500 MG GT; +HEPARIN SO5000 UNIT2 SUBQ; +IPRATROPIU0.2 MG/1 M HHN; +METOPROLOL TART25 MG GT; +MIRALAX17 GM GT; +RANITIDINE HCL150 MG GT; +ZOFRAN4 M3 GT
[2017-11-17] MEDS ORDERED: HEPARIN2000 UNIT/ SUBQ (05:22)
[2017-11-17] MEDS ORDERED: MILK OF MA2400 MG/10 GT (05:22)
[2017-11-17] MEDS ORDERED: BISACODYL5 MG GT (05:22)
[2017-11-17] MEDS ORDERED: NORCO 5-325 TA1 EAC1 GT (05:22)
[2017-11-17] MEDS ORDERED: PERIDEX15 ML MM (05:22)
[2017-11-17] MEDS ORDERED: ATIVAN1 MG GT (05:22)
[2017-11-17] MEDS ORDERED: [UNRECOGNIZED DRUG - OTHER] MM (05:22)
--- NOTE | 2017-11-17 05:28 | Emergency Room Report ---
History of Present Illness General Chief Complaint: Dyspnea/Respdistress Source: Medical Record, EMS, PMD Present Illness HPI This is an unfortunate 87-year-old female with a history of CVA, pneumonia, sepsis and his bedbound the dependent. She is a DO NOT RESUSCITATE. She presents with shortness of breath and no noted fever or chills. No nausea no vomiting. Onset tonight. Similar symptom in the past. Unable to get any history from patient because of her condition. She is nonverbal. Allergies: Coded Allergies: No Known Allergies (Unverified , 05/31/12) Patient History Past Medical History: see triage record, old chart reviewed Past Surgical History: other Pertinent Family History: none Social History: Denies: smoking Now: No Immunizations: other Reviewed Nursing Documentation: PMH: Agreed, PSxH: Agreed Nursing Documentation-PMH Hx Hypertension: Yes - anemia Hx Asthma: No Hx COPD: Yes - Acute Resp Failure, trach Hx Cancer: No Hx Gastrointestinal Problems: Yes - GERD, gastrostomy Hx Cerebrovascular Accident: Yes Hx Transient Ischemic Attacks: No Hx Dementia: Yes Hx Alzheimer's Disease: No Hx Parkinson's Disease: No Hx Meningitis: No Hx Encephalitis: No Hx Seizures: No Hx Epilepsy: No Hx Multiple Sclerosis: No Hx Cerebral Palsy: No Hx Amyotrophic Lat Sclerosis: No Hx Gu[employer] Syndrome: No Hx Paralysis: No Hx Peripheral Neuropathy: No Hx Spinal Cord Injury: No Hx Head Trauma: No Hx Traumatic Brain Injury: No Hx Memory Loss: No Hx Concentration Difficulty: No Hx Tremors: No Hx Vertigo: No Hx Dizziness: No Hx Syncope: No Hx Weakness: Yes Review of Systems Respiratory: Reports: shortness of breath All Other Systems: limited - Patient is nonverbal Physical Exam Vital Signs Date Time Temp Pulse Resp B/P (MAP) Pulse Ox O2 Delivery O2 Flow Rate FiO2 11/17/17 04:30 110 22 127/74 97 Ambu-Bag 15.0 11/17/17 04:43 40 vitals unremarkable Sp02 EP Interpretation: reviewed, normal General Appearance: well appearing, no apparent distress, alert, obese Head: normocephalic, atraumatic Eyes: bilateral eye PERRL, bilateral eye EOMI ENT: dry mucus membranes Neck: full range of motion, supple, no meningismus Respiratory: chest non-tender, decreased breath sounds, other - Distant breath sound Cardiovascular #1: regular rate, rhythm, no murmur Gastrointestinal: normal bowel sounds, non tender, no mass, no organomegaly, no bruit, non-distended Musculoskeletal: other - Contracted Neurologic: other - Left-sided weakness. Skin: warm/dry, other - Diffuse edema Procedures Central Line Central Line : Consent: Emergent Central Line Lumen: triple Maximal Sterile Barrier Tech: yes cap, yes mask, yes sterile gown, yes sterile gloves, yes large sterile sheet, yes hand hygiene, yes chlorhexidine prep Central Line Postion: femoral (L) Complications: none Central Line Post Position: sutured Attempts: One Patient Tolerated: Well Complications: None Progress Initially attempted to do the right femoral triple-lumen. She had one done previously. She still has sutures in. Was able to access the vein but unable to cannulate. Every time I aspirated back and would get clots. Because of this , went to the left femoral vein. He was cannulated easily under sterile condition. Medical Decision Making Diagnostic Impression: Primary Impression: Aspiration pneumonia Qualified Codes: J69.0 - Pneumonitis due to inhalation of food and vomit ER Course Patient is with dyspnea. Chest x-ray showed possible aspiration pneumonia. She grew out Pseudomonas and Stenotrophomonas in her sputum unless admission. Both are sensitive to Zosyn and Levaquin. Start her on the antibiotics. She is otherwise medically stable. Will admit for IV antibiotics. Dr. Vidales is patient's PCP in the SNF but pt has [facility] IPA. Most recent [facility] dated Nov 07, [address] Hernandez as hospitalist. Dr. Hernandez accepted pt for admission. Lab Results Impression labs unremarkable EKG Diagnostic Results Rate: normal Rhythm: other ST Segments: other - nonspecific changes. lots of baseline motion. Rhythm Strip Diag. Results Rhythm Strip Time: 06:16 EP Interpretation: yes Rate: 105 Rhythm: NSR, no PVC's, no ectopy Chest X-Ray Diagnostic Results Chest X-Ray Diagnostic Results : Chest X-Ray Ordered: Yes # of Views/Limited/Complete: 1 View Indication: Shortness of Breath EP Interpretation: Yes Interpretation: no effusion, no pneumothorax, other - Right lower lobe infiltrate Impression: Other - RLL infiltrate Electronically Signed by: Conrad Lloyd MD Last Vital Signs Date Time Temp Pulse Resp B/P (MAP) Pulse Ox O2 Delivery O2 Flow Rate FiO2 11/17/17 04:43 110 13 40 11/17/17 04:43 Mechanical Ventilator 11/17/17 04:30 127/74 97 15.0 Status: improved Disposition: ADMITTED INPATIENT Referrals: JAYLEN VIDALES (PCP) CONRAD LLOYD M.D. Nov 17, 2017 05:28
[2017-11-17] MEDS ORDERED: NS 1000ml 3,100 ML IVLG ONE (05:30)
[2017-11-17] MEDS ORDERED: Piperacillin/Tazobactam 3.375 GM in NS 110 ML IVPB ONE (05:45)
[2017-11-17] MEDS ORDERED: Zosyn 3.375gm inj ONE (05:46)
[2017-11-17 05:55] LABS: BASOPHILS % (AUTO) 0.6 % (0.0-2.0); EOSINOPHILS % (AUTO) 0.5 % (0.0-3.0); HEMATOCRIT 33.1 % (37.0-47.0); HEMOGLOBIN 10.4 G/DL (12.0-16.0); LYMPHOCYTES % (AUTO) 16.1 % (20.0-45.0); MEAN CORPUSCULAR VOLUME 90 FL (80-99); MONOCYTES % (AUTO) 9.3 % (1.0-10.0); NEUTROPHILS % (AUTO) 73.5 % (45.0-75.0); PLATELET COUNT 215 K/UL (150-450); RED BLOOD COUNT 3.66 M/UL (4.20-5.40); RED CELL DISTRIBUTION WIDTH 16.4 % (11.6-14.8); WHITE BLOOD COUNT 11.9 K/UL (4.8-10.8)
[2017-11-17 06:01] LABS: BILIRUBIN, URINE NEGATIVE (NEGATIVE); GLUCOSE, URINE (UA) NEGATIVE (NEGATIVE); KETONES,URINE NEGATIVE (NEGATIVE); NITRITE,URINE NEGATIVE (NEGATIVE); PH,URINE 5 (4.5-8.0); PROTEIN,URINE 2+ (NEGATIVE); UROBILINOGEN,URINE 1 MG/DL (0.0-1.0)
[2017-11-17 06:04] LABS: ANION GAP 3 mmol/L (5-15); BLOOD UREA NITROGEN 23 mg/dL (7-18); CALCIUM 9.5 MG/DL (8.5-10.1); CARBON DIOXIDE 31 MMOL/L (21-32); CHLORIDE 100 MMOL/L (98-107); CREATININE 0.8 MG/DL (0.55-1.30); POTASSIUM 4.2 MMOL/L (3.5-5.1); SODIUM 134 MMOL/L (136-145)
[2017-11-17 06:18] LABS: ALANINE AMINOTRANSFERASE 43 U/L (12-78); ALBUMIN 2.4 G/DL (3.4-5.0); ALBUMIN/GLOBULIN RATIO 0.3 (1.0-2.7); ALKALINE PHOSPHATASE 113 U/L (46-116); ASPARTATE AMINO TRANSFERASE 30 U/L (15-37); BILIRUBIN,TOTAL 0.3 MG/DL (0.2-1.0); CKMB 1.7 NG/ML (0.0-3.6); CREATINE KINASE 66 U/L (26-308)
[2017-11-17 06:24] LABS: APPEARANCE,URINE CLOUDY; COLOR,URINE YELLOW; LEUKOCYTE ESTERASE ,URINE 2+ (NEGATIVE)
[2017-11-17] MEDS ORDERED: Miralax 17gm pkt ORAL PRN (06:45)
[2017-11-17] MEDS ORDERED: Albuterol/Ipratropium 3ml neb HHN PRN (06:45)
[2017-11-17] MEDS ORDERED: Mylanta II UD 30ml ORAL PRN (06:45)
[2017-11-17] MEDS ORDERED: Promethazine/Codeine 5ml UD ORAL PRN (06:45)
[2017-11-17] MEDS ORDERED: Nitroglycerin Subl 0.4mg tab SL PRN (06:45)
--- NOTE | 2017-11-17 06:45 | History and Physical ---
History of Present Illness General Date patient seen: Nov 17, 2017 Reason for Hospitalization: Dyspnea/Respdistress Present Illness HPI 87-year-old female with a history of CVA, pneumonia, sepsis and his bedbound the dependent, trach/vent She is a DO NOT RESUSCITATE. She presented to er with shortness of breath s. No nausea no vomiting. Unable to get any history from patient because of her condition. She is nonverbal. Initial CXR showed new RLL infiltrate and she is admitted to [facility] for further evaluation. Allergies: Coded Allergies: No Known Allergies (Unverified , 05/31/12) Medication History Scheduled Albuterol Sulfate* (Albuterol Sulfate Hhn*), 3 ML INH Q6H, (Reported) Ascorbic Acid* (Ascorbic Acid*), 500 MG GT BID, (Reported) Chlorhexidine Gluconate (Peridex), 15 ML MM Q12HR, (Reported) Cranberry Extract (Cranberry), 425 MG GT DAILY, (Reported) Heparin Sod (Porcine) (Heparin Sodium*), 5,000 UNITS SUBQ EVERY 12 HOURS, ( Reported) Hydrogen Peroxide (Oral Cleanser), 15 ML MM BID, (Reported) Ipratropium [place] 0.5MG/2.5ML (Ipratropium [place] 0.5MG/2.5ML), 0.5 MG HHN Q6H, (Reported) Metoprolol Tartrate* (Metoprolol Tartrate*), 50 MG GT BID, (Reported) Multivitamin With Minerals (Multivitamins With Minerals*), 1 TAB GT DAILY, ( Reported) Ranitidine Hcl* (Zantac*), 150 MG GT QHS, (Reported) Zinc Sulfate (Zinc Sulfate*), 220 MG GT DAILY, (Reported) Scheduled PRN Acetaminophen (Acetaminophen), 650 MG GT Q4HR PRN for Mild Pain/Temp > 100.5, ( Reported) Albuterol Sulfate* (Albuterol Sulfate Hhn*), 3 ML INH Q2H PRN for Shortness of Breath, (Reported) Bisacodyl* (Dulcolax*), 5 MG GT DAILY PRN for Constipation, (Reported) Hydrocodone Bit/Acetaminophen 5-325* ([place] 5-325 Tablet*), 1 TAB GT Q4H PRN for For Pain, (Reported) Ipratropium [place] 0.5MG/2.5ML (Ipratropium [place] 0.5MG/2.5ML), 0.5 MG HHN Q2H PRN for Shortness of Breath, (Reported) Lorazepam* (Ativan*), 1 MG GT Q6HR PRN for For Anxiety, (Reported) Magnesium Hydroxide* (Milk Of Magnesia*), 15 ML GT DAILY PRN for Constipation, ( Reported) Ondansetron* (Zofran*), 4 MG GT Q6H PRN for Nausea & Vomiting, (Reported) Polyethylene Glycol* (Miralax*), 17 GM GT DAILY PRN for Constipation, (Reported) Miscellaneous Medications Heparin Sodium,Porcine/Ns/Pf (Heparin), 5,000 UNIT SUBQ, (Reported) Patient History Healthcare decision maker Resuscitation status Advanced Directive on File Past Medical/Surgical History Past Medical/Surgical History: (1) Attention to G-tube (2) COPD (chronic obstructive pulmonary disease) Review of Systems All Other Systems: negative except mentioned in HPI Physical Exam General Appearance: WD/WN Lines, tubes and drains: peripheral HEENT: normocephalic Neck: non-tender, normal alignment Respiratory/Chest: chest wall non-tender, lungs clear Breasts: no masses Cardiovascular/Chest: normal peripheral pulses Genitourinary/Rectal: normal genital exam Extremities: normal range of motion Skin Exam: normal pigmentation 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 Last 24 Hour Vital Signs Date Time Temp Pulse Resp B/P (MAP) Pulse Ox O2 Delivery O2 Flow Rate FiO2 11/17/17 06:11 98.1 13 144/82 97 Mechanical Ventilator 15.0 40 98.1 11/17/17 05:09 98.1 13 127/74 97 Mechanical Ventilator 15.0 40 98.1 11/17/17 05:09 110 13 Mechanical Ventilator 15.0 40 11/17/17 04:43 110 13 40 11/17/17 04:43 110 13 Mechanical Ventilator 40 11/17/17 04:30 110 22 127/74 97 Ambu-Bag 15.0 Intake and Output 11/16/17 11/17/17 19:00 07:00 Intake Total 0 ml Balance 0 ml Intake Oral 0 ml Laboratory Tests Test 11/17/17 05:18 White Blood Count 11.9 K/UL (4.8-10.8) H Red Blood Count 3.66 M/UL (4.20-5.40) L Hemoglobin 10.4 G/DL (12.0-16.0) L Hematocrit 33.1 % (37.0-47.0) L Mean Corpuscular Volume 90 FL (80-99) Mean Corpuscular Hemoglobin 28.3 PG (27.0-31.0) Mean Corpuscular Hemoglobin Concent 31.3 G/DL (32.0-36.0) L Red Cell Distribution Width 16.4 % (11.6-14.8) H Platelet Count 215 K/UL (150-450) Mean Platelet Volume 7.0 FL (6.5-10.1) Neutrophils (%) (Auto) 73.5 % (45.0-75.0) Lymphocytes (%) (Auto) 16.1 % (20.0-45.0) L Monocytes (%) (Auto) 9.3 % (1.0-10.0) Eosinophils (%) (Auto) 0.5 % (0.0-3.0) Basophils (%) (Auto) 0.6 % (0.0-2.0) Prothrombin Time 10.6 SEC (9.30-11.50) Prothromb Time International Ratio 1.0 (0.9-1.1) Activated Partial Thromboplast Time 25 SEC (23-33) Urine Color Yellow Urine Appearance Cloudy Urine pH 5 (4.5-8.0) Urine Specific [place] 1.025 (1.005-1.035) Urine Protein 2+ (NEGATIVE) H Urine Glucose (UA) Negative (NEGATIVE) Urine Ketones Negative (NEGATIVE) Urine Occult Blood 5+ (NEGATIVE) H Urine Nitrite Negative (NEGATIVE) Urine Bilirubin Negative (NEGATIVE) Urine Urobilinogen 1 MG/DL (0.0-1.0) H Urine Leukocyte Esterase 2+ (NEGATIVE) H Urine RBC 40-60 /HPF (0 - 2) H Urine WBC 15-20 /HPF (0 - 2) H Urine Squamous Epithelial Cells Many /LPF (NONE/OCC) H Urine Amorphous Sediment Many /LPF (NONE) H Urine Bacteria Moderate /HPF (NONE) H Sodium Level 134 MMOL/L (136-145) L Potassium Level 4.2 MMOL/L (3.5-5.1) Chloride Level 100 MMOL/L (98-107) Carbon Dioxide Level 31 MMOL/L (21-32) Anion Gap 3 mmol/L (5-15) L Blood Urea Nitrogen 23 mg/dL (7-18) H Creatinine 0.8 MG/DL (0.55-1.30) Estimat Glomerular Filtration Rate mL/min (>60) Glucose Level 136 MG/DL (74-106) H Lactic Acid Level 1.00 mmol/L (0.66-2.22) Calcium Level 9.5 MG/DL (8.5-10.1) Total Bilirubin 0.3 MG/DL (0.2-1.0) Aspartate Amino Transf (AST/SGOT) 30 U/L (15-37) Alanine Aminotransferase (ALT/SGPT) 43 U/L (12-78) Alkaline Phosphatase 113 U/L (46-116) Total Creatine Kinase 66 U/L (26-308) Creatine Kinase MB 1.7 NG/ML (0.0-3.6) Creatine Kinase MB Relative Index 2.5 Troponin I 0.342 ng/mL (0.000-0.056) Total Protein 9.9 G/DL (6.4-8.2) H Albumin 2.4 G/DL (3.4-5.0) L Globulin 7.5 g/dL Albumin/Globulin Ratio 0.3 (1.0-2.7) L Height (Feet): 5 Height (Inches): 4.00 Weight (Pounds): 230 Medications Current Medications Medications (Trade) Dose Ordered Sig/Mora Route PRN Reason Start Time Stop Time Status Last Admin Dose Admin Levofloxacin 150 ml @ 100 mls/hr NOW ONCE IVPB 11/17/17 05:45 11/17/17 07:14 11/17/17 05:47 Assessment/Plan Problem List: (1) Acute and chronic respiratory failure ICD Codes: J96.20 - Acute and chronic respiratory failure, unspecified whether with hypoxia or hypercapnia SNOMED: 84907988 (2) Attention to G-tube ICD Codes: Z43.1 - Encounter for attention to gastrostomy SNOMED: 012507303, 969559602 (3) COPD (chronic obstructive pulmonary disease) ICD Codes: J44.9 - Chronic obstructive pulmonary disease, unspecified SNOMED: 53365287 (4) Aspiration pneumonia ICD Codes: J69.0 - Pneumonitis due to inhalation of food and vomit SNOMED: 024739214 Qualifiers: Qualified Codes: J69.0 - Pneumonitis due to inhalation of food and vomit Assessment/Plan respiratory treatment titrate vent setting iv abx check cultures check sputum dvt porphylaxis continue gtube feeding. JAYLEN ANNE Nov 17, 2017 06:45
--- NOTE | 2017-11-17 10:43 | Diagnostic Imaging Report ---
Indication: Dyspnea Comparison: 10/06/2017 A single view chest radiograph was obtained. Findings: Basilar parenchymal densities demonstrated. In addition the heart is enlarged and pulmonary vascularity/interstitial is diffusely prominent. Bones are osteopenic. Tracheostomy noted. IMPRESSION: Probable mild interstitial edema. Suspected basilar infiltrates. Please correlate for pneumonia
[2017-11-17] MEDS: Metoprolol Tartrate 50mg tab GT SCH ×2 (11:41→18:00)
[2017-11-17] MEDS: Cefepime HCl 1 GM in NS 55 ML IV SCH (11:42)
[2017-11-17] MEDS: Heparin 5000 units/ml inj SUBQ SCH ×2 (11:43→20:03)
[2017-11-17] MEDS: Vancomycin 1.5 GM/D5W 250ML IVPB SCH (12:29)
--- NOTE | 2017-11-17 17:37 | Consultation ---
History of Present Illness General Date patient seen: Nov 17, 2017 Time patient seen: 17:18 Chief Complaint: Dyspnea/Respdistress Present Illness HPI 87 y/o F with hx of CVA, PNA, bedbound, HTN, anemia, chronic resp failure trach dependant, dysphagia s/p PEG, hx of OM R calcaneus, dementia,[facility] resident non-verbal is brought to ED on 11/17 with 1 day onset of SOB. CXR showed new RLL infiltrate. No fever, chills, n/v Of note, patient recently admitted here from 09/27-10/06 where she presented with SOB and septic shock, elevated trops and K. She was found to have PNA and polymicrobial bacteremia (Cons, Group G sterp, MDR/KPC K.pna), providencia stuarti. Was treated with 10 days of Zosyn and 10 days of IV Polymixin B. Allergies: Coded Allergies: No Known Allergies (Unverified , 05/31/12) Medication History Scheduled Albuterol Sulfate* (Albuterol Sulfate Hhn*), 3 ML INH Q6H, (Reported) Ascorbic Acid* (Ascorbic Acid*), 500 MG GT BID, (Reported) Chlorhexidine Gluconate (Peridex), 15 ML MM Q12HR, (Reported) Cranberry Extract (Cranberry), 425 MG GT DAILY, (Reported) Heparin Sod (Porcine) (Heparin Sodium*), 5,000 UNITS SUBQ EVERY 12 HOURS, ( Reported) Hydrogen Peroxide (Oral Cleanser), 15 ML MM BID, (Reported) Ipratropium [place] 0.5MG/2.5ML (Ipratropium [place] 0.5MG/2.5ML), 0.5 MG HHN Q6H, (Reported) Metoprolol Tartrate* (Metoprolol Tartrate*), 50 MG GT BID, (Reported) Multivitamin With Minerals (Multivitamins With Minerals*), 1 TAB GT DAILY, ( Reported) Ranitidine Hcl* (Zantac*), 150 MG GT QHS, (Reported) Zinc Sulfate (Zinc Sulfate*), 220 MG GT DAILY, (Reported) Scheduled PRN Acetaminophen (Acetaminophen), 650 MG GT Q4HR PRN for Mild Pain/Temp > 100.5, ( Reported) Albuterol Sulfate* (Albuterol Sulfate Hhn*), 3 ML INH Q2H PRN for Shortness of Breath, (Reported) Bisacodyl* (Dulcolax*), 5 MG GT DAILY PRN for Constipation, (Reported) Hydrocodone Bit/Acetaminophen 5-325* ([place] 5-325 Tablet*), 1 TAB GT Q4H PRN for For Pain, (Reported) Ipratropium [place] 0.5MG/2.5ML (Ipratropium [place] 0.5MG/2.5ML), 0.5 MG HHN Q2H PRN for Shortness of Breath, (Reported) Lorazepam* (Ativan*), 1 MG GT Q6HR PRN for For Anxiety, (Reported) Magnesium Hydroxide* (Milk Of Magnesia*), 15 ML GT DAILY PRN for Constipation, ( Reported) Ondansetron* (Zofran*), 4 MG GT Q6H PRN for Nausea & Vomiting, (Reported) Polyethylene Glycol* (Miralax*), 17 GM GT DAILY PRN for Constipation, (Reported) Miscellaneous Medications Heparin Sodium,Porcine/Ns/Pf (Heparin), 5,000 UNIT SUBQ, (Reported) Patient History Healthcare decision maker Resuscitation status Do Not Resuscitate Advanced Directive on File No Patient History Narrative Pmhx: as above Shx: lives in [facility]. unable to obtain Fhx: non contributory Review of Systems ROS Narrative unable to obtain Physical Exam Physical Exam Narrative General Appearance: well appearing, no apparent distress, alert, obese Head: normocephalic, atraumatic Eyes: bilateral eye PERRL, bilateral eye EOMI ENT: dry mucus membranes Neck: full range of motion, supple, no meningismus Respiratory: chest non-tender, decreased breath sounds, other - Distant breath sound Cardiovascular #1: regular rate, rhythm, no murmur Gastrointestinal: normal bowel sounds, non tender, no mass, no organomegaly, no bruit, non-distended Musculoskeletal: other - Contracted Neurologic: other - Left-sided weakness. Skin: warm/dry, other - Diffuse edema Last 24 Hour Vital Signs Date Time Temp Pulse Resp B/P (MAP) Pulse Ox O2 Delivery O2 Flow Rate FiO2 11/17/17 16:00 15.0 40 11/17/17 14:58 90 12 40 11/17/17 12:44 86 12 40 11/17/17 12:00 98.0 89 17 101/58 100 Mechanical Ventilator 40 11/17/17 12:00 15.0 40 11/17/17 12:00 90 11/17/17 11:41 95 148/75 11/17/17 10:58 95 12 40 11/17/17 09:08 93 13 40 11/17/17 09:00 98.1 98 28 134/80 100 Mechanical Ventilator 15.0 40 98.1 11/17/17 09:00 15.0 40 11/17/17 09:00 78 11/17/17 09:00 97.8 103 20 148/75 99 Mechanical Ventilator 40 11/17/17 08:28 98 28 134/80 100 Mechanical Ventilator 40 11/17/17 07:52 30 148/84 100 Mechanical Ventilator 40 11/17/17 06:50 110 13 40 11/17/17 06:11 98.1 13 144/82 97 Mechanical Ventilator 15.0 40 98.1 11/17/17 05:09 98.1 13 127/74 97 Mechanical Ventilator 15.0 40 98.1 11/17/17 05:09 110 13 Mechanical Ventilator 15.0 40 11/17/17 04:43 110 13 40 11/17/17 04:43 110 13 Mechanical Ventilator 40 11/17/17 04:30 110 22 127/74 97 Ambu-Bag 15.0 Intake and Output 11/16/17 11/17/17 19:00 07:00 Intake Total 0 ml Balance 0 ml Intake Oral 0 ml Laboratory Tests Test 11/17/17 05:18 White Blood Count 11.9 K/UL (4.8-10.8) H Red Blood Count 3.66 M/UL (4.20-5.40) L Hemoglobin 10.4 G/DL (12.0-16.0) L Hematocrit 33.1 % (37.0-47.0) L Mean Corpuscular Volume 90 FL (80-99) Mean Corpuscular Hemoglobin 28.3 PG (27.0-31.0) Mean Corpuscular Hemoglobin Concent 31.3 G/DL (32.0-36.0) L Red Cell Distribution Width 16.4 % (11.6-14.8) H Platelet Count 215 K/UL (150-450) Mean Platelet Volume 7.0 FL (6.5-10.1) Neutrophils (%) (Auto) 73.5 % (45.0-75.0) Lymphocytes (%) (Auto) 16.1 % (20.0-45.0) L Monocytes (%) (Auto) 9.3 % (1.0-10.0) Eosinophils (%) (Auto) 0.5 % (0.0-3.0) Basophils (%) (Auto) 0.6 % (0.0-2.0) Prothrombin Time 10.6 SEC (9.30-11.50) Prothromb Time International Ratio 1.0 (0.9-1.1) Activated Partial Thromboplast Time 25 SEC (23-33) Urine Color Yellow Urine Appearance Cloudy Urine pH 5 (4.5-8.0) Urine Specific [place] 1.025 (1.005-1.035) Urine Protein 2+ (NEGATIVE) H Urine Glucose (UA) Negative (NEGATIVE) Urine Ketones Negative (NEGATIVE) Urine Occult Blood 5+ (NEGATIVE) H Urine Nitrite Negative (NEGATIVE) Urine Bilirubin Negative (NEGATIVE) Urine Urobilinogen 1 MG/DL (0.0-1.0) H Urine Leukocyte Esterase 2+ (NEGATIVE) H Urine RBC 40-60 /HPF (0 - 2) H Urine WBC 15-20 /HPF (0 - 2) H Urine Squamous Epithelial Cells Many /LPF (NONE/OCC) H Urine Amorphous Sediment Many /LPF (NONE) H Urine Bacteria Moderate /HPF (NONE) H Sodium Level 134 MMOL/L (136-145) L Potassium Level 4.2 MMOL/L (3.5-5.1) Chloride Level 100 MMOL/L (98-107) Carbon Dioxide Level 31 MMOL/L (21-32) Anion Gap 3 mmol/L (5-15) L Blood Urea Nitrogen 23 mg/dL (7-18) H Creatinine 0.8 MG/DL (0.55-1.30) Estimat Glomerular Filtration Rate mL/min (>60) Glucose Level 136 MG/DL (74-106) H Lactic Acid Level 1.00 mmol/L (0.66-2.22) Calcium Level 9.5 MG/DL (8.5-10.1) Total Bilirubin 0.3 MG/DL (0.2-1.0) Aspartate Amino Transf (AST/SGOT) 30 U/L (15-37) Alanine Aminotransferase (ALT/SGPT) 43 U/L (12-78) Alkaline Phosphatase 113 U/L (46-116) Total Creatine Kinase 66 U/L (26-308) Creatine Kinase MB 1.7 NG/ML (0.0-3.6) Creatine Kinase MB Relative Index 2.5 Troponin I 0.342 ng/mL (0.000-0.056) Total Protein 9.9 G/DL (6.4-8.2) H Albumin 2.4 G/DL (3.4-5.0) L Globulin 7.5 g/dL Albumin/Globulin Ratio 0.3 (1.0-2.7) L Height (Feet): 5 Height (Inches): 4.00 Weight (Pounds): 230 Medications Current Medications Medications (Trade) Dose Ordered Sig/Mora Route PRN Reason Start Time Stop Time Status Last Admin Dose Admin Acetaminophen (Tylenol) 650 mg Q4H PRN ORAL fever 11/17/17 06:45 12/17/17 06:44 Al Hydroxide/Mg Hydroxide (Mylanta II) 30 ml Q6H PRN ORAL dyspepsia 11/17/17 06:45 12/17/17 06:44 Albuterol/ Ipratropium (Albuterol/ Ipratropium) 3 ml Q4H PRN HHN Shortness of Breath 11/17/17 06:45 11/22/17 06:44 Cefepime HCl 1 gm/ Sodium Chloride 55 ml @ 110 mls/hr Q24H IV 11/17/17 09:00 11/24/17 08:59 11/17/17 11:42 Heparin Sodium (Porcine) (Heparin 5000 units/ml) 5,000 units EVERY 12 HOURS SUBQ 11/17/17 09:00 12/17/17 08:59 11/17/17 11:43 Metoprolol Tartrate (Lopressor) 50 mg BID GT 11/17/17 09:00 12/17/17 08:59 11/17/17 11:41 Nitroglycerin (Ntg) 0.4 mg Q5M PRN SL Prn Chest Pain 11/17/17 06:45 12/17/17 06:44 Ondansetron HCl (Zofran) 4 mg Q6H PRN IVP Nausea & Vomiting 11/17/17 06:45 12/17/17 06:44 Polyethylene Glycol (Miralax) 17 gm DAILYPRN PRN ORAL Constipation 11/17/17 06:45 12/17/17 06:44 Promethazine HCl/ Codeine (Phenergan with Codeine) 5 ml Q4H PRN ORAL For Cough 11/17/17 06:45 12/17/17 06:44 Temazepam (Restoril) 15 mg HSPRN PRN ORAL Insomnia 11/17/17 06:45 11/24/17 06:44 Vancomycin HCl (Vanco rx to dose) 1 ea DAILY PRN MISC Per rx protocol 11/17/17 06:45 12/17/17 06:44 Vancomycin HCl/ Dextrose 250 ml @ 125 mls/hr Q24H IVPB 11/17/17 10:00 11/22/17 09:59 11/17/17 12:29 Assessment/Plan Assessment/Plan Abx: IV Vanco/Cefepime 11/17- Zosyn x1 11/17 Leavquin x1 11/17 Assessment: SOB- possibly multifactorial due to pulmonary congestion and possible PNA -CXR: Probable mild interstitial edema. Suspected basilar infiltrates. Please correlate for pneumonia Mild leukocytosis -afebrile -u/a contaminated (many sq cells), wbc 15-20 Troponinemia Recent septic shock 2ry to PNA and polymicrobial bacteremia (~09/27/17); s/p 10 d zosyn, IV Polmyxin B -sp cx PSA (S Zosyn, Cefepime, cipro/levo), +2 S.maltophilia (S. Levo, R bactrim) -u/a no pyuria; ucx 30-40K Proteus mirablis ESBL (S zosyn, amikacin, gentamicin; R Cefepime); s/p quiroga exchange 10/01 -Bcx 09/27 2/4 CoNS, ,2/4 Group G Strep, 2/4 MDR/KPC K.pna ( S Tigecycline, Colistin, Polymixin B),1/4 Providencia stuartti (S. Zosyn, Cefepime); rpeat Bcx 09/27-7: Neg --Echo: no vegetations, no significant valve abnormalities --s/p LIJ removal 10/01, cath tip cx Neg chronic respiratory failure on trach CVA dementia hx of OM R calcaneus non verbal s/p PEG [facility] resident NKDA DNR/DNI Plan: - Continue empiric IV Vanco and Cefepime for now pending cultures -if HD decompensation, switch Cefepime to Meropenem -10/09 SP IV Polymixin B for KPC K, pna bacteremia -10/06 SP Zosyn #10 for PNA and ESBL UTI -10/01 SP Cefepime #2 -09/30 SP IV Vanco #4, Zosyn #4 -repeat u/a -influenza screen -f/u cx -monitor CBC/BMP, temperatures -peg/trach care, aspiration precautions Thank you for this consultation. Will continue to follow along with you. Discussed with Lynne Knox M.D. Nov 17, 2017 17:36
--- NOTE | 2017-11-17 21:17 | History and Physical Report ---
DATE OF ADMISSION: 11/17/2017 HISTORY OF PRESENT ILLNESS: This is an 87-year-old DNR patient, who is a alf resident/subacute resident. She has a chronic tracheostomy and chronic PEG. She was sent in to the hospital with shortness of breath. History is not obtainable from the patient as she is nonverbal. She was seen and worked up, it is noted that she recently was found to have pneumonia with evidence of Pseudomonas and Stenotrophomonas in the sputum. She was started on antibiotics. At this point, she is being re-admitted because of leukocytosis as well as low-grade fever. not obtainable. PAST MEDICAL HISTORY: As discussed above is notable for chronic respiratory failure, chronic G-tube, dementia, and DNR status. SURGERIES: Tracheostomy and G-tube. MEDICATIONS: List of home medications include albuterol, ascorbic acid, subcutaneous heparin, Atrovent, metoprolol, Zantac, zinc, as well as p.r.n. medications. REVIEW OF SYSTEMS: Not obtainable. PHYSICAL EXAMINATION: GENERAL: Reveals an elderly patient. HEENT: Unremarkable. CHEST: Shows diminished breath sounds bilaterally. ABDOMEN: Soft. G-tube is noted. Trach site is clean. EXTREMITIES: There is no edema. LABORATORY DATA: Lab tests notable for white count 11,000, otherwise normal CBC and BMP. Troponin 0.34. Albumin is 2.4. Coags are negative. Hemoglobin 10.4. Urinalysis shows 15 to 20 WBC. IMPRESSION: 1. Recent pneumonia. 2. Urinary tract infection. 3. Chronic respiratory failure. 4. Do Not Resuscitate. 5. Chronic gastrostomy tube. 6. Cognitive impairment. DISCUSSION: Admit to the hospital. I was contacted by the ER physician at 6:30 this morning to admit the patient. Due to status, I have accepted the patient. I note, however, there are already notes in place from Dr. Sonu Vidales. I will contact the ER physician to clarify my role as per insurance request. 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 She will resume antibiotics and home medications. Continue vent support. DVT prophylaxis. Resume G-tube. Joseph Hernandez M.D. DR: OSMANY JOB#: [id number] CC:
[2017-11-18] VITALS: BP 133/80
[2017-11-18 04:00] VITALS: BP 159/95
[2017-11-18 05:31] LABS: ANION GAP 5 mmol/L (5-15); BLOOD UREA NITROGEN 14 mg/dL (7-18); CALCIUM 9.4 MG/DL (8.5-10.1); CARBON DIOXIDE 26 MMOL/L (21-32); CHLORIDE 105 MMOL/L (98-107); CREATININE 0.6 MG/DL (0.55-1.30); PHOSPHORUS 2.5 MG/DL (2.5-4.9); POTASSIUM 4.7 MMOL/L (3.5-5.1); SODIUM 136 MMOL/L (136-145)
[2017-11-18 08:00] VITALS: BP 159/85
--- NOTE | 2017-11-18 08:13 | Pulmonology Progress Note ---
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, G tube functional quadriplegia HTN anemia dementia PLAN OF CARE MOISE vent support , trach care baseline ABG and titrate settings as needed pulmonary toilet fup with CXR Abx ID follows urine, influenza negative, blood cx prel negative strict aspiration/reflux precautions, GT feeding, monitor tolerance Monitor counts, transfuse prn DVT [id number] bowel regimen DNR/DNI status case discussed and evaluated by supervising physician Subjective Allergies: Coded Allergies: No Known Allergies (Unverified , 05/31/12) Subjective leukocytosis resolved, afebrile Objective Last 24 Hour Vital Signs Date Time Temp Pulse Resp B/P (MAP) Pulse Ox O2 Delivery O2 Flow Rate FiO2 11/18/17 06:57 95 14 30 11/18/17 05:26 90 14 30 11/18/17 04:00 15.0 40 11/18/17 04:00 90 11/18/17 04:00 97.5 96 20 159/95 100 Mechanical Ventilator 40 11/18/17 03:29 90 15 30 11/18/17 01:23 86 18 30 11/18/17 00:00 88 11/18/17 00:00 97.5 84 17 133/80 100 Mechanical Ventilator 40 11/17/17 23:20 85 17 30 11/17/17 20:35 88 18 40 11/17/17 20:00 97.2 81 16 129/81 100 Mechanical Ventilator 40 11/17/17 20:00 78 11/17/17 20:00 15.0 40 11/17/17 19:25 84 20 40 11/17/17 18:00 80 100/52 11/17/17 17:17 91 15 40 11/17/17 16:00 73 11/17/17 16:00 98.7 82 20 110/51 100 Mechanical Ventilator 40 11/17/17 16:00 15.0 40 11/17/17 14:58 90 12 40 11/17/17 12:44 86 12 40 11/17/17 12:00 98.0 89 17 101/58 100 Mechanical Ventilator 40 11/17/17 12:00 15.0 40 11/17/17 12:00 90 11/17/17 11:41 95 148/75 11/17/17 10:58 95 12 40 11/17/17 09:08 93 13 40 11/17/17 09:00 98.1 98 28 134/80 100 Mechanical Ventilator 15.0 40 98.1 11/17/17 09:00 15.0 40 11/17/17 09:00 78 11/17/17 09:00 97.8 103 20 148/75 99 Mechanical Ventilator 40 11/17/17 08:28 98 28 134/80 100 Mechanical Ventilator 40 Intake and Output 11/17/17 11/18/17 19:00 07:00 Intake Total 350 ml 620 ml Output Total 250 ml 1200 ml Balance 100 ml -580 ml Free Water 130 ml 50 ml Tube Feeding 220 ml 570 ml Output Urine Total 250 ml 1200 ml # Voids 1 # Bowel Movements 5 3 General Appearance: other - elderly, obese, bedridden, chronically ill, vent dependent female Vent AC 450-12-30 HEENT: normocephalic, atraumatic, status post trach - Shiley #6, secretions moderate, avila, thick Respiratory/Chest: decreased breath sounds Cardiovascular: regularly irregular - SR with frequent PAC, PVC Abdomen: normal bowel sounds, soft, non tender, other - G tube Extremities: other - traxce edema BLE Neurologic/Psychiatric: abnormal gait, other - nonverbal, spastiLE Musculoskeletal: atrophy - BLE Microbiology Date/Time Source Procedure Growth Status 11/17/17 05:18 Blood Blood Culture - Preliminary NO GROWTH AFTER 24 HOURS Resulted 11/17/17 05:10 Blood Blood Culture - Preliminary NO GROWTH AFTER 24 HOURS Resulted 11/17/17 20:40 Nasopharynx Influenza Types A,B Antigen (MARLYS) - Final Complete Laboratory Tests 11/18/17 04:00: Sodium Level 136, Potassium Level 4.7, Chloride Level 105, Carbon Dioxide Level 26, Anion Gap 5, Blood Urea Nitrogen 14, Creatinine 0.6, Estimat Glomerular Filtration Rate , Glucose Level 82, Calcium Level 9.4, Phosphorus Level 2.5, Albumin 2.0L Current Medications Medications (Trade) Dose Ordered Sig/Mora Route PRN Reason Start Time Stop Time Status Last Admin Dose Admin Acetaminophen (Tylenol) 650 mg Q4H PRN ORAL fever 11/17/17 06:45 12/17/17 06:44 Al Hydroxide/Mg Hydroxide (Mylanta II) 30 ml Q6H PRN ORAL dyspepsia 11/17/17 06:45 12/17/17 06:44 Albuterol/ Ipratropium (Albuterol/ Ipratropium) 3 ml Q4H PRN HHN Shortness of Breath 11/17/17 06:45 11/22/17 06:44 Cefepime HCl 1 gm/ Sodium Chloride 55 ml @ 110 mls/hr Q24H IV 11/17/17 09:00 11/24/17 08:59 11/17/17 11:42 Heparin Sodium (Porcine) (Heparin 5000 units/ml) 5,000 units EVERY 12 HOURS SUBQ 11/17/17 09:00 12/17/17 08:59 11/17/17 20:03 Metoprolol Tartrate (Lopressor) 50 mg BID GT 11/17/17 09:00 12/17/17 08:59 11/17/17 11:41 Nitroglycerin (Ntg) 0.4 mg Q5M PRN SL Prn Chest Pain 11/17/17 06:45 12/17/17 06:44 Ondansetron HCl (Zofran) 4 mg Q6H PRN IVP Nausea & Vomiting 11/17/17 06:45 12/17/17 06:44 Polyethylene Glycol (Miralax) 17 gm DAILYPRN PRN ORAL Constipation 11/17/17 06:45 12/17/17 06:44 Promethazine HCl/ Codeine (Phenergan with Codeine) 5 ml Q4H PRN ORAL For Cough 11/17/17 06:45 12/17/17 06:44 Temazepam (Restoril) 15 mg HSPRN PRN ORAL Insomnia 11/17/17 06:45 11/24/17 06:44 Vancomycin HCl (Vanco rx to dose) 1 ea DAILY PRN MISC Per rx protocol 11/17/17 06:45 12/17/17 06:44 Vancomycin HCl/ Dextrose 250 ml @ 125 mls/hr Q24H IVPB 11/17/17 10:00 11/22/17 09:59 11/17/17 12:29 Nereida Dunaway NP (Vanchtein) Nov 18, 2017 08:13
--- NOTE | 2017-11-18 08:23 | Pulmonology Progress Note ---
Assessment/Plan Assessment/Plan 1. Recent pneumonia. 2. Urinary tract infection. 3. Chronic respiratory failure. 4. Do Not Resuscitate. 5. Chronic gastrostomy tube. 6. Cognitive impairment. DISCUSSION: Admitted to the hospital. I was contacted by the ER physician on at 6 AM to admit the patient due to contractual arrangements. 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 Agree with broad spectrum antibiotics and continuing home/SNF medications. Continue vent support. DVT prophylaxis. Resume G-tube feedings. CXR is suspicious for infiltrates Await cultures Subjective Interval Events: Clinically unchanged; unresponsive on vent Constitutional: Reports: no symptoms HEENT: Repors: no symptoms Respiratory: Reports: no symptoms Cardiovascular: Reports: no symptoms Gastrointestinal/Abdominal: Reports: no symptoms Allergies: Coded Allergies: No Known Allergies (Unverified , 05/31/12) Objective Last 24 Hour Vital Signs Date Time Temp Pulse Resp B/P (MAP) Pulse Ox O2 Delivery O2 Flow Rate FiO2 11/18/17 06:57 95 14 30 11/18/17 05:26 90 14 30 11/18/17 04:00 15.0 40 11/18/17 04:00 90 11/18/17 04:00 97.5 96 20 159/95 100 Mechanical Ventilator 40 11/18/17 03:29 90 15 30 11/18/17 01:23 86 18 30 11/18/17 00:00 88 11/18/17 00:00 97.5 84 17 133/80 100 Mechanical Ventilator 40 11/17/17 23:20 85 17 30 11/17/17 20:35 88 18 40 11/17/17 20:00 97.2 81 16 129/81 100 Mechanical Ventilator 40 11/17/17 20:00 78 11/17/17 20:00 15.0 40 11/17/17 19:25 84 20 40 11/17/17 18:00 80 100/52 11/17/17 17:17 91 15 40 11/17/17 16:00 73 11/17/17 16:00 98.7 82 20 110/51 100 Mechanical Ventilator 40 11/17/17 16:00 15.0 40 11/17/17 14:58 90 12 40 11/17/17 12:44 86 12 40 11/17/17 12:00 98.0 89 17 101/58 100 Mechanical Ventilator 40 11/17/17 12:00 15.0 40 11/17/17 12:00 90 11/17/17 11:41 95 148/75 11/17/17 10:58 95 12 40 11/17/17 09:08 93 13 40 11/17/17 09:00 98.1 98 28 134/80 100 Mechanical Ventilator 15.0 40 98.1 11/17/17 09:00 15.0 40 11/17/17 09:00 78 11/17/17 09:00 97.8 103 20 148/75 99 Mechanical Ventilator 40 11/17/17 08:28 98 28 134/80 100 Mechanical Ventilator 40 Intake and Output 11/17/17 11/18/17 19:00 07:00 Intake Total 350 ml 620 ml Output Total 250 ml 1200 ml Balance 100 ml -580 ml Free Water 130 ml 50 ml Tube Feeding 220 ml 570 ml Output Urine Total 250 ml 1200 ml # Voids 1 # Bowel Movements 5 3 General Appearance: no acute distress HEENT: normocephalic Respiratory/Chest: chest wall non-tender, lungs clear Cardiovascular: normal peripheral pulses, normal rate Abdomen: normal bowel sounds Microbiology Date/Time Source Procedure Growth Status 11/17/17 05:18 Blood Blood Culture - Preliminary NO GROWTH AFTER 24 HOURS Resulted 11/17/17 05:10 Blood Blood Culture - Preliminary NO GROWTH AFTER 24 HOURS Resulted 11/17/17 20:40 Nasopharynx Influenza Types A,B Antigen (MARLYS) - Final Complete Laboratory Tests 11/18/17 04:00: Sodium Level 136, Potassium Level 4.7, Chloride Level 105, Carbon Dioxide Level 26, Anion Gap 5, Blood Urea Nitrogen 14, Creatinine 0.6, Estimat Glomerular Filtration Rate , Glucose Level 82, Calcium Level 9.4, Phosphorus Level 2.5, Albumin 2.0L Current Medications Medications (Trade) Dose Ordered Sig/Mora Route PRN Reason Start Time Stop Time Status Last Admin Dose Admin Acetaminophen (Tylenol) 650 mg Q4H PRN ORAL fever 11/17/17 06:45 12/17/17 06:44 Al Hydroxide/Mg Hydroxide (Mylanta II) 30 ml Q6H PRN ORAL dyspepsia 11/17/17 06:45 12/17/17 06:44 Albuterol/ Ipratropium (Albuterol/ Ipratropium) 3 ml Q4H PRN HHN Shortness of Breath 11/17/17 06:45 11/22/17 06:44 Cefepime HCl 1 gm/ Sodium Chloride 55 ml @ 110 mls/hr Q24H IV 11/17/17 09:00 11/24/17 08:59 11/17/17 11:42 Heparin Sodium (Porcine) (Heparin 5000 units/ml) 5,000 units EVERY 12 HOURS SUBQ 11/17/17 09:00 12/17/17 08:59 11/17/17 20:03 Metoprolol Tartrate (Lopressor) 50 mg BID GT 11/17/17 09:00 12/17/17 08:59 11/17/17 11:41 Nitroglycerin (Ntg) 0.4 mg Q5M PRN SL Prn Chest Pain 11/17/17 06:45 12/17/17 06:44 Ondansetron HCl (Zofran) 4 mg Q6H PRN IVP Nausea & Vomiting 11/17/17 06:45 12/17/17 06:44 Polyethylene Glycol (Miralax) 17 gm DAILYPRN PRN ORAL Constipation 11/17/17 06:45 12/17/17 06:44 Promethazine HCl/ Codeine (Phenergan with Codeine) 5 ml Q4H PRN ORAL For Cough 11/17/17 06:45 12/17/17 06:44 Temazepam (Restoril) 15 mg HSPRN PRN ORAL Insomnia 11/17/17 06:45 11/24/17 06:44 Vancomycin HCl (Vanco rx to dose) 1 ea DAILY PRN MISC Per rx protocol 11/17/17 06:45 12/17/17 06:44 Vancomycin HCl/ Dextrose 250 ml @ 125 mls/hr Q24H IVPB 11/17/17 10:00 11/22/17 09:59 11/17/17 12:29 Joseph Hernandez MD Nov 18, 2017 08:23
[2017-11-18] MEDS: Metoprolol Tartrate 50mg tab GT SCH ×2 (09:14→18:04)
[2017-11-18] MEDS: Cefepime HCl 1 GM in NS 55 ML IV SCH (09:14)
[2017-11-18] MEDS: Heparin 5000 units/ml inj SUBQ SCH ×2 (09:19→20:52)
[2017-11-18] MEDS: Vancomycin 1.5 GM/D5W 250ML IVPB SCH (10:13)
[2017-11-18 10:29] LABS: EOSINOPHILS % (AUTO) 3.2 % (0.0-3.0); HEMATOCRIT 30.5 % (37.0-47.0); HEMOGLOBIN 9.8 G/DL (12.0-16.0); LYMPHOCYTES % (AUTO) 29.3 % (20.0-45.0); MEAN CORPUSCULAR VOLUME 91 FL (80-99); MONOCYTES % (AUTO) 15.7 % (1.0-10.0); NEUTROPHILS % (AUTO) 50.9 % (45.0-75.0); PLATELET COUNT 200 K/UL (150-450); RED BLOOD COUNT 3.36 M/UL (4.20-5.40); RED CELL DISTRIBUTION WIDTH 16.1 % (11.6-14.8); WHITE BLOOD COUNT 5.4 K/UL (4.8-10.8)
--- NOTE | 2017-11-18 11:00 | Infectious Diseases Prog Note ---
Assessment/Plan Assessment/Plan Abx: IV Vanco/Cefepime 11/17- Zosyn x1 11/17 Leavquin x1 11/17 Assessment: SOB- possibly multifactorial due to pulmonary congestion and possible PNA -CXR: Probable mild interstitial edema. Suspected basilar infiltrates. Please correlate for pneumonia -influenza screen neg Mild leukocytosis- resolved -afebrile -u/a contaminated (many sq cells), wbc 15-20; ucx nTD -BCx NTD Troponinemia Recent septic shock 2ry to PNA and polymicrobial bacteremia (~09/27/17); s/p 10 d zosyn, IV Polmyxin B -sp cx PSA (S Zosyn, Cefepime, cipro/levo), +2 S.maltophilia (S. Levo, R bactrim) -u/a no pyuria; ucx 30-40K Proteus mirablis ESBL (S zosyn, amikacin, gentamicin; R Cefepime); s/p quiroga exchange 10/01 -Bcx 09/27 2/4 CoNS, ,2/4 Group G Strep, 2/4 MDR/KPC K.pna ( S Tigecycline, Colistin, Polymixin B),1/4 Providencia stuartti (S. 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 Will continue to follow along with you. Discussed with RN Subjective Allergies: Coded Allergies: No Known Allergies (Unverified , 05/31/12) Subjective afebrile vent settings stable leukocytosis resolved Objective Vital Signs Last 24 Hour Vital Signs Date Time Temp Pulse Resp B/P (MAP) Pulse Ox O2 Delivery O2 Flow Rate FiO2 11/18/17 10:48 72 14 30 11/18/17 09:29 95 14 30 11/18/17 09:14 95 159/85 11/18/17 08:00 92 11/18/17 08:00 40 11/18/17 08:00 97.5 95 14 159/85 100 Mechanical Ventilator 40 11/18/17 06:57 95 14 30 11/18/17 05:26 90 14 30 11/18/17 04:00 15.0 40 11/18/17 04:00 90 11/18/17 04:00 97.5 96 20 159/95 100 Mechanical Ventilator 40 11/18/17 03:29 90 15 30 11/18/17 01:23 86 18 30 11/18/17 00:00 88 11/18/17 00:00 97.5 84 17 133/80 100 Mechanical Ventilator 40 11/17/17 23:20 85 17 30 11/17/17 20:35 88 18 40 11/17/17 20:00 97.2 81 16 129/81 100 Mechanical Ventilator 40 11/17/17 20:00 78 11/17/17 20:00 15.0 40 11/17/17 19:25 84 20 40 11/17/17 18:00 80 100/52 11/17/17 17:17 91 15 40 11/17/17 16:00 73 11/17/17 16:00 98.7 82 20 110/51 100 Mechanical Ventilator 40 11/17/17 16:00 15.0 40 11/17/17 14:58 90 12 40 11/17/17 12:44 86 12 40 11/17/17 12:00 98.0 89 17 101/58 100 Mechanical Ventilator 40 11/17/17 12:00 15.0 40 11/17/17 12:00 90 11/17/17 11:41 95 148/75 11/17/17 10:58 95 12 40 Height (Feet): 5 Height (Inches): 4.00 Weight (Pounds): 230 Objective General Appearance: well appearing, no apparent distress, alert, obese Head: normocephalic, atraumatic Eyes: bilateral eye PERRL, bilateral eye EOMI ENT: dry mucus membranes Neck: full range of motion, supple, no meningismus Respiratory: chest non-tender, decreased breath sounds, other - Distant breath sound Cardiovascular #1: regular rate, rhythm, no murmur Gastrointestinal: normal bowel sounds, non tender, no mass, no organomegaly, no bruit, non-distended Musculoskeletal: other - Contracted Neurologic: other - Left-sided weakness. Skin: warm/dry, other - Diffuse edema Microbiology Date/Time Source Procedure Growth Status 11/17/17 05:18 Blood Blood Culture - Preliminary NO GROWTH AFTER 24 HOURS Resulted 11/17/17 05:10 Blood Blood Culture - Preliminary NO GROWTH AFTER 24 HOURS Resulted 11/17/17 20:40 Nasopharynx Influenza Types A,B Antigen (MARLYS) - Final Complete 11/17/17 05:18 Urine,Clean Catch Urine Culture - Preliminary NO GROWTH Resulted Laboratory Tests Test 11/18/17 04:00 11/18/17 09:50 Sodium Level 136 MMOL/L (136-145) Potassium Level 4.7 MMOL/L (3.5-5.1) Chloride Level 105 MMOL/L (98-107) Carbon Dioxide Level 26 MMOL/L (21-32) Anion Gap 5 mmol/L (5-15) Blood Urea Nitrogen 14 mg/dL (7-18) Creatinine 0.6 MG/DL (0.55-1.30) Estimat Glomerular Filtration Rate mL/min (>60) Glucose Level 82 MG/DL (74-106) Calcium Level 9.4 MG/DL (8.5-10.1) Phosphorus Level 2.5 MG/DL (2.5-4.9) Albumin 2.0 G/DL (3.4-5.0) L White Blood Count 5.4 K/UL (4.8-10.8) # Red Blood Count 3.36 M/UL (4.20-5.40) L Hemoglobin 9.8 G/DL (12.0-16.0) L Hematocrit 30.5 % (37.0-47.0) L Mean Corpuscular Volume 91 FL (80-99) Mean Corpuscular Hemoglobin 29.0 PG (27.0-31.0) Mean Corpuscular Hemoglobin Concent 32.0 G/DL (32.0-36.0) Red Cell Distribution Width 16.1 % (11.6-14.8) H Platelet Count 200 K/UL (150-450) Mean Platelet Volume 7.6 FL (6.5-10.1) Neutrophils (%) (Auto) 50.9 % (45.0-75.0) Lymphocytes (%) (Auto) 29.3 % (20.0-45.0) Monocytes (%) (Auto) 15.7 % (1.0-10.0) H Eosinophils (%) (Auto) 3.2 % (0.0-3.0) H Basophils (%) (Auto) 1.0 % (0.0-2.0) Current Medications Medications (Trade) Dose Ordered Sig/Mora Route PRN Reason Start Time Stop Time Status Last Admin Dose Admin Acetaminophen (Tylenol) 650 mg Q4H PRN ORAL fever 11/17/17 06:45 12/17/17 06:44 Al Hydroxide/Mg Hydroxide (Mylanta II) 30 ml Q6H PRN ORAL dyspepsia 11/17/17 06:45 12/17/17 06:44 Albuterol/ Ipratropium (Albuterol/ Ipratropium) 3 ml Q4H PRN HHN Shortness of Breath 11/17/17 06:45 11/22/17 06:44 Cefepime HCl 1 gm/ Sodium Chloride 55 ml @ 110 mls/hr Q24H IV 11/17/17 09:00 11/24/17 08:59 11/18/17 09:14 Heparin Sodium (Porcine) (Heparin 5000 units/ml) 5,000 units EVERY 12 HOURS SUBQ 11/17/17 09:00 12/17/17 08:59 11/18/17 09:19 Metoprolol Tartrate (Lopressor) 50 mg BID GT 11/17/17 09:00 12/17/17 08:59 11/18/17 09:14 Nitroglycerin (Ntg) 0.4 mg Q5M PRN SL Prn Chest Pain 11/17/17 06:45 12/17/17 06:44 Ondansetron HCl (Zofran) 4 mg Q6H PRN IVP Nausea & Vomiting 11/17/17 06:45 12/17/17 06:44 Polyethylene Glycol (Miralax) 17 gm DAILYPRN PRN ORAL Constipation 11/17/17 06:45 12/17/17 06:44 Promethazine HCl/ Codeine (Phenergan with Codeine) 5 ml Q4H PRN ORAL For Cough 11/17/17 06:45 12/17/17 06:44 Temazepam (Restoril) 15 mg HSPRN PRN ORAL Insomnia 11/17/17 06:45 11/24/17 06:44 Vancomycin HCl (Vanco rx to dose) 1 ea DAILY PRN MISC Per rx protocol 11/17/17 06:45 12/17/17 06:44 Vancomycin HCl/ Dextrose 250 ml @ 125 mls/hr Q24H IVPB 11/17/17 10:00 11/22/17 09:59 11/18/17 10:13 Lynne Donahue M.D. Nov 18, 2017 11:00
[2017-11-18 12:00] VITALS: BP 145/77
[2017-11-18 16:00] VITALS: BP 149/69
[2017-11-18 20:00] VITALS: BP 136/72
[2017-11-18] MEDS: Dyna-Hex 2% Top Sol 2oz TOPIC SCH (20:51)
[2017-11-19] VITALS: BP 138/76
[2017-11-19 04:00] VITALS: BP 145/69
[2017-11-19 05:27] LABS: EOSINOPHILS % (AUTO) 3.9 % (0.0-3.0); HEMATOCRIT 28.8 % (37.0-47.0); LYMPHOCYTES % (AUTO) 41.1 % (20.0-45.0); MEAN CORPUSCULAR VOLUME 90 FL (80-99); PLATELET COUNT 198 K/UL (150-450); RED CELL DISTRIBUTION WIDTH 16.6 % (11.6-14.8); WHITE BLOOD COUNT 5.6 K/UL (4.8-10.8)
[2017-11-19 05:45] LABS: ANION GAP 6 mmol/L (5-15); BLOOD UREA NITROGEN 13 mg/dL (7-18); CALCIUM 9.3 MG/DL (8.5-10.1); CARBON DIOXIDE 29 MMOL/L (21-32); CHLORIDE 104 MMOL/L (98-107); CREATININE 0.6 MG/DL (0.55-1.30); SODIUM 139 MMOL/L (136-145)
[2017-11-19 07:40] LABS: APPEARANCE,URINE CLEAR; BILIRUBIN, URINE NEGATIVE (NEGATIVE); COLOR,URINE PALE YELLOW; GLUCOSE, URINE (UA) NEGATIVE (NEGATIVE); KETONES,URINE NEGATIVE (NEGATIVE); LEUKOCYTE ESTERASE ,URINE NEGATIVE (NEGATIVE); NITRITE,URINE NEGATIVE (NEGATIVE); PH,URINE 6 (4.5-8.0); PROTEIN,URINE NEGATIVE (NEGATIVE); UROBILINOGEN,URINE NORMAL MG/DL (0.0-1.0)
[2017-11-19 08:00] VITALS: BP 95/52
[2017-11-19] MEDS: Metoprolol Tartrate 50mg tab GT SCH ×2 (08:42→17:20)
[2017-11-19] MEDS: Heparin 5000 units/ml inj SUBQ SCH ×2 (08:42→20:41)
[2017-11-19] MEDS: Cefepime HCl 1 GM in NS 55 ML IV SCH (08:42)
[2017-11-19] MEDS: Vancomycin 1.5 GM/D5W 250ML IVPB SCH (10:13)
--- NOTE | 2017-11-19 10:47 | Pulmonology Progress Note ---
Assessment/Plan Assessment/Plan 1. Recent pneumonia. 2. Urinary tract infection. 3. Chronic respiratory failure. 4. Do Not Resuscitate. 5. Chronic gastrostomy tube. 6. Cognitive impairment. DISCUSSION: Admitted to the hospital. I was contacted by the ER physician on at 6 AM to admit the patient due to contractual arrangements. 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 Agree with broad spectrum antibiotics and continuing home/SNF medications. Continue vent support. DVT prophylaxis. Resume G-tube feedings. CXR is suspicious for infiltrates Await cultures No leucocytosis or feve Anticipate dc back to subacute in next 24-48 hours Subjective Interval Events: None Constitutional: Reports: no symptoms HEENT: Repors: no symptoms Respiratory: Reports: no symptoms Cardiovascular: Reports: no symptoms Gastrointestinal/Abdominal: Reports: no symptoms Genitourinary: Reports: no symptoms Allergies: Coded Allergies: No Known Allergies (Unverified , 05/31/12) Objective Last 24 Hour Vital Signs Date Time Temp Pulse Resp B/P (MAP) Pulse Ox O2 Delivery O2 Flow Rate FiO2 11/19/17 09:10 85 14 28 11/19/17 08:42 87 95/52 11/19/17 08:25 28 11/19/17 08:00 30 11/19/17 08:00 97.5 87 19 95/52 100 Mechanical Ventilator 30 11/19/17 08:00 86 11/19/17 07:25 86 18 30 11/19/17 05:14 80 12 30 11/19/17 04:00 30 11/19/17 04:00 97.9 101 24 145/69 100 Mechanical Ventilator 30 11/19/17 03:45 82 11/19/17 03:08 79 17 30 11/19/17 01:00 81 13 30 11/19/17 00:00 81 11/19/17 00:00 98.8 81 17 138/76 100 Mechanical Ventilator 30 11/19/17 00:00 30 11/18/17 23:06 81 16 30 11/18/17 21:21 81 24 30 11/18/17 20:00 73 11/18/17 20:00 98.6 72 15 136/72 100 Mechanical Ventilator 30 11/18/17 20:00 30 11/18/17 19:29 72 13 30 11/18/17 18:04 110 147/93 2/16/18 16:53 80 20 30 11/18/17 16:00 40 11/18/17 16:00 79 11/18/17 16:00 97.5 78 15 149/69 100 Mechanical Ventilator 40 11/18/17 15:02 79 20 30 11/18/17 13:02 85 20 30 11/18/17 12:00 77 11/18/17 12:00 97.7 80 16 145/77 100 Mechanical Ventilator 40 11/18/17 12:00 40 11/18/17 10:48 72 14 30 Intake and Output 11/18/17 11/19/17 19:00 07:00 Intake Total 1125 ml 820 ml Output Total 425 ml 900 ml Balance 700 ml -80 ml Free Water 100 ml IV Total 305 ml Tube Feeding 720 ml 720 ml Other 100 ml Output Urine Total 425 ml 900 ml # Voids 1 General Appearance: no acute distress HEENT: normocephalic, status post trach Respiratory/Chest: chest wall non-tender Cardiovascular: normal rate Abdomen: normal bowel sounds Microbiology Date/Time Source Procedure Growth Status 11/17/17 05:18 Blood Blood Culture - Preliminary NO GROWTH AFTER 24 HOURS Resulted 11/17/17 05:10 Blood Blood Culture - Preliminary NO GROWTH AFTER 24 HOURS Resulted 11/18/17 06:00 Sputum Gram Stain - Final Resulted 11/18/17 06:00 Sputum Sputum Culture - Preliminary NORMAL UPPER RESPIRATORY SHAILESH AT 24 ... Resulted 11/17/17 20:40 Nasopharynx Influenza Types A,B Antigen (MARLYS) - Final Complete 11/17/17 05:18 Nasal Nares MRSA Culture - Final Staphylococcus Aureus - Mrsa Complete 11/17/17 05:18 Urine,Clean Catch Urine Culture - Preliminary Yeast Species Resulted 11/17/17 05:18 Rectum VRE Culture - Final Enterococcus Faecium - Vre Complete Laboratory Tests 11/19/17 03:30: White Blood Count 5.6, Red Blood Count 3.20L, Hemoglobin 9.0L, Hematocrit 28.8L , Mean Corpuscular Volume 90, Mean Corpuscular Hemoglobin 28.2, Mean Corpuscular Hemoglobin Concent 31.3L, Red Cell Distribution Width 16.6H, Platelet Count 198, Mean Platelet Volume 7.8, Neutrophils (%) (Auto) 39.0L, Lymphocytes (%) (Auto) 41.1, Monocytes (%) (Auto) 15.0H, Eosinophils (%) (Auto) 3.9H, Basophils (%) (Auto) 1.0, Urine Color Pale yellow, Urine Appearance Clear , Urine pH 6, Urine Specific [place] 1.010, Urine Protein Negative, Urine Glucose (UA) Negative, Urine Ketones Negative, Urine Occult Blood Negative, Urine Nitrite Negative, Urine Bilirubin Negative, Urine Urobilinogen Normal, Urine Leukocyte Esterase Negative, Sodium Level 139, Potassium Level 4.0, Chloride Level 104, Carbon Dioxide Level 29, Anion Gap 6, Blood Urea Nitrogen 13 , Creatinine 0.6, Estimat Glomerular Filtration Rate , Glucose Level 108H, Calcium Level 9.3 11/19/17 04:00: Arterial Blood pH 7.450, Arterial Blood Partial Pressure CO2 40.8, Arterial Blood Partial Pressure O2 135.6H, Arterial Blood HCO3 28.0H, Arterial Blood Oxygen Saturation 98.6H, Arterial Blood Base Excess 3.8, Holger Test Positive Current Medications Medications (Trade) Dose Ordered Sig/Mora Route PRN Reason Start Time Stop Time Status Last Admin Dose Admin Acetaminophen (Tylenol) 650 mg Q4H PRN ORAL fever 11/17/17 06:45 12/17/17 06:44 Al Hydroxide/Mg Hydroxide (Mylanta II) 30 ml Q6H PRN ORAL dyspepsia 11/17/17 06:45 12/17/17 06:44 Albuterol/ Ipratropium (Albuterol/ Ipratropium) 3 ml Q4H PRN HHN Shortness of Breath 11/17/17 06:45 11/22/17 06:44 Cefepime HCl 1 gm/ Sodium Chloride 55 ml @ 110 mls/hr Q24H IV 11/17/17 09:00 11/24/17 08:59 11/19/17 08:42 Chlorhexidine Gluconate (Ann-Hex 2%) 1 applic DAILY@2000 TOPIC 11/18/17 20:00 12/18/17 19:59 11/18/17 20:51 Heparin Sodium (Porcine) (Heparin 5000 units/ml) 5,000 units EVERY 12 HOURS SUBQ 11/17/17 09:00 12/17/17 08:59 11/19/17 08:42 Metoprolol Tartrate (Lopressor) 50 mg BID GT 11/17/17 09:00 12/17/17 08:59 11/18/17 18:04 Nitroglycerin (Ntg) 0.4 mg Q5M PRN SL Prn Chest Pain 11/17/17 06:45 12/17/17 06:44 Ondansetron HCl (Zofran) 4 mg Q6H PRN IVP Nausea & Vomiting 11/17/17 06:45 12/17/17 06:44 Polyethylene Glycol (Miralax) 17 gm DAILYPRN PRN ORAL Constipation 11/17/17 06:45 12/17/17 06:44 Promethazine HCl/ Codeine (Phenergan with Codeine) 5 ml Q4H PRN ORAL For Cough 11/17/17 06:45 12/17/17 06:44 Temazepam (Restoril) 15 mg HSPRN PRN ORAL Insomnia 11/17/17 06:45 11/24/17 06:44 Vancomycin HCl (Vanco rx to dose) 1 ea DAILY PRN MISC Per rx protocol 11/17/17 06:45 12/17/17 06:44 Vancomycin HCl/ Dextrose 250 ml @ 125 mls/hr Q24H IVPB 11/17/17 10:00 11/22/17 09:59 11/19/17 10:13 Joseph Hernandez MD Nov 19, 2017 10:47
[2017-11-19 12:00] VITALS: BP 146/44
--- NOTE | 2017-11-19 12:19 | Infectious Diseases Prog Note ---
Assessment/Plan Assessment/Plan Assessment: SOB- possibly multifactorial due to pulmonary congestion and possible PNA -CXR: Probable mild interstitial edema. Suspected basilar infiltrates. Please correlate for pneumonia -influenza screen neg Mild leukocytosis- SP -afebrile Ucx x: yeast colonizer Flu neg Troponinemia Recent septic shock 2ry to PNA and polymicrobial bacteremia (~09/27/17); s/p 10 d zosyn, IV Polmyxin B -sp cx PSA (S Zosyn, Cefepime, cipro/levo), +2 S.maltophilia (S. Levo, R bactrim) -u/a no pyuria; ucx 30-40K Proteus mirablis ESBL (S zosyn, amikacin, gentamicin; R Cefepime); s/p quiroga exchange 10/01 -Bcx 09/27 2/4 CoNS, ,2/4 Group G Strep, 2/4 MDR/KPC K.pna ( S Tigecycline, Colistin, Polymixin B),1/4 Providencia stuartti (S. Zosyn, Cefepime); rpeat Bcx 09/27-7: Neg --Echo: no vegetations, no significant valve abnormalities --s/p LIJ removal 10/01, cath tip cx Neg chronic respiratory failure on trach CVA dementia hx of OM R calcaneus non verbal s/p PEG prison resident NKDA DNR/DNI Plan: - Continue empiric IV Vanco and Cefepime # 3 for now pending cultures -if HD decompensation, switch Cefepime to Meropenem -11/17 SP Levaquin x1, Zosyn x1 -10/09 SP IV Polymixin B for KPC K, pna bacteremia -10/06 SP Zosyn #10 for PNA and ESBL UTI -10/01 SP Cefepime #2 -09/30 SP IV Vanco #4, Zosyn #4 -repeat u/a -f/u cx -monitor CBC/BMP, temperatures -peg/trach care, aspiration precautions Subjective Allergies: Coded Allergies: No Known Allergies (Unverified , 05/31/12) Subjective afebrile Objective Vital Signs Last 24 Hour Vital Signs Date Time Temp Pulse Resp B/P (MAP) Pulse Ox O2 Delivery O2 Flow Rate FiO2 11/19/17 11:09 91 20 99 Mechanical Ventilator 28 18 10:53 93 14 28 217/18 10:53 89 16 98 Mechanical Ventilator 28 18 09:10 85 14 28 11/19/18 08:42 87 95/52 11/19/18 08:25 28 11/19/18 08:00 30 11/19/18 08:00 97.5 87 19 95/52 100 Mechanical Ventilator 30 11/19/17 08:00 86 11/19/18 07:25 86 18 30 11/19/18 05:14 80 12 30 11/19/18 04:00 30 11/19/18 04:00 97.9 101 24 145/69 100 Mechanical Ventilator 30 11/19/17 03:45 82 18 03:08 79 17 30 11/19/18 01:00 81 13 30 11/19/18 00:00 81 18 00:00 98.8 81 17 138/76 100 Mechanical Ventilator 30 11/19/17 00:00 30 11/18/17 23:06 81 16 30 11/18/18 21:21 81 24 30 16/18 20:00 73 16/18 20:00 98.6 72 15 136/72 100 Mechanical Ventilator 30 18 20:00 30 18 19:29 72 13 30 11/18/18 18:04 110 147/93 18 16:53 80 20 30 18 16:00 40 18 16:00 79 11/18/17 16:00 97.5 78 15 149/69 100 Mechanical Ventilator 40 11/18/17 15:02 79 20 30 18 13:02 85 20 30 Height (Feet): 5 Height (Inches): 4.00 Weight (Pounds): 230 HEENT: mucous membranes moist Respiratory/Chest: no accessory muscle use Cardiovascular: no gallop/murmur Abdomen: non distended Microbiology Date/Time Source Procedure Growth Status 11/17/17 05:18 Blood Blood Culture - Preliminary NO GROWTH AFTER 48 HOURS Resulted 11/17/17 05:10 Blood Blood Culture - Preliminary NO GROWTH AFTER 48 HOURS Resulted 11/18/17 06:00 Sputum Gram Stain - Final Resulted 11/18/17 06:00 Sputum Sputum Culture - Preliminary NORMAL UPPER RESPIRATORY SHAILESH AT 24 ... Resulted 11/17/17 20:40 Nasopharynx Influenza Types A,B Antigen (MARLYS) - Final Complete 11/17/17 05:18 Nasal Nares MRSA Culture - Final Staphylococcus Aureus - Mrsa Complete 11/17/17 05:18 Urine,Clean Catch Urine Culture - Preliminary Yeast Species Resulted 11/17/17 05:18 Rectum VRE Culture - Final Enterococcus Faecium - Vre Complete Laboratory Tests Test 11/19/17 03:30 11/19/17 04:00 White Blood Count 5.6 K/UL (4.8-10.8) Red Blood Count 3.20 M/UL (4.20-5.40) L Hemoglobin 9.0 G/DL (12.0-16.0) L Hematocrit 28.8 % (37.0-47.0) L Mean Corpuscular Volume 90 FL (80-99) Mean Corpuscular Hemoglobin 28.2 PG (27.0-31.0) Mean Corpuscular Hemoglobin Concent 31.3 G/DL (32.0-36.0) L Red Cell Distribution Width 16.6 % (11.6-14.8) H Platelet Count 198 K/UL (150-450) Mean Platelet Volume 7.8 FL (6.5-10.1) Neutrophils (%) (Auto) 39.0 % (45.0-75.0) L Lymphocytes (%) (Auto) 41.1 % (20.0-45.0) Monocytes (%) (Auto) 15.0 % (1.0-10.0) H Eosinophils (%) (Auto) 3.9 % (0.0-3.0) H Basophils (%) (Auto) 1.0 % (0.0-2.0) Urine Color Pale yellow Urine Appearance Clear Urine pH 6 (4.5-8.0) Urine Specific [place] 1.010 (1.005-1.035) Urine Protein Negative (NEGATIVE) Urine Glucose (UA) Negative (NEGATIVE) Urine Ketones Negative (NEGATIVE) Urine Occult Blood Negative (NEGATIVE) Urine Nitrite Negative (NEGATIVE) Urine Bilirubin Negative (NEGATIVE) Urine Urobilinogen Normal MG/DL (0.0-1.0) Urine Leukocyte Esterase Negative (NEGATIVE) Sodium Level 139 MMOL/L (136-145) Potassium Level 4.0 MMOL/L (3.5-5.1) Chloride Level 104 MMOL/L (98-107) Carbon Dioxide Level 29 MMOL/L (21-32) Anion Gap 6 mmol/L (5-15) Blood Urea Nitrogen 13 mg/dL (7-18) Creatinine 0.6 MG/DL (0.55-1.30) Estimat Glomerular Filtration Rate mL/min (>60) Glucose Level 108 MG/DL (74-106) H Calcium Level 9.3 MG/DL (8.5-10.1) Arterial Blood pH 7.450 (7.350-7.450) Arterial Blood Partial Pressure CO2 40.8 mmHg (35.0-45.0) Arterial Blood Partial Pressure O2 135.6 mmHg (75.0-100.0) H Arterial Blood HCO3 28.0 mmol/L (22.0-26.0) H Arterial Blood Oxygen Saturation 98.6 % (92.0-98.0) H Arterial Blood Base Excess 3.8 Holger Test Positive Current Medications Medications (Trade) Dose Ordered Sig/Mora Route PRN Reason Start Time Stop Time Status Last Admin Dose Admin Acetaminophen (Tylenol) 650 mg Q4H PRN ORAL fever 11/17/17 06:45 12/17/17 06:44 Al Hydroxide/Mg Hydroxide (Mylanta II) 30 ml Q6H PRN ORAL dyspepsia 11/17/17 06:45 12/17/17 06:44 Albuterol/ Ipratropium (Albuterol/ Ipratropium) 3 ml Q4H PRN HHN Shortness of Breath 11/17/17 06:45 11/22/17 06:44 11/19/17 10:52 Albuterol/ Ipratropium (Albuterol/ Ipratropium) 3 ml TIDRT HHN 11/19/17 13:00 11/24/17 12:59 Cefepime HCl 2 gm/ Sodium Chloride 110 ml @ 220 mls/hr Q24H IV 11/20/17 09:00 11/27/17 23:59 Chlorhexidine Gluconate (Ann-Hex 2%) 1 applic DAILY@2000 TOPIC 11/18/17 20:00 12/18/17 19:59 11/18/17 20:51 Heparin Sodium (Porcine) (Heparin 5000 units/ml) 5,000 units EVERY 12 HOURS SUBQ 2/15/18 09:00 12/17/17 08:59 11/19/17 08:42 Metoprolol Tartrate (Lopressor) 50 mg BID GT 11/17/17 09:00 12/17/17 08:59 11/18/17 18:04 Nitroglycerin (Ntg) 0.4 mg Q5M PRN SL Prn Chest Pain 11/17/17 06:45 12/17/17 06:44 Ondansetron HCl (Zofran) 4 mg Q6H PRN IVP Nausea & Vomiting 11/17/17 06:45 12/17/17 06:44 Polyethylene Glycol (Miralax) 17 gm DAILYPRN PRN ORAL Constipation 11/17/17 06:45 12/17/17 06:44 Promethazine HCl/ Codeine (Phenergan with Codeine) 5 ml Q4H PRN ORAL For Cough 11/17/17 06:45 12/17/17 06:44 Temazepam (Restoril) 15 mg HSPRN PRN ORAL Insomnia 11/17/17 06:45 11/24/17 06:44 Vancomycin HCl (Vanco rx to dose) 1 ea DAILY PRN MISC Per rx protocol 11/17/17 06:45 12/17/17 06:44 Vancomycin HCl/ Dextrose 250 ml @ 125 mls/hr Q24H IVPB 11/17/17 10:00 11/22/17 09:59 11/19/17 10:13 REMI YATES M.D. Nov 19, 2017 12:19
[2017-11-19] MEDS: Albuterol/Ipratropium 3ml neb HHN SCH ×2 (12:38→19:54)
--- NOTE | 2017-11-19 12:52 | Infectious Diseases Prog Note ---
Assessment/Plan Assessment/Plan Assessment: SOB- possibly multifactorial due to pulmonary congestion and possible PNA -CXR: Probable mild interstitial edema. Suspected basilar infiltrates. Please correlate for pneumonia -influenza screen neg Mild leukocytosis- resolved -afebrile -u/a contaminated (many sq cells), wbc 15-20; ucx nTD -BCx NTD Troponinemia Recent septic shock 2ry to PNA and polymicrobial bacteremia (~09/27/17); s/p 10 d zosyn, IV Polmyxin B -sp cx PSA (S Zosyn, Cefepime, cipro/levo), +2 S.maltophilia (S. Levo, R bactrim) -u/a no pyuria; ucx 30-40K Proteus mirablis ESBL (S zosyn, amikacin, gentamicin; R Cefepime); s/p quiroga exchange 10/01 -Bcx 09/27 2/4 CoNS, ,2/4 Group G Strep, 2/4 MDR/KPC K.pna ( S Tigecycline, Colistin, Polymixin B),1/4 Providencia stuartti (S. Zosyn, Cefepime); rpeat Bcx 09/27-7: Neg --Echo: no vegetations, no significant valve abnormalities --s/p LIJ removal 10/01, cath tip cx Neg chronic respiratory failure on trach CVA dementia hx of OM R calcaneus non verbal s/p PEG [facility] resident NKDA DNR/DNI Plan: - Continue empiric IV Vanco and Cefepime #2 for now pending cultures -if HD decompensation, switch Cefepime to Meropenem -11/17 SP Levaquin x1, Zosyn x1 -10/09 SP IV Polymixin B for KPC K, pna bacteremia -10/06 SP Zosyn #10 for PNA and ESBL UTI -10/01 SP Cefepime #2 -09/30 SP IV Vanco #4, Zosyn #4 -repeat u/a -f/u cx -monitor CBC/BMP, temperatures -peg/trach care, aspiration precautions Subjective Constitutional: Denies: no symptoms, fever, chills, fatigue, anorexia, drenching sweats, other Allergies: Coded Allergies: No Known Allergies (Unverified , 05/31/12) Objective Vital Signs Last 24 Hour Vital Signs Date Time Temp Pulse Resp B/P (MAP) Pulse Ox O2 Delivery O2 Flow Rate FiO2 11/19/17 11:09 91 20 99 Mechanical Ventilator 28 11/19/17 10:53 93 14 28 11/19/17 10:53 89 16 98 Mechanical Ventilator 28 11/19/17 09:10 85 14 28 11/19/17 08:42 87 95/52 11/19/17 08:25 28 11/19/17 08:00 30 11/19/17 08:00 97.5 87 19 95/52 100 Mechanical Ventilator 30 11/19/17 08:00 86 11/19/17 07:25 86 18 30 11/19/17 05:14 80 12 30 11/19/17 04:00 30 11/19/17 04:00 97.9 101 24 145/69 100 Mechanical Ventilator 30 11/19/17 03:45 82 11/19/17 03:08 79 17 30 11/19/17 01:00 81 13 30 11/19/17 00:00 81 11/19/17 00:00 98.8 81 17 138/76 100 Mechanical Ventilator 30 11/19/17 00:00 30 11/18/17 23:06 81 16 30 11/18/17 21:21 81 24 30 11/18/17 20:00 73 11/18/17 20:00 98.6 72 15 136/72 100 Mechanical Ventilator 30 11/18/17 20:00 30 11/18/17 19:29 72 13 30 11/18/17 18:04 110 147/93 11/18/17 16:53 80 20 30 11/18/17 16:00 40 11/18/17 16:00 79 11/18/17 16:00 97.5 78 15 149/69 100 Mechanical Ventilator 40 11/18/17 15:02 79 20 30 11/18/17 13:02 85 20 30 Height (Feet): 5 Height (Inches): 4.00 Weight (Pounds): 230 HEENT: mucous membranes moist Respiratory/Chest: normal breath sounds Cardiovascular: regular rhythm Abdomen: no organomegaly Microbiology Date/Time Source Procedure Growth Status 11/17/17 05:18 Blood Blood Culture - Preliminary NO GROWTH AFTER 48 HOURS Resulted 11/17/17 05:10 Blood Blood Culture - Preliminary NO GROWTH AFTER 48 HOURS Resulted 11/18/17 06:00 Sputum Gram Stain - Final Resulted 11/18/17 06:00 Sputum Sputum Culture - Preliminary NORMAL UPPER RESPIRATORY SHAILESH AT 24 ... Resulted 11/17/17 20:40 Nasopharynx Influenza Types A,B Antigen (MARLYS) - Final Complete 11/17/17 05:18 Nasal Nares MRSA Culture - Final Staphylococcus Aureus - Mrsa Complete 11/17/17 05:18 Urine,Clean Catch Urine Culture - Preliminary Yeast Species Resulted 11/17/17 05:18 Rectum VRE Culture - Final Enterococcus Faecium - Vre Complete Laboratory Tests Test 11/19/17 03:30 11/19/17 04:00 White Blood Count 5.6 K/UL (4.8-10.8) Red Blood Count 3.20 M/UL (4.20-5.40) L Hemoglobin 9.0 G/DL (12.0-16.0) L Hematocrit 28.8 % (37.0-47.0) L Mean Corpuscular Volume 90 FL (80-99) Mean Corpuscular Hemoglobin 28.2 PG (27.0-31.0) Mean Corpuscular Hemoglobin Concent 31.3 G/DL (32.0-36.0) L Red Cell Distribution Width 16.6 % (11.6-14.8) H Platelet Count 198 K/UL (150-450) Mean Platelet Volume 7.8 FL (6.5-10.1) Neutrophils (%) (Auto) 39.0 % (45.0-75.0) L Lymphocytes (%) (Auto) 41.1 % (20.0-45.0) Monocytes (%) (Auto) 15.0 % (1.0-10.0) H Eosinophils (%) (Auto) 3.9 % (0.0-3.0) H Basophils (%) (Auto) 1.0 % (0.0-2.0) Urine Color Pale yellow Urine Appearance Clear Urine pH 6 (4.5-8.0) Urine Specific [place] 1.010 (1.005-1.035) Urine Protein Negative (NEGATIVE) Urine Glucose (UA) Negative (NEGATIVE) Urine Ketones Negative (NEGATIVE) Urine Occult Blood Negative (NEGATIVE) Urine Nitrite Negative (NEGATIVE) Urine Bilirubin Negative (NEGATIVE) Urine Urobilinogen Normal MG/DL (0.0-1.0) Urine Leukocyte Esterase Negative (NEGATIVE) Sodium Level 139 MMOL/L (136-145) Potassium Level 4.0 MMOL/L (3.5-5.1) Chloride Level 104 MMOL/L (98-107) Carbon Dioxide Level 29 MMOL/L (21-32) Anion Gap 6 mmol/L (5-15) Blood Urea Nitrogen 13 mg/dL (7-18) Creatinine 0.6 MG/DL (0.55-1.30) Estimat Glomerular Filtration Rate mL/min (>60) Glucose Level 108 MG/DL (74-106) H Calcium Level 9.3 MG/DL (8.5-10.1) Arterial Blood pH 7.450 (7.350-7.450) Arterial Blood Partial Pressure CO2 40.8 mmHg (35.0-45.0) Arterial Blood Partial Pressure O2 135.6 mmHg (75.0-100.0) H Arterial Blood HCO3 28.0 mmol/L (22.0-26.0) H Arterial Blood Oxygen Saturation 98.6 % (92.0-98.0) H Arterial Blood Base Excess 3.8 Holger Test Positive Current Medications Medications (Trade) Dose Ordered Sig/Mora Route PRN Reason Start Time Stop Time Status Last Admin Dose Admin Acetaminophen (Tylenol) 650 mg Q4H PRN ORAL fever 11/17/17 06:45 12/17/17 06:44 Al Hydroxide/Mg Hydroxide (Mylanta II) 30 ml Q6H PRN ORAL dyspepsia 11/17/17 06:45 12/17/17 06:44 Albuterol/ Ipratropium (Albuterol/ Ipratropium) 3 ml Q4H PRN HHN Shortness of Breath 11/17/17 06:45 11/22/17 06:44 11/19/17 10:52 Cefepime HCl 2 gm/ Sodium Chloride 110 ml @ 220 mls/hr Q24H IV 11/20/17 09:00 11/27/17 23:59 Chlorhexidine Gluconate (Ann-Hex 2%) 1 applic DAILY@2000 TOPIC 11/18/17 20:00 12/18/17 19:59 11/18/17 20:51 Heparin Sodium (Porcine) (Heparin 5000 units/ml) 5,000 units EVERY 12 HOURS SUBQ 11/17/17 09:00 12/17/17 08:59 11/19/17 08:42 Metoprolol Tartrate (Lopressor) 50 mg BID GT 11/17/17 09:00 12/17/17 08:59 11/18/17 18:04 Nitroglycerin (Ntg) 0.4 mg Q5M PRN SL Prn Chest Pain 11/17/17 06:45 12/17/17 06:44 Ondansetron HCl (Zofran) 4 mg Q6H PRN IVP Nausea & Vomiting 11/17/17 06:45 12/17/17 06:44 Polyethylene Glycol (Miralax) 17 gm DAILYPRN PRN ORAL Constipation 11/17/17 06:45 12/17/17 06:44 Promethazine HCl/ Codeine (Phenergan with Codeine) 5 ml Q4H PRN ORAL For Cough 11/17/17 06:45 12/17/17 06:44 Temazepam (Restoril) 15 mg HSPRN PRN ORAL Insomnia 11/17/17 06:45 11/24/17 06:44 Vancomycin HCl (Vanco rx to dose) 1 ea DAILY PRN MISC Per rx protocol 11/17/17 06:45 12/17/17 06:44 Vancomycin HCl/ Dextrose 250 ml @ 125 mls/hr Q24H IVPB 11/17/17 10:00 11/22/17 09:59 11/19/17 10:13 REMI YATES M.D. Nov 19, 2017 12:52
--- NOTE | 2017-11-19 14:40 | Pulmonology Progress Note ---
Assessment/Plan Assessment/Plan ASSESSMENT Elevated troponin acute on chronic respiratory failure VDRF/ tracheostomy status probably aspiration PNA Hx of CVA with DEEP FAT COOK FRY dysphagia, G tube functional quadriplegia HTN anemia dementia PLAN OF CARE [facility] vent support , trach care baseline ABG stable on current settings pulmonary toilet fup with CXR Abx ID follows urine+ yeast, UA contaminated as per ID influenza negative, blood cx prel negative strict aspiration/reflux precautions, GT feeding, monitor tolerance Monitor counts, transfuse prn DVT [id number] bowel regimen DNR/DNI status case discussed and evaluated by supervising physician Subjective Allergies: Coded Allergies: No Known Allergies (Unverified , 05/31/12) Subjective leukocytosis resolved, afebrile HH trending down Objective Last 24 Hour Vital Signs Date Time Temp Pulse Resp B/P (MAP) Pulse Ox O2 Delivery O2 Flow Rate FiO2 11/19/17 12:55 99 17 Mechanical Ventilator 28 11/19/17 12:49 100 19 100 Mechanical Ventilator 28 11/19/17 12:39 100 17 100 Mechanical Ventilator 28 11/19/17 12:38 91 14 28 11/19/17 12:00 28 11/19/17 12:00 98.9 90 19 146/44 100 Mechanical Ventilator 28 11/19/17 12:00 88 11/19/17 11:09 91 20 99 Mechanical Ventilator 28 11/19/17 10:53 93 14 28 11/19/17 10:53 89 16 98 Mechanical Ventilator 28 11/19/17 09:10 85 14 28 11/19/17 08:42 87 95/52 11/19/17 08:25 28 11/19/17 08:00 30 11/19/17 08:00 97.5 87 19 95/52 100 Mechanical Ventilator 30 11/19/17 08:00 86 11/19/17 07:25 86 18 30 11/19/17 05:14 80 12 30 11/19/17 04:00 30 11/19/17 04:00 97.9 101 24 145/69 100 Mechanical Ventilator 30 11/19/17 03:45 82 11/19/17 03:08 79 17 30 11/19/17 01:00 81 13 30 11/19/17 00:00 81 11/19/17 00:00 98.8 81 17 138/76 100 Mechanical Ventilator 30 11/19/17 00:00 30 2/16/18 23:06 81 16 30 11/18/17 21:21 81 24 30 11/18/17 20:00 73 11/18/17 20:00 98.6 72 15 136/72 100 Mechanical Ventilator 30 11/18/17 20:00 30 11/18/17 19:29 72 13 30 18 18:04 110 147/93 11/18/17 16:53 80 20 30 11/18/17 16:00 40 11/18/17 16:00 79 11/18/17 16:00 97.5 78 15 149/69 100 Mechanical Ventilator 40 11/18/17 15:02 79 20 30 Intake and Output 11/18/17 11/19/17 19:00 07:00 Intake Total 1125 ml 820 ml Output Total 425 ml 900 ml Balance 700 ml -80 ml Free Water 100 ml IV Total 305 ml Tube Feeding 720 ml 720 ml Other 100 ml Output Urine Total 425 ml 900 ml # Voids 1 Objective General Appearance: elderly, obese, bedridden, chronically ill, vent dependent female Vent AC 450-12-30 HEENT: normocephalic, atraumatic, status post trach - Shiley #6, secretions small, white, thick Respiratory/Chest: decreased breath sounds Cardiovascular: regularly irregular - SR with frequent PAC, PVC Abdomen: normal bowel sounds, soft, non tender, other - G tube Extremities: trace edema BLE Neurologic/Psychiatric: abnormal gait, nonverbal, spastic Musculoskeletal: atrophy - BLE Microbiology Date/Time Source Procedure Growth Status 11/17/17 05:18 Blood Blood Culture - Preliminary NO GROWTH AFTER 48 HOURS Resulted 11/17/17 05:10 Blood Blood Culture - Preliminary NO GROWTH AFTER 48 HOURS Resulted 11/18/17 06:00 Sputum Gram Stain - Final Resulted 11/18/17 06:00 Sputum Sputum Culture - Preliminary NORMAL UPPER RESPIRATORY SHAILESH AT 24 ... Resulted 11/17/17 20:40 Nasopharynx Influenza Types A,B Antigen (MARLYS) - Final Complete 11/17/17 05:18 Nasal Nares MRSA Culture - Final Staphylococcus Aureus - Mrsa Complete 11/17/17 05:18 Urine,Clean Catch Urine Culture - Preliminary Yeast Species Resulted 11/17/17 05:18 Rectum VRE Culture - Final Enterococcus Faecium - Vre Complete Laboratory Tests 11/19/17 03:30: White Blood Count 5.6, Red Blood Count 3.20L, Hemoglobin 9.0L, Hematocrit 28.8L , Mean Corpuscular Volume 90, Mean Corpuscular Hemoglobin 28.2, Mean Corpuscular Hemoglobin Concent 31.3L, Red Cell Distribution Width 16.6H, Platelet Count 198, Mean Platelet Volume 7.8, Neutrophils (%) (Auto) 39.0L, Lymphocytes (%) (Auto) 41.1, Monocytes (%) (Auto) 15.0H, Eosinophils (%) (Auto) 3.9H, Basophils (%) (Auto) 1.0, Urine Color Pale yellow, Urine Appearance Clear , Urine pH 6, Urine Specific [place] 1.010, Urine Protein Negative, Urine Glucose (UA) Negative, Urine Ketones Negative, Urine Occult Blood Negative, Urine Nitrite Negative, Urine Bilirubin Negative, Urine Urobilinogen Normal, Urine Leukocyte Esterase Negative, Sodium Level 139, Potassium Level 4.0, Chloride Level 104, Carbon Dioxide Level 29, Anion Gap 6, Blood Urea Nitrogen 13 , Creatinine 0.6, Estimat Glomerular Filtration Rate , Glucose Level 108H, Calcium Level 9.3 11/19/17 04:00: Arterial Blood pH 7.450, Arterial Blood Partial Pressure CO2 40.8, Arterial Blood Partial Pressure O2 135.6H, Arterial Blood HCO3 28.0H, Arterial Blood Oxygen Saturation 98.6H, Arterial Blood Base Excess 3.8, Holger Test Positive Current Medications Medications (Trade) Dose Ordered Sig/Mora Route PRN Reason Start Time Stop Time Status Last Admin Dose Admin Acetaminophen (Tylenol) 650 mg Q4H PRN ORAL fever 11/17/17 06:45 12/17/17 06:44 Al Hydroxide/Mg Hydroxide (Mylanta II) 30 ml Q6H PRN ORAL dyspepsia 11/17/17 06:45 12/17/17 06:44 Albuterol/ Ipratropium (Albuterol/ Ipratropium) 3 ml Q4H PRN HHN Shortness of Breath 11/17/17 06:45 11/22/17 06:44 11/19/17 10:52 Albuterol/ Ipratropium (Albuterol/ Ipratropium) 3 ml TIDRT HHN 11/19/17 13:00 11/24/17 12:59 11/19/17 12:38 Cefepime HCl 2 gm/ Sodium Chloride 110 ml @ 220 mls/hr Q24H IV 11/20/17 09:00 11/27/17 23:59 Chlorhexidine Gluconate (Ann-Hex 2%) 1 applic DAILY@2000 TOPIC 11/18/17 20:00 12/18/17 19:59 11/18/17 20:51 Heparin Sodium (Porcine) (Heparin 5000 units/ml) 5,000 units EVERY 12 HOURS SUBQ 11/17/17 09:00 12/17/17 08:59 11/19/17 08:42 Metoprolol Tartrate (Lopressor) 50 mg BID GT 11/17/17 09:00 12/17/17 08:59 11/18/17 18:04 Nitroglycerin (Ntg) 0.4 mg Q5M PRN SL Prn Chest Pain 11/17/17 06:45 12/17/17 06:44 Ondansetron HCl (Zofran) 4 mg Q6H PRN IVP Nausea & Vomiting 11/17/17 06:45 12/17/17 06:44 Polyethylene Glycol (Miralax) 17 gm DAILYPRN PRN ORAL Constipation 11/17/17 06:45 12/17/17 06:44 Promethazine HCl/ Codeine (Phenergan with Codeine) 5 ml Q4H PRN ORAL For Cough 11/17/17 06:45 12/17/17 06:44 Temazepam (Restoril) 15 mg HSPRN PRN ORAL Insomnia 11/17/17 06:45 11/24/17 06:44 Vancomycin HCl (Vanco rx to dose) 1 ea DAILY PRN MISC Per rx protocol 11/17/17 06:45 12/17/17 06:44 Vancomycin HCl/ Dextrose 250 ml @ 125 mls/hr Q24H IVPB 11/17/17 10:00 11/22/17 09:59 11/19/17 10:13 Nereida Dunaway NP ([facility]te[facility]) Nov 19, 2017 14:40
[2017-11-19 16:00] VITALS: BP 110/61
[2017-11-19] MEDS ORDERED: NS 275ml ONE (17:25)
[2017-11-19 20:00] VITALS: BP 156/82
[2017-11-19] MEDS: Dyna-Hex 2% Top Sol 2oz TOPIC SCH (20:38)
--- NOTE | 2017-11-19 23:34 | Emergency Room Report ---
Physical Exam Vital Signs Date Time Temp Pulse Resp B/P (MAP) Pulse Ox O2 Delivery O2 Flow Rate FiO2 11/17/17 04:30 110 22 127/74 97 Ambu-Bag 15.0 11/17/17 04:43 40 11/17/17 05:09 98.1 98.1 Medical Decision Making Diagnostic Impression: Primary Impression: Aspiration pneumonia Qualified Codes: J69.0 - Pneumonitis due to inhalation of food and vomit ER Course Is an unfortunate 87-year-old female who was made it for sepsis secondary to aspiration pneumonia. She is the dependent with a tracheostomy. She is a DO NOT RESUSCITATE. He became asystolic and has no blood pressure. I was called to [facility] patient. Patient at 10:56 PM. Last Vital Signs Date Time Temp Pulse Resp B/P (MAP) Pulse Ox O2 Delivery O2 Flow Rate FiO2 11/19/17 21:23 100 25 28 11/19/17 20:33 100 Mechanical Ventilator 11/19/17 20:00 97.7 156/82 11/18/17 04:00 15.0 Disposition: ADMITTED INPATIENT Condition: Critical Referrals: JAYLEN ANNE (PCP) RAMAKRISHNA LLOYD M.D. Nov 19, 2017 23:34
[2017-11-20] MEDS ORDERED: Cefepime HCl 2 GM in NS 110 ML IV SCH (09:00)
--- NOTE | 2017-11-23 11:42 | Discharge Summary ---
Discharge Summary Hospital Course Date of Admission Nov 17, 2017 at 06:28 Date of Discharge Nov 19, 2017 at 22:56 Admitting Diagnosis SEPSIS,PNEUMONIA HPI Sherin Hanna is a 87 year old female who was admitted on Nov 17, 2017 at 06:28 for Sepsis,Pneumonia Hospital Course summary # [id number] Discharge Discharge Disposition Patient Discharge Diagnoses: Gume ([facility]),Nereida SNIDER Nov 23, 2017 11:41
--- NOTE | 2017-11-24 02:45 | Discharge Summary 2 SIG ---
SUMMARY DATE OF ADMISSION: 11/17/2017 DATE OF EXPIRATION: 11/19/2017 REASON FOR ADMISSION: 87-year-old female with ventilator-dependent respiratory failure, tracheostomy status, dysphagia, G-tube, history of CVA with left-sided weakness, COPD, hypertension, hypercholesteremia, dementia, and contractures, DNR/DNI status , was sent from the [facility] [place] for evaluation due to shortness of breath. The patient with DNR/DNI status. There were no reported fever or chills. No nausea. No vomiting. The patient was afebrile. WBC -11.9. Evidence of anemia with hemoglobin -10.4 and hematocrit -33.1. Troponin elevated -0.32. Lactic acid within normal limits. Urinalysis with probable evidence of UTI. Chest x-ray revealed suspected basilar infiltrates. EKG revealed normal sinus rhythm with nonspecific ST changes. The patient was admitted with diagnoses of acute on chronic respiratory failure, aspiration pneumonia, COPD, possible UTI, and dysphagia, G-tube. HOSPITAL COURSE: The patient was admitted to [facility]. Ventilator support and tracheostomy care were provided. Baseline ABG was stable on current settings. Settings were kept as is and titrated as needed. Pulmonary toilet was provided. Follow up chest x-ray was ordered. The patient was on empiric antibiotic. ID followed. Urine culture revealed yeast. Urinalysis contaminated as per Infectious Disease notes. Influenza screen test was negative. Blood culture preliminary negative. Sputum culture revealed Stenotrophomonas. Troponin with minimal elevation, another troponin was ordered. The patient was on strict aspiration and reflux precaution. The patient was started on G-tube feeding. Tolerance was monitored. Blood pressure was managed with current regimen of beta-soledad. Hemoglobin and hematocrit were closely monitored with transfusion with a goal to keep hemoglobin above 7. DVT prophylaxis provided. Bowel regimen instituted. Mild leukocytosis resolved. The patient was afebrile. The patient also with a history of recent septic shock secondary to pneumonia and polymicrobial bacteremia in September 2017 status post treatment. ID closely followed. The patient was on the IV antibiotics. The patient with aDNR/DNI status. On 11/19/2017, the patient was noted to be in asystole. No blood pressure. ED doctor pronounced the patient on 11/19/2017 at 10:56 p.m. Cause of : cardiopulmonary arrest. FINAL DIAGNOSES: 1. Acute on chronic respiratory failure. 2. Ventilator-dependent respiratory failure/tracheostomy status. 3. Elevated troponin. 4. Aspiration pneumonia with Stenotrophomonas. 5. History of cerebrovascular accident with left-sided weakness. 6. Dysphagia, gastrostomy-tube. 7. Functional quadriplegia. 8. Hypertension. 9. Anemia. 10. Dementia. 11. DNR/DNI status Sonu Vidales M.D. Nereida Dunaway ([facility] NNinoskaPNinoska DR: MARCIA JOB#: [id number] CC: JEYSON
== END 2017-11-19 22:56 | disposition expired | DRG 208 ==
LOC: EDBD 04:41 → EMR 04:51 → 2W 06:28 → EDBEDREQ 06:35 → 2W 11-18 03:55
PROC: 5A1945Z Respiratory Ventilation, 24-96 Consecutive Hours (ICD-10-PCS; principal; 2017-11-17)
PROC: 06HN33Z Insertion of Infusion Device into Left Femoral Vein, Percutaneous Approach (ICD-10-PCS; principal; 2017-11-17)
DX: J96.20 Acute and chronic respiratory failure, unspecified whether with hypoxia or hypercapnia (principal); J69.0 Pneumonitis due to inhalation of food and vomit; J15.8 Pneumonia due to other specified bacteria; Z99.11 Dependence on respirator [ventilator] status; Z43.0 Encounter for attention to tracheostomy; J44.9 Chronic obstructive pulmonary disease, unspecified; R13.10 Dysphagia, unspecified; N39.0 Urinary tract infection, site not specified; Z43.1 Encounter for attention to gastrostomy; I69.354 Hemiplegia and hemiparesis following cerebral infarction affecting left non-dominant side; F03.90 Unspecified dementia, unspecified severity, without behavioral disturbance, psychotic disturbance, mood disturbance, and anxiety; Z66 Do not resuscitate; I10 Essential (primary) hypertension; K21.9 Gastro-esophageal reflux disease without esophagitis
CPT/HCPCS: 36415; 36600; 51702; 71045; 80048; 80053; 80069; 81003; 82550; 82553; 82803; 83605; 84484; 85025; 85610; 85730; 86710; 87040; 87070; 87081; 87086; 87205; 93005; 94002; 94003; 94640; 94664; 99285; J7620